=== PATIENT | female | born 1995 | race Caucasian/White ===

== ENCOUNTER → 2018-11-21 13:40 | Outpatient (CLI) | payer OTHER, SELFPAY | PROVIDERS: Visit Provider Obstetrics & Gynecology | DX: Z12.4 Encounter for screening for malignant neoplasm of cervix (principal) | CPT/HCPCS: 88175; G0145 ==

== ENCOUNTER → 2018-12-03 09:01 | Outpatient (CLI) | payer OTHER, SELFPAY ==
[2017-08-24 12:52] VITALS: BMI 25.7
[2018-12-03 10:02] LABS: Internal QC Validated? YES +Cl - CLEAR BKGD; Pregnancy, Urine Negative Negative
== END ==
PROVIDERS: Family Provider Internal Medicine; PCP Internal Medicine; Referring Provider Nurse Practitioner Family; Visit Provider Nurse Practitioner Family
DX: L70.0 Acne vulgaris (principal); Z79.899 Other long term (current) drug therapy
CPT/HCPCS: 81025

== ENCOUNTER → 2019-01-09 09:30 | Outpatient (CLI) | payer OTHER, SELFPAY ==
[2017-08-24 12:52] VITALS: BMI 25.7
[2019-01-09 12:20] LABS: Internal QC Validated? YES +Cl - CLEAR BKGD; Pregnancy, Urine Negative Negative
== END ==
PROVIDERS: Family Provider Internal Medicine; PCP Internal Medicine; Referring Provider Nurse Practitioner Family; Visit Provider Nurse Practitioner Family
DX: L70.0 Acne vulgaris (principal)
CPT/HCPCS: 81025

== ENCOUNTER → 2019-02-11 14:39 | Outpatient (CLI) | payer OTHER, SELFPAY ==
[2017-08-24 12:52] VITALS: BMI 25.7
[2019-02-11 18:20] LABS: Absolute Lymphocyte Count 1.43 X10^3/ul (0.83-4.51); Absolute Neutrophil Count 3.2 X10^3/uL (2.0-7.7); Basophil# 0.02 X10^3/uL; Basophil% 0.4 % (0-1); Eosinophils% 1.9 % (0-5); Hematocrit 39.5 % (37-47); Hemoglobin 13.4 g/dl (12.0-15.0); Lymphocyte # 1.43 X10^3/ul (4.0); Lymphocyte % 27.1 % (19-41); Mean Corp Hgb Conc 33.9 g/gl (32-36); Mean Corpuscular Hgb 29.9 pg (27.0-32.0); Mean Corpuscular Volume 88.2 fL (81-99); Mean Platelet Vol. 9.3 fl (6.2-12.0); Monocyte# 0.51 X10^3/uL; Monocyte% 9.7 % (0-10); Neutrophil # 3.21 X10^3/uL (2.7-7.7); Neutrophil % 60.9 % (47-70); Platelet Count 313 K/mm3 (150-450); RBC Distribution Width CV 12.4 % (11.6-14.6); RBC Distribution Width SD 40.1 fl (35.1-43.9); Red Blood Count 4.48 M/mm3 (4.2-5.4); White Blood Count 5.3 K/mm3 (4.4-11.0)
[2019-02-11 18:21] LABS: POSITIVE COUNT NO; POSITIVE DIFFERENTIAL NO; POSITIVE MORPHOLOGY NO
[2019-02-11 18:28] LABS: Internal QC Validated? YES +Cl - CLEAR BKGD; Pregnancy, Urine Negative Negative
[2019-02-11 18:40] LABS: ALB/GLOB Ratio 1.3 RATIO (0.9-2.4); AST(SGOT) 19 U/L (15-37); Alanine Aminotransfer ALT/SGPT 28 U/L (13-56); Albumin, Serum 4.5 g/dL (3.2-5.0); Alkaline Phosphatase 59 U/L (45-117); Anion Gap 4 (5-15); BUN 11 mg/dL (7-18); BUN/Creat Ratio 15.4 RATIO (10-20); Calcium,Total 9.2 mg/dL (8.5-10.1); Chloride 103 mmol/L (98-107); Cholesterol 213 mg/dL (200); Creatinine, Serum 0.72 mg/dL (0.55-1.02); EST Glomerular Filtration Rate 106 mL/min (>60); Est Glom Filt Rate - Afr Amer 128 mL/min (>60); Globulin 3.4 g/dL (2.2-4.2); Glucose 76 mg/dL (74-106); High Density Lipoprotein 54 mg/dL; Potassium 3.9 mmol/L (3.5-5.1); Protein, Total 7.9 g/dL (6.4-8.2); Sodium Level 135 mmol/L (136-145); Triglycerides 332 mg/dL; Very Low Density Lipoprotein 66 mg/dL (5-40)
== END ==
PROVIDERS: Family Provider Internal Medicine; PCP Internal Medicine; Referring Provider Nurse Practitioner Family; Visit Provider Nurse Practitioner Family
DX: L70.0 Acne vulgaris (principal); Z79.899 Other long term (current) drug therapy
CPT/HCPCS: 36415; 80053; 80061; 81025; 85025

== ENCOUNTER → 2019-03-25 15:55 | Outpatient (CLI) | payer OTHER, SELFPAY ==
[2017-08-24 12:52] VITALS: BMI 25.7
[2019-03-25 17:51] LABS: Internal QC Validated? YES +Cl - CLEAR BKGD; Pregnancy, Urine Negative Negative
== END ==
PROVIDERS: Family Provider Internal Medicine; PCP Internal Medicine; Referring Provider Nurse Practitioner Family; Visit Provider Nurse Practitioner Family
DX: L70.0 Acne vulgaris (principal); Z79.899 Other long term (current) drug therapy
CPT/HCPCS: 36415; 81025

== ENCOUNTER → 2019-05-06 09:23 | Outpatient (CLI) | payer OTHER, SELFPAY ==
[2017-08-24 12:52] VITALS: BMI 25.7
[2019-05-06 10:21] LABS: Internal QC Validated? YES +Cl - CLEAR BKGD; Pregnancy, Urine Negative Negative
== END ==
PROVIDERS: Family Provider Internal Medicine; PCP Internal Medicine; Referring Provider Nurse Practitioner Family; Visit Provider Nurse Practitioner Family
DX: L70.0 Acne vulgaris (principal)
CPT/HCPCS: 81025

== ENCOUNTER → 2019-06-16 08:17 | Outpatient (CLI) | payer OTHER, SELFPAY ==
[2017-08-24 12:52] VITALS: BMI 25.7
[2019-06-16 10:03] LABS: Internal QC Validated? YES +Cl - CLEAR BKGD
[2019-06-16 10:06] LABS: Pregnancy, Urine Negative Negative
== END ==
PROVIDERS: Family Provider Internal Medicine; PCP Internal Medicine; Referring Provider Dermatology; Visit Provider Dermatology
DX: L70.0 Acne vulgaris (principal); Z79.899 Other long term (current) drug therapy
CPT/HCPCS: 81025

== ENCOUNTER → 2020-12-19 14:17 | Outpatient (CLI) | payer OTHER, SELFPAY ==
[2020-12-19 14:13] VITALS: BMI 25.8
[2020-12-19 15:48] LABS: Absolute Lymphocyte Count 1.71 X10^3/uL (0.83-4.51); Absolute Neutrophil Count 6.9 X10^3/uL (2.0-7.7); Basophil# 0.03 X10^3/uL; Basophil% 0.3 % (0-1); Eosinophil# 0.09 X10^3/uL; Hematocrit 38.2 % (37-47); Hemoglobin 12.3 g/dL (12.0-15.0); Lymphocyte # 1.71 X10^3/ul (0.83-4.51); Lymphocyte % 18.5 % (19-41); Mean Corp Hgb Conc 32.2 g/dL (32-36); Mean Corpuscular Hgb 29.5 pg (27.0-32.0); Mean Corpuscular Volume 91.6 fL (81-99); Mean Platelet Vol. 9.5 fl (6.2-12.0); Monocyte# 0.54 X10^3/uL; Monocyte% 5.8 % (0-10); NRBC Flagged by Analyzer 0 % (0-5); Neutrophil # 6.85 X10^3/uL (2.7-7.7); Platelet Count 323 K/mm3 (150-450); RBC Distribution Width CV 12.4 % (11.6-14.6); RBC Distribution Width SD 42.1 fl (35.1-43.9); Red Blood Count 4.17 M/mm3 (4.2-5.4); White Blood Count 9.3 K/mm3 (4.4-11.0)
[2020-12-19 18:45] LABS: Amphetamine Urine VISTA NEGATIVE (<1000 ng/mL); Barbiturate Urine VISTA NEGATIVE (< 200 ng/mL); Benzodiazepine Urine VISTA NEGATIVE (< 200 ng/mL); Cocaine Urine VISTA NEGATIVE (< 300 ng/mL); Ecstacy Urine VISTA NEGATIVE (< 500 ng/mL); Methadone Urine VISTA NEGATIVE (< 300 ng/mL); PCP Urine VISTA NEGATIVE (< 25 ng/mL); THC Urine VISTA NEGATIVE (< 50 ng/mL); Vista UDS pH Range 6
[2020-12-20 09:27] LABS: HIV - WCH Non-Reactive (Nonreactive); Hepatitis B Surface Antigen Non-Reactive (Nonreactive); Hepatitis C Antibody Non-Reactive (Nonreactive); Rubella IgG Reactive (Nonreactive); Syphilis Antibodies Non-reactive
[2020-12-22 03:06] LABS: Chlamydia By Nucleic Acid AMP Negative (Negative)
[2020-12-22 17:00] LABS: Gonococcus By Nucleic Acid AMP Negative (Negative)
== END ==
PROVIDERS: PCP Internal Medicine; Referring Provider Obstetrics & Gynecology; Visit Provider Obstetrics & Gynecology
DX: Z34.90 Encounter for supervision of normal pregnancy, unspecified, unspecified trimester (principal)
CPT/HCPCS: 36415; 80307; 85025; 86703; 86762; 86780; 86803; 86850; 86900; 86901; 87086; 87088; 87340; 87491; 87591

== ENCOUNTER → 2021-02-28 12:34 | Outpatient (CLI) | payer OTHER, SELFPAY ==
[2021-01-19 08:06] VITALS: BMI 25.8
[2021-02-16 11:14] VITALS: BMI 25.8
--- NOTE | 2021-02-28 12:36 | US_ITS ---
STUDY: SECOND AND THIRD TRIMESTER OBSTETRICAL ULTRASOUND REASON FOR EXAM: Female, 25 years old anatomy scan LMP: TECHNIQUE: Transabdominal TECHNICAL QUALITY: Adequate. PRIOR ULTRASOUND: None. FINDINGS: There is a single intrauterine fetus. The fetus is in a cephalic presentation. There is demonstrated cardiac activity with a heart rate of 140 bpm. There is a normal amniotic fluid volume. The largest amniotic fluid pocket measures 8.2 cm. The amniotic fluid index (EMILIO) is cm. The placenta is anterior and low lying but not previa in location. There are Grade 0 placental changes. The cervix measures 3.2 cm in length. The adnexal regions are not visualized. BIOMETRY: BPD: 4.2 cm: 18 weeks, 5 days HC: 15.9 cm: 18 weeks, 5 days AC: 14.0 cm: 19 weeks, 2 days FL: 2.8 cm: 18 weeks, 3 days CI: 74.5 FL/BPD: 65.8 FL/HC: 17.4 FL/AC: 19.8 HC/AC: 1.14 age by current US: 18 weeks, 6 days. DIAMANTE by current US: 07/26/2021. Estimated weight: 266 grams, +/- 40 grams, 43 %. age by prior US: weeks, days. DIAMANTE by prior US: . Age by LMP: 19 weeks, 0 days. DIAMANTE by LMP: 07/25/2021. ANATOMY: Gender: Female Cranium: Normal lateral ventricles. Normal choroid plexus. Normal cerebellum. Normal cisterna magna. Normal face, nose and lips. Chest: Normal 4-chamber heart. Abdomen/Pelvis: Normal diaphragm. Normal stomach. Normal abdominal wall. Normal cord insertion. Normal 3 vessel cord. Normal kidneys. Normal bladder. Spine: Normal cervical spine. Normal thoracic spine. Normal lumbar spine. Normal sacrum. Extremities: Normal bilateral upper extremities. Normal bilateral lower extremities. US/OB Anatomy Scan IMPRESSION: Living intrauterine of 18 weeks 6 days as described above. Anterior low-lying placenta. Electronically Signed: Faisal Chang MD at 15:17 EDT Tel , Service support ,
== END ==
PROVIDERS: PCP Internal Medicine; Referring Provider Obstetrics & Gynecology; Visit Provider Obstetrics & Gynecology
DX: Z34.90 Encounter for supervision of normal pregnancy, unspecified, unspecified trimester (principal)
CPT/HCPCS: 76805; 76817

== ENCOUNTER → 2021-04-13 | Outpatient (CLI) | payer OTHER, SELFPAY ==
[2021-04-13 08:39] VITALS: BMI 25.8
== END | disposition home or self-care (01) ==
PROVIDERS: PCP Internal Medicine; Visit Provider Nurse Practitioner Women's Health
DX: R30.0 Dysuria (principal)
CPT/HCPCS: 87086; 87088

== ENCOUNTER → 2021-05-01 09:00 | Outpatient (CLI) | payer OTHER, SELFPAY ==
[2021-03-17 14:05] VITALS: BMI 25.8
--- NOTE | 2021-05-01 09:20 | US_ITS ---
STUDY: SECOND AND THIRD TRIMESTER OBSTETRICAL ULTRASOUND - LIMITED REASON FOR EXAM: Female, 25 years old placenta location at 28 weeks LMP: 10/18/2020 PRIOR ULTRASOUND: 02/28/2021 TECHNIQUE: Transabdominal TECHNICAL QUALITY: Adequate. FINDINGS: There is a single intrauterine fetus. The fetus is in a cephalic presentation. There is demonstrated cardiac activity with a heart rate of 141 bpm. There is a normal amniotic fluid volume. The largest amniotic fluid pocket measures 4.8 cm. The amniotic fluid index (EMILIO) is 12.8 cm. The placenta is anterior in location and is not low lying. There are Grade 0 placental changes. The cervix measures 3.7 cm in length. Age by LMP: 27 weeks, 6 days. DIAMANTE by LMP: 07/25/2021. US/OB Limited (No Biometrics) IMPRESSION: Living intrauterine of 27 weeks 6 days as described above. Electronically Signed: Faisal Chang MD at 13:08 EDT Tel , Service support ,
[2021-05-01 09:22] LABS: Absolute Lymphocyte Count 1.51 X10^3/uL (0.83-4.51); Absolute Neutrophil Count 5.3 X10^3/uL (2.0-7.7); Basophil# 0.03 X10^3/uL; Basophil% 0.4 % (0-1); Eosinophil# 0.09 X10^3/uL; Eosinophils% 1.2 % (0-5); Hematocrit 33.4 % (37-47); Hemoglobin 11.1 g/dL (12.0-15.0); Lymphocyte # 1.51 X10^3/ul (0.83-4.51); Lymphocyte % 20.4 % (19-41); Mean Corp Hgb Conc 33.2 g/dL (32-36); Mean Corpuscular Hgb 31.1 pg (27.0-32.0); Mean Corpuscular Volume 93.6 fL (81-99); Monocyte# 0.41 X10^3/uL; Monocyte% 5.5 % (0-10); NRBC Flagged by Analyzer 0 % (0-5); Neutrophil # 5.31 X10^3/uL (2.7-7.7); Platelet Count 177 K/mm3 (150-450); RBC Distribution Width CV 12.3 % (11.6-14.6); RBC Distribution Width SD 42.3 fl (35.1-43.9); Red Blood Count 3.57 M/mm3 (4.2-5.4); White Blood Count 7.4 K/mm3 (4.4-11.0)
[2021-05-01 09:38] LABS: Glucose Challenge Gest 1H 50g 142 mg/dL (70-140)
== END ==
PROVIDERS: Nurse Practitioner Women's Health; PCP Internal Medicine; Referring Provider Obstetrics & Gynecology; Visit Provider Obstetrics & Gynecology
DX: Z34.02 Encounter for supervision of normal first pregnancy, second trimester (principal)
CPT/HCPCS: 36415; 76815; 82950; 85025

== ENCOUNTER → 2021-05-10 06:49 | Outpatient (CLI) | payer OTHER, SELFPAY ==
[2021-05-10 07:47] LABS: Glucose GTT-Gestation. Fasting 77 mg/dL (<105)
[2021-05-10 08:35] LABS: Glucose GTT-Gestational 1 Hr 171 mg/dL (<190)
[2021-05-10 11:06] LABS: Glucose GTT-Gestational 3 Hr 114 L (<145)
[2021-05-10 11:09] LABS: Glucose GTT-Gestational 2 Hr 143 mg/dL (<165)
== END ==
PROVIDERS: PCP Internal Medicine; Referring Provider Obstetrics & Gynecology; Visit Provider Obstetrics & Gynecology
DX: Z13.1 Encounter for screening for diabetes mellitus (principal)
CPT/HCPCS: 36415; 82951; 82952

== ENCOUNTER → 2021-06-30 17:10 | Outpatient (CLI) | payer OTHER, SELFPAY | PROVIDERS: PCP Internal Medicine; Visit Provider Obstetrics & Gynecology | DX: Z34.90 Encounter for supervision of normal pregnancy, unspecified, unspecified trimester (principal) | CPT/HCPCS: 87081 ==

== ENCOUNTER 2021-07-21 11:00 | Inpatient (IN) | payer OTHER, SELFPAY ==
[2021-07-21] VITALS (38 sets, daily range): BP systolic 97–134; BP diastolic 54–92; PULSE 72–135; TEMP 35.5–36.7; O2SAT 97–100; BMI 29.7
[2021-07-21] MEDS: 0.9% Saline Lock 10 ML Syringe IV ×3 (11:10→21:53)
[2021-07-21 11:46] LABS: Absolute Lymphocyte Count 1.53 X10^3/uL (0.83-4.51); Absolute Neutrophil Count 5.5 X10^3/uL (2.0-7.7); Basophil# 0.04 X10^3/uL; Basophil% 0.5 % (0-1); Eosinophil# 0.08 X10^3/uL; Hematocrit 36.5 % (37-47); Hemoglobin 12.7 g/dL (12.0-15.0); Lymphocyte # 1.53 X10^3/ul (0.83-4.51); Lymphocyte % 19.6 % (19-41); Mean Corp Hgb Conc 34.8 g/dL (32-36); Mean Corpuscular Hgb 31.5 pg (27.0-32.0); Mean Corpuscular Volume 90.6 fL (81-99); Mean Platelet Vol. 10.1 fl (6.2-12.0); Monocyte# 0.56 X10^3/uL; Monocyte% 7.2 % (0-10); NRBC Flagged by Analyzer 0 % (0-5); Neutrophil # 5.54 X10^3/uL (2.7-7.7); Neutrophil % 71.2 % (47-70); Platelet Count 177 K/mm3 (150-450); RBC Distribution Width CV 12.5 % (11.6-14.6); RBC Distribution Width SD 41.2 fl (35.1-43.9); Red Blood Count 4.03 M/mm3 (4.2-5.4); White Blood Count 7.8 K/mm3 (4.4-11.0)
[2021-07-21] MEDS: 0.9% Normal Saline Single 100 ML IV.SOLN. INTRA-UTER (12:23)
[2021-07-21] MEDS: Lactated Ringers 1,000 ML 50 ML IV (12:31)
[2021-07-21] MEDS: Oxytocin 30 units/NS 500 ml 30 UNITS/500 ML IV.SOLN IV (12:31)
--- NOTE | 2021-07-21 15:02 | HP.PCM_ITS ---
History and Physical Date of Admission: 07/21/21 Vital Signs 07/21/21 09:41 Weight: 176 lb 12.8 oz BP 122/72 H Intake Visit Reasons: 39WK OB Allergies geo Allergy (Verified 07/12/21 11:21) Unknown Last Menstral Period: 10/10/20 PFS PFS Medical History Depression History of venomous spider bite Low-lying placenta in second trimester Surgical History H/O wisdom tooth extraction Hx of tonsillectomy Family History Aunt Breast cancer Social History adopted: No household members: spouse housing: house current occupational status: employed current occupation: [employer] Smoking Status: Never smoker second hand exposure: No alcohol intake: never substance use type: does not use seatbelt use: always do you feel safe at home: Yes additional social history: [employer] employee [employer] Pregancy History 1 Elective abortions Hx Para Spontaneous abortions Hx # Term Pregnancies Ectopic pregnancies Hx # Pregnancies Multiple births # of living children HPI 39WK OB Details: SAGE GONZALES is a 25 year old who presents for routine OB visit. OB Visit DIAMANTE Calculator Estimated Delivery Date Method Current WG Current Estimate 07/25/21 Ultrasound #1 39w 3d Other Estimates 07/17/21 LMP (Certain) 40w 4d Expected Delivery Route/Plan Labor Preferences- labor support person: soy labor intervention preferences: open to standard interventions pain management options preferred: natural if able but likely planning epidural cut cord/dad catch: maybe cord, patient possibly wants to help : yes PP control planned: iud? discussed possible routes of delivery and associated risks: discussed possible delivery modalities and possible indications for each including R/B/A of , VAVD, and CS. questions answered. special requests: none Specific Issue/Plans covid status: pos in september counseled regarding risk of covid in vs vaccination and declined vaccination flu vaccine: given tdap vaccine: given rhogam: na LARC form signed: 05/25 movement and labor precautions reviewed. Problem list reviewed and updated with the most current plan of care details and appropriate orders placed. Relevant counseling for the gestational age provided. Continue routine care and follow up unless otherwise noted in visit notes/problem list details Initial Weight: 150 lb Date EGA Weight BP Urine Prot Glucose FHR FuHt Pres Dilation Effaced St Visit Note 12/19/20 8w 6d 150 lb 8 oz (+8 oz) 110/70 175 SM- CRL NOT cons with LMP, 1.9 cm 01/19/21 13w 2d 153 lb (+3 lb) 114/64 Negative Negative 150 SM- no vb no regualr ctx 02/16/21 17w 2d 153 lb (+3 lb) 98/68 Negative Negative 154 MH-NO VB, LOF. Feels well. Anatomy US [facility] 02/2803/17/21 21w 3d 159 lb 8 oz (+9 lb 8 oz) 94/70 Negative Negative 155 GP - no LOF, VB, DFM, ctx. Denies complaints. Having a girl! 04/13/21 25w 2d 161 lb 6 oz (+11 lb 6 oz) 110/60 Negative Negative 157 24 MH-No VB, LOF. Doing well. Good FM. US scheduled 05/01 to check placenta 05/10/21 29w 1d 161 lb 4 oz (+11 lb 4 oz) 110/70 Negative Negative 145 30 Cephalic SM- no vb lof good fm no reuglar ctx nl gtt 3 hr 05/25/21 31w 2d 164 lb (+14 lb) 110/70 Negative Negative 150 31 Cephalic GP - no LOF, VB, dFM, ctx. LARC form signed - declines 06/09/21 33w 3d 169 lb (+19 lb) 110/80 Negative Negative 150 33 Cephalic GP - no LOF, VB, dFM, ctx. Discussed labor preferences. 06/23/21 35w 3d 168 lb 6 oz (+18 lb 6 oz) 112/70 Negative Negative 150 35 Cephalic SM- no vb lof good fm no regular ctx 06/30/21 36w 3d 172 lb (+22 lb) 130/82 Negative Negative 140 36 Cephalic 1 SM- no vb lof good fm no regular ctx gbs today 07/07/21 37w 3d 171 lb (+21 lb) 112/72 140 37 Cephalic SM- no vb lof good fm no reuglar ctx 07/12/21 38w 1d 173 lb (+23 lb) 112/80 140 38 Cephalic SM- no vb lof good fm no reuglar ctx some swelling 07/21/21 39w 3d 176 lb 12.8 oz (+26 lb 12.8 oz) 122/72 135 35 Cephalic 2 40 -1 SM- no vb lof good fm no regular ctx, low FH an done and 4.9 recommend IOL ACOG First Trimester First Trimester: Desire for , Alcohol, Tobacco Cessation, Illicit/Recreational Drug/Substance Use, Intimate Partner Violence, Barriers to care, Unstable Housing, Communication Barriers, Environmental/Work Hazards, Anticipated Course of Care, Toxoplasmosis Precations, Use of Any medications, Sexual activity, Exercise, Dental Care, Sauna/Hot tub use, Seat Belt use, Childbirth classes/Hospital facilities, , Travel, Indications for Ultrasound and Screening for Aneuploidy Diagnostics Diagnostics Diagnostics: Gest Glucose Tolerance MG/DL Glucose 1 Hr 50 gm 142 mg/dL (70-140) H Hgb 11.1 g/dL (12.0-15.0) L Hct 33.4 % (37-47) L Details: HIV: Urine Culture: Sequential Screen: NIPT Screen: Coding Level of Care Code OB Routine Diagnoses Oligohydramnios in third trimester O41.03X0 Abnormal glucose affecting O99.810 Depression F32.9 Depression Type: unspecified Supervision of normal Z34.02 Normal : normal first Trimester: second trimester Z3A.38 Weeks of gestation: 38 weeks Assessment and Plan Assessment and Plan (1) Oligohydramnios in third trimester: Status: Acute Comment: IOL pit and fb, epi PRN (2) Abnormal glucose affecting : Status: Acute Comment: nl 3GTT (3) Depression: Status: Acute Qualifiers: Depression Type: unspecified Qualified Code(s): F32.9 - Major depressive disorder, single episode, unspecified Comment: not on any medication at this time. 02/16 stable (4) Supervision of normal : Status: Acute Qualifiers: Normal : normal first Trimester: second Qualified Code(s): Z34.02 - Encounter for supervision of normal first , second trimester Comment: PRR DIAMANTE: 07/25/21 girl Cornelia Spouse: Soy (5) : Status: Acute Qualifiers: Weeks of gestation: 38 weeks Qualified Code(s): Z3A.38 - 38 weeks gestation of Comment: negative GBS, declines genetic and carrier screening. declines afp. anatomy nl UPDATE- I have seen the patient and performed any clinically relevant updates to the history and physical exam. Alejandrina Marshall MD
[2021-07-21] MEDS: Lactated Ringers 500 ML 999 ML IV ×2 (20:05→21:05)
[2021-07-21] MEDS: fentaNYL-bupivacaine (epidural) 100 ML BAG EPIDURAL (21:03)
[2021-07-21] MEDS: Ondansetron 4 MG/2 ML Vial IV (21:54)
[2021-07-22] VITALS (43 sets, daily range): BP systolic 109–132; BP diastolic 46–86; PULSE 70–101; RESP 16–18; TEMP 36.1–36.9; O2SAT 92–100
[2021-07-22] MEDS: Lactated Ringers 1,000 ML 200 ML IV (00:33)
[2021-07-22] MEDS: fentaNYL-bupivacaine (epidural) 100 ML BAG EPIDURAL (01:20)
--- NOTE | 2021-07-22 01:52 | OP.PCM_ITS ---
Assessment & Plan (1) : QUALIFIERS: Weeks of gestation: 38 weeks Qualified Code(s): Z3A.38 - 38 weeks gestation of COMMENT: negative GBS, declines genetic and carrier screening. declines afp. anatomy nl (2) Supervision of normal : QUALIFIERS: Normal : normal first Trimester: second trimester Qualified Code(s): Z34.02 - Encounter for supervision of normal first , second trimester COMMENT: PRR DIAMANTE: 07/25/21 girl Cornelia Spouse: Nitin (3) Depression: QUALIFIERS: Depression Type: unspecified Qualified Code(s): F32.9 - Major depressive disorder, single episode, unspecified COMMENT: not on any medication at this time. 02/16 stable (4) Abnormal glucose affecting : COMMENT: nl 3GTT (5) Oligohydramnios in third trimester: COMMENT: IOL pit and fb, epi PRN (6) Vaginal delivery: COMMENT: iol oligo 39 SM girl Cornelia Maternal Data Information DIAMANTE Calculator Estimated Delivery Date Method Current WG Current Estimate 07/25/21 Ultrasound #1 39w 4d Other Estimates 07/17/21 LMP (Certain) 40w 5d Vaginal Delivery Operative Information Date of Procedure: 07/22/21 Pre-Operative Diagnosis: IOL oligo Post-Operative Diagnosis: same Surgery / Procedure Performed: Spontaneous Vaginal Delivery Type of Anesthesia: Epidural Special Medications: none Estimated Blood Loss: 400 Fluids Replaced: crystalloid Findings Description of Procedure: Patient began pushing and delivered the head in the DAVID presentation. The head was delivered atraumatically . The anterior and posterior shoulders delivered without complication followed by the rest of the infant and the infant was placed on the maternal abdomen. Delayed cord clamping was employed for approximately 60 seconds. Cord was clamped and cut and gentle traction was applied to the cord and the placenta delivered spontaneously immediately following it was noted to be intact with three-vessel cord. The perineum and vagina were inspected and noted a small first-degree perineal laceration that was repaired in the usual fashion with 3-0 Vicryl Rapide. EBL was 400 cc. Patient and tolerated delivery well. Presentation: DAVID Amniotic Membrane Rupture Type: Artificial Amniotic Fluid Description: Clear Placental Delivery Description: Spontaneous Placenta Disposition: [facility] Cord Vessel Description: 3 Vessels Cord Entanglement: None A Gender: Female Delayed Cord Clamping: Yes Post Vaginal Delivery Medications Given After Delivery: IV Pitocin Episiotomy Description: None Laceration: Perineal Extension/lac and 1st degree Complication Complications: None Procedures Urinary/Genital [id number]: [id number] Vaginal Delivery [facility]
--- NOTE | 2021-07-22 01:58 | PCM.DC ---
Discharge Instructions Diet Discharge Diet: No restrictions Activity Discharge Activity: Return to Normal Activity, May Not Drive (while taking narcotic pain medications.) and May Shower May resume sexual activity in: 4-6 weeks Dressing / Incision Call your doctor if your incision/area has: Continuous Slow Oozing, Sudden Increased Bleeding, Increased Pain/ Swelling, Increased Redness and Foul Smelling Discharge Follow Up Care Please Follow Up With: Alejandrina Marshall MD When: Call [phone] to make an appointment with your doctor in 6 weeks. If you had elevated blood pressure or 4th degree laceration, you will need to be seen in 2 weeks. Test Results: Test results from this visit will be discussed in further detail at your follow-up appointment, if applicable. Discharge Plan Admission Admit Date/Time: 07/21/21 11:00 Primary Reason for Your Visit: vaginal delivery Attending Provider: Alejandrina Marshall Primary Care Provider: Sunita Fernandes Discharge Orders/Prescriptions Prescriptions: No Action PNV-DHA 27 mg iron-1 mg -300 mg capsule 1 cap PO DAILY RF: 0 Referrals / Follow Up: Sunita Fernandes DO [Primary Care Provider] - Disposition Disposition (needs filled in before D/C Order can be placed): Home, Self Care
[2021-07-22] MEDS: Ondansetron 4 MG/2 ML Vial IV (02:36)
[2021-07-22] MEDS: Acetaminophen 500 MG Tablet PO (03:13)
[2021-07-22] MEDS: Oxytocin 30 units/NS 500 ml 30 UNITS/500 ML IV.SOLN 334 UNITS IV (03:55)
[2021-07-22] MEDS: Naproxen 500 MG Tablet PO ×3 (04:47→21:25)
--- NOTE | 2021-07-22 08:20 | NURSING ---
Epidural catheter removed, tip intact.
[2021-07-22] MEDS: Prenatal Vits Tablet 1 TABLET PO (13:22)
[2021-07-23 03:54] VITALS: BP 121/74; PULSE 78; RESP 16; TEMP 36.3
[2021-07-23 07:52] VITALS: BP 117/73; PULSE 84; RESP 14; TEMP 36.3; O2SAT 98
--- NOTE | 2021-07-23 08:41 | PCM.PN.OB ---
Subjective Subjective Patient doing well without complaints. Tolerating PO. Ambulating and voiding without difficulty. feeding well. Denies chest pain, shortness of breath, calf pain/swelling, fevers, chills, lightheadedness. Objective Data Objective Data Vital Signs: Vital Signs Temp Pulse Resp BP Pulse Ox 97.3 F L 84 14 117/73 98 07/23/21 07:52 07/23/21 07:52 07/23/21 07:52 07/23/21 07:52 07/23/21 07:52 Oxygen Delivery Method Room Air Weight: 173 lb Body Mass Index (BMI) 29.7 Intake & Output: Intake and Output for Last 24 Hours 07/21/21 07/22/21 07/23/21 23:59 23:59 23:59 Intake Total 3027.07 / 3027.07 2230.63 / 2230.63 Output Total 650 / 650 400 / 400 Balance 2377.07 / 2377.07 1830.63 / 1830.63 Lab / Micro Data Result Diagrams: 07/21/21 11:10 Micro: Microbiology 07/21/21 11:25 Nasal Secretion SARS-CoV-2 Antigen (Rapid) - Final ROS Constitutional Constitutional: Reports systems reviewed and no addt'l complaints, except as documented Cardiovascular Cardiovascular: Reports systems reviewed and no addt'l complaints, except as documented Respiratory/Chest Respiratory/Chest: Reports systems reviewed and no addt'l complaints, except as documented Gastrointestinal Gastrointestinal: Reports systems reviewed and no addt'l complaints, except as documented Physical Exam Const alert, oriented x3 and no apparent distress HEENT Head and Scalp: atraumatic Resp normal respiratory effort GI soft to palpation and non-tender Inspection: incision intact, healing well and drainage (none) Bimanual Exam - Vag & Uterus: uterus non-tender Uterus Palpation: uterus fundus firm (below Umbilicus) Assessment & Plan (1) Vaginal delivery: COMMENT: iol oligo 39 SM girl Cornelia PLAN: s/p PPD # 1 1. routine post delivery care 2. breast feeding- support given 3. rh positive 4. rubella immune
== END 2021-07-23 09:30 | disposition home or self-care (01) | DRG 807 ==
PROVIDERS: Admitting Provider Obstetrics & Gynecology; PCP Internal Medicine; Visit Provider Obstetrics & Gynecology
DX: O41.03X0 Oligohydramnios, third trimester, not applicable or unspecified (principal); Z37.0 Single live birth; O99.814 Abnormal glucose complicating childbirth; O70.0 First degree perineal laceration during delivery; Z3A.39 39 weeks gestation of pregnancy; Z86.16 Personal history of COVID-19
CPT/HCPCS: 59025; 59050; 85025; 86850; 86900; 86901; 87426; 99218; J7120; A4216; G0378; J2405

== ENCOUNTER 2021-09-07 14:55 | Outpatient (CLI) | payer OTHER, SELFPAY ==
[2021-09-12 20:20] LABS: HPV Reflexed? NOT INDICATED
== END 2021-09-07 23:59 | disposition short-term general hospital (02) ==
PROVIDERS: PCP Internal Medicine; Referring Provider Obstetrics & Gynecology; Visit Provider Obstetrics & Gynecology
DX: Z12.4 Encounter for screening for malignant neoplasm of cervix (principal)
CPT/HCPCS: 88175; G0145

== ENCOUNTER → 2023-11-22 | Outpatient (CLI) | payer OTHER, SELFPAY ==
[2023-11-22 12:18] LABS: Absolute Lymphocyte Count 1.83 X10^3/uL (0.83-4.51); Absolute Neutrophil Count 7.2 X10^3/uL (2.0-7.7); Basophil# 0.04 X10^3/uL; Basophil% 0.4 % (0-1); Eosinophil# 0.12 X10^3/uL; Eosinophils% 1.2 % (0-5); Hematocrit 37.7 % (37-47); Hemoglobin 12.7 g/dL (12.0-15.0); Lymphocyte # 1.83 X10^3/ul (0.83-4.51); Lymphocyte % 18.7 % (19-41); Mean Corp Hgb Conc 33.7 g/dL (32-36); Mean Corpuscular Hgb 30.2 pg (27.0-32.0); Mean Corpuscular Volume 89.5 fL (81-99); Monocyte# 0.62 X10^3/uL; Monocyte% 6.3 % (0-10); NRBC Flagged by Analyzer 0 % (0-5); Neutrophil # 7.16 X10^3/uL (2.7-7.7); Neutrophil % 73.2 % (47-70); Platelet Count 280 K/mm3 (150-450); RBC Distribution Width CV 12.8 % (11.6-14.6); RBC Distribution Width SD 42.1 fl (35.1-43.9); Red Blood Count 4.21 M/mm3 (4.2-5.4); White Blood Count 9.8 K/mm3 (4.4-11.0)
[2023-11-22 13:23] LABS: HIV - WCH Non-Reactive (Nonreactive); Hepatitis B Surface Antigen Non-Reactive (Nonreactive); Hepatitis C Antibody Non-Reactive (Nonreactive); Rubella IgG Reactive (Nonreactive); Syphilis Antibodies Non-reactive
[2023-11-25 21:07] LABS: Chlamydia By Nucleic Acid AMP Negative (Negative); Gonococcus By Nucleic Acid AMP Negative (Negative)
== END | disposition home or self-care (01) ==
PROVIDERS: PCP Internal Medicine; Referring Provider Registered Nurse; Visit Provider Registered Nurse
DX: Z34.90 Encounter for supervision of normal pregnancy, unspecified, unspecified trimester (principal)
CPT/HCPCS: 36415; 85025; 86703; 86762; 86780; 86803; 86850; 86900; 86901; 87086; 87340; 87491; 87591

== ENCOUNTER → 2024-02-05 | Outpatient (CLI) | payer OTHER, SELFPAY ==
--- NOTE | 2024-02-05 12:25 | US_ITS ---
STUDY: SECOND AND THIRD TRIMESTER OBSTETRICAL ULTRASOUND REASON FOR EXAM: Female, 28 years old anatomy LMP: September 19, 2023. TECHNIQUE: Transabdominal and Transvaginal TECHNICAL QUALITY: Adequate. PRIOR ULTRASOUND: None. FINDINGS: There is a single intrauterine fetus. The fetus is in a breech presentation. There is demonstrated cardiac activity with a heart rate of 145 bpm. There is a normal amniotic fluid volume. The largest amniotic fluid pocket measures 4.3 cm x 4.3 cm. The amniotic fluid index (EMILIO) is within normal limits. The placenta is posterior in location and is not low lying. There are Grade 0 placental changes. The cervix measures 3.2 cm in length. The bilateral adnexal regions are normal. BIOMETRY: BPD: 4.5 cm: 19 weeks, 3 days HC: 16.7 cm: 19 weeks, 3 days AC: 14.7 cm: 20 weeks, 0 days FL: 3.1 cm: 19 weeks, 3 days CI: 75% FL/BPD: 69% FL/HC: FL/AC: 21% HC/AC: 1.13 age by current US: 19 weeks, 4 days. DIAMANTE by current US: June 27, 2024. Estimated weight: 310 grams, +/- 47 grams, 39 %. Age by LMP: 19 weeks, 6 days. DIAMANTE by LMP: June 25, 2024. ANATOMY: Gender: Female Cranium: Normal lateral ventricles. Normal choroid plexus. Normal cerebellum. Normal cisterna magna. Normal face, nose and lips. Chest: Normal 4-chamber heart. Abdomen/Pelvis: Normal diaphragm. Normal stomach. Normal abdominal wall. Normal cord insertion. Normal 3 vessel cord. Normal kidneys. Normal bladder. Spine: Normal cervical spine. Normal thoracic spine. Normal lumbar spine. Limited visualization of the sacrum due to position. Extremities: Normal bilateral upper extremities. Normal bilateral lower extremities. IMPRESSION: Single live intrauterine gestation with a mean gestational age of 19 weeks and 4 days. Electronically Signed: Edison Taveras MD at 15:37 EDT , STUDY: FIRST TRIMESTER OBSTETRICAL ULTRASOUND REASON FOR EXAM: Female, 28 years old . Cervical length. LMP: September 19, 2023. TECHNIQUE: Transvaginal TECHNICAL QUALITY: Adequate. PRIOR ULTRASOUND: None. FINDINGS: Cervical length measures 3.2 cm. US/OB Anatomy Scan IMPRESSION: Cervical length measures 3.2 cm. Electronically Signed: Edison Taveras MD at 15:38 EDT ,
== END | disposition home or self-care (01) ==
LOC: OPUS 12:23
PROVIDERS: PCP Internal Medicine; Referring Provider Obstetrics & Gynecology; Visit Provider Obstetrics & Gynecology
DX: Z34.81 Encounter for supervision of other normal pregnancy, first trimester (principal)
CPT/HCPCS: 76805; 76817

== ENCOUNTER → 2024-03-16 | Outpatient (CLI) | payer OTHER, SELFPAY ==
[2024-03-16 07:22] LABS: Absolute Lymphocyte Count 1.45 X10^3/uL (0.83-4.51); Absolute Neutrophil Count 4.9 X10^3/uL (2.0-7.7); Basophil# 0.03 X10^3/uL; Basophil% 0.4 % (0-1); Eosinophil# 0.16 X10^3/uL; Eosinophils% 2.2 % (0-5); Hematocrit 33.2 % (37-47); Hemoglobin 10.9 g/dL (12.0-15.0); Lymphocyte # 1.45 X10^3/ul (0.83-4.51); Lymphocyte % 20.3 % (19-41); Mean Corp Hgb Conc 32.8 g/dL (32-36); Mean Corpuscular Hgb 30.4 pg (27.0-32.0); Mean Corpuscular Volume 92.5 fL (81-99); Mean Platelet Vol. 9.4 fl (6.2-12.0); Monocyte# 0.57 X10^3/uL; NRBC Flagged by Analyzer 0 % (0-5); Neutrophil # 4.89 X10^3/uL (2.7-7.7); Neutrophil % 68.5 % (47-70); Platelet Count 219 K/mm3 (150-450); RBC Distribution Width SD 43.8 fl (35.1-43.9); Red Blood Count 3.59 M/mm3 (4.2-5.4); White Blood Count 7.1 K/mm3 (4.4-11.0)
[2024-03-16 07:47] LABS: Glucose Challenge Gest 1H 50g 70 mg/dL (70-140)
[2024-03-16 08:17] LABS: HIV - WCH Non-Reactive (Nonreactive); Syphilis Antibodies Non-reactive
== END | disposition home or self-care (01) ==
LOC: LAB 06:41
PROVIDERS: PCP Internal Medicine; Referring Provider Advanced Practice Midwife; Visit Provider Advanced Practice Midwife
DX: Z34.81 Encounter for supervision of other normal pregnancy, first trimester (principal)
CPT/HCPCS: 36415; 82950; 85025; 86703; 86780

== ENCOUNTER → 2024-05-22 | Outpatient (CLI) | payer OTHER, SELFPAY ==
--- NOTE | 2024-05-22 11:31 | US_ITS ---
EXAM: US , LIMITED CLINICAL INDICATION: history of oligohydramnios TECHNIQUE: Real-time limited ultrasound of the maternal uterus with image documentation. COMPARISON: 02/05/2024 FINDINGS: FETUS: Estimated age: 35 weeks, 2 days. DIAMANTE: 06/24/2024. EFW: Estimated weight: 2693 g (58%). BPD: 8.77 cm. HC: 31.13 cm. AC: 31.42 cm. FL: 6.89 cm. POSITION: Cephalic presentation. HEART RATE: heart rate: 155 bpm. PLACENTA: Posterior placenta. AMNIOTIC FLUID: Amniotic fluid volume is 12.3 cm with a maximal pocket of 4.15 cm. CERVIX: The cervix is not visualized. ADNEXA: Maternal adnexal structures are not visualized. US/OB Limited With Biometrics IMPRESSION: Single viable IUP. Interval growth. EMILIO within normal limits. Electronically Signed: Trae Peng DO at 22:09 EDT ,
== END | disposition home or self-care (01) ==
LOC: US 11:30
PROVIDERS: PCP Internal Medicine; Referring Provider Obstetrics & Gynecology; Visit Provider Obstetrics & Gynecology
DX: Z87.59 Personal history of other complications of pregnancy, childbirth and the puerperium (principal)
CPT/HCPCS: 76816

== ENCOUNTER → 2024-06-03 | Outpatient (CLI) | payer OTHER, SELFPAY | END | disposition home or self-care (01) | LOC: LABSPEC 10:30 | PROVIDERS: PCP Internal Medicine; Referring Provider Obstetrics & Gynecology; Visit Provider Obstetrics & Gynecology | DX: Z34.82 Encounter for supervision of other normal pregnancy, second trimester (principal) | CPT/HCPCS: 87081 ==

== ENCOUNTER 2024-06-24 07:13 | Inpatient (IN) | payer OTHER, SELFPAY ==
[2024-06-24] VITALS (35 sets, daily range): BP systolic 100–134; BP diastolic 57–89; PULSE 67–101; RESP 15–18; TEMP 36.4–36.9; O2SAT 93–100; BMI 31.6
--- OUTSIDE RECORDS SUMMARY | 2024-06-24 07:08 | XMS RPT_ITS | CCD ---
Author Organization [facility] Care Team Providers Care Craft Recruiter Name Role Phone Sunita Fernandes DO Unavailable Daisy Staley RN Unavailable Unavailable Unavailable Unavailable Medications Completed/Discontinued Medications Medication Drug Class(es) Dates Sig (Normalized) Sig (Original) [id number] 200 actuat albuterol 0.09 mg/actuat metered dose inhaler (1 source) beta2-Adrenergic Agonist Start: 4 End: 4 take 2 puff(s) by inhalation three times daily PROAIR HFA, 108 (90 Base)MCG/ACT (Inhalation Aerosol Solution) 2 (two) Puff(s) tid for 0 days Quantity: 1 {Inhaler} Refills: 0 Ordered: 17-Dec-2013 Sunita Fernandes DO, DO, Kathleen Start : 17-Dec-2013 End : 17-Dec-2013 Discontinued amitriptyline hydrochloride 25 mg oral tablet (1 source) Tricyclic Antidepressant Start: 4 End: 4 take 1 tablet by mouth once daily AMITRIPTYLINE HCL, 25MG (Oral Tablet) 1 Tablet qd for 0 days Quantity: 30 {Tablet} Refills: 0 Ordered: 17-Dec-2013 Sunita Fernandes DO, DO, Kathleen Start : 17-Dec-2013 End : 17-Dec-2013 Discontinued azithromycin 250 mg oral tablet (1 source) Macrolide Antimicrobial Start: 4 End: 4 ZITHROMAX Z-ALE, 250MG (Oral Tablet) 1 Tablet TAD for 0 days Quantity: 1 {Package(s)} Refills: 0 Ordered: 17-Dec-2013 Daisy Staley RN Start : 04-Sep-2013 End : 17-Dec-2013 Inactive citalopram 20 mg oral tablet (1 source) Serotonin Reuptake Inhibitor Start: 8 take 1 tablet by mouth once daily CeleXA 20 MG Oral Tablet 1 Tablet qd for 0 days Quantity: 30 {Tablet} Refills: 2 Ordered: 06-Jan-2018 Dom ROCHA Sunita Dom ROCHA Sunita Start : 06-Jan-2018 Active clotrimazole 10 mg oral lozenge (1 source) Azole Antifungal Start: 4 End: 4 CLOTRIMAZOLE, 10MG (Mouth/Throat Damián) 1 Damián 5x daily for 10 days Quantity: 50 {Damián} Refills: 0 Ordered: 04-Sep-2013 Bernie CAMPBELLVijaya Start : 04-Sep-2013 End : 14-Sep-2013 Inactive cyclobenzaprine hydrochloride 5 mg oral tablet (1 source) Muscle Relaxant Start: 6 End: 7 take 1 tablet by mouth once daily at bedtime as needed Cyclobenzaprine HCl 5 MG Oral Tablet 1 (one) Tablet qhs prn for muscle relaxation for 0 days Quantity: 30 {Tablet} Refills: 0 Ordered: 19-Nov-2016 Daisy Staley RN Start : 18-Jun-2016 End : 19-Nov-2016 Inactive WINSTON 3-0.02 MG Oral Tablet (1 source) Progestin, Estrogen Start: 6 End: 7 WINSTON 3-0.02 MG Oral Tablet 1 (one) Tablet uad for 0 days Quantity: 30 {Tablet} Refills: 0 Ordered: 19-Nov-2016 Daisy Staley RN Start : 18-Jun-2016 End : 19-Nov-2016 Inactive [id number] 0.3 ml EPINEPHrine 1 mg/ml auto-injector (1 source) alpha-Adrenergic Agonist, beta-Adrenergic Agonist, Catecholamine Start: 5 EPINEPHRINE, 0.3MG/0.3ML (Injection Solution Auto-injector) 1 (one) Soln Auto-inj Soln Auto-inj once for 0 days Quantity: 1 {Pre-filled_Pen_Syr guille} Refills: 1 Ordered: 04-Oct-2014 Daisy Staley RN Start : 04-Oct-2014 Active LOESTRIN 24 FE, 1-20MG-MCG (Oral Tablet) (1 source) Estrogen Start: 2 End: 4 take 1 tablet by mouth once daily LOESTRIN 24 FE, 1-20MG-MCG (Oral Tablet) 1 Tablet daily for 365 days Refills: 0 Ordered: 04-Sep-2013 Start : 15-Feb-2012 End : 04-Sep-2013 Discontinued Comments: This order discontinued per [facility]. Comment on above: This order discontin ued per [facility]. Sprintec 28 0.25-35 MG-MCG Oral Tablet (1 source) Progestin, Estrogen Start: 4 End: 6 take 1 tablet by mouth once daily Sprintec 28 0.25-35 MG-MCG Oral Tablet 1 Tablet daily for 360 days Refills: 0 Ordered: 18-Jun-2016 Lexi Lyle LPN Start : 04-Sep-2013 End : 18-Jun-2016 Discontinued fluconazole 150 mg oral tablet (1 source) Azole Antifungal Start: 8 End: 8 Diflucan 150 MG Oral Tablet 1 (one) Tablet now then 1 in 2 days for 0 days Quantity: 2 {Tablet} Refills: 0 Ordered: 09-Dec-2017 Daisy Staley RN Start : 06-Dec-2017 End : 09-Dec-2017 Inactive methylPREDNISolone 4 mg oral tablet (1 source) Corticosteroid Start: 6 End: 7 Medrol 4 MG Oral Tablet Therapy Pack 1 (one) Tab Ther Pack TAD for 0 days Quantity: 1 {Package} Refills: 0 Ordered: 29-Oct-2016 Sunita Fernandes DO, DO, Kathleen Start : 18-Jun-2016 End : 29-Oct-2016 Inactive Comments: with food Comment on above: with food spironolactone 25 mg oral tablet (1 source) Aldosterone Antagonist Start: 4 End: 6 take 1 tablet by mouth once daily Spironolactone 25 MG Oral Tablet 1 (one) Tablet Tablet qd for 0 days Quantity: 30 {Tablet} Refills: 0 Ordered: 18-Jun-2016 Lexi Lyle LPN Start : 17-Dec-2013 End : 18-Jun-2016 Discontinued Comments: from derm Comment on above: from derm Problems Active Problems Problem Classification Problem Date Documented Date Episodic/Chronic Anxiety disorders (5 sources) Anxiety; Translations: [Anxiety] 01-06-2018 Chronic Contraceptive and procreative management (2 sources) Unspecified contraceptive management; Translations: [Contraception] 01-06-2018 Episodic Immunizations and screening for infectious disease (3 sources) Patient encounter status; Translations: [Encounter for immunization] 01-06-2018 Episodic Mood disorders (3 sources) Depressive disorder; Translations: [Depressive disorder] 01-06-2018 Chronic Mycoses (2 sources) Mycosis; Translations: [Yeast infection] Resolved: 10-29-2016 01-06-2018 Episodic Other congenital anomalies (1 source) Web of larynx; 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, CONGENITAL, 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 Other endocrine disorders (2 sources) Hypoglycemia; Translations: [Hypoglycemia] 01-06-2018 Chronic Comment on above: seems to be reactive Other lower respiratory disease (2 sources) Cough; Translations: [Cough] Resolved: 10-29-2016 12-09-2017 Episodic Comment on above: for a month on BCP, will rule out PE Other nutritional; endocrine; and metabolic disorders (1 source) Body mass index 25-29 - overweight; Translations: [BMI 25.0-25.9,adult] 01-06-2018 Episodic Residual codes; unclassified (1 source) FH: Alzheimer's disease; Translations: [Family history of Alzheimer's disease] 01-06-2018 Episodic Residual codes; unclassified (1 source) Family history of diabetes mellitus; Translations: [FAMILY HISTORY OF DIABETES MELLITUS] 01-06-2018 Episodic Residual codes; unclassified (1 source) Family history of hemochromatosis; Translations: [Family history of hemochromatosis] 01-06-2018 Episodic Residual codes; unclassified (1 source) Non-smoker; Translations: [Non-smoker] 01-06-2018 Episodic Residual codes; unclassified (1 source) Family history of diabetes mellitus Episodic Spondylosis; intervertebral disc disorders; other back problems (4 sources) Backache; Translations: [Back pain] Resolved: 12-09-2017 12-09-2017 Episodic Comment on above: with tingling in leg Unclassified (13 sources) Unclassified (1 source) Thrush (112.0) Unclassified (1 source) Wheeze (786.07) Unclassified (1 source) BRONCHITIS, NOT SPECIFIED ACUTE OR CHRONIC (490.) Past or Other Problems Problem Classification Problem Date Documented Date Episodic/Chronic Chronic obstructive pulmonary disease and bronchiectasis (1 source) Bronchitis; Translations: [Bronchitis] Resolved: 10-29-2016 12-09-2017 Episodic Coronary atherosclerosis and other heart disease (1 source) Coronary atherosclerosis and other heart disease Genitourinary symptoms and ill-defined conditions (1 source) Urinary frequency; Translations: [Frequency of urination] Resolved: 10-29-2016 12-09-2017 Episodic Hepatitis (1 source) Hepatitis Other lower respiratory disease (1 source) Wheezing; Translations: [Wheeze] Resolved: 10-29-2016 12-09-2017 Episodic Other screening for suspected conditions (not mental disorders or infectious disease) (1 source) Screening status; Translations: [SCREENING FOR HYPERLIPIDEMIA (Renamed from Encounter for screening for lipoid disorders)] Resolved: 12-09-2017 12-09-2017 Episodic Unclassified (8 sources) Unspecified Diagnosis 11-19-2016 Unclassified (3 sources) BMI 25.0-25.9,adult Unclassified (3 sources) Non-smoker Unclassified (2 sources) Stress reaction Unclassified (2 sources) Yeast infection Unclassified (1 source) Physical exam Unclassified (2 sources) Family history of hemochromatosis Unclassified (1 source) Family history of Alzheimer's disease Unclassified (1 source) Adult general medical exam Unclassified (1 source) Frequency of urination (788.41) Unclassified (1 source) ANOMALY, CONGENITAL, 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.2) Unclassified (2 sources) SCHOOL PHYSICAL (V70.3) Unclassified (2 sources) SCREENING FOR TB (V74.1) Results Test Name Value Interpretation Reference Range Facility Urinalysis, Office ([id number])Or dered By: Silvana Kumari on 06-18-2016 Bilirubin Ql (U) Negative Normal Comprehe [facility]; [facility] Work Phone: Glucose Test strip (U) [Mass/Vol] Negative Normal [facility]; [facility] Work Phone: Hemoglobin Ql (U) Non Hemolyzed Trace Normal [facility]; [facility] Work Phone: Ketones Ql (U) Negative Normal Comprehens [facility]; [facility] Work Phone: Leukocyte esterase Test strip Ql (U) Negative Normal [facility]; [facility] Work Phone: Nitrite Ql (U) Negative Normal Comprehens [facility]; [facility] Work Phone: pH (U) 7 [pH] Normal [facility]; [facility] Work Phone: Protein Ql (U) Negative Normal Comprehens [facility]; [facility] Work Phone: Specific gravity (U) [Rel density] 1.015 1 Normal [facility]; [facility] Work Phone: Urobilinogen (24H U) [Mass/Time] Normal Normal [facility]; [facility] Work Phone: HEPATITIS B SURFACE ANTIBODY ([id number])Ordered By: Trim Master Operator on 12-18-2013 HBV surface Ab Ql (S) Reactive Normal [facility]; [facility] Work Phone: Comment on above: Non Reactive: Incons istent with immunity, less than 10 mIU/mL Reactive: Consistent with immunity, greater than 9.9 mIU/mL PATIENT WAS FASTINGP ERFORMED BY: Growish70 [facility] [id number] BY: Bancore A/S[address] [id number] LIPID PANEL ([id number])Ordered B y: Trim Master Operator on 12-18-2013 Cholesterol [Mass/Vol] 225 mg/dL Abnormal 100-189 [facility]; [facility] Work Phone: Comment on above: PATIENT WAS FASTINGP ERFORMED BY: Growish70 [facility] [id number] BY: Bancore A/S[address] [id number] Information: [id number] Cholesterol in HDL [Mass/Vol] 73 mg/dL Normal [facility]; [facility] Work Phone: Comment on above: According to ATP-III Guidelines, HDL-C >59 mg/dL is considered anegative risk factor for CHD. PATIENT WAS FASTINGP ERFORMED BY: CB [facility] [id number] [facility] [id number] BY: [facility] [id number] Information: [id number] Cholesterol in LDL [Mass/Vol] 132 mg/dL Abnormal 0-119 [facility]; [facility] Work Phone: Comment on above: PATIENT WAS FASTINGP ERFORMED BY: CB [facility] [id number] [facility] [id number] BY: [address] [id number] Information: [id number] Cholesterol in LDL/Cholesterol in HDL [Mass ratio] 1.8 {ratio_units} Normal 0.0-3.2 [facility]; [facility] Work Phone: Comment on above: PATIENT WAS FASTINGP ERFORMED BY: CB [facility] [id number] [facility] [id number] BY: [facility] [id number] Information: [id number] Cholesterol in VLDL [Mass/Vol] 20 mg/dL Normal 5-40 [facility]; [facility] Work Phone: Comment on above: PATIENT WAS FASTINGP ERFORMED BY: CB [facility] [id number] [facility] [id number] BY: Lab[address] [id number] Information: [id number] Triglyceride [Mass/Vol] 102 mg/dL Normal 0-114 [facility]; [facility] Work Phone: Comment on above: PATIENT WAS FASTINGP ERFORMED BY: CB [facility] Kktlvm2543 [facility] [id number] BY: [address] [id number] Information: [id number] MUMPS ANTIBODY ([id number])Ordere d By: Trim Master Operator on 12-18-2013 MuV IgM IA Qn (S) <0.80 Normal 0.00-0.79 [facility]; [facility] Work Phone: Comment on above: Negative < 0.80 Bord obie 0.80 - 1.20 Positive > 1.20 . Note: The presence of IgM specific antibody should be interpreted in conjunction with the patient's clinical history and exposure risk when an acute infection is suspected. PATIENT WAS FASTINGP ERFORMED BY: [employer] [facility] [id number] BY: Bancore A/S[address] [id number] RUBELLA ANTIBODY ([id number])Orde red By: Trim Master Operator on 12-18-2013 Rubella virus IgG Qn (S) 3.47 {index} Normal [facility]; [facility] Work Phone: Comment on above: Non-immune <0.90 Equ ivocal 0.90 - 0.99 Immune >0.99 PATIENT WAS FASTINGP ERFORMED BY: Growish[address] [place] [address] [id number] BY: Bancore A/S[address] [id number] RUBEOLA ANTIBODY ([id number])Orde red By: Trim Master Operator on 12-18-2013 MeV IgG IA Qn (S) 145.0 AU/mL Normal Compre [facility]; [facility] Work Phone: Comment on above: Negative <25.0 Equiv ocal 25.0 - 29.9 Positive >29.9 Presence of antibodies to Rubeola is presumptive evidence of immunity except when acute infection is suspected. PATIENT WAS FASTINGP ERFORMED BY: [employer] Exffgi8770 [facility] [id number] BY: Bancore A/S[address] [id number] VARICELLA-ZOSTER ANTBODY ([id number] [id number])Ordered By: Trim Master Operator on 12-18-2013 VZV IgG IA Qn (S) 4915 {index} Normal Compr ehensive [facility]; [facility] Work Phone: Comment on above: Negative <135 Equivo kvng 135 - 165 Positive >165 A positive result generally indicates exposure to the pathogen or administration of specific immunoglobulins, but it is not indication of active infection or stage of disease. PATIENT WAS FASTINGP ERFORMED BY: CB [facility] [id number] [facility] [id number] BY: BN [facility] [id number] [facility] [id number] Blood Glucose , Office ([phone])on 06-03-2013 Glucose Glucometer (BldC) [Moles/Vol] 101 1 Normal [facility]; [facility] Work Phone: Comment on above: non-fasting HgA1C , Office ([id number])on HbA1c (Bld) [Mass fraction] 5.0 % Normal 4.6 - 7.1 [facility]; [facility] Work Phone: Urinalysis, Office ([id number])on 06-03-2013 Bilirubin Ql (U) Negative Normal Comprehe nsive [facility]; [facility] Work Phone: Glucose Test strip (U) [Mass/Vol] Negative Normal [facility]; [facility] Work Phone: Hemoglobin Ql (U) Negative Normal Compreh ensive [facility]; [facility] Work Phone: Ketones Ql (U) Negative Normal Comprehens [facility]; [facility] Work Phone: Leukocyte esterase Test strip Ql (U) Negative Normal [facility]; [facility] Work Phone: Nitrite Ql (U) Negative Normal Comprehens [facility]; [facility] Work Phone: pH (U) 6.5 [pH] Normal [facility]; [facility] Work Phone: Protein Ql (U) Negative Normal Comprehens [facility]; [facility] Work Phone: Specific gravity (U) [Rel density] 1.020 1 Normal [facility]; [facility] Work Phone: Urobilinogen (24H U) [Mass/Time] Normal Normal [facility]; [facility] Work Phone: PPD ([id number])Ordered By: Jade Payne on 02-22-2012 PPD (02254) Negative Normal [facility]; [facility] Work Phone: Comment on above: Lot #[id number] ite-L f/aDose 0.1given by:[id number] [email or web address] step was given in office visit last week and was neg PPD (15746)Ordered By: Jade Payne on 02-15-2012 PPD (85851) Negative Normal [facility]; [facility] Work Phone: Vital Signs Date Time Vital Sign Value Performing Clinician Facility 01-06-2018 11:02-0400 Body height 162.56 cm Daisy Staley RN [facility]; [facility] Work Phone: 01-06-2018 11:02-0400 Body mass index (BMI) [Ratio] 25.58 kg/m2 Daisy Staley RN [facility]; [facility] Work Phone: 01-06-2018 11:02-0400 Body surface area Derived from formula 1.73 m2 Daisy Staley RN [facility]; [facility] Work Phone: 01-06-2018 11:02-0400 Body weight 67.59 kg Daisy Staley RN [facility]; [facility] Work Phone: 01-06-2018 11:02-0400 Diastolic blood pressure 78 mm[Hg] Daisy Staley RN [facility]; [facility] Work Phone: Comment on above: Patient Position: Sitting; Cuff Location : Left Arm; Cuff Size: Standard 01-06-2018 11:02-0400 Heart rate 65 /min Daisy Staley RN [facility]; [facility] Work Phone: Comment on above: Pattern: Regular 01-06-2018 11:02-0400 Respiratory rate 18 /min Daisy Staley RN Comprehensiv e [facility]; [facility] Work Phone: Comment on above: Pattern: Unlabored 01-06-2018 11:02-0400 SaO2% (BldA) [Mass fraction] 99 % Daisy Staley RN [facility]; [facility] Work Phone: Comment on above: Room air 01-06-2018 11:02-0400 Systolic blood pressure 118 mm[Hg] Daisy Staley RN [facility]; [facility] Work Phone: Comment on above: Patient Position: Sitting; Cuff Location : Left Arm; Cuff Size: Standard 12-09-2017 15:46-0400 Body height 162.56 cm Daisy Staley RN [facility]; [facility] Work Phone: 12-09-2017 15:46-0400 Body mass index (BMI) [Ratio] 25.25 kg/m2 Daisy Staley RN [facility]; [facility] Work Phone: 12-09-2017 15:46-0400 Body surface area Derived from formula 1.72 m2 Daisy Staley RN [facility]; [facility] Work Phone: 12-09-2017 15:46-0400 Body weight 66.74 kg Daisy Staley RN [facility]; [facility] Work Phone: 12-09-2017 15:46-0400 Diastolic blood pressure 80 mm[Hg] Daisy Staley RN [facility]; [facility] Work Phone: Comment on above: Patient Position: Sitting; Cuff Location : Left Arm; Cuff Size: Large 12-09-2017 15:46-0400 Heart rate 61 /min Daisy Staley RN [facility]; [facility] Work Phone: Comment on above: Pattern: Regular 12-09-2017 15:46-0400 Respiratory rate 18 /min Daisy Staley RN Comprehdarya e [facility]; [facility] Work Phone: Comment on above: Pattern: Unlabored 12-09-2017 15:46-0400 SaO2% (BldA) [Mass fraction] 98 % Daisy Staley RN [facility]; [facility] Work Phone: Comment on above: Room air 12-09-2017 15:46-0400 Systolic blood pressure 126 mm[Hg] Daisy Staley RN [facility]; [facility] Work Phone: Comment on above: Patient Position: Sitting; Cuff Location : Left Arm; Cuff Size: Large 11-19-2016 08:34-0400 Body height 162.56 cm Daisy Staley RN [facility]; [facility] Work Phone: 11-19-2016 08:34-0400 Body mass index (BMI) [Ratio] 25.95 kg/m2 Daisy Staley RN [facility]; [facility] Work Phone: 11-19-2016 08:34-0400 Body surface area Derived from formula 1.74 m2 Daisy Staley RN [facility]; [facility] Work Phone: 11-19-2016 08:34-0400 Body weight 68.58 kg Daisy Staley RN [facility]; [facility] Work Phone: 11-19-2016 08:34-0400 Diastolic blood pressure 70 mm[Hg] Daisy Staley RN [facility]; [facility] Work Phone: Comment on above: Patient Position: Sitting; Cuff Location : Left Arm; Cuff Size: Standard 11-19-2016 08:34-0400 Heart rate 82 /min Daisy Staley RN [facility]; [facility] Work Phone: Comment on above: Pattern: Regular 11-19-2016 08:34-0400 Respiratory rate 18 /min Daisy Staley RN Comprehensiv e [facility]; [facility] Work Phone: Comment on above: Pattern: Unlabored 11-19-2016 08:34-0400 SaO2% (BldA) [Mass fraction] 98 % Daisy Staley RN [facility]; [facility] Work Phone: Comment on above: Room air 11-19-2016 08:34-0400 Systolic blood pressure 116 mm[Hg] Daisy Staley RN [facility]; [facility] Work Phone: Comment on above: Patient Position: Sitting; Cuff Location : Left Arm; Cuff Size: Standard 06-18-2016 15:45-0400 Body height 162.56 cm Lexi Ivánrb LIFTER [facility]; [facility] Work Phone: 06-18-2016 15:45-0400 Body mass index (BMI) [Ratio] 25.3 kg/m2 Lexi Slarb LIFTER [facility]; [facility] Work Phone: 06-18-2016 15:45-0400 Body surface area Derived from formula 1.72 m2 Lexi Slarb LIFTER [facility]; [facility] Work Phone: 06-18-2016 15:45-0400 Body temperature 98 [degF] Lexi Slarb LIFTER [facility]; [facility] Work Phone: 06-18-2016 15:45-0400 Body weight 66.85 kg Lexi Slarb LIFTER [facility]; [facility] Work Phone: 06-18-2016 15:45-0400 Diastolic blood pressure 76 mm[Hg] Lexi Slarb LIFTER [facility]; [facility] Work Phone: Comment on above: Patient Position: Sitting; Cuff Location : Left Arm; Cuff Size: Standard 06-18-2016 15:45-0400 Heart rate 78 /min Lexi Slarb LIFTER [facility]; [facility] Work Phone: Comment on above: Pattern: Regular 06-18-2016 15:45-0400 Respiratory rate 14 /min Lexi Slarb LIFTER [facility]; [facility] Work Phone: Comment on above: Pattern: Unlabored 06-18-2016 15:45-0400 SaO2% (BldA) [Mass fraction] 99 % Lexi Slarb LIFTER [facility]; [facility] Work Phone: Comment on above: Room air 06-18-2016 15:45-0400 Systolic blood pressure 112 mm[Hg] Lexi Slarb LIFTER [facility]; [facility] Work Phone: Comment on above: Patient Position: Sitting; Cuff Location : Left Arm; Cuff Size: Standard 01-31-2015 11:19-0400 Body height 162.56 cm Daisy Staley RN [facility]; [facility] Work Phone: 01-31-2015 11:19-0400 Body mass index (BMI) [Ratio] 25.3 kg/m2 Daisy Staley RN [facility]; [facility] Work Phone: 01-31-2015 11:19-0400 Body surface area Derived from formula 1.72 m2 Daisy Staley RN [facility]; [facility] Work Phone: 01-31-2015 11:19-040 Body weight 66.85 kg Daisy Staley RN [facility]; [facility] Work Phone: 01-31-2015 11:19-0400 Diastolic blood pressure 78 mm[Hg] Daisy Staley RN [facility]; [facility] Work Phone: Comment on above: Patient Position: Sitting; Cuff Location : Left Arm; Cuff Size: Small 01-31-2015 11:19-0400 Heart rate 65 /min Daisy Staley RN [facility]; [facility] Work Phone: Comment on above: Pattern: Regular 01-31-2015 11:19-0400 Respiratory rate 18 /min Daisy Staley [facility] Work Phone: Comment on above: Pattern: Unlabored 01-31-2015 11:19-0400 SaO2% (BldA) [Mass fraction] 98 % Daisy Staley RN [facility]; [facility] Work Phone: Comment on above: Room air 01-31-2015 11:19-0400 Systolic blood pressure 120 mm[Hg] Daisy Staley RN [facility]; [facility] Work Phone: Comment on above: Patient Position: Sitting; Cuff Location : Left Arm; Cuff Size: Small 12-17-2013 13:55-0400 Body height 162.56 cm Silvana Kumari RN [facility]; [facility] Work Phone: Comment on above: corrected 20/25 L and 20/25 R eyesWhispe r Test 3/3 words repeated back and WNL 12-17-2013 13:55-0400 Body mass index (BMI) [Ratio] 24.46 kg/m2 Silvana Kumari RN [facility]; [facility] Work Phone: Comment on above: corrected 20/25 L and 20/25 R eyesWhispe r Test 3/3 words repeated back and WNL 12-17-2013 13:55-0400 Body surface area Derived from formula 1.69 m2 Silvana Kumari RN [facility]; [facility] Work Phone: Comment on above: corrected 20/25 L and 20/25 R eyesWhispe r Test 3/3 words repeated back and WNL 12-17-2013 13:55-0400 Body temperature 98.1 [degF] Silvana Kumari RN [facility]; [facility] Work Phone: Comment on above: Method: Oral corrected 20/25 L an d 20/25 R eyesWhisper Test 3/3 words repeated back and WNL 12-17-2013 13:55-0400 Body weight 64.64 kg Silvana Kumari RN [facility]; [facility] Work Phone: Comment on above: corrected 20/25 L and 20/25 R eyesWhispe r Test 3/3 words repeated back and WNL 12-17-2013 13:55-0400 Diastolic blood pressure 70 mm[Hg] Silvana Kumari RN [facility]; [facility] Work Phone: Comment on above: Patient Position: Sitting; Cuff Location : Left Arm; Cuff Size: Standard corrected 20/25 L an d 20/25 R eyesWhisper Test 3/3 words repeated back and WNL 12-17-2013 13:55-0400 Heart rate 75 /min Silvana Kumari RN [facility]; [facility] Work Phone: Comment on above: Pattern: Regular corrected 20/25 L an d 20/25 R eyesWhisper Test 3/3 words repeated back and WNL 12-17-2013 13:55-0400 Respiratory rate 18 /min Silvana Kumari RN [facility]; [facility] Work Phone: Comment on above: Pattern: Unlabored corrected 20/25 L an d 20/25 R eyesWhisper Test 3/3 words repeated back and WNL 12-17-2013 13:55-0400 SaO2% (BldA) [Mass fraction] 98 % Silvana Kumari RN [facility]; [facility] Work Phone: Comment on above: Room air corrected 20/25 L an d 20/25 R eyesWhisper Test 3/3 words repeated back and WNL 12-17-2013 13:55-0400 Systolic blood pressure 110 mm[Hg] Silvana Kumari RN [facility]; [facility] Work Phone: Comment on above: Patient Position: Sitting; Cuff Location : Left Arm; Cuff Size: Standard corrected 20/25 L an d 20/25 R eyesWhisper Test 3/3 words repeated back and WNL 09-04-2013 11:40-0500 Body height 162.56 cm Sunita Fernandes DO Work Phone: [facility]; [facility] Work Phone: 09-04-2013 11:40-0500 Body mass index (BMI) [Ratio] 25.24 kg/m2 Sunita Fernandes DO Work Phone: [facility]; [facility] Work Phone: 09-04-2013 11:40-0500 Body surface area Derived from formula 1.72 m2 Sunita Jenkinson DO Work Phone: [facility]; [facility] Work Phone: 09-04-2013 11:40-0500 Body temperature 98.9 [degF] Sunita Fernandes DO Work Phone: [facility]; [facility] Work Phone: Comment on above: Method: Oral 09-04-2013 11:40-0500 Body weight 66.71 kg Sunita Jenkinson DO Work Phone: [facility]; [facility] Work Phone: 09-04-2013 11:40-0500 Diastolic blood pressure 68 mm[Hg] Sunita Dom DO Work Phone: [facility]; [facility] Work Phone: Comment on above: Patient Position: Sitting; Cuff Location : Left Arm; Cuff Size: Standard 09-04-2013 11:40-0500 Heart rate 76 /min Sunita Fernandes DO Work Phone: [facility]; [facility] Work Phone: Comment on above: Pattern: Regular 09-04-2013 11:40-0500 SaO2% (BldA) [Mass fraction] 98 % Sunita Fernandes DO Work Phone: [facility]; [facility] Work Phone: Comment on above: Room air 09-04-2013 11:40-0500 Systolic blood pressure 108 mm[Hg] Sunita Fernandes DO Work Phone: [facility]; [facility] Work Phone: Comment on above: Patient Position: Sitting; Cuff Location : Left Arm; Cuff Size: Standard 06-03-2013 13:52-0400 Body height 162.56 cm Daisy Staley RN [facility]; [facility] Work Phone: 06-03-2013 13:52-0400 Body mass index (BMI) [Ratio] 25.24 kg/m2 Daisy Staley RN [facility]; [facility] Work Phone: 06-03-2013 13:52-0400 Body surface area Derived from formula 1.72 m2 Daisy Staley RN [facility]; [facility] Work Phone: 06-03-2013 13:52-0400 Body temperature 98.3 [degF] Daisy Staley RN [facility]; [facility] Work Phone: Comment on above: Method: Oral 06-03-2013 13:52-0400 Body weight 66.71 kg Daisy Staley RN [facility]; [facility] Work Phone: 06-03-2013 13:52-0400 Diastolic blood pressure 60 mm[Hg] Daisy Staley RN [facility]; [facility] Work Phone: Comment on above: Patient Position: Sitting; Cuff Location : Left Arm; Cuff Size: Standard 06-03-2013 13:52-0400 Heart rate 60 /min Daisy Staley RN [facility]; [facility] Work Phone: Comment on above: Pattern: Regular 06-03-2013 13:52-0400 Respiratory rate 16 /min Daisy Staley RN [facility]; [facility] Work Phone: Comment on above: Pattern: Unlabored 06-03-2013 13:52-0400 Systolic blood pressure 102 mm[Hg] Daisy Staley RN [facility]; [facility] Work Phone: Comment on above: Patient Position: Sitting; Cuff Location : Left Arm; Cuff Size: Standard 10-06-2012 08:44-0500 Body height 162.56 cm Daisy Staley RN [facility]; [facility] Work Phone: 10-06-2012 08:44-0500 Body mass index (BMI) [Ratio] 23.88 kg/m2 Daisy Staley RN [facility]; [facility] Work Phone: 10-06-2012 08:44-0500 Body surface area Derived from formula 1.68 m2 Daisy Staley RN [facility]; [facility] Work Phone: 10-06-2012 08:44-0500 Body temperature 98 [degF] Daisy Staley [facility]; [facility] Work Phone: Comment on above: Method: Oral 10-06-2012 08:44-0500 Body weight 63.11 kg Daisy Staley RN [facility]; [facility] Work Phone: 10-06-2012 08:44-0500 Diastolic blood pressure 70 mm[Hg] Daisy Staley RN [facility]; [facility] Work Phone: Comment on above: Patient Position: Sitting; Cuff Location : Left Arm; Cuff Size: Standard 10-06-2012 08:44-0500 Heart rate 60 /min Daisy Staley RN [facility]; [facility] Work Phone: Comment on above: Pattern: Regular 10-06-2012 08:44-0500 Respiratory rate 18 /min Daisy Staley [facility]; [facility] Work Phone: Comment on above: Pattern: Unlabored 10-06-2012 08:44-0500 Systolic blood pressure 120 mm[Hg] Daisy Staley RN [facility]; [facility] Work Phone: Comment on above: Patient Position: Sitting; Cuff Location : Left Arm; Cuff Size: Standard 09-04-2012 09:01-0500 Body height 162.56 cm Daisy Staley RN [facility]; [facility] Work Phone: 09-04-2012 09:01-0500 Body mass index (BMI) [Ratio] 23.26 kg/m2 Daisy Staley RN [facility]; [facility] Work Phone: 09-04-2012 09:01-0500 Body surface area Derived from formula 1.66 m2 Daisy Staley RN [facility]; [facility] Work Phone: 09-04-2012 09:01-0500 Body weight 61.46 kg Daisy Staley RN [facility]; [facility] Work Phone: 09-04-2012 09:01-0500 Diastolic blood pressure 80 mm[Hg] Daisy Staley RN [facility]; [facility] Work Phone: Comment on above: Patient Position: Sitting; Cuff Location : Left Arm; Cuff Size: Large 09-04-2012 09:01-0500 Heart rate 72 /min Daisy Staley RN [facility]; [facility] Work Phone: Comment on above: Pattern: Regular 09-04-2012 09:01-0500 Respiratory rate 20 /min Daisy Staley [facility]; [facility] Work Phone: Comment on above: Pattern: Unlabored 09-04-2012 09:01-0500 Systolic blood pressure 120 mm[Hg] Daisy Staley RN [facility]; [facility] Work Phone: Comment on above: Patient Position: Sitting; Cuff Location : Left Arm; Cuff Size: Large 02-15-2012 09:29-0400 Body height 162.56 cm Sunitajenae Fernandes Work Phone: [facility]; [facility] Work Phone: 02-15-2012 09:29-0400 Body mass index (BMI) [Ratio] 24.23 kg/m2 Sunita Dom DO Work Phone: [facility]; [facility] Work Phone: 02-15-2012 09:29-0400 Body surface area Derived from formula 1.69 m2 Sunita Dom DO Work Phone: [facility]; [facility] Work Phone: 02-15-2012 09:29-0400 Body temperature 98.4 [degF] Sunita Dom DO Work Phone: [facility]; [facility] Work Phone: Comment on above: Method: Oral 02-15-2012 09:29-0400 Body weight 64.04 kg Sunita Dom DO Work Phone: [facility]; [facility] Work Phone: 02-15-2012 09:29-0400 Diastolic blood pressure 68 mm[Hg] Sunita Dom DO Work Phone: [facility]; [facility] Work Phone: Comment on above: Patient Position: Sitting; Cuff Location : Left Arm; Cuff Size: Standard 02-15-2012 09:29-0400 Heart rate 86 /min Sunita Dom DO Work Phone: [facility]; [facility] Work Phone: Comment on above: Pattern: Regular 02-15-2012 09:29-0400 Respiratory rate 16 /min Sunita Dom DO Work Phone: [facility]; [facility] Work Phone: 02-15-2012 09:29-0400 SaO2% (BldA) [Mass fraction] 98 % Sunita Dom DO Work Phone: [facility]; [facility] Work Phone: Comment on above: Room air 02-15-2012 09:29-0400 Systolic blood pressure 112 mm[Hg] Sunita Dom DO Work Phone: [facility]; [facility] Work Phone: Comment on above: Patient Position: Sitting; Cuff Location : Left Arm; Cuff Size: Standard Encounters Encounter Date Encounter Type Care Provider Facility Start: 01-06-2018 End: 01-06-2018 Office outpatient visit 10 minutes Sunita Dom DO Work Phone: [facility] Start: 12-09-2017 End: 12-09-2017 Office outpatient visit 15 minutes Sunita Dom DO Work Phone: [facility] Start: 12-06-2017 End: 12-06-2017 Phone Encounter Sunita Dom DO Work Phone: [facility] Start: 11-19-2016 End: 11-19-2016 Periodic preventive med est patient 18-39 yrs Sunita Dom DO Work Phone: [facility] Start: 06-18-2016 End: 06-18-2016 Office outpatient visit 15 minutes Sunita Dom DO Work Phone: [facility] Start: 02-16-2015 End: 02-16-2015 Phone Encounter Sunita Dom DO Work Phone: [facility] Start: 01-31-2015 End: 01-31-2015 Office outpatient visit 15 minutes Sunita Dom DO Work Phone: [facility] Start: 10-04-2014 End: 10-04-2014 Annotation/Addendum Sunita Dom DO Work Phone: [facility] Start: 12-17-2013 End: 12-17-2013 Patient encounter procedure Sunita Dom DO Work Phone: [facility] Start: 09-04-2013 End: 09-04-2013 Annotation/Addendum Sunita Dom DO Work Phone: [facility] Start: 09-04-2013 End: 09-04-2013 Office outpatient visit 25 minutes Sunita Dom DO Work Phone: [facility] Start: 06-03-2013 End: 06-03-2013 Patient encounter procedure Sunita Dom DO Work Phone: [facility] Start: 10-06-2012 End: 10-06-2012 Patient encounter procedure Sunita Fernandes DO Work Phone: [facility] Start: 09-04-2012 End: 09-04-2012 Patient encounter procedure Sunita Dom DO Work Phone: [facility] Start: 05-16-2012 End: 05-16-2012 Phone Encounter Sunita Jenkinson DO Work Phone: [facility] Start: 03-10-2012 End: 03-10-2012 Annotation/Addendum Sunita Jenkinson DO Work Phone: [facility] Start: 02-22-2012 End: 02-22-2012 Patient encounter procedure Sunita Jenkinson DO Work Phone: [facility] Start: 02-18-2012 End: 02-18-2012 Nursing evaluation of patient and report Sunita Jenkinson DO Work Phone: [facility] Start: 02-15-2012 End: 02-15-2012 Office outpatient new 30 minutes Sunita Jenkinson DO Work Phone: [facility] End: 12-09-2017 Patient encounter status Daisy Staley RN [facility]; [facility] Work Phone: Physical examination Sunita espino DO Work Phone: [facility]; [facility] Work Phone: Procedures Date Procedure Procedure Detail Performing Clinician Start: 07-21-2021 End: 07-21-2021 Wall Crane Operator Office Visit Report Comments: See Note; NOTES: [facility] [address] [place] [address]. [address] [place], [place] [address] OFFICE VISIT Date of Service: 07/21/21 MR#: [id number] Acct: [id number] Name: SAGE GONZALES Rep #: [id number] : 1995 Provider: Dr. Alejandrina doyle MD Age/Sex: 25/F [place] [facility] [place]: Signed Intake Vital Signs 07/21/21 09:41 Weight: 176 lb 12.8 oz BP 122/72 H Intake Visit Reasons: 39WK OB Allergies ego Allergy (Verified 07/12/21 11:21) Unknown Last Menstral Period: 10/10/20 PFSH PFSH Medical History Depression History of venomous spider bite Low-lying placenta in second trimester Surgical History H/O wisdom tooth extraction Hx of tonsillectomy Family History Aunt Breast cancer Social History adopted: No household members: spouse housing: house current occupational status: employed current occupation: [employer] Smoking Status: Never smoker second hand exposure: No alcohol intake: never substance use type: does not use seatbelt use: always do you feel safe at home: Yes additional social history: [employer] employee [employer] Pregancy History 1 Elective abortions Hx Para Spontaneous abortions Hx # Term Pregnancies Ectopic pregnancies Hx # Pregnancies Multiple births # of living children HPI 39WK OB Details: SAGE GONZALES is a 25 year old who presents for routine OB visit. OB Visit DIAMANTE Calculator Estimated Delivery Date Method Current WG Current Estimate 07/25/21 Ultrasound #1 39w 3d Other Estimates 07/17/21 LMP (Certain) 40w 4d Expected Delivery Route/Plan Labor Preferences- labor support person: nitin labor intervention preferences: open to standard interventions pain management options preferred: natural if able but likely planning epidural cut cord/dad catch: maybe cord, patient possibly wants to help : yes PP control planned: iud? discussed possible routes of delivery and associated risks: discussed possible delivery modalities and possible indications for each including R/B/A of , VAVD, and CS. questions answered. special requests: none Specific Issue/Plans covid status: pos in september counseled regarding risk of covid in vs vaccination and declined vaccination flu vaccine: given tdap vaccine: given rhogam: na LARC form signed: 05/25 movement and labor precautions reviewed. Problem list reviewed and updated with the most current plan of care details and appropriate orders placed. Relevant counseling for the gestational age provided. Continue routine care and follow up unless otherwise noted in visit notes/problem list details Initial Weight: 150 lb Date -???-???-???-???-???-???-???- ???-???-???-???-???- EGA Weight BP Urine Prot -???-???-???-???-???-???-???- ???-???-???-???-???- Glucose FHR FuHt Pres Dilation -???-???-???-???-???-???-???- ???-???-???-???-???- Effaced St Visit Note 12/19/20 -???-???-???-???-???-???-???- ???-???-???-???-???- 8w 6d 150 lb 8 oz (+8 oz) 110/70 -???-???-???-???-???-???-???- ???-???-???-???-???- 175 -???-???-???-???-???-???-???- ???-???-???-???-???- SM- CRL NOT cons with LMP, 1.9 cm 01/19/21 -???-???-???-???-???-???-???- ???-???-???-???-???- 13w 2d 153 lb (+3 lb) 114/64 Negative -???-???-???-???-???-???-???- ???-???-???-???-???- Negative 150 -???-???-???-???-???-???-???- ???-???-???-???-???- SM- no vb no regualr ctx 02/16/21 -???-???-???-???-???-???-???- ???-???-???-???-???- 17w 2d 153 lb (+3 lb) 98/68 Negative -???-???-???-???-???-???-???- ???-???-???-???-???- Negative 154 -???-???-???-???-???-???-???- ???-???-???-???-???- -NO VB, LO F. Feels well. Anatomy US [facility] 02/2803/17/21 -???-???-???-???-???-???-???- ???-???-???-???-???- 21w 3d 159 lb 8 oz (+9 lb 8 oz) 94/70 Negative -???-???-???-???-???-???-???- ???-???-???-???-???- Negative 155 -???-???-???-???-???-???-???- ???-???-???-???-???- GP - no LOF, VB, DFM, ctx. Denies complaints. Having a girl! 04/13/21 -???-???-???-???-???-???-???- ???-???-???-???-???- 25w 2d 161 lb 6 oz (+11 lb 6 oz) 110/60 Negative -???-???-???-???-???-???-???- ???-???-???-???-???- Negative 157 24 -???-???-???-???-???-???-???- ???-???-???-???-???- -No VB, LO F. Doing well. Good FM. US scheduled 05/01 to check placenta 05/10/21 -???-???-???-???-???-???-???- ???-???-???-???-???- 29w 1d 161 lb 4 oz (+11 lb 4 oz) 110/70 Negative -???-???-???-???-???-???-???- ???-???-???-???-???- Negative 145 30 Cephalic -???-???-???-???-???-???-???- ???-???-???-???-???- - no vb lo f good fm no reuglar ctx nl gtt 3 hr 05/25/21 -???-???-???-???-???-???-???- ???-???-???-???-???- 31w 2d 164 lb (+14 lb) 110/70 Negative -???-???-???-???-???-???-???- ???-???-???-???-???- Negative 150 31 Cephalic -???-???-???-???-???-???-???- ???-???-???-???-???- GP - no LOF, VB, dFM, ctx. LARC form signed - declines 06/09/21 -???-???-???-???-???-???-???- ???-???-???-???-???- 33w 3d 169 lb (+19 lb) 110/80 Negative -???-???-???-???-???-???-???- ???-???-???-???-???- Negative 150 33 Cephalic -???-???-???-???-???-???-???- ???-???-???-???-???- GP - no LOF, VB, dFM, ctx. Discussed labor preferences. 06/23/21 -???-???-???-???-???-???-???- ???-???-???-???-???- 35w 3d 168 lb 6 oz (+18 lb 6 oz) 112/70 Negative -???-???-???-???-???-???-???- ???-???-???-???-???- Negative 150 35 Cephalic -???-???-???-???-???-???-???- ???-???-???-???-???- SM- no vb lo f good fm no regular ctx 06/30/21 -???-???-???-???-???-???-???- ???-???-???-???-???- 36w 3d 172 lb (+22 lb) 130/82 Negative -???-???-???-???-???-???-???- ???-???-???-???-???- Negative 140 36 Cephalic 1 -???-???-???-???-???-???-???- ???-???-???-???-???- SM- no vb lo f good fm no regular ctx gbs today 07/07/21 -???-???-???-???-???-???-???- ???-???-???-???-???- 37w 3d 171 lb (+21 lb) 112/72 -???-???-???-???-???-???-???- ???-???-???-???-???- 140 37 Cephalic -???-???-???-???-???-???-???- ???-???-???-???-???- SM- no vb lo f good fm no reuglar ctx 07/12/21 -???-???-???-???-???-???-???- ???-???-???-???-???- 38w 1d 173 lb (+23 lb) 112/80 -???-???-???-???-???-???-???- ???-???-???-???-???- 140 38 Cephalic -???-???-???-???-???-???-???- ???-???-???-???-???- SM- no vb lo f good fm no reuglar ctx some swelling 07/21/21 -???-???-???-???-???-???-???- ???-???-???-???-???- 39w 3d 176 lb 12.8 oz (+26 lb 12.8 oz) 122/72 -???-???-???-???-???-???-???- ???-???-???-???-???- 135 35 Cephalic 2 -???-???-???-???-???-???-???- ???-???-???-???-???- 40 -1 SM- no vb lof good fm no regular ctx, low FH emilio done and 4.9 recommend IOL ACOG First Trimester First Trimester: Desire for , Alcohol, Tobacco Cessation, Illicit/Recreational Drug/Substance Use, Intimate Partner Violence, Barriers to care, Unstable Housing, Communication Barriers, Environmental/Work Hazards, Anticipated Course of Care, Toxoplasmosis Precations, Use of Any medications, Sexual activity, Exercise, Dental Care, Sauna/Hot tub use, Seat Belt use, Childbirth classes/Hospital facilities, , Travel, Indications for Ultrasound and Screening for Aneuploidy Diagnostics Diagnostics Diagnostics: Gest Glucose Tolerance MG/DL Glucose 1 Hr 50 gm 142 mg/dL (70-140) H Hgb 11.1 g/dL (12.0-15.0) L Hct 33.4 % (37-47) L Details: HIV: Urine Culture: Sequential Screen: NIPT Screen: Coding Level of Care Code OB Routine Diagnoses Oligohydramnios in third trimester O41.03X0 Abnormal glucose affecting O99.810 Depression F32.9 Depression Type: unspecified Supervision of normal Z34.02 Normal : normal first Trimester: second trimester Z3A.38 Weeks of gestation: 38 weeks Assessment and Plan Assessment and Plan (1) Oligohydramnios in third trimester: Status: Acute Comment: IOL pit and fb, epi PRN (2) Abnormal glucose affecting : Status: Acute Comment: nl 3GTT (3) Depression: Status: Acute Qualifiers: Depression Type: unspecified Qualified Code(s): F32.9 - Major depressive disorder, single episode, unspecified Comment: not on any medication at this time. 02/16 stable (4) Supervision of normal : Status: Acute Qualifiers: Normal : normal first Trimester: second trimester Qualified Code(s): Z34.02 - Encounter for supervision of normal first , second trimester Comment: PRR DIAMANTE: 07/25/21 girl Cornelia Spouse: Nitin (5) : Status: Acute Qualifiers: Weeks of gestation: 38 weeks Qualified Code(s): Z3A.38 - 38 weeks gestation of Comment: negative GBS, declines genetic and carrier screening. declines afp. anatomy nl 07/21/21 0943 <Electronically signed by Alejandrina Marshall MD> Date Alejandrina Marshall MD Cosigner Signature: Date (if applicable) CC: Sunita Fernandes DO Work Phone: Start: 07-12-2021 End: 07-12-2021 Wall Crane Operator Office Visit Report Comments: See Note; NOTES: [facility] [address] [place] [address]. [address] [place] [address] OFFICE VISIT Date of Service: 07/12/21 MR#: [id number] Acct: [id number] Name: SAGE GONZALES Rep #: [id number] : 1995 Provider: Dr. Alejandrina doyle MD Age/Sex: 25/F [place] [facility] [place] Status: Signed Intake Vital Signs 07/12/21 11:21 07/12/21 11:28 Height 5 ft 4 in Weight: 173 lb BP 112/80 Intake Visit Reasons: 38WK OB Chief Complaint: est ob Food [employer] Farm [employer] Required: No Is patient in pain?: No Allergies geo Allergy (Verified 07/12/21 11:21) Unknown Medications multivitamin no.47-iron fum 27 mg-folate no.1 1 mg-dha 300 mg capsule cap PO 12/14/20 [History Confirmed 07/12/21] Last Menstral Period: 10/10/20 Zika: Zika virus screening: Negative : No PFSH PFSH Medical History Depression History of venomous spider bite Low-lying placenta in second trimester Surgical History H/O wisdom tooth extraction Hx of tonsillectomy Family History Aunt Breast cancer Social History adopted: No household members: spouse housing: house current occupational status: employed current occupation: [employer] Smoking Status: Never smoker second hand exposure: No alcohol intake: never substance use type: does not use seatbelt use: always do you feel safe at home: Yes additional social history: [employer] employee [employer] Pregancy History 1 Elective abortions Hx Para Spontaneous abortions Hx # Term Pregnancies Ectopic pregnancies Hx # Pregnancies Multiple births # of living children HPI 38WK OB Details: SAGE GONZALES is a 25 year old who presents for routine OB visit. OB Visit DIAMANTE Calculator Estimated Delivery Date Method Current WG Current Estimate 07/25/21 Ultrasound #1 38w 1d Other Estimates 07/17/21 LMP (Certain) 39w 2d Expected Delivery Route/Plan by 41 Labor Preferences- labor support person: nitin labor intervention preferences: open to standard interventions pain management options preferred: natural if able but likely planning epidural cut cord/dad catch: maybe cord, patient possibly wants to help : yes PP control planned: iud? discussed possible routes of delivery and associated risks: discussed possible delivery modalities and possible indications for each including R/B/A of , VAVD, and CS. questions answered. special requests: none Specific Issue/Plans covid status: pos in september counseled regarding risk of covid in vs vaccination and declined vaccination flu vaccine: given tdap vaccine: given rhogam: na LARC form signed: 05/25 movement and labor precautions reviewed. Problem list reviewed and updated with the most current plan of care details and appropriate orders placed. Relevant counseling for the gestational age provided. Continue routine care and follow up unless otherwise noted in visit notes/problem list details Initial Weight: 150 lb Date -???-???-???-???-???-???-???- ???-???-???-???-???- EGA Weight BP Urine Prot -???-???-???-???-???-???-???- ???-???-???-???-???- Glucose FHR FuHt Pres Dilation -???-???-???-???-???-???-???- ???-???-???-???-???- Effaced St Visit Note 12/19/20 -???-???-???-???-???-???-???- ???-???-???-???-???- 8w 6d 150 lb 8 oz (+8 oz) 110/70 -???-???-???-???-???-???-???- ???-???-???-???-???- 175 -???-???-???-???-???-???-???- ???-???-???-???-???- SM- CRL NOT cons with LMP, 1.9 cm 01/19/21 -???-???-???-???-???-???-???- ???-???-???-???-???- 13w 2d 153 lb (+3 lb) 114/64 Negative -???-???-???-???-???-???-???- ???-???-???-???-???- Negative 150 -???-???-???-???-???-???-???- ???-???-???-???-???- SM- no vb no regualr ctx 02/16/21 -???-???-???-???-???-???-???- ???-???-???-???-???- 17w 2d 153 lb (+3 lb) 98/68 Negative -???-???-???-???-???-???-???- ???-???-???-???-???- Negative 154 -???-???-???-???-???-???-???- ???-???-???-???-???- -NO VB, LO F. Feels well. Anatomy US [facility] 02/2803/17/21 -???-???-???-???-???-???-???- ???-???-???-???-???- 21w 3d 159 lb 8 oz (+9 lb 8 oz) 94/70 Negative -???-???-???-???-???-???-???- ???-???-???-???-???- Negative 155 -???-???-???-???-???-???-???- ???-???-???-???-???- GP - no LOF, VB, DFM, ctx. Denies complaints. Having a girl! 04/13/21 -???-???-???-???-???-???-???- ???-???-???-???-???- 25w 2d 161 lb 6 oz (+11 lb 6 oz) 110/60 Negative -???-???-???-???-???-???-???- ???-???-???-???-???- Negative 157 24 -???-???-???-???-???-???-???- ???-???-???-???-???- -No VB, LO F. Doing well. Good FM. US scheduled 05/01 to check placenta 05/10/21 -???-???-???-???-???-???-???- ???-???-???-???-???- 29w 1d 161 lb 4 oz (+11 lb 4 oz) 110/70 Negative -???-???-???-???-???-???-???- ???-???-???-???-???- Negative 145 30 Cephalic -???-???-???-???-???-???-???- ???-???-???-???-???- SM- no vb lo f good fm no reuglar ctx nl gtt 3 hr 05/25/21 -???-???-???-???-???-???-???- ???-???-???-???-???- 31w 2d 164 lb (+14 lb) 110/70 Negative -???-???-???-???-???-???-???- ???-???-???-???-???- Negative 150 31 Cephalic -???-???-???-???-???-???-???- ???-???-???-???-???- GP - no LOF, VB, dFM, ctx. LARC form signed - declines 06/09/21 -???-???-???-???-???-???-???- ???-???-???-???-???- 33w 3d 169 lb (+19 lb) 110/80 Negative -???-???-???-???-???-???-???- ???-???-???-???-???- Negative 150 33 Cephalic -???-???-???-???-???-???-???- ???-???-???-???-???- GP - no LOF, VB, dFM, ctx. Discussed labor preferences. 06/23/21 -???-???-???-???-???-???-???- ???-???-???-???-???- 35w 3d 168 lb 6 oz (+18 lb 6 oz) 112/70 Negative -???-???-???-???-???-???-???- ???-???-???-???-???- Negative 150 35 Cephalic -???-???-???-???-???-???-???- ???-???-???-???-???- SM- no vb lo f good fm no regular ctx 06/30/21 -???-???-???-???-???-???-???- ???-???-???-???-???- 36w 3d 172 lb (+22 lb) 130/82 Negative -???-???-???-???-???-???-???- ???-???-???-???-???- Negative 140 36 Cephalic 1 -???-???-???-???-???-???-???- ???-???-???-???-???- SM- no vb lo f good fm no regular ctx gbs today 07/07/21 -???-???-???-???-???-???-???- ???-???-???-???-???- 37w 3d 171 lb (+21 lb) 112/72 -???-???-???-???-???-???-???- ???-???-???-???-???- 140 37 Cephalic -???-???-???-???-???-???-???- ???-???-???-???-???- SM- no vb lo f good fm no reuglar ctx 07/12/21 -???-???-???-???-???-???-???- ???-???-???-???-???- 38w 1d 173 lb (+23 lb) 112/80 -???-???-???-???-???-???-???- ???-???-???-???-???- 140 38 Cephalic -???-???-???-???-???-???-???- ???-???-???-???-???- SM- no vb lo f good fm no reuglar ctx some swelling ACOG First Trimester First Trimester: Desire for , Alcohol, Tobacco Cessation, Illicit/Recreational Drug/Substance Use, Intimate Partner Violence, Barriers to care, Unstable Housing, Communication Barriers, Environmental/Work Hazards, Anticipated Course of Care, Toxoplasmosis Precations, Use of Any medications, Sexual activity, Exercise, Dental Care, Sauna/Hot tub use, Seat Belt use, Childbirth classes/Hospital facilities, , Travel, Indications for Ultrasound and Screening for Aneuploidy Diagnostics Diagnostics Diagnostics: Gest Glucose Tolerance MG/DL Glucose 1 Hr 50 gm 142 mg/dL (70-140) H Hgb 11.1 g/dL (12.0-15.0) L Hct 33.4 % (37-47) L Details: HIV: Urine Culture: Sequential Screen: NIPT Screen: Coding Level of Care Code OB Routine Diagnoses Abnormal glucose affecting O99.810 Depression F32.9 Depression Type: unspecified Supervision of normal Z34.02 Normal : normal first Trimester: second trimester Z3A.38 Weeks of gestation: 38 weeks Assessment and Plan Assessment and Plan (1) Abnormal glucose affecting : Status: Acute Comment: nl 3GTT (2) Depression: Status: Acute Qualifiers: Depression Type: unspecified Qualified Code(s): F32.9 - Major depressive disorder, single episode, unspecified Comment: not on any medication at this time. 02/16 stable (3) Supervision of normal : Status: Acute Qualifiers: Normal : normal first Trimester: second trimester Qualified Code(s): Z34.02 - Encounter for supervision of normal first , second trimester Comment: PRR DIAMANTE: 07/25/21 girl Cornelia Spouse: Nitin (4) : Status: Acute Qualifiers: Weeks of gestation: 38 weeks Qualified Code(s): Z3A.38 - 38 weeks gestation of Comment: negative GBS, declines genetic and carrier screening. declines afp. anatomy nl Plan Details Other Orders: Orders: POC Urinalysis 2 Dip (Clinic) Today 07/12/21 1134 <Electronically signed by Alejandrina Marshall MD> Date Alejandrina Friedmanign Signature: Date (if applicable) CC: Sunita Jenkinson DO Work Phone: Start: 07-07-2021 End: 07-07-2021 Wall Crane Operator Office Visit Report Comments: See Note; NOTES: [facility] [address] [place], [place] [address] OFFICE VISIT Date of Service: 07/07/21 MR#: [id number] Acct: [id number] Name: SAGE GONZALES Rep #: [id number] : 1995 Provider: Dr. Alejandrina doyle MD Age/Sex: 25/F [place] [facility] [place] Signed Intake Vital Signs 07/07/21 08:02 Height 5 ft 4 in Weight: 171 lb BMI 29.3 BP 112/72 Intake Visit Reasons: 37WK OB Chief Complaint: est ob Food Crops Farm Hand Required: No Is patient in pain?: No Allergies geo Allergy (Verified 07/07/21 08:03) Unknown Medications multivitamin no.47-iron fum 27 mg-folate no.1 1 mg-dha 300 mg capsule cap PO 12/14/20 [History Confirmed 07/07/21] Last Menstral Period: 10/10/20 Zika: Zika virus screening: Negative : No PFSH PFSH Medical History Depression History of venomous spider bite Low-lying placenta in second trimester Surgical History H/O wisdom tooth extraction Hx of tonsillectomy Family History Aunt Breast cancer Social History adopted: No household members: spouse housing: house current occupational status: employed current occupation: [employer] Smoking Status: Never smoker second hand exposure: No alcohol intake: never substance use type: does not use seatbelt use: always do you feel safe at home: Yes additional social history: [employer] employee [employer] Pregancy History 1 Elective abortions Hx Para Spontaneous abortions Hx # Term Pregnancies Ectopic pregnancies Hx # Pregnancies Multiple births # of living children HPI 37WK OB Details: SAGE GONZALES is a 25 year old who presents for routine OB visit. OB Visit DIAMANTE Calculator Estimated Delivery Date Method Current WG Current Estimate 07/25/21 Ultrasound #1 37w 3d Other Estimates 07/17/21 LMP (Certain) 38w 4d Expected Delivery Route/Plan Labor Preferences- labor support person: nitin labor intervention preferences: open to standard interventions pain management options preferred: natural if able but likely planning epidural cut cord/dad catch: maybe cord, patient possibly wants to help : yes PP control planned: iud? discussed possible routes of delivery and associated risks: discussed possible delivery modalities and possible indications for each including R/B/A of , VAVD, and CS. questions answered. special requests: none Specific Issue/Plans covid status: pos in september counseled regarding risk of covid in vs vaccination and declined vaccination flu vaccine: given tdap vaccine: given rhogam: na LARC form signed: 05/25 movement and labor precautions reviewed. Problem list reviewed and updated with the most current plan of care details and appropriate orders placed. Relevant counseling for the gestational age provided. Continue routine care and follow up unless otherwise noted in visit notes/problem list details Initial Weight: 150 lb Date -???-???-???-???-???-???-???- ???-???-???-???-???- EGA Weight BP Urine Prot -???-???-???-???-???-???-???- ???-???-???-???-???- Glucose FHR FuHt Pres Dilation -???-???-???-???-???-???-???- ???-???-???-???-???- Effaced St Visit Note 12/19/20 -???-???-???-???-???-???-???- ???-???-???-???-???- 8w 6d 150 lb 8 oz (+8 oz) 110/70 -???-???-???-???-???-???-???- ???-???-???-???-???- 175 -???-???-???-???-???-???-???- ???-???-???-???-???- SM- CRL NOT cons with LMP, 1.9 cm 01/19/21 -???-???-???-???-???-???-???- ???-???-???-???-???- 13w 2d 153 lb (+3 lb) 114/64 Negative -???-???-???-???-???-???-???- ???-???-???-???-???- Negative 150 -???-???-???-???-???-???-???- ???-???-???-???-???- SM- no vb no regualr [facility] 02/16/21 -???-???-???-???-???-???-???- ???-???-???-???-???- 17w 2d 153 lb (+3 lb) 98/68 Negative -???-???-???-???-???-???-???- ???-???-???-???-???- Negative 154 -???-???-???-???-???-???-???- ???-???-???-???-???- -NO VB, LO F. Feels well. Anatomy US [facility] 02/2803/17/21 -???-???-???-???-???-???-???- ???-???-???-???-???- 21w 3d 159 lb 8 oz (+9 lb 8 oz) 94/70 Negative -???-???-???-???-???-???-???- ???-???-???-???-???- Negative 155 -???-???-???-???-???-???-???- ???-???-???-???-???- GP - no LOF, VB, DFM, ctx. Denies complaints. Having a girl! 04/13/21 -???-???-???-???-???-???-???- ???-???-???-???-???- 25w 2d 161 lb 6 oz (+11 lb 6 oz) 110/60 Negative -???-???-???-???-???-???-???- ???-???-???-???-???- Negative 157 24 -???-???-???-???-???-???-???- ???-???-???-???-???- MH-No VB, LO F. Doing well. Good FM. US scheduled 05/01 to check placenta 05/10/21 -???-???-???-???-???-???-???- ???-???-???-???-???- 29w 1d 161 lb 4 oz (+11 lb 4 oz) 110/70 Negative -???-???-???-???-???-???-???- ???-???-???-???-???- Negative 145 30 Cephalic -???-???-???-???-???-???-???- ???-???-???-???-???- SM- no vb lo f good fm no reuglar ctx nl gtt 3 hr 05/25/21 -???-???-???-???-???-???-???- ???-???-???-???-???- 31w 2d 164 lb (+14 lb) 110/70 Negative -???-???-???-???-???-???-???- ???-???-???-???-???- Negative 150 31 Cephalic -???-???-???-???-???-???-???- ???-???-???-???-???- GP - no LOF, VB, dFM, ctx. LARC form signed - declines 06/09/21 -???-???-???-???-???-???-???- ???-???-???-???-???- 33w 3d 169 lb (+19 lb) 110/80 Negative -???-???-???-???-???-???-???- ???-???-???-???-???- Negative 150 33 Cephalic -???-???-???-???-???-???-???- ???-???-???-???-???- GP - no LOF, VB, dFM, ctx. Discussed labor preferences. 06/23/21 -???-???-???-???-???-???-???- ???-???-???-???-???- 35w 3d 168 lb 6 oz (+18 lb 6 oz) 112/70 Negative -???-???-???-???-???-???-???- ???-???-???-???-???- Negative 150 35 Cephalic -???-???-???-???-???-???-???- ???-???-???-???-???- SM- no vb lo f good fm no regular ctx 06/30/21 -???-???-???-???-???-???-???- ???-???-???-???-???- 36w 3d 172 lb (+22 lb) 130/82 Negative -???-???-???-???-???-???-???- ???-???-???-???-???- Negative 140 36 Cephalic 1 -???-???-???-???-???-???-???- ???-???-???-???-???- SM- no vb lo f good fm no regular ctx gbs today 07/07/21 -???-???-???-???-???-???-???- ???-???-???-???-???- 37w 3d 171 lb (+21 lb) 112/72 -???-???-???-???-???-???-???- ???-???-???-???-???- 140 37 Cephalic -???-???-???-???-???-???-???- ???-???-???-???-???- SM- no vb lo f good fm no reuglar ctx ACOG First Trimester First Trimester: Desire for , Alcohol, Tobacco Cessation, Illicit/Recreational Drug/Substance Use, Intimate Partner Violence, Barriers to care, Unstable Housing, Communication Barriers, Environmental/Work Hazards, Anticipated Course of Care, Toxoplasmosis Precations, Use of Any medications, Sexual activity, Exercise, Dental Care, Sauna/Hot tub use, Seat Belt use, Childbirth classes/Hospital facilities, , Travel, Indications for Ultrasound and Screening for Aneuploidy Diagnostics Diagnostics Diagnostics: Gest Glucose Tolerance MG/DL Glucose 1 Hr 50 gm 142 mg/dL (70-140) H Hgb 11.1 g/dL (12.0-15.0) L Hct 33.4 % (37-47) L Details: HIV: Urine Culture: Sequential Screen: NIPT Screen: Coding Level of Care Code OB Routine Diagnoses Abnormal glucose affecting O99.810 Depression F32.9 Depression Type: unspecified Supervision of normal Z34.02 Normal : normal first Trimester: second trimester Z3A.37 Weeks of gestation: 37 weeks Assessment and Plan Assessment and Plan (1) Abnormal glucose affecting : Status: Acute Comment: nl 3GTT (2) Depression: Status: Acute Qualifiers: Depression Type: unspecified Qualified Code(s): F32.9 - Major depressive disorder, single episode, unspecified Comment: not on any medication at this time. 02/16 stable (3) Supervision of normal : Status: Acute Qualifiers: Normal : normal first Trimester: second trimester Qualified Code(s): Z34.02 - Encounter for supervision of normal first , second trimester Comment: PRR DIAMANTE: 07/25/21 girl Cornelia Spouse: Nitin (4) : Status: Acute Qualifiers: Weeks of gestation: 37 weeks Qualified Code(s): Z3A.37 - 37 weeks gestation of Comment: negative GBS, declines genetic and carrier screening. declines afp. anatomy nl Plan Details Other Orders: Orders: POC Urinalysis 2 Dip (Clinic) Today 07/07/21 0821 <Electronically signed by Alejandrina Marshall MD> Date Alejandrina Marshall MD Cosigner Signature: Date (if applicable) CC: Sunita Fernandes DO Work Phone: Start: 06-30-2021 End: 06-30-2021 Wall Crane Operator Office Visit Report Comments: See Note; NOTES: [facility] [address] [place], [place] [id number] OFFICE VISIT Date of Service: 06/30/21 MR#: [id number] Acct: [id number] Name: SAGE GONZALES Rep #: [id number] : 1995 Provider: Dr. Alejandrina doyle MD Age/Sex: 25/F [place] [facility] [place] Status: Signed Intake Vital Signs 06/30/21 15:35 Height 5 ft 4 in Weight: 172 lb BMI 29.5 BP 130/82 H Intake Visit Reasons: 36WK OB Chief Complaint: est ob Food Crops Farm Hand Required: No Is patient in pain?: No Allergies geo Allergy (Verified 06/23/21 10:47) Unknown Medications multivitamin no.47-iron fum 27 mg-folate no.1 1 mg-dha 300 mg capsule cap PO 12/14/20 [History Confirmed 06/30/21] Last Menstral Period: 10/10/20 Zika: Zika virus screening: Negative : No PFSH PFSH Medical History Depression History of venomous spider bite Low-lying placenta in second trimester Surgical History H/O wisdom tooth extraction Hx of tonsillectomy Family History Aunt Breast cancer Social History adopted: No household members: spouse housing: house current occupational status: employed current occupation: [employer] Smoking Status: Never smoker second hand exposure: No alcohol intake: never substance use type: does not use seatbelt use: always do you feel safe at home: Yes additional social history: Nitin- [employer] employee [employer] Pregancy History 1 Elective abortions Hx Para Spontaneous abortions Hx # Term Pregnancies Ectopic pregnancies Hx # Pregnancies Multiple births # of living children HPI 36WK OB Details: SAGE GONZALES is a 25 year old who presents for routine OB visit. OB Visit DIAMANTE Calculator Estimated Delivery Date Method Current WG Current Estimate 07/25/21 Ultrasound #1 36w 3d Other Estimates 07/17/21 LMP (Certain) 37w 4d Expected Delivery Route/Plan Labor Preferences- labor support person: nitin labor intervention preferences: open to standard interventions pain management options preferred: natural if able but likely planning epidural cut cord/dad catch: maybe cord, patient possibly wants to help : yes PP control planned: iud? discussed possible routes of delivery and associated risks: discussed possible delivery modalities and possible indications for each including R/B/A of , VAVD, and CS. questions answered. special requests: none Specific Issue/Plans covid status: pos in september counseled regarding risk of covid in vs vaccination and declined vaccination flu vaccine: given tdap vaccine: given rhogam: na LARC form signed: 05/25 movement and labor precautions reviewed. Problem list reviewed and updated with the most current plan of care details and appropriate orders placed. Relevant counseling for the gestational age provided. Continue routine care and follow up unless otherwise noted in visit notes/problem list details Initial Weight: 150 lb Date -???-???-???-???-???-???-???- ???-???-???-???-???- EGA Weight BP Urine Prot -???-???-???-???-???-???-???- ???-???-???-???-???- Glucose FHR FuHt Pres Dilation -???-???-???-???-???-???-???- ???-???-???-???-???- Effaced St Visit Note 12/19/20 -???-???-???-???-???-???-???- ???-???-???-???-???- 8w 6d 150 lb 8 oz (+8 oz) 110/70 -???-???-???-???-???-???-???- ???-???-???-???-???- 175 -???-???-???-???-???-???-???- ???-???-???-???-???- SM- CRL NOT cons with LMP, 1.9 cm 01/19/21 -???-???-???-???-???-???-???- ???-???-???-???-???- 13w 2d 153 lb (+3 lb) 114/64 Negative -???-???-???-???-???-???-???- ???-???-???-???-???- Negative 150 -???-???-???-???-???-???-???- ???-???-???-???-???- SM- no vb no regualr [facility] 02/16/21 -???-???-???-???-???-???-???- ???-???-???-???-???- 17w 2d 153 lb (+3 lb) 98/68 Negative -???-???-???-???-???-???-???- ???-???-???-???-???- Negative 154 -???-???-???-???-???-???-???- ???-???-???-???-???- -NO VB, FRANK Pfeiffer Feels well. Anatomy US [facility] 02/2803/17/21 -???-???-???-???-???-???-???- ???-???-???-???-???- 21w 3d 159 lb 8 oz (+9 lb 8 oz) 94/70 Negative -???-???-???-???-???-???-???- ???-???-???-???-???- Negative 155 -???-???-???-???-???-???-???- ???-???-???-???-???- GP - no LOF, VB, DFM, ctx. Denies complaints. Having a girl! 04/13/21 -???-???-???-???-???-???-???- ???-???-???-???-???- 25w 2d 161 lb 6 oz (+11 lb 6 oz) 110/60 Negative -???-???-???-???-???-???-???- ???-???-???-???-???- Negative 157 24 -???-???-???-???-???-???-???- ???-???-???-???-???- MH-No VB, LO F. Doing well. Good FM. US scheduled 05/01 to check placenta 05/10/21 -???-???-???-???-???-???-???- ???-???-???-???-???- 29w 1d 161 lb 4 oz (+11 lb 4 oz) 110/70 Negative -???-???-???-???-???-???-???- ???-???-???-???-???- Negative 145 30 Cephalic -???-???-???-???-???-???-???- ???-???-???-???-???- SM- no vb lo f good fm no reuglar ctx nl gtt 3 hr 05/25/21 -???-???-???-???-???-???-???- ???-???-???-???-???- 31w 2d 164 lb (+14 lb) 110/70 Negative -???-???-???-???-???-???-???- ???-???-???-???-???- Negative 150 31 Cephalic -???-???-???-???-???-???-???- ???-???-???-???-???- GP - no LOF, VB, dFM, ctx. LARC form signed - declines 06/09/21 -???-???-???-???-???-???-???- ???-???-???-???-???- 33w 3d 169 lb (+19 lb) 110/80 Negative -???-???-???-???-???-???-???- ???-???-???-???-???- Negative 150 33 Cephalic -???-???-???-???-???-???-???- ???-???-???-???-???- GP - no LOF, VB, dFM, ctx. Discussed labor preferences. 06/23/21 -???-???-???-???-???-???-???- ???-???-???-???-???- 35w 3d 168 lb 6 oz (+18 lb 6 oz) 112/70 Negative -???-???-???-???-???-???-???- ???-???-???-???-???- Negative 150 35 Cephalic -???-???-???-???-???-???-???- ???-???-???-???-???- SM- no vb lo f good fm no regular ctx 06/30/21 -???-???-???-???-???-???-???- ???-???-???-???-???- 36w 3d 172 lb (+22 lb) 130/82 Negative -???-???-???-???-???-???-???- ???-???-???-???-???- Negative 140 36 Cephalic 1 -???-???-???-???-???-???-???- ???-???-???-???-???- SM- no vb lo f good fm no regular ctx gbs today ACOG First Trimester First Trimester: Desire for , Alcohol, Tobacco Cessation, Illicit/Recreational Drug/Substance Use, Intimate Partner Violence, Barriers to care, Unstable Housing, Communication Barriers, Environmental/Work Hazards, Anticipated Course of Care, Toxoplasmosis Precations, Use of Any medications, Sexual activity, Exercise, Dental Care, Sauna/Hot tub use, Seat Belt use, Childbirth classes/Hospital facilities, , Travel, Indications for Ultrasound and Screening for Aneuploidy Diagnostics Diagnostics Diagnostics: Blood Type A POSITIVE Antibody Screen NEGATIVE Gest Glucose Tolerance MG/DL Glucose 1 Hr 50 gm 142 mg/dL (70-140) H HIV 1 2 Antibody Non-Reactive (Nonreactive) Rubella IgG Antibody Reactive (Nonreactive) Hgb 11.1 g/dL (12.0-15.0) L Hct 33.4 % (37-47) L Chlamydia DNA ([facility]) Negative (Negative) N.gonorrhoeae DNA ([facility]) Negative (Negative) Details: HIV: Urine Culture: Sequential Screen: NIPT Screen: Results POC Urinalysis 2 Dip (Clinic) Office Urine Glucose Negative Last Edit by Francisca Bright on 06/30/21 15:39 Office Urine Protein Negative Last Edit by Francisca Bright on 06/30/21 15:39 Coding Level of Care Code OB Routine Diagnoses Abnormal glucose affecting O99.810 Depression F32.9 Depression Type: unspecified Supervision of normal Z34.02 Normal : normal first Trimester: second trimester Z3A.36 Weeks of gestation: 36 weeks Assessment and Plan Assessment and Plan (1) Abnormal glucose affecting : Status: Acute Comment: nl 3GTT (2) Depression: Status: Acute Qualifiers: Depression Type: unspecified Qualified Code(s): F32.9 - Major depressive disorder, single episode, unspecified Comment: not on any medication at this time. 02/16 stable (3) Supervision of normal : Status: Acute Qualifiers: Normal : normal first Trimester: second trimester Qualified Code(s): Z34.02 - Encounter for supervision of normal first , second trimester Comment: PRR DIAMANTE: 07/25/21 girl Cornelia Spouse: Nitin (4) : Status: Acute Qualifiers: Weeks of gestation: 36 weeks Qualified Code(s): Z3A.36 - 36 weeks gestation of Comment: declines genetic and carrier screening. declines afp. anatomy nl Orders: Orders: Culture, Group B Streptococcus Today Plan Details Other Orders: Orders: POC Urinalysis 2 Dip (Clinic) Today 06/30/21 1616 <Electronically signed by Alejandrina Marshall MD> Date Alejandrina Marshall MD Cosigner Signature: Date (if applicable) CC: Sunita Fernandes DO Work Phone: Start: 06-23-2021 End: 06-28-2021 Wall Crane Operator Office Visit Report Comments: See Note; NOTES: [facility] [address] [place] [address] OFFICE VISIT Date of Service: 06/23/21 MR#: [id number] Acct: [id number] Name: SAGE GONZALES Rep #: [id number] : 1995 Provider: Dr. Alejandrina doyle MD Age/Sex: 25/F [place] [facility] [place] Signed Intake Vital Signs 06/23/21 10:47 Height 5 ft 4 in Weight: 168 lb 6 oz BMI 28.9 BP 112/70 Intake Visit Reasons: 35WK OB Allergies geo Allergy (Verified 06/23/21 10:47) Unknown Medications multivitamin no.47-iron fum 27 mg-folate no.1 1 mg-dha 300 mg capsule cap PO 12/14/20 [History Confirmed 06/23/21] Last Menstral Period: 10/10/20 Zika: Zika virus screening: Negative : No PFSH PFSH Medical History Depression History of venomous spider bite Low-lying placenta in second trimester Surgical History H/O wisdom tooth extraction Hx of tonsillectomy Family History Aunt Breast cancer Social History adopted: No household members: spouse housing: house current occupational status: employed current occupation: [employer] Smoking Status: Never smoker second hand exposure: No alcohol intake: never substance use type: does not use seatbelt use: always do you feel safe at home: Yes additional social history: [employer] employee [employer] Pregancy History 1 Elective abortions Hx Para Spontaneous abortions Hx # Term Pregnancies Ectopic pregnancies Hx # Pregnancies Multiple births # of living children HPI 35WK OB Details: SAGE GONZALES is a 25 year old who presents for routine OB visit. OB Visit DIAMANTE Calculator Estimated Delivery Date Method Current WG Current Estimate 07/25/21 Ultrasound #1 35w 3d Other Estimates 07/17/21 LMP (Certain) 36w 4d Expected Delivery Route/Plan Labor Preferences- labor support person: nitin labor intervention preferences: open to standard interventions pain management options preferred: natural if able but likely planning epidural cut cord/dad catch: maybe cord, patient possibly wants to help : yes PP control planned: [] discussed possible routes of delivery and associated risks: [] special requests: [] Specific Issue/Plans covid status: pos in september counseled regarding risk of covid in vs vaccination and declined vaccination flu vaccine: given tdap vaccine: given rhogam: na LARC form signed: 05/25 movement and labor precautions reviewed. Problem list reviewed and updated with the most current plan of care details and appropriate orders placed. Relevant counseling for the gestational age provided. Continue routine care and follow up unless otherwise noted in visit notes/problem list details Initial Weight: 150 lb Date -?-?-?-?-?-?-?-?-?-?-?-?- EGA Weight BP Urine Prot -?-?-?-?-?-?-?-?-?-?-?-?- Glucose FHR FuHt Pres Dilation -?-?-?-?-?-?-?-?-?-?-?-?- Effaced St Visit Note 12/19/20 -?-?-?-?-?-?-?-?-?-?-?-?- 8w 6d 150 lb 8 oz (+8 oz) 110/70 -?-?-?-?-?-?-?-?-?-?-?-?- 175 -?-?-?-?-?-?-?-?-?-?-?-?- SM- CRL NOT cons with LMP, 1.9 cm 01/19/21 -?-?-?-?-?-?-?-?-?-?-?-?- 13w 2d 153 lb (+3 lb) 114/64 Negative -?-?-?-?-?-?-?-?-?-?-?-?- Negative 150 -?-?-?-?-?-?-?-?-?-?-?-?- SM- no vb no regualr ctx 02/16/21 -?-?-?-?-?-?-?-?-?-?-?-?- 17w 2d 153 lb (+3 lb) 98/68 Negative -?-?-?-?-?-?-?-?-?-?-?-?- Negative 154 -?-?-?-?-?-?-?-?-?-?-?-?- -NO VB, LO F. Feels well. Anatomy US [facility] 02/2803/17/21 -?-?-?-?-?-?-?-?-?-?-?-?- 21w 3d 159 lb 8 oz (+9 lb 8 oz) 94/70 Negative -?-?-?-?-?-?-?-?-?-?-?-?- Negative 155 -?-?-?-?-?-?-?-?-?-?-?-?- GP - no LOF, VB, DFM, ctx. Denies complaints. Having a girl! 04/13/21 -?-?-?-?-?-?-?-?-?-?-?-?- 25w 2d 161 lb 6 oz (+11 lb 6 oz) 110/60 Negative -?-?-?-?-?-?-?-?-?-?-?-?- Negative 157 24 -?-?-?-?-?-?-?-?-?-?-?-?- -No VB, LO F. Doing well. Good FM. US scheduled 05/01 to check placenta 05/10/21 -?-?-?-?-?-?-?-?-?-?-?-?- 29w 1d 161 lb 4 oz (+11 lb 4 oz) 110/70 Negative -?-?-?-?-?-?-?-?-?-?-?-?- Negative 145 30 Cephalic -?-?-?-?-?-?-?-?-?-?-?-?- SM- no vb lo f good fm no reuglar ctx nl gtt 3 hr 05/25/21 -?-?-?-?-?-?-?-?-?-?-?-?- 31w 2d 164 lb (+14 lb) 110/70 Negative -?-?-?-?-?-?-?-?-?-?-?-?- Negative 150 31 Cephalic -?-?-?-?-?-?-?-?-?-?-?-?- GP - no LOF, VB, dFM, ctx. LARC form signed - declines 06/09/21 -?-?-?-?-?-?-?-?-?-?-?-?- 33w 3d 169 lb (+19 lb) 110/80 Negative -?-?-?-?-?-?-?-?-?-?-?-?- Negative 150 33 Cephalic -?-?-?-?-?-?-?-?-?-?-?-?- GP - no LOF, VB, dFM, ctx. Discussed labor preferences. 06/23/21 -?-?-?-?-?-?-?-?-?-?-?-?- 35w 3d 168 lb 6 oz (+18 lb 6 oz) 112/70 Negative -?-?-?-?-?-?-?-?-?-?-?-?- Negative 150 35 Cephalic -?-?-?-?-?-?-?-?-?-?-?-?- SM- no vb lo f good fm no regular ctx ACOG First Trimester First Trimester: Desire for , Alcohol, Tobacco Cessation, Illicit/Recreational Drug/Substance Use, Intimate Partner Violence, Barriers to care, Unstable Housing, Communication Barriers, Environmental/Work Hazards, Anticipated Course of Care, Toxoplasmosis Precations, Use of Any medications, Sexual activity, Exercise, Dental Care, Sauna/Hot tub use, Seat Belt use, Childbirth classes/Hospital facilities, , Travel, Indications for Ultrasound and Screening for Aneuploidy Diagnostics Diagnostics Diagnostics: Blood Type A POSITIVE Antibody Screen NEGATIVE Gest Glucose Tolerance MG/DL Glucose 1 Hr 50 gm 142 mg/dL (70-140) H HIV 1 2 Antibody Non-Reactive (Nonreactive) Rubella IgG Antibody Reactive (Nonreactive) Hgb 11.1 g/dL (12.0-15.0) L Hct 33.4 % (37-47) L Chlamydia DNA (CARL[facility] ENRIQUE) Negative (Negative) N.gonorrhoeae DNA (CARLOS ENRIQUE) Negative (Negative) Details: HIV: Urine Culture: Sequential Screen: NIPT Screen: Results POC Urinalysis 2 Dip (Clinic) Office Urine Glucose Negative Last Edit by Anastasiya Lowe on 06/23/21 10:54 Office Urine Protein Negative Last Edit by Anastasiya Lowe on 06/23/21 10:54 Coding Level of Care Code OB Routine Diagnoses Z3A.33 Weeks of gestation: 33 weeks Supervision of normal Z34.02 Normal : normal first Trimester: second trimester Depression F32.9 Depression Type: unspecified Assessment and Plan Assessment and Plan (1) : Status: Acute Qualifiers: Weeks of gestation: 33 weeks Qualified Code(s): Z3A.33 - 33 weeks gestation of Comment: declines genetic and carrier screening. declines afp. anatomy nl (2) Supervision of normal : Status: Acute Qualifiers: Normal : normal first Trimester: second trimester Qualified Code(s): Z34.02 - Encounter for supervision of normal first , second trimester Comment: PRR DIAMANTE: 07/25/21 girl Cornelia Spouse: Nitin (3) Depression: Status: Acute Qualifiers: Depression Type: unspecified Qualified Code(s): F32.9 - Major depressive disorder, single episode, unspecified Comment: not on any medication at this time. 02/16 stable Plan Details Other Orders: Orders: POC Urinalysis 2 Dip (Clinic) Today 06/23/21 1125 <Electronically signed by Alejandrina Marshall MD> Date Alejandrina Marshall MD Cosign Signature: Date (if applicable) CC: Sunita Fernandes DO Work Phone: Start: 06-09-2021 End: 06-09-2021 Wall Crane Operator Office Visit Report Comments: See Note; NOTES: [facility] [address] [place], [place] [address] OFFICE VISIT Date of Service: 06/09/21 MR#: [id number] Acct: [id number] Name: SAGE GONZALES Rep #: [id number] : 1995 Provider: Dr. Yvonne lackey MD Age/Sex: 25/F [place] [facility] [place]: Signed Intake Vital Signs 06/09/21 08:08 Height 5 ft 4 in Weight: 169 lb BMI 29.0 BP 110/80 Intake Visit Reasons: 33WK OB Food [employer] Required: No Is patient in pain?: No Allergies geo Allergy (Verified 06/09/21 08:08) Unknown Medications multivitamin no.47-iron fum 27 mg-folate no.1 1 mg-dha 300 mg capsule cap PO 12/14/20 [History Confirmed 06/09/21] Last Menstral Period: 10/10/20 Zika: Zika virus screening: Negative : No PFSH PFSH Medical History Depression History of venomous spider bite Low-lying placenta in second trimester Surgical History H/O wisdom tooth extraction Hx of tonsillectomy Family History Aunt Breast cancer Social History adopted: No household members: spouse housing: house current occupational status: employed current occupation: [employer] Smoking Status: Never smoker second hand exposure: No alcohol intake: never substance use type: does not use seatbelt use: always do you feel safe at home: Yes additional social history: [employer] employee [employer] Pregancy History 1 Elective abortions Hx Para Spontaneous abortions Hx # Term Pregnancies Ectopic pregnancies Hx # Pregnancies Multiple births # of living children HPI 33WK OB Details: SAGE GONZALES is a 25 year old who presents for routine OB visit. OB Visit DIAMANTE Calculator Estimated Delivery Date Method Current WG Current Estimate 07/25/21 Ultrasound #1 33w 3d Other Estimates 07/17/21 LMP (Certain) 34w 4d Expected Delivery Route/Plan Labor Preferences- labor support person: nitin labor intervention preferences: open to standard interventions pain management options preferred: natural if able but likely planning epidural cut cord/dad catch: maybe cord, patient possibly wants to help : yes PP control planned: [] discussed possible routes of delivery and associated risks: [] special requests: [] Specific Issue/Plans covid status: pos in september counseled regarding risk of covid in vs vaccination and declined vaccination flu vaccine: given tdap vaccine: given rhogam: na LARC form signed: 05/25 movement and labor precautions reviewed. Problem list reviewed and updated with the most current plan of care details and appropriate orders placed. Relevant counseling for the gestational age provided. Continue routine care and follow up unless otherwise noted in visit notes/problem list details Initial Weight: 150 lb Date -???-???-???-???-???-???-???- ???-???-???-???-???- EGA Weight BP Urine Prot -???-???-???-???-???-???-???- ???-???-???-???-???- Glucose FHR FuHt Pres Dilation -???-???-???-???-???-???-???- ???-???-???-???-???- Effaced St Visit Note 12/19/20 -???-???-???-???-???-???-???- ???-???-???-???-???- 8w 6d 150 lb 8 oz (+8 oz) 110/70 -???-???-???-???-???-???-???- ???-???-???-???-???- 175 -???-???-???-???-???-???-???- ???-???-???-???-???- SM- CRL NOT cons with LMP, 1.9 cm 01/19/21 -???-???-???-???-???-???-???- ???-???-???-???-???- 13w 2d 153 lb (+3 lb) 114/64 Negative -???-???-???-???-???-???-???- ???-???-???-???-???- Negative 150 -???-???-???-???-???-???-???- ???-???-???-???-???- SM- no vb no regualr [facility] 02/16/21 -???-???-???-???-???-???-???- ???-???-???-???-???- 17w 2d 153 lb (+3 lb) 98/68 Negative -???-???-???-???-???-???-???- ???-???-???-???-???- Negative 154 -???-???-???-???-???-???-???- ???-???-???-???-???- -NO VB, LO F. Feels well. Anatomy US [facility] 02/2803/17/21 -???-???-???-???-???-???-???- ???-???-???-???-???- 21w 3d 159 lb 8 oz (+9 lb 8 oz) 94/70 Negative -???-???-???-???-???-???-???- ???-???-???-???-???- Negative 155 -???-???-???-???-???-???-???- ???-???-???-???-???- GP - no LOF, VB, DFM, ctx. Denies complaints. Having a girl! 04/13/21 -???-???-???-???-???-???-???- ???-???-???-???-???- 25w 2d 161 lb 6 oz (+11 lb 6 oz) 110/60 Negative -???-???-???-???-???-???-???- ???-???-???-???-???- Negative 157 24 -???-???-???-???-???-???-???- ???-???-???-???-???- MH-No VB, LO F. Doing well. Good FM. US scheduled 05/01 to check placenta 05/10/21 -???-???-???-???-???-???-???- ???-???-???-???-???- 29w 1d 161 lb 4 oz (+11 lb 4 oz) 110/70 Negative -???-???-???-???-???-???-???- ???-???-???-???-???- Negative 145 30 Cephalic -???-???-???-???-???-???-???- ???-???-???-???-???- SM- no vb lo f good fm no reuglar ctx nl gtt 3 hr 05/25/21 -???-???-???-???-???-???-???- ???-???-???-???-???- 31w 2d 164 lb (+14 lb) 110/70 Negative -???-???-???-???-???-???-???- ???-???-???-???-???- Negative 150 31 Cephalic -???-???-???-???-???-???-???- ???-???-???-???-???- GP - no LOF, VB, dFM, ctx. LARC form signed - declines 06/09/21 -???-???-???-???-???-???-???- ???-???-???-???-???- 33w 3d 169 lb (+19 lb) 110/80 Negative -???-???-???-???-???-???-???- ???-???-???-???-???- Negative 150 33 Cephalic -???-???-???-???-???-???-???- ???-???-???-???-???- GP - no LOF, VB, dFM, ctx. Discussed labor preferences. ACOG First Trimester First Trimester: Desire for , Alcohol, Tobacco Cessation, Illicit/Recreational Drug/Substance Use, Intimate Partner Violence, Barriers to care, Unstable Housing, Communication Barriers, Environmental/Work Hazards, Anticipated Course of Care, Toxoplasmosis Precations, Use of Any medications, Sexual activity, Exercise, Dental Care, Sauna/Hot tub use, Seat Belt use, Childbirth classes/Hospital facilities, , Travel, Indications for Ultrasound and Screening for Aneuploidy Diagnostics Diagnostics Diagnostics: Blood Type A POSITIVE Antibody Screen NEGATIVE Gest Glucose Tolerance MG/DL Glucose 1 Hr 50 gm 142 mg/dL (70-140) H HIV 1 2 Antibody Non-Reactive (Nonreactive) Rubella IgG Antibody Reactive (Nonreactive) Hgb 11.1 g/dL (12.0-15.0) L Hct 33.4 % (37-47) L Chlamydia DNA (CARLOS ENRIQUE) Negative (Negative) N.gonorrhoeae DNA (CARLOS ENRIQUE) Negative (Negative) Details: HIV: Urine Culture: Sequential Screen: NIPT Screen: ROS GI Denies dyspepsia, Denies nausea and Denies vomiting Denies abnormal vaginal bleeding, Denies dysuria, Denies pelvic pain, Denies vaginal discharge, Denies vaginal odor and Denies vaginal pruritus Exam Const General: cooperative, healthy appearing, comfortable, no acute distress, well developed and well groomed Nutritional Appearance: average body habitus and well nourished Orientation: alert, awake and oriented x3 HENMT Head: normal to inspection, normocephalic and atraumatic Eyes Pupils: PERRL and accommodation normal Resp Effort Inspection: normal respiratory effort, able to speak in complete sentences and symmetric chest movement Cardio Rate: regular rate GI Palpation: soft, no guarding, no masses and nontender Skin General: no rashes or lesions noted, elasticity normal and turgor normal Neuro General: patient alert, patient awake and patient oriented x3 Cranial Nerves: CN's II-XI intact bilaterally, sense of smell intact, PERRL, accommodation normal and EOM intact bilaterally Speech: speech normal Gait: normal gait Psych Appearance: grossly normal and well kempt Mental Status: mental status grossly normal Mood: congruent mood Affect: normal affect Speech and Movement: speech and movement normal Attitude: cooperative Thought Process: normal Thought Content: normal Judgment: judgment good Results POC Urinalysis 2 Dip (Clinic) Office Urine Glucose Negative Last Edit by Yodit Rosado on 06/09/21 08:14 Office Urine Protein Negative Last Edit by Yodit Rosado on 06/09/21 08:14 Coding Level of Care Code OB Routine Diagnoses Abnormal glucose affecting O99.810 Depression F32.9 Depression Type: unspecified Supervision of normal Z34.02 Normal : normal first Trimester: second trimester Z3A.33 Weeks of gestation: 33 weeks Assessment and Plan Assessment and Plan (1) Abnormal glucose affecting : Status: Acute Comment: nl 3GTT (2) Depression: Status: Acute Qualifiers: Depression Type: unspecified Qualified Code(s): F32.9 - Major depressive disorder, single episode, unspecified Comment: not on any medication at this time. 02/16 stable (3) Supervision of normal : Status: Acute Qualifiers: Normal : normal first Trimester: second trimester Qualified Code(s): Z34.02 - Encounter for supervision of normal first , second trimester Comment: PRR DIAMANTE: 07/25/21 girl Cornelia Spouse: Nitin (4) : Status: Acute Qualifiers: Weeks of gestation: 33 weeks Qualified Code(s): Z3A.33 - 33 weeks gestation of Comment: declines genetic and carrier screening. declines afp. anatomy nl Plan Details Other Orders: Orders: POC Urinalysis 2 Dip (Clinic) Today 06/09/21 0844 <Electronically signed by Yvonne Giraldo MD> Date Yvonne Giraldo MD Cosigner Signature: Date (if applicable) CC: Sunita Fernandes DO Work Phone: Start: 05-25-2021 End: 05-25-2021 Wall Crane Operator Office Visit Report Comments: See Note; NOTES: [facility] [address] [place] [address]. [address] [place] [address] OFFICE VISIT Date of Service: 05/25/21 MR#: [id number] Acct: [id number] Name: SAGE GONZALES Rep #: [id number] : 1995 Provider: Dr. Yvonne lackey MD Age/Sex: 25/F [place] [facility] [place]: Signed Intake Vital Signs 05/25/21 14:52 Height 5 ft 4 in Weight: 164 lb BMI 28.1 BP 110/70 Intake Visit Reasons: 31WK OB Food [employer] Required: No Is patient in pain?: No Allergies geo Allergy (Verified 05/25/21 14:52) Unknown Medications multivitamin no.47-iron fum 27 mg-folate no.1 1 mg-dha 300 mg capsule cap PO 12/14/20 [History Confirmed 05/25/21] Last Menstral Period: 10/10/20 Zika: Zika virus screening: Negative : No PFSH PFSH Medical History Depression History of venomous spider bite Low-lying placenta in second trimester Surgical History H/O wisdom tooth extraction Hx of tonsillectomy Family History Aunt Breast cancer Social History adopted: No household members: spouse housing: house current occupational status: employed current occupation: [employer] Smoking Status: Never smoker second hand exposure: No alcohol intake: never substance use type: does not use seatbelt use: always do you feel safe at home: Yes additional social history: [employer] employee [employer] Pregancy History 1 Elective abortions Hx Para Spontaneous abortions Hx # Term Pregnancies Ectopic pregnancies Hx # Pregnancies Multiple births # of living children HPI 31WK OB Details: SAGE GONZALES is a 25 year old who presents for routine OB visit. OB Visit DIAMANTE Calculator Estimated Delivery Date Method Current WG Current Estimate 07/25/21 Ultrasound #1 31w 2d Other Estimates 07/17/21 LMP (Certain) 32w 3d Expected Delivery Route/Plan Labor Preferences- labor support person: nitin labor intervention preferences: [] pain management options preferred: [] cut cord/dad catch: [] : [] PP control planned: [] discussed possible routes of delivery and associated risks: [] special requests: [] Specific Issue/Plans covid status: pos in september counseled regarding risk of covid in vs vaccination and declined vaccination flu vaccine: given tdap vaccine: given rhogam: na LARC form signed: 05/25 movement and labor precautions reviewed. Problem list reviewed and updated with the most current plan of care details and appropriate orders placed. Relevant counseling for the gestational age provided. Continue routine care and follow up unless otherwise noted in visit notes/problem list details Initial Weight: 150 lb Date -???-???-???-???-???-???-???- ???-???-???-???-???- EGA Weight BP Urine Prot -???-???-???-???-???-???-???- ???-???-???-???-???- Glucose FHR FuHt Pres Dilation -???-???-???-???-???-???-???- ???-???-???-???-???- Effaced St Visit Note 12/19/20 -???-???-???-???-???-???-???- ???-???-???-???-???- 8w 6d 150 lb 8 oz (+8 oz) 110/70 -???-???-???-???-???-???-???- ???-???-???-???-???- 175 -???-???-???-???-???-???-???- ???-???-???-???-???- SM- CRL NOT cons with LMP, 1.9 cm 01/19/21 -???-???-???-???-???-???-???- ???-???-???-???-???- 13w 2d 153 lb (+3 lb) 114/64 Negative -???-???-???-???-???-???-???- ???-???-???-???-???- Negative 150 -???-???-???-???-???-???-???- ???-???-???-???-???- SM- no vb no regualr ctx 02/16/21 -???-???-???-???-???-???-???- ???-???-???-???-???- 17w 2d 153 lb (+3 lb) 98/68 Negative -???-???-???-???-???-???-???- ???-???-???-???-???- Negative 154 -???-???-???-???-???-???-???- ???-???-???-???-???- -NO VB, LO F. Feels well. Anatomy US [facility] 02/2803/17/21 -???-???-???-???-???-???-???- ???-???-???-???-???- 21w 3d 159 lb 8 oz (+9 lb 8 oz) 94/70 Negative -???-???-???-???-???-???-???- ???-???-???-???-???- Negative 155 -???-???-???-???-???-???-???- ???-???-???-???-???- GP - no LOF, VB, DFM, ctx. Denies complaints. Having a girl! 04/13/21 -???-???-???-???-???-???-???- ???-???-???-???-???- 25w 2d 161 lb 6 oz (+11 lb 6 oz) 110/60 Negative -???-???-???-???-???-???-???- ???-???-???-???-???- Negative 157 24 -???-???-???-???-???-???-???- ???-???-???-???-???- -No VB, LO F. Doing well. Good FM. US scheduled 05/01 to check placenta 05/10/21 -???-???-???-???-???-???-???- ???-???-???-???-???- 29w 1d 161 lb 4 oz (+11 lb 4 oz) 110/70 Negative -???-???-???-???-???-???-???- ???-???-???-???-???- Negative 145 30 Cephalic -???-???-???-???-???-???-???- ???-???-???-???-???- SM- no vb lo f good fm no reuglar ctx nl gtt 3 hr 05/25/21 -???-???-???-???-???-???-???- ???-???-???-???-???- 31w 2d 164 lb (+14 lb) 110/70 Negative -???-???-???-???-???-???-???- ???-???-???-???-???- Negative 150 31 Cephalic -???-???-???-???-???-???-???- ???-???-???-???-???- GP - no LOF, VB, dFM, ctx. LARC form signed - declines ACOG First Trimester First Trimester: Desire for , Alcohol, Tobacco Cessation, Illicit/Recreational Drug/Substance Use, Intimate Partner Violence, Barriers to care, Unstable Housing, Communication Barriers, Environmental/Work Hazards, Anticipated Course of Care, Toxoplasmosis Precations, Use of Any medications, Sexual activity, Exercise, Dental Care, Sauna/Hot tub use, Seat Belt use, Childbirth classes/Hospital facilities, , Travel, Indications for Ultrasound and Screening for Aneuploidy Diagnostics Diagnostics Diagnostics: Blood Type A POSITIVE Antibody Screen NEGATIVE Gest Glucose Tolerance MG/DL Glucose 1 Hr 50 gm 142 mg/dL (70-140) H HIV 1 2 Antibody Non-Reactive (Nonreactive) Rubella IgG Antibody Reactive (Nonreactive) Hgb 11.1 g/dL (12.0-15.0) L Hct 33.4 % (37-47) L Chlamydia DNA (CARL[facility] ENRIQUE) Negative (Negative) N.gonorrhoeae DNA (CARLOS ENRIQUE) Negative (Negative) Details: HIV: Urine Culture: Sequential Screen: NIPT Screen: ROS GI Denies dyspepsia, Denies nausea and Denies vomiting Denies abnormal vaginal bleeding, Denies dysuria, Denies pelvic pain, Denies vaginal discharge, Denies vaginal odor and Denies vaginal pruritus Exam Const General: cooperative, healthy appearing, comfortable, no acute distress, well developed and well groomed Nutritional Appearance: average body habitus and well nourished Orientation: alert, awake and oriented x3 HENMT Head: normal to inspection, normocephalic and atraumatic Eyes Pupils: PERRL and accommodation normal Resp Effort Inspection: normal respiratory effort, able to speak in complete sentences and symmetric chest movement Cardio Rate: regular rate GI Palpation: soft, no guarding, no masses and nontender Skin General: no rashes or lesions noted, elasticity normal and turgor normal Neuro General: patient alert, patient awake and patient oriented x3 Cranial Nerves: CN's II-XI intact bilaterally, sense of smell intact, PERRL, accommodation normal and EOM intact bilaterally Speech: speech normal Gait: normal gait Psych Appearance: grossly normal and well kempt Mental Status: mental status grossly normal Mood: congruent mood Affect: normal affect Speech and Movement: speech and movement normal Attitude: cooperative Thought Process: normal Thought Content: normal Judgment: judgment good Results POC Urinalysis 2 Dip (Clinic) Office Urine Glucose Negative Last Edit by Yodit Rosado on 05/25/21 15:06 Office Urine Protein Negative Last Edit by Yodit Rosado on 05/25/21 15:06 Coding Level of Care Code OB Routine Diagnoses Abnormal glucose affecting O99.810 Depression F32.9 Depression Type: unspecified Supervision of normal Z34.02 Normal : normal first Trimester: second trimester Z3A.31 Weeks of gestation: 31 weeks Assessment and Plan Assessment and Plan (1) Abnormal glucose affecting : Status: Acute Comment: nl 3GTT (2) Depression: Status: Acute Qualifiers: Depression Type: unspecified Qualified Code(s): F32.9 - Major depressive disorder, single episode, unspecified Comment: not on any medication at this time. 02/16 stable (3) Supervision of normal : Status: Acute Qualifiers: Normal : normal first Trimester: second trimester Qualified Code(s): Z34.02 - Encounter for supervision of normal first , second trimester Comment: PRR DIAMANTE: 07/25/21 girl Cornelia Spouse: Nitin (4) : Status: Acute Qualifiers: Weeks of gestation: 31 weeks Qualified Code(s): Z3A.31 - 31 weeks gestation of Comment: declines genetic and carrier screening. declines afp. anatomy nl Plan Details Other Orders: Orders: POC Urinalysis 2 Dip (Clinic) Today 05/25/21 1523 <Electronically signed by Yvonne Giraldo MD> Date Yvonne Giraldo MD Cosigner Signature: Date (if applicable) CC: Sunita Fernandes DO Work Phone: Start: 05-10-2021 End: 05-10-2021 Wall Crane Operator Office Visit Report Comments: See Note; NOTES: [facility] [address] [place], [place] [address] OFFICE VISIT Date of Service: 05/10/21 MR#: [id number] Acct: [id number] Name: SAGE GONZALES Rep #: [id number] : 1995 Provider: Dr. 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 OB Visit DIAMANTE Calculator Estimated Delivery Date Method Current WG Current Estimate 07/25/21 Ultrasound #1 29w 1d Other Estimates 07/17/21 LMP (Certain) 30w 2d Expected Delivery Route/Plan Labor Preferences- labor support person: nitin labor intervention preferences: [] pain management options preferred: [] cut cord/dad catch: [] : [] PP control planned: [] discussed possible routes of delivery and associated risks: [] special requests: [] Specific Issue/Plans covid status: pos in september counseled regarding risk of covid in vs vaccination and declined vaccination flu vaccine: given tdap vaccine: given rhogam: na LARC form signed: [] movement and labor precautions reviewed. Problem list reviewed and updated with the most current plan of care details and appropriate orders placed. Relevant counseling for the gestational age provided. Continue routine care and follow up unless otherwise noted in visit notes/problem list details Initial Weight: 150 lb Date -???-???-???-???-???-???-???- ???-???-???-???-???- EGA Weight BP Urine Prot -???-???-???-???-???-???-???- ???-???-???-???-???- Glucose FHR FuHt Pres Dilation -???-???-???-???-???-???-???- ???-???-???-???-???- Effaced St Visit Note 12/19/20 -???-???-???-???-???-???-???- ???-???-???-???-???- 8w 6d 150 lb 8 oz (+8 oz) 110/70 -???-???-???-???-???-???-???- ???-???-???-???-???- 175 -???-???-???-???-???-???-???- ???-???-???-???-???- SM- CRL NOT cons with LMP, 1.9 cm 01/19/21 -???-???-???-???-???-???-???- ???-???-???-???-???- 13w 2d 153 lb (+3 lb) 114/64 Negative -???-???-???-???-???-???-???- ???-???-???-???-???- Negative 150 -???-???-???-???-???-???-???- ???-???-???-???-???- SM- no vb no regualr ctx 02/16/21 -???-???-???-???-???-???-???- ???-???-???-???-???- 17w 2d 153 lb (+3 lb) 98/68 Negative -???-???-???-???-???-???-???- ???-???-???-???-???- Negative 154 -???-???-???-???-???-???-???- ???-???-???-???-???- -NO VB, LO F. Feels well. Anatomy US [facility] 02/2803/17/21 -???-???-???-???-???-???-???- ???-???-???-???-???- 21w 3d 159 lb 8 oz (+9 lb 8 oz) 94/70 Negative -???-???-???-???-???-???-???- ???-???-???-???-???- Negative 155 -???-???-???-???-???-???-???- ???-???-???-???-???- GP - no LOF, VB, DFM, ctx. Denies complaints. Having a girl! 04/13/21 -???-???-???-???-???-???-???- ???-???-???-???-???- 25w 2d 161 lb 6 oz (+11 lb 6 oz) 110/60 Negative -???-???-???-???-???-???-???- ???-???-???-???-???- Negative 157 24 -???-???-???-???-???-???-???- ???-???-???-???-???- MH-No VB, LO F. Doing well. Good FM. US scheduled 05/01 to check placenta 05/10/21 -???-???-???-???-???-???-???- ???-???-???-???-???- 29w 1d 161 lb 4 oz (+11 lb 4 oz) 110/70 Negative -???-???-???-???-???-???-???- ???-???-???-???-???- Negative 145 30 Cephalic -???-???-???-???-???-???-???- ???-???-???-???-???- SM- no vb lo f good fm no reuglar ctx nl gtt 3 hr ACOG First Trimester First Trimester: Desire for , Alcohol, Tobacco Cessation, Illicit/Recreational Drug/Substance Use, Intimate Partner Violence, Barriers to care, Unstable Housing, Communication Barriers, Environmental/Work Hazards, Anticipated Course of Care, Toxoplasmosis Precations, Use of Any medications, Sexual activity, Exercise, Dental Care, Sauna/Hot tub use, Seat Belt use, Childbirth classes/Hospital facilities, , Travel, Indications for Ultrasound and Screening for Aneuploidy Diagnostics Diagnostics Diagnostics: Blood Type A POSITIVE Antibody Screen NEGATIVE Gest Glucose Tolerance MG/DL Glucose 1 Hr 50 gm 142 mg/dL (70-140) H HIV 1 2 Antibody Non-Reactive (Nonreactive) Rubella IgG Antibody Reactive (Nonreactive) Hgb 11.1 g/dL (12.0-15.0) L Hct 33.4 % (37-47) L Chlamydia DNA (CARLOS ENRIQUE) Negative (Negative) N.gonorrhoeae DNA (CARLOS ENRIQUE) Negative (Negative) Details: HIV: Urine Culture: Sequential Screen: NIPT Screen: Results POC Urinalysis 2 Dip (Clinic) Office Urine Glucose Negative Last Edit by Yodit Rosado on 05/10/21 15:35 Office Urine Protein Negative Last Edit by Yodit Rosado on 05/10/21 15:35 Immunizations Boostrix Tdap Performing Provider: Alejandrina Marshall MD Administered by: Yodit Rosado on 05/10/21 15:33 Dose Route Admin Location Lot Number Expiration Date [facility] Manufactu rer 0.5 mL IM Left Deltoid [id number] 10/21/22 [id number] [employer] VIS Given Date VIS Provided VIS Publication Date 05/10/21 Single Vaccine 14 Eligibility Eligibility Date Funding Source Not Applicable Coding Level of Care Code OB Routine Diagnoses Abnormal glucose affecting O99.810 Depression F32.9 Depression Type: unspecified Supervision of normal Z34.02 Normal : normal first Trimester: second trimester Z3A.29 Weeks of gestation: 29 weeks Assessment and Plan Assessment and Plan (1) Abnormal glucose affecting : Status: Acute Comment: nl 3GTT (2) Depression: Status: Acute Qualifiers: Depression Type: unspecified Qualified Code(s): F32.9 - Major depressive disorder, single episode, unspecified Comment: not on any medication at this time. 02/16 stable (3) Supervision of normal : Status: Acute Qualifiers: Normal : normal first Trimester: second trimester Qualified Code(s): Z34.02 - Encounter for supervision of normal first , second trimester Comment: PRR DIAMANET: 07/25/21 girl Cornelia Spouse: Nitin (4) : Status: Acute Qualifiers: Weeks of gestation: 29 weeks Qualified Code(s): Z3A.29 - 29 weeks gestation of Comment: declines genetic and carrier screening. declines afp. anatomy nl Plan Details Other Orders: Orders: Tdap Immunization Today Z23 POC Urinalysis 2 Dip (Clinic) Today 05/10/21 1551 <Electronically signed by Alejandrina Marshall MD> Date Alejandrina Marshall MD Cosigner Signature: Date (if applicable) CC: Sunita Fernandes DO Work Phone: Start: 05-01-2021 End: 05-01-2021 OB Limited (No Biometrics) Comments: See Note; NOTES: [facility] Imaging Services [address] [place] [id number] OB Limited (No Biometrics) MR#: [id number] Acct: [id number] Name: JANETSAGE PEDERSON Rep #: [id number] : 1995 F 25 From: Faisal Chang MD PCP: Dr. Sunita Fernandes, DO Status: REG CLI Study: OB Limited (No Biometrics) Date of Exam: 05/01 Exam# [id number] Ordering Dr: Florence Bravo PRECISION ASSEMBLY INSPECTOR PRECISION ASSEMBLY INSPECTOR -C STUDY: SECOND AND THIRD TRIMESTER OBSTETRICAL ULTRASOUND - LIMITED REASON FOR EXAM: Female, 25 years old placenta location at 28 weeks LMP: 10/18/2020 PRIOR ULTRASOUND: 02/28/2021 TECHNIQUE: Transabdominal TECHNICAL QUALITY: Adequate. FINDINGS: There is a single intrauterine fetus. The fetus is in a cephalic presentation. There is demonstrated cardiac activity with a heart rate of 141 bpm. There is a normal amniotic fluid volume. The largest amniotic fluid pocket measures 4.8 cm. The amniotic fluid index (EMILIO) is 12.8 cm. The placenta is anterior in location and is not low lying. There are Grade 0 placental changes. The cervix measures 3.7 cm in length. Age by LMP: 27 weeks, 6 days. DIAMANTE by LMP: 07/25/2021. US/OB Limited (No Biometrics) IMPRESSION: Living intrauterine of 27 weeks 6 days as described above. Electronically Signed: Faisal Chang MD at 13:08 EDT Tel , Service support , CC: CORAL Bravo; Dr. Sunita Fernandes DO Ad[employer] Dispatch Clerks Supervisor: Signed Sunita Fernandes DO Work Phone: Start: 04-13-2021 End: 04-13-2021 Wall Crane Operator Office Visit Report Comments: See Note; NOTES: [facility] [address] [place] [address]. [address] [place] [address] OFFICE VISIT Date of Service: 04/13/21 MR#: [id number] Acct: [id number] Name: SAGE GONZLAES Rep #: [id number] : 1995 Provider: CORAL amaya Age/Sex: 25/F Location: [facility] Status: Signed Intake Vital Signs 04/13/21 08:37 04/13/21 08:39 Height 5 ft 4 in Weight: 161 lb 6 oz BMI 27.6 25.8 BP 110/60 Intake Visit Reasons: 25 WK OB Food Crops Farm Hand Required: No Is patient in pain?: No Allergies geo Allergy (Verified 04/13/21 08:38) Unknown Medications multivitamin no.47-iron fum 27 mg-folate no.1 1 mg-dha 300 mg capsule cap PO 12/14/20 [History Confirmed 04/13/21] Last Menstral Period: 10/10/20 Zika: Zika virus screening: Negative : No PFSH PFSH Medical History Depression History of venomous spider bite Low-lying placenta in second trimester Surgical History H/O wisdom tooth extraction Hx of tonsillectomy Family History Aunt Breast cancer Social History adopted: No household members: spouse housing: house current occupational status: 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 OB Visit DIAMANTE Calculator Estimated Delivery Date Method Current WG Current Estimate 07/25/21 Ultrasound #1 25w 2d Other Estimates 07/17/21 LMP (Certain) 26w 3d Expected Delivery Route/Plan Labor Preferences- CB/BF classes: [] labor support person: [] labor intervention preferences: [] pain management options preferred: [] cut cord/dad catch: [] : [] PP control planned: [] discussed possible routes of delivery and associated risks: [] special requests: [] Specific Issue/Plans flu vaccine: given tdap vaccine: [] rhogam: [] LARC form signed: [] Problem list reviewed and updated with the most current plan of care details and appropriate orders placed. Relevant counseling for the gestational age provided. Continue routine care and follow up unless otherwise noted in visit notes/problem list details Initial Weight: 150 lb Date -???-???-???-???-???-???-???- ???-???-???-???-???- EGA Weight BP Urine Prot -???-???-???-???-???-???-???- ???-???-???-???-???- Glucose FHR FuHt Pres Dilation -???-???-???-???-???-???-???- ???-???-???-???-???- Effaced St Visit Note 12/19/20 -???-???-???-???-???-???-???- ???-???-???-???-???- 8w 6d 150 lb 8 oz (+8 oz) 110/70 -???-???-???-???-???-???-???- ???-???-???-???-???- 175 -???-???-???-???-???-???-???- ???-???-???-???-???- SM- CRL NOT cons with LMP, 1.9 cm 01/19/21 -???-???-???-???-???-???-???- ???-???-???-???-???- 13w 2d 153 lb (+3 lb) 114/64 Negative -???-???-???-???-???-???-???- ???-???-???-???-???- Negative 150 -???-???-???-???-???-???-???- ???-???-???-???-???- SM- no vb no regualr ctx 02/16/21 -???-???-???-???-???-???-???- ???-???-???-???-???- 17w 2d 153 lb (+3 lb) 98/68 Negative -???-???-???-???-???-???-???- ???-???-???-???-???- Negative 154 -???-???-???-???-???-???-???- ???-???-???-???-???- MH-NO VB, LO F. Feels well. Anatomy US [facility] 02/2803/17/21 -???-???-???-???-???-???-???- ???-???-???-???-???- 21w 3d 159 lb 8 oz (+9 lb 8 oz) 94/70 Negative -???-???-???-???-???-???-???- ???-???-???-???-???- Negative 155 -???-???-???-???-???-???-???- ???-???-???-???-???- GP - no LOF, VB, DFM, ctx. Denies complaints. Having a girl! 04/13/21 -???-???-???-???-???-???-???- ???-???-???-???-???- 25w 2d 161 lb 6 oz (+11 lb 6 oz) 110/60 Negative -???-???-???-???-???-???-???- ???-???-???-???-???- Negative 157 24 -???-???-???-???-???-???-???- ???-???-???-???-???- MH-No VB, FRANK F. Doing well. Good FM. US scheduled 05/01 to check placenta ACOG First Trimester First Trimester: Desire for , Alcohol, Tobacco Cessation, Illicit/Recreational Drug/Substance Use, Intimate Partner Violence, Barriers to care, Unstable Housing, Communication Barriers, Environmental/Work Hazards, Anticipated Course of Care, Toxoplasmosis Precations, Use of Any medications, Sexual activity, Exercise, Dental Care, Sauna/Hot tub use, Seat Belt use, Childbirth classes/Hospital facilities, , Travel, Indications for Ultrasound and Screening for Aneuploidy Diagnostics Diagnostics Diagnostics: Blood Type A POSITIVE Antibody Screen NEGATIVE HIV 1 2 Antibody Non-Reactive (Nonreactive) Rubella IgG Antibody Reactive (Nonreactive) Hgb 12.3 g/dL (12.0-15.0) Hct 38.2 % (37-47) Chlamydia DNA (CARLOS ENRIQUE) Negative (Negative) N.gonorrhoeae DNA (CARLOS ENRIQUE) Negative (Negative) Details: HIV: Urine Culture: Sequential Screen: NIPT Screen: Results POC Urinalysis 2 Dip (Clinic) Office Urine Glucose Negative Last Edit by Sapphire Castelan on 04/13/21 08:39 Office Urine Protein Negative Last Edit by Sapphire Castelan on 04/13/21 08:39 POC Urinalysis Dip (Clinic) Office Urine Color Yellow Last Edit by Sapphire Castelan on 04/13/21 08:40 Office Urine Clarity Clear Last Edit by Sapphire Castelan on 04/13/21 08:40 Office Urine Glucose Negative Last Edit by Sapphire Castelan on 04/13/21 08:40 Office Urine Ketones Negative Last Edit by Sapphire Castelan on 04/13/21 08:40 Off Ur Spec [place] 1.010 Last Edit by Sapphire Castelan on 04/13/21 08:40 Office Urine pH 6.0 Last Edit by Sapphire Castelan on 04/13/21 08:40 Office Urine Bilirubin Negative Last Edit by Sapphire Castelan on 04/13/21 08:40 Office Urine Urobilinogen Negative Last Edit by Sapphire Castelan on 04/13/21 08:40 Office Urine Blood Negative Last Edit by Sapphire Castelan on 04/13/21 08:40 Office Urine Blood Hemolyzed Negative Last Edit by Sapphire Castelan on 04/13/21 08:40 Office Urine Protein Negative Last Edit by Sapphire Castelan on 04/13/21 08:40 Office Urine Nitrate Negative Last Edit by Sapphire Castelan on 04/13/21 08:40 Off Ur Leukocytes Negatve Last Edit by Sapphire Castelan on 04/13/21 08:40 Coding Level of Care Code OB Routine Diagnoses Supervision of normal Z34.02 Normal : normal first Trimester: second trimester Z3A.21 Weeks of gestation: 21 weeks Depression F32.9 Depression Type: unspecified Low-lying placenta in second trimester O44.42 Assessment and Plan Assessment and Plan (1) Supervision of normal : Status: Acute Qualifiers: Normal : normal first Trimester: second trimester Qualified Code(s): Z34.02 - Encounter for supervision of normal first , second trimester Comment: PRR DIAMANTE: 07/25/21 Spouse: Nitin (2) : Status: Acute Qualifiers: Weeks of gestation: 21 weeks Qualified Code(s): Z3A.21 - 21 weeks gestation of Comment: declines genetic and carrier screening. declines afp. anatomy nl (3) Depression: Status: Acute Qualifiers: Depression Type: unspecified Qualified Code(s): F32.9 - Major depressive disorder, single episode, unspecified Comment: not on any medication at this time. 02/16 stable (4) Low-lying placenta in second trimester: Status: Acute Comment: anterior, repeat US @ 28 wks Orders: Orders: Glucose Challenge Gest 1H 50g Today Z34.02 CBC W/Diff, Automated Today Z34.02 OB Limited With Biometrics 03/22/21 Z34.02, O44.42 Plan - Florence Bravo PRECISION ASSEMBLY INSPECTOR, PRECISION ASSEMBLY INSPECTOR-C: problem list reviewed and updated for most current plan of care and appropriate orders placed. Relevant counseling for the gestational age appropriate provided and ACOG education checklist updated. Continue routine care and follow up. Plan Details Other Orders: Orders: POC Urinalysis Dip (Clinic) Today R30.0 POC Urinalysis 2 Dip (Clinic) Today R30.0 Glucose Challenge Gest 1H 50g Today Z13.1 Culture, Urine Today R30.0 04/13/21 0846 <Electronically signed by Florence Bravo NP PRECISION ASSEMBLY INSPECTOR-C> Date Florence Bravo NP PRECISION ASSEMBLY INSPECTOR-C Cosigner Signature: Date (if applicable) CC: Sunita Fernandes DO Work Phone: Start: 03-17-2021 End: 03-17-2021 Wall Crane Operator Office Visit Report Comments: See Note; NOTES: [facility] [address] [place] [address] OFFICE VISIT Date of Service: 03/17/21 MR#: [id number] Acct: [id number] Name: SAGE GONZALES Rep #: [id number] : 1995 Provider: Dr. Yvonne lackey MD Age/Sex: 25/F [place] [facility] [place] Status: Signed Intake Vital Signs 03/17/21 14:04 03/17/21 14:05 Height 5 ft 4 in Weight: 159 lb 8 oz BMI 27.3 25.8 BP 94/70 Intake Visit Reasons: 21 WK OB Chief Complaint: est ob Food Crops Farm Hand Required: No Is patient in pain?: No Allergies geo Allergy (Verified 12/19/20 13:14) Unknown Medications multivitamin no.47-iron fum 27 mg-folate no.1 1 mg-dha 300 mg capsule cap PO 12/14/20 [History Confirmed 03/17/21] Last Menstral Period: 10/10/20 Zika: Zika virus screening: Negative : No PFSH PFSH Medical History Depression History of venomous spider bite Low-lying placenta in second trimester Surgical History H/O wisdom tooth extraction Hx of tonsillectomy Family History Aunt Breast cancer Social History adopted: No household members: spouse housing: house 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 OB Visit DIAMANTE Calculator Estimated Delivery Date Method Current WG Current Estimate 07/25/21 Ultrasound #1 21w 3d Other Estimates 07/17/21 LMP (Certain) 22w 4d Expected Delivery Route/Plan Labor Preferences- CB/BF classes: [] labor support person: [] labor intervention preferences: [] pain management options preferred: [] cut cord/dad catch: [] : [] PP control planned: [] discussed possible routes of delivery and associated risks: [] special requests: [] Specific Issue/Plans flu vaccine: given tdap vaccine: [] rhogam: [] LARC form signed: [] Problem list reviewed and updated with the most current plan of care details and appropriate orders placed. Relevant counseling for the gestational age provided. Continue routine care and follow up unless otherwise noted in visit notes/problem list details Initial Weight: 150 lb Date -???-???-???-???-???-???-???- ???-???-???-???-???- EGA Weight BP Urine Prot -???-???-???-???-???-???-???- ???-???-???-???-???- Glucose FHR FuHt Pres Dilation -???-???-???-???-???-???-???- ???-???-???-???-???- Effaced St Visit Note 12/19/20 -???-???-???-???-???-???-???- ???-???-???-???-???- 8w 6d 150 lb 8 oz (+8 oz) 110/70 -???-???-???-???-???-???-???- ???-???-???-???-???- 175 -???-???-???-???-???-???-???- ???-???-???-???-???- SM- CRL NOT cons with LMP, 1.9 cm 01/19/21 -???-???-???-???-???-???-???- ???-???-???-???-???- 13w 2d 153 lb (+3 lb) 114/64 Negative -???-???-???-???-???-???-???- ???-???-???-???-???- Negative 150 -???-???-???-???-???-???-???- ???-???-???-???-???- SM- no vb no regualr ctx 02/16/21 -???-???-???-???-???-???-???- ???-???-???-???-???- 17w 2d 153 lb (+3 lb) 98/68 Negative -???-???-???-???-???-???-???- ???-???-???-???-???- Negative 154 -???-???-???-???-???-???-???- ???-???-???-???-???- MH-NO VB, LO F. Feels well. Anatomy [facility] 02/2803/17/21 -???-???-???-???-???-???-???- ???-???-???-???-???- 21w 3d 159 lb 8 oz (+9 lb 8 oz) 94/70 Negative -???-???-???-???-???-???-???- ???-???-???-???-???- Negative 155 -???-???-???-???-???-???-???- ???-???-???-???-???- GP - no LOF, VB, DFM, ctx. Denies complaints. Having a girl! ACOG First Trimester First Trimester: Desire for , Alcohol, Tobacco Cessation, Illicit/Recreational Drug/Substance Use, Intimate Partner Violence, Barriers to care, Unstable Housing, Communication Barriers, Environmental/Work Hazards, Anticipated Course of Care, Toxoplasmosis Precations, Use of Any medications, Sexual activity, Exercise, Dental Care, Sauna/Hot tub use, Seat Belt use, Childbirth classes/Hospital facilities, , Travel, Indications for Ultrasound and Screening for Aneuploidy Diagnostics Diagnostics Diagnostics: Blood Type A POSITIVE Antibody Screen NEGATIVE HIV 1 2 Antibody Non-Reactive (Nonreactive) Rubella IgG Antibody Reactive (Nonreactive) Hgb 12.3 g/dL (12.0-15.0) Hct 38.2 % (37-47) Chlamydia DNA (CARLOS ENRIQUE) Negative (Negative) N.gonorrhoeae DNA (CARLOS ENRIQUE) Negative (Negative) Details: HIV: Urine Culture: Sequential Screen: NIPT Screen: ROS GI Denies dyspepsia, Denies nausea and Denies vomiting Denies abnormal vaginal bleeding, Denies dysuria, Denies pelvic pain, Denies vaginal discharge, Denies vaginal odor and Denies vaginal pruritus Exam Const General: cooperative, healthy appearing, comfortable, no acute distress, well developed and well groomed Nutritional Appearance: average body habitus and well nourished Orientation: alert, awake and oriented x3 HENMT Head: normal to inspection, normocephalic and atraumatic Eyes Pupils: PERRL and accommodation normal Resp Effort Inspection: normal respiratory effort, able to speak in complete sentences and symmetric chest movement Cardio Rate: regular rate GI Palpation: soft, no guarding, no masses and nontender Skin General: no rashes or lesions noted, elasticity normal and turgor normal Neuro General: patient alert, patient awake and patient oriented x3 Cranial Nerves: CN's II-XI intact bilaterally, sense of smell intact, PERRL, accommodation normal and EOM intact bilaterally Speech: speech normal Gait: normal gait Psych Appearance: grossly normal and well kempt Mental Status: mental status grossly normal Mood: congruent mood Affect: normal affect Speech and Movement: speech and movement normal Attitude: cooperative Thought Process: normal Thought Content: normal Judgment: judgment good Results POC Urinalysis 2 Dip (Clinic) Office Urine Glucose Negative Last Edit by Francisca Nichols on 03/17/21 14:07 Office Urine Protein Negative Last Edit by Francisca Nichols on 03/17/21 14:07 Coding Level of Care Code OB Routine Diagnoses Low-lying placenta in second trimester O44.42 Supervision of normal Z34.02 Normal : normal first Trimester: second trimester Depression F32.9 Depression Type: unspecified Z3A.21 Weeks of gestation: 21 weeks Assessment and Plan Assessment and Plan (1) Low-lying placenta in second trimester: Status: Acute Comment: anterior, repeat US @ 28 wks (2) Supervision of normal : Status: Acute Qualifiers: Normal : normal first Trimester: second trimester Qualified Code(s): Z34.02 - Encounter for supervision of normal first , second trimester Comment: PRR DIAMANTE: 07/25/21 Spouse: Nitin (3) Depression: Status: Acute Qualifiers: Depression Type: unspecified Qualified Code(s): F32.9 - Major depressive disorder, single episode, unspecified Comment: not on any medication at this time. 02/16 stable (4) : Status: Acute Qualifiers: Weeks of gestation: 21 weeks Qualified Code(s): Z3A.21 - 21 weeks gestation of Comment: declines genetic and carrier screening. declines afp. anatomy nl Plan Details Other Orders: Orders: POC Urinalysis 2 Dip (Clinic) Today 03/17/21 1414 <Electronically signed by Yvonne Giraldo MD> Date Yvonne Giraldo MD Cosigner Signature: Date (if applicable) CC: Sunita Fernandes DO Work Phone: Start: 02-28-2021 End: 03-02-2021 OB Anatomy Scan Comments: See Note; NOTES: [facility] Imaging Services [address] [place] [id number] OB Anatomy Scan MR#: [id number] Acct: [id number] Name: SAGE GONZALES Rep #: [id number] : 1995 F 25 From: Faisal Chang MD PCP: Dr. Sunita Fernandes, Status: REG CLI Study: OB Anatomy Scan Date of Exam: 02/28/21 Exam# [id number] Ordering Dr: Alejandrina Marshall STUDY: SECOND AND THIRD TRIMESTER OBSTETRICAL ULTRASOUND REASON FOR EXAM: Female, 25 years old anatomy scan LMP: TECHNIQUE: Transabdominal TECHNICAL QUALITY: Adequate. PRIOR ULTRASOUND: None. FINDINGS: There is a single intrauterine fetus. The fetus is in a cephalic presentation. There is demonstrated cardiac activity with a heart rate of 140 bpm. There is a normal amniotic fluid volume. The largest amniotic fluid pocket measures 8.2 cm. The amniotic fluid index (EMILIO) is cm. The placenta is anterior and low lying but not previa in location. There are Grade 0 placental changes. The cervix measures 3.2 cm in length. The adnexal regions are not visualized. BIOMETRY: BPD: 4.2 cm: 18 weeks, 5 days HC: 15.9 cm: 18 weeks, 5 days AC: 14.0 cm: 19 weeks, 2 days FL: 2.8 cm: 18 weeks, 3 days CI: 74.5 FL/BPD: 65.8 FL/HC: 17.4 FL/AC: 19.8 HC/AC: 1.14 age by current US: 18 weeks, 6 days. DIAMANTE by current US: 07/26/2021. Estimated weight: 266 grams, +/- 40 grams, 43 %. age by prior US: weeks, days. DIAMANTE by prior US: . Age by LMP: 19 weeks, 0 days. DIAMANTE by LMP: 07/25/2021. ANATOMY: Gender: Female Cranium: Normal lateral ventricles. Normal choroid plexus. Normal cerebellum. Normal cisterna magna. Normal face, nose and lips. Chest: Normal 4-chamber heart. Abdomen/Pelvis: Normal diaphragm. Normal stomach. Normal abdominal wall. Normal cord insertion. Normal 3 vessel cord. Normal kidneys. Normal bladder. Spine: Normal cervical spine. Normal thoracic spine. Normal lumbar spine. Normal sacrum. Extremities: Normal bilateral upper extremities. Normal bilateral lower extremities. US/OB Anatomy Scan IMPRESSION: Living intrauterine of 18 weeks 6 days as described above. Anterior low-lying placenta. Electronically Signed: Faisal Chang MD at 15:17 EDT Tel , Service support , CC: Dr. Sunita Fernandes DO; Dr. Alejandrina Marshall MD [employer]erks Supervisor: Signed Sunita Fernandes DO Work Phone: Start: 02-16-2021 End: 02-20-2021 Wall Crane Operator Office Visit Report Comments: See Note; NOTES: [facility] [address] [place] [address] OFFICE VISIT Date of Service: 02/16/21 MR#: [id number] Acct: [id number] Name: SAGE GONZALES Rep #: [id number] : 1995 Provider: CORAL amaya Age/Sex: 25/F [place] [facility] [place]: Signed Intake Vital Signs 12/19/20 14:13 02/16/21 11:13 02/16/21 11:14 02/16/21 11:46 Height 5 ft 4 in Weight: 153 lb BMI 25.8 26.2 25.8 BP 98/68 Intake Visit Reasons: 17 WK OB Chief Complaint: est ob Food Crops Farm Hand Required: No Is patient in pain?: No Allergies geo Allergy (Verified 12/19/20 13:14) Unknown Medications multivitamin no.47-iron fum 27 mg-folate no.1 1 mg-dha 300 mg capsule cap PO 12/14/20 [History Confirmed 02/16/21] Last Menstral Period: 10/10/20 Zika: Zika virus screening: Negative : No PFSH PFSH Medical History (Updated 02/16/21 @ 11:47 by Florence Bravo NP, CORAL) Depression History of venomous spider bite Surgical History H/O wisdom tooth extraction Hx of tonsillectomy Family History Aunt Breast cancer Social History adopted: No household members: spouse housing: house 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 OB Visit DIAMANTE Calculator Estimated Delivery Date Method Current WG Current Estimate 07/25/21 Ultrasound #1 17w 2d Other Estimates 07/17/21 LMP (Certain) 18w 3d Expected Delivery Route/Plan Labor Preferences- CB/BF classes: [] labor support person: [] labor intervention preferences: [] pain management options preferred: [] cut cord/dad catch: [] : [] PP control planned: [] discussed possible routes of delivery and associated risks: [] special requests: [] Specific Issue/Plans flu vaccine: given tdap vaccine: [] rhogam: [] LARC form signed: [] Problem list reviewed and updated with the most current plan of care details and appropriate orders placed. Relevant counseling for the gestational age provided. Continue routine care and follow up unless otherwise noted in visit notes/problem list details Initial Weight: 150 lb Date -???-???-???-???-???-???-???- ???-???-???-???-???- EGA Weight BP Urine Prot -???-???-???-???-???-???-???- ???-???-???-???-???- Glucose FHR FuHt Pres Dilation -???-???-???-???-???-???-???- ???-???-???-???-???- Effaced St Visit Note 12/19/20 -???-???-???-???-???-???-???- ???-???-???-???-???- 8w 6d 150 lb 8 oz (+8 oz) 110/70 -???-???-???-???-???-???-???- ???-???-???-???-???- 175 -???-???-???-???-???-???-???- ???-???-???-???-???- SM- CRL NOT cons with LMP, 1.9 cm 01/19/21 -???-???-???-???-???-???-???- ???-???-???-???-???- 13w 2d 153 lb (+3 lb) 114/64 Negative -???-???-???-???-???-???-???- ???-???-???-???-???- Negative 150 -???-???-???-???-???-???-???- ???-???-???-???-???- SM- no vb no regualr ctx 02/16/21 -???-???-???-???-???-???-???- ???-???-???-???-???- 17w 2d 153 lb (+3 lb) 98/68 Negative -???-???-???-???-???-???-???- ???-???-???-???-???- Negative 154 -???-???-???-???-???-???-???- ???-???-???-???-???- -NO VBFRANK Feels well. Anatomy US [facility] 02/28 ACOG First Trimester First Trimester: Desire for , Alcohol, Tobacco Cessation, Illicit/Recreational Drug/Substance Use, Intimate Partner Violence, Barriers to care, Unstable Housing, Communication Barriers, Environmental/Work Hazards, Anticipated Course of Care, Toxoplasmosis Precations, Use of Any medications, Sexual activity, Exercise, Dental Care, Sauna/Hot tub use, Seat Belt use, Childbirth classes/Hospital facilities, , Travel, Indications for Ultrasound and Screening for Aneuploidy Diagnostics Diagnostics Diagnostics: Blood Type A POSITIVE Antibody Screen NEGATIVE HIV 1 2 Antibody Non-Reactive (Nonreactive) Rubella IgG Antibody Reactive (Nonreactive) Hgb 12.3 g/dL (12.0-15.0) Hct 38.2 % (37-47) Chlamydia DNA (CARLOS ENRIQUE) Negative (Negative) N.gonorrhoeae DNA (CARLOS ENRIQUE) Negative (Negative) Details: HIV: Urine Culture: Sequential Screen: NIPT Screen: Results POC Urinalysis 2 Dip (Clinic) Office Urine Glucose Negative Last Edit by Francisca Nichols on 02/16/21 11:19 Office Urine Protein Negative Last Edit by Francisca Nichols on 02/16/21 11:19 Coding Level of Care Code OB Routine Diagnoses Supervision of normal Z34.02 Trimester: second trimester Normal : normal first Depression F32.9 Depression Type: unspecified Z3A.17 Weeks of gestation: 17 weeks Assessment and Plan Assessment and Plan (1) Supervision of normal : Status: Acute Qualifiers: Trimester: second trimester Normal : normal first Qualified Code(s): Z34.02 - Encounter for supervision of normal first , second trimester Comment: PRR DIAMANTE: 07/25/21 Spouse: Nitin (2) Depression: Status: Acute Qualifiers: Depression Type: unspecified Qualified Code(s): F32.9 - Major depressive disorder, single episode, unspecified Comment: not on any medication at this time. 02/16 stable Plan - Florence Bravo NP, PRECISION ASSEMBLY INSPECTOR-C: problem list reviewed and updated for most current plan of care and appropriate orders placed. Relevant counseling for the gestational age appropriate provided and ACOG education checklist updated. Continue routine care and follow up. (3) : Status: Acute Qualifiers: Weeks of gestation: 17 weeks Qualified Code(s): Z3A.17 - 17 weeks gestation of Comment: declines genetic and carrier screening. declines afp. Plan Details Other Orders: Orders: POC Urinalysis 2 Dip (Clinic) Today 02/20/21 0606 <Electronically signed by Alejandrina Marshall MD> Date Alejandrina Marshall MD 02/16/21 1147<Electronically signed by Florence Bravo NP PRECISION ASSEMBLY INSPECTOR-C> Cosigner Signature: Date (if applicable) Florence Bravo NP PRECISION ASSEMBLY INSPECTOR-C CC: Sunita Fernandes DO Work Phone: Start: 01-19-2021 End: 01-19-2021 Wall Crane Operator Office Visit Report Comments: See Note; NOTES: [facility] [address] [place] [address] OFFICE VISIT Date of Service: 01/19/21 MR#: [id number] Acct: [id number] Name: SAGE GONZALES Rep #: [id number] : 1995 Provider: Dr. 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 OB Visit DIAMANTE Calculator Estimated Delivery Date Method Current WG Current Estimate 07/25/21 Ultrasound #1 13w 2d Other Estimates 07/17/21 LMP (Certain) 14w 3d Expected Delivery Route/Plan Labor Preferences- CB/BF classes: [] labor support person: [] labor intervention preferences: [] pain management options preferred: [] cut cord/dad catch: [] : [] PP control planned: [] discussed possible routes of delivery and associated risks: [] special requests: [] Specific Issue/Plans flu vaccine: given tdap vaccine: [] rhogam: [] LARC form signed: [] Problem list reviewed and updated with the most current plan of care details and appropriate orders placed. Relevant counseling for the gestational age provided. Continue routine care and follow up unless otherwise noted in visit notes/problem list details Initial Weight: 150 lb Date -???-???-???-???-???-???-???- ???-???-???-???-???- EGA Weight BP Urine Prot -???-???-???-???-???-???-???- ???-???-???-???-???- Glucose FHR FuHt Pres Dilation -???-???-???-???-???-???-???- ???-???-???-???-???- Effaced St Visit Note 12/19/20 -???-???-???-???-???-???-???- ???-???-???-???-???- 8w 6d 150 lb 8 oz (+8 oz) 110/70 -???-???-???-???-???-???-???- ???-???-???-???-???- 175 -???-???-???-???-???-???-???- ???-???-???-???-???- SM- CRL NOT cons with LMP, 1.9 cm 01/19/21 -???-???-???-???-???-???-???- ???-???-???-???-???- 13w 2d 153 lb (+3 lb) 114/64 Negative -???-???-???-???-???-???-???- ???-???-???-???-???- Negative 150 -???-???-???-???-???-???-???- ???-???-???-???-???- SM- no vb no regualr ctx ACOG First Trimester First Trimester: Desire for , Alcohol, Tobacco Cessation, Illicit/Recreational Drug/Substance Use, Intimate Partner Violence, Barriers to care, Unstable Housing, Communication Barriers, Environmental/Work Hazards, Anticipated Course of Care, Toxoplasmosis Precations, Use of Any medications, Sexual activity, Exercise, Dental Care, Sauna/Hot tub use, Seat Belt use, Childbirth classes/Hospital facilities, , Travel, Indications for Ultrasound and Screening for Aneuploidy Diagnostics Diagnostics Diagnostics: Blood Type A POSITIVE Antibody Screen NEGATIVE HIV 1 2 Antibody Non-Reactive (Nonreactive) Rubella IgG Antibody Reactive (Nonreactive) Hgb 12.3 g/dL (12.0-15.0) Hct 38.2 % (37-47) Chlamydia DNA (CARLOS ENRIQUE) Negative (Negative) N.gonorrhoeae DNA (CARLOS ENRIQUE) Negative (Negative) Details: HIV: Urine Culture: Sequential Screen: NIPT Screen: Results POC Urinalysis 2 Dip (Clinic) Office Urine Glucose Negative Last Edit by Francisca Nichols on 01/19/21 08:08 Office Urine Protein Negative Last Edit by Francisca Nichols on 01/19/21 08:08 Coding Level of Care Code OB Routine Assessment and Plan Plan Details Other Orders: Orders: POC Urinalysis 2 Dip (Clinic) Today OB Anatomy Scan Today Z34.90 Transvaginal w/Preg US Today Z34.90 01/19/21 0822 <Electronically signed by Alejandrina Marshall MD> Date Alejandrina Marshall MD Cosigner Signature: Date (if applicable) CC: Sunita Dom DO Work Phone: Start: 12-19-2020 End: 12-22-2020 Wall Crane Operator Office Visit Report Comments: See Note; NOTES: [facility] [address] [place], [place] [address] OFFICE VISIT Date of Service: 12/19/20 MR#: [id number] Acct: [id number] Name: SAGE GONZALES Rep #: [id number] : 1995 Provider: Dr. Alejandrina doyle MD Age/Sex: 25/F Location: [facility] [place] Status: Signed Intake Vital Signs 12/19/20 Height 5 ft 4 in 12/19/20 Weight: 150 lb 8 oz 12/19/20 BMI 25.8 12/19/20 BP 110/70 Intake Visit Reasons: NOB LMP 2 Food Crops Farm Hand Required: No Accompanied by: Allergies geo Allergy (Verified 12/19/20 13:14) Unknown Medications multivitamin no.47-iron fum 27 mg-folate no.1 1 mg-dha 300 mg capsule cap PO 12/14/20 [History Confirmed 12/19/20] Last Menstral Period: 10/10/20 Zika: Zika virus screening: Negative : No PFSH PFSH Medical History Depression (Chronic) History of venomous spider bite (Resolved) Surgical History H/O wisdom tooth extraction (Resolved) Hx of tonsillectomy (Resolved) Family History Aunt Breast cancer Social History (Updated 12/22/20 @ 06:[address] 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 OB Visit DIAMANTE Calculator Estimated Delivery Date Method Current WG Current Estimate 07/25/21 Ultrasound #1 9w 2d Other Estimates 07/17/21 LMP (Certain) 10w 3d Estimated Due Date: 07/17/21 Expected Delivery Route/Plan Labor Preferences- CB/BF classes: [] labor support person: [] labor intervention preferences: [] pain management options preferred: [] cut cord/dad catch: [] : [] PP control planned: [] discussed possible routes of delivery and associated risks: [] special requests: [] Specific Issue/Plans flu vaccine: given tdap vaccine: [] rhogam: [] LARC form signed: [] Problem list reviewed and updated with the most current plan of care details and appropriate orders placed. Relevant counseling for the gestational age provided. Continue routine care and follow up unless otherwise noted in visit notes/problem list details Initial Weight: 150 lb Date -???-???-???-???-???-???-???- ???-???-???-???-???- EGA Weight BP Urine Prot -???-???-???-???-???-???-???- ???-???-???-???-???- Glucose FHR FuHt Pres Dilation -???-???-???-???-???-???-???- ???-???-???-???-???- Effaced St Visit Note 12/19/20 -???-???-???-???-???-???-???- ???-???-???-???-???- 8w 6d 150 lb 8 oz (+8 oz) 110/70 -???-???-???-???-???-???-???- ???-???-???-???-???- 175 -???-???-???-???-???-???-???- ???-???-???-???-???- SM- CRL NOT cons with LMP, 1.9 cm Menstrual History Last Menstral Period: 10/10/20 Antepartum Record Genetic Screening: Congenital Heart Defect: Other, Neural Tube Defect: Other, Hemoglobinopathy Or Carrier: Other, Cystic Fibrosis: Other, Chromosome Abnormality: Other, Jhonathan-Sachs: Other, Hemophilia: Other, Intellectual Disability/Autism: Other, Recurrent Loss/Stillbirth: Other, Other Structural Defect: Other, Other Genetic Disease: Other, Maternal Metabolic Disorder: Other Infection History: Live with someone with TB or Exposed to TB: No, Patient or Partner has history of Genital Herpes: No, Rash or Viral illness since last mentrual period: No, Prior GBS-Infected child: No, History of STD: No, HIV Infection: No, History of Hepatitis: No, Recent travel outside of [place]: No, Concern for Hep exposure: No, Varicella immune: Yes Medical History Medical History: Positive: Depression/ depression (Depression), Drug/latex allergies/reactions, Negative: Diabetes, Hypertension, Heart disease, Auto-immune disorder, Kidney disease/UTI, Neurologic/epilepsy, Psychiatric, Hepatitis/liver disease, Varicosities/phlebitis, Thyroid dysfunction, Trauma/domestic violence, History of blood transfusions, D (Rh) Sensitized, Pulmonary (e.g.,TB,Asthma), Seasonal allergies, Breast, Knifer Up surgery, Operations/hospitalizations, Anesthetic complications, History of abnormal pap, Uterine anomaly/liz, Infertility, Anti-retroviral treatment, Relevant family history, Other ACOG First Trimester First Trimester: Desire for , Alcohol, Tobacco Cessation, Illicit/Recreational Drug/Substance Use, Intimate Partner Violence, Barriers to care, Unstable Housing, Communication Barriers, Environmental/Work Hazards, Anticipated Course of Care, Nurtrition and weight gain, Toxoplasmosis Precations, Use of Any medications, Sexual activity, Exercise, Dental Care, Sauna/Hot tub use, Seat Belt use, Childbirth classes/Hospital facilities, , Travel, Indications for US and Screening for Aneuploidy ROS Const Reports system reviewed and no additional complaints, except as docu, Reports fatigue, Denies fever(s) Eyes Reports system reviewed and no additional complaints, except as docu ENT Reports system reviewed and no additional complaints, except as docu Card Denies chest pain, Denies shortness of breath Resp Reports system reviewed and no additional complaints, except as docu, Denies cough, Denies shortness of breath GI Denies abdominal pain, Reports nausea Reports system reviewed and no additional complaints, except as docu Musc Reports system reviewed and no additional complaints, except as docu Skin/Breast Reports system reviewed and no additional complaints, except as docu Neuro Yes system reviewed and no additional complaints, except as docu Psych Reports system reviewed and no additional complaints, except as docu Endo Reports system reviewed and no additional complaints, except as docu, Reports fatigue Exam Const General: healthy appearing, comfortable, no acute distress Orientation: alert [facility] Head: normal to inspection, normocephalic, atraumatic Ears: hearing grossly normal bilaterally, external ears normal Nose: external nose normal, nares normal Mouth: oral mucosae normal Teeth and gingiva: dentition normal Eyes General: appearance normal, both eyes and all related structures Neck Neck: normal visual inspection, no lymphadenopathy, supple Thyroid: thyroid normal Chest Chest palpation inspection: normal inspection of the chest Breast inspection: normal inspection of the breasts, normal inspection of the axillae Breast palpation: normal palpation of the breasts, normal palpation of the axillae Resp Effort Inspection: normal respiratory effort GI Inspection: normal to inspection Palpation: soft, no hepatosplenomegaly General: bladder normal to palpation External Female Exam: normal external appearance, normal appearance of the urethra Urethra: normal appearance of the urethra Speculum Exam - Vagina: normal appearance of the vagina, normal vaginal discharge Speculum Exam - Cervix: normal appearance of the cervix Bimanual Exam- Vagina Uterus: normal bimanual exam, bladder normal to palpation, uterus non- tender, other Bimanual Exam- Adnexa, other: adnexae non-tender Skin General: no rashes or lesions noted Neuro Motor: muscle tone normal throughout, no movement abnormalities noted Extrem General: normal to inspection, full ROM Assessment Plan Problems 1. Depression F32.9 not on any medication at this time 2. Supervision of normal DIAMANTE: 07/25/21 Spouse: Nitin 3. Z declines genetic and carrier screening. consider afp. Plan Patient oriented to practice and discussed care expectations and screenings. ACOG book offered to patient. Discussed routine and specially indicated labs if needed- patient consents to testing. see problem list details for plan information. Optional screening including carrier screenings, neural tube defect screening, sequential screening, and NIPT screening offered to patient and patient chose: declines Orders Orders: Type Screen 12/19/20 Hepatitis B Surface Antigen 12/19/20 Hepatitis C Antibody 12/19/20 HIV - [facility] 12/19/20 Syphilis Antibodies 12/19/20 Rubella IgG 12/19/20 CBC W/Diff, Automated 12/19/20 Culture, Urine 12/19/20 CT/NG [facility] BY PCR 12/19/20 Urine Drug Screen ([facility]) 12/19/20 Coding Level of Care Code OB Routine Diagnoses Depression F32.9 Supervision of normal 34 Z34.90 12/22/20 0655 <Electronically signed by Alejandrina Marshall MD> Date Alejandrina Marshall MD Cosigner Signature: Date (if applicable) CC: Sunita Dom DO Work Phone: Start: 03-30-2020 End: 03-30-2020 Urgent Care Visit Report Comments: See Note; NOTES: [facility] [address] [place] [address] OFFICE VISIT Date of Service: 03/30/20 MR#: [id number] Acct: [id number] Name: GONZALES,SAGE PEDERSON Rep #: [id number] : 1995 Provider: DUKE benson Age/Sex: 24/F Location: [facility] [place] Status: Signed Intake Vital Signs 03/30/20 BMI 25.7 03/30/20 BP 120/80 03/30/20 Blood Pressure Location Lt brachial 03/30/20 Position Sitting 03/30/20 Respiration 14 03/30/20 Pulse 120 H 03/30/20 Pulse Source Auscultation 03/30/20 Temp 101.0 F H 03/30/20 Temp Source Temporal 03/30/20 Pulse Oximetry (%) 98 03/30/20 Oxygen Delivery Method room air Intake Visit Reasons: FEVER, SORE THROAT Chief Complaint: Sore throat, fever Allergies geo Allergy (Verified 03/30/20 16:09) Unknown Medications spironolactone 25 mg tablet 25 mg PO QAM 08/24/17 [History Confirmed 03/30/20] amoxicillin 500 mg capsule 1,000 mg PO BID 10 Days #40 cap 03/30/20 [Rx Confirmed 03/30/20] PFSH Medical History History of venomous spider bite (Acute) Surgical History Hx of tonsillectomy (Acute) Family History Other Breast cancer Social History (Updated 03/30/20 @ 16:52 by DUKE Lau) Smoking Status: Never smoker alcohol intake: never HPI HPI Chief Complaint: Sore throat, fever Details: SAGE GONZALES, is a 24 F who presents to the office today for initial evaluation approximate 24-hour history of progressive worsening sore throat and fever with a T-max of 101.9 Fahrenheit this morning. She notes no complaints of chills or sweats or rash or cough or chest pressure/shortness of breath/wheeze or difficulty swallowing/drooling. She is a non-smoker, noting no other close contacts with similar complaints. She has taken no fany-giz-bawuiqr products to assist with symptoms. She notes no other associated symptoms and no other alleviating or aggravating factors. ROS Const Constitutional: No other (ROS negative x14 other than as noted above) Exam Const General: cooperative (Though warm to touch), healthy appearing, comfortable, no acute distress Nutritional Appearance: average body habitus Orientation: alert, awake, oriented x3 HENMT Head: normal to inspection Ears: hearing grossly normal bilaterally, external ears normal, TM's normal bilaterally, EAC's normal Nose: external nose normal, nares normal, septum normal, no nasal discharge Face and sinus: normal facial exam, sinuses nontender, face symmetric Mouth: oral mucosae normal, lip normal, tongue normal, oropharynx normal Teeth and gingiva: dentition normal, gingiva normal Throat: posterior oropharynx normal, uvula midline, abnormal tonsil bilaterally erythema; Negative for no exudates or no hypertrophy, no postnasal drainage Eyes General: appearance normal, both eyes and all related structures Neck Neck: normal visual inspection, full ROM, no meningeal signs, supple, lymphadenopathy (Bilateral anterior cervical node swelling and tender to palpation) Neck mass: No Thyroid: thyroid normal Chest Chest palpation inspection: normal inspection of the chest Resp Effort Inspection: normal respiratory effort, able to speak in complete sentences, symmetric chest movement, no cough Auscultation: Bilateral: Clear to Auscultation Cardio Palpation: normal PMI Rate: regular rate Rhythm: regular rhythm Heart Sounds: S1 normal, S2 normal, no gallops, no murmurs, no rubs Pulses: radial pulses present GI Inspection: normal to inspection Palpation: soft, no hepatosplenomegaly Skin General: no rashes or lesions noted Neuro General: alert, awake, oriented x3, gait normal Cognition: normal cognition Speech: speech normal Gait: normal gait Motor: muscle tone normal throughout Sensory Exam: no sensory deficits noted Psych Appearance: grossly normal Mental Status: mental status grossly normal Mood: congruent mood Affect: normal affect Speech and Movement: speech and movement normal Attitude: cooperative Thought Process: normal Thought Content: normal Judgment: judgment good Results POC Viviana Rapid Strep POC Viviana Rapid Strep Positive Last Edit by Earlene Monae on 03/30/20 16:36 Assessment Plan Problems 1. Acute streptococcal pharyngitis J02.0 Plan Amoxicillin as prescribed today. Clear fluids, rest, salt water gargles, ibuprofen/acetaminophen as needed for symptomatic relief. Follow-up PCP in 3 to 5 days should symptoms not improve, sooner should symptoms worsen or any other concerns develop. Patient states acknowledging understanding all the above. This note was generated with [employer] dictation software. It may contain incorrect words, spelling, and punctuation that were not noted in checking the note before signing. Orders Orders: POC Viviana Rapid Strep A Today Medications New: amoxicillin 1,000 mg (2 x 500 mg) PO BID 10 days 40 caps 0RF Coding Level of Care Code Off vis,new,level 3 Diagnoses Acute streptococcal pharyngitis J02.0 03/30/20 0912 <Electronically signed by Arben WALL> Date Arben WALL [facility] Signature: Date (if applicable) CC: Sunita Fernandes DO Work Phone: Start: 08-24-2017 End: 08-24-2017 Urgent Care Visit Report Comments: See Note; NOTES: [facility] [address] [place] [address] OFFICE VISIT Date of Service: 08/24/17 MR#: [id number] Acct: [id number] Name: SAGE MADISON Rep #: [id number] : 1995 Provider: DUKE Gutiérrez Age/Sex: 21/F Location: [facility] Status: Signed Intake Vital Signs08/24/17 Height 5 ft 4 in Intake Visit Reasons: EAR PAIN Is patient in pain?: Yes Allergies geo Allergy (Verified 08/24/17 12:53) Unknown Medications spironolactone 25 mg tablet 25 mg PO QAM 08/24/17 [History Confirmed 08/24/17] PFSH Medical History History of venomous spider bite (Acute) Surgical History Hx of tonsillectomy (Acute) Family History Other Breast cancer Social History Smoking Status: Never smoker alcohol intake: never HPI EAR PAIN: Details: SAGE MADISON, is a 21 F who presents to the office today for left ear discomfort for 2-3 days. She feels that there is fluid in the middle ear. She has not tried any decongestants or antihistamines. She denies fevers sinus pain or pressure or sore throat. ROS Const Constitutional: No chills or fever(s) Eyes Eyes: No change in vision ENT ENT: Positive for ear pain ( discomfort. ); no sore throat, nasal congestion or nasal discharge Resp Respiratory: No cough, chest congestion, shortness of breath or wheezing Cardio Cardiology: No chest pain at rest or chest pain with exertion Gastro GI: No abdominal pain, diarrhea, vomiting or nausea/dyspepsia Musc Musculoskeletal: No back pain or abnormal walking Skin Skin: No rash or change in skin color Neuro Neurology: No confusion, abnormal walking or abnormal speech Psych Psychiatric: No confusion Aller/Imm Allergy/Immunologic: No wheezing Exam Const General: healthy appearing, no acute distress Orientation: oriented x3, oriented to person, oriented to place, oriented to time [facility] Head: normocephalic Ears: external ears normal, TM's normal bilaterally, EAC's normal Eyes General: appearance normal, both eyes and all related structures Conjunctivae: conjunctivae normal Sclera: sclerae normal Pupils: PERRL Neck Neck: no lymphadenopathy Thyroid: thyroid normal Chest Chest palpation AND inspection: normal inspection of the chest Resp Effort AND Inspection: normal respiratory effort, no cough, no respiratory distress Auscultation: Bilateral: Clear to Auscultation Cardio Rate: regular rate Rhythm: regular rhythm GI Inspection: normal to inspection Auscultation: normal bowel sounds Palpation: no hepatosplenomegaly, no splenomegaly, no masses Skin General: no pallor Rashes: no rashes Nails: no clubbing Neuro General: oriented x3, gait normal Extrem General: normal to inspection, no pedal edema, no calf tenderness, normal gait, no edema, no cyanosis, no clubbing, no calf tenderness bilaterally, no pedal edema Psych Mood: congruent mood Affect: normal affect Speech and Movement: speech and movement normal Assessment AND Plan Problems 1. Otalgia H92. Plan Sage was instructed to begin an antihistamine and/or a decongestant. If pain worsens return to the clinic otherwise she can use OTC ibuprofen warm compresses to the left ear as needed. Coding Level of Care Code Off vis,new,level 3 Diagnoses Otalgia H92.09 08/24/17 1300 <Electronically signed by Junior WALL> Date Junior WALL Cosigner Signature: Date (if applicable) CC: Sunita Fernandes DO Work Phone: Start: 07-20-2016 End: 07-20-2016 PT D/C Summary (1) Comments: See Note; NOTES: [facility] [place] [address] Fax REHABILITATION SERVICES DISCHARGE SUMMARY MR#: [id number] Acct: [id number] Name: SAGE MADISON Rep #: [id number] : 1995 20 From: Cert. PRISCILA Mendez PT, OCS Referring Dr.: Vijaya Gibbs Status: REG RCR Insurance: [facility] - PT D/C Summary It has been my pleasure to treat SAGE MADISON under orders from Vijaya Gibbs, for the diagnosis of SCIATICA,BACK PAIN for a total of 9 visit(s). Discharge Date: Please see the following information for a summary of their discharge status. - Subjective Subjective: Doing great no pain - Pain Left Back Pain Intensity (Out of 10): 0 - Overall Improvement % Improvement: 100 - Objective Objective/Function: GAIT: NORMAL. MMT: 5/5 GROSSLY. LUMBAR ROM : WFL. -SLR - Goals Goal 1:: Independant with HEP. Goal Progress: Goal Met Goal 2:: Independant with posture/body mechanics Goal Progress: Goal Met Goal 3:: Decrease lumbar pain by 75% or greater to improve function with job and return to running. Goal Progress: Goal Met Goal 4:: Patient be able to perform ADLS ,job without pain along return to running. Goal Progress: Goal Met Goal 5:: Restore full ROM without pain return to function. Goal Progress: Goal Met - Plan Plan: D/C MET GOALS - D/C Information If there are questions or concerns regarding this patient's physical therapy, please feel free to call me at [phone]. Thank you for the referral of this patient. Sincerely, Wai Cochran PT, <Electronically signed by Cert. PRISCILA Mendez PT, OCS> 07/20/16 1402 CC: Vijaya Gibbs; Sunita Fernandes DO PRIYA Signed Sunita Fernandes DO Work Phone: Start: 06-26-2016 End: 06-26-2016 Inital Evaluation (1) - PT Comments: See Note; NOTES: [facility] [place] [address] Fax REHABILITATION SERVICES INITIAL EVALUATION MR#: [id number] Acct: [id number] Name: SAGE MADISON Rep #: [id number] : 1995 20 From: Wai Cochran PT, Cert. MDT, OCS Referring DrTerese: Vijaya Gibbs Status: REG R Insurance: [facility] Patient's Visit Information SAGE MADISON is a 20 year old F referred to Physical Therapy by Vijaya Gibbs with a diagnosis of SCIATICA,BACK PAIN. Date of Evaluation: 06/21/16 Physical Therapist: Wai Cochran PT, - Visit Plan Frequency: 2x /Week Duration: 4 Weeks Plan: DSL,POSTURE EX'S,MODALITIES NEED - Subjective Subjective: This 20 y/o female presents to physical therapy for lumbar pain and radicular symptoms for 1 week.Patient has h/o lumbar pain ache.Location of pain left side and ocassional leg symptoms. Doesnt affect sleeping.Symptoms worse with bending ,lifting ,sitting. 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 No treatment lumbar spine.C/O ocassional tingling thigh. Cough/sneezing good. 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 SOCAIL: single - Pain Left Back Pain Intensity (Out of 10): 3 Pain Intensity Range: 10 - Objective POSTURE:mild foward posture ,slouched. PALPATION: tender L-S. NEURO: denies parathesia ,c/o tingling thigh,reflexes L3-4,L4-5,L5-S1,mytomes. SYYMITRIES:align. MMT: quads/hams/hip /ankle 4/5. LUMBAR ROM: flexion WFL, ext WFL pain at ER,side glides WFL. HEEL/TOE WALKING : inact. FLEXABILITY: hams WFL - Special Tests L/S Slump test left side: Positive L/S Slump test right side: Negative L/S Left Straight Leg Raise: Negative L/S Right Straight Leg Raise: Negative Lumbar Standing: Flexion - Mechanical Response: No effect Lumbar Standing: Flexion - Symptoms During Testing: No effect Lumbar Standing: Flexion - Symptoms After Testing: No effect Lumbar Standing: Extension - Symptoms During Testing: Increases Lumbar Standing: Extension - Symptoms After Testing: No worse Lumbar Lying: Flexion - Mechanical Response: No effect Lumbar Lying: Flexion - Symptoms During Testing: Increases Lumbar Lying: Flexion - Symptoms After Testing: No worse Lumbar Lying: Extension - Mechanical Response: No effect Lumbar Lying: Extension - Symptoms During Testing: Increases Lumbar Lying: Extension - Symptoms After Testing: Centralized - Goals Goal 1:: Independant with HEP. Goal Time Frame: 4-6 Weeks Goal 2:: Independant with posture/body mechanics Goal Time Frame: 4-6 Weeks Goal 3:: Decrease lumbar pain by 75% or greater to improve function with job and return to running. Goal Time Frame: 4-6 Weeks Goal 4:: Patient be able to perform ADLS ,job without pain along return to running. Goal Time Frame: 4-6 Weeks Goal 5:: Restore full ROM without pain return to function. Goal Time Frame: 4-6 Weeks - Rehabilitation Potential Physical Therapy Diagnosis: This 20 y/o female presents to with low back pain possible derrangement and has ANR. thus will benifit from skiled PT Rehabilitation Potential: Good - Anticipated Interventions Patient/Client Instruction: Educate patient on: Condition, Plan of Care For the Purpose of:: To decrease pain, To improve nutrient delivery to tissue, To improve muscle performance and motor function, To increase tolerance to activity/condition/position, To improve performance and independence with ADL's, To improve ability of physical actions for home/community/work/leisure, To decrease soft tissue restriction, To increase flexibility/ROM, To improve self management, To prevent re-injury, To improve ability to perform tasks related to life management Therapeutic Exercise to Include: Strength training, Body mechanics, Postural training, Flexibilty training, Dynamic Lumbar Stabilization, Vanessa Exercises For the Purpose of:: To decrease pain, To increase ROM, To improve muscle performance and motor function, To increase tolerance to activity/condition/position, To improve performance and independence with ADL's, To improve ability of physical actions for home/community/work/leisure , To increase flexibility/ROM, To reduce risk of recurrence, To improve self management, To prevent re-injury, To improve ability to perform tasks related to life management IF ES: Yes Cryotherapy (ice pack, ice massage): Yes Thermo therapy (hot pack): Yes Ultrasound (thermal/non thermal): Yes For the Purpose of:: To decrease pain, To increase ROM, To improve nutrient delivery to tissue, To increase oxygenation perfusion, To improve health of tissue, To decrease soft tissue restriction Thank you for the opportunity to evaluate your patient. For Medicare and Medicare HMO plans, please review the plan of care and approve it. It will need to be FAXED BACK to us at [phone] for Medicare purposes. Please let me know if there are questions or concerns regarding this plan of care. Physician Signature: _Date: <Electronically signed by Wai Cochran PT, Cert. T, OCS> 06/26/16 0801 CC: Vijaya Gibbs; Sunita Fernandes DO PRIYA Signed For Medicare only, by signing this I certify the plan of care. Physicians Signature Date Sunita Fernandes DO Work Phone: Start: 06-18-2016 End: 06-19-2016 L/S Spine Min 4 Views Comments: See Note; NOTES: [facility] Imaging Services [address] [place] [address] Verdana 4d L/S Spine Min 4 Views MR#: [id number] Acct: [id number] Name: SAGE MADISON Rep #: [id number] : 1995 F 20 From: Edison Taveras MD PCP: Sunita Fernandes DO Status: REG CLI Study: L/S Spine Min 4 Views Date of Exam: 06/18/16 Exam# [id number] Ordering Dr: Vijaya Gibbs STUDY: X-RAY - LUMBAR SPINE REASON FOR EXAM: Female, 20 years old. Back pain. TECHNIQUE: 5 view(s) of the lumbar spine were obtained including oblique views. COMPARISON: None FINDINGS: Normal lumbar lordosis. There is no substantial scoliosis. There is a normal alignment of the vertebrae. Normal vertebral bodies and endplates. Normal disc space heights. The soft tissue structures are unremarkable. RAD/L/S Spine Min 4 Views IMPRESSION: Normal x-ray examination of the lumbar spine. Electronically Signed: Edison Taveras MD at 15:37 EDT Tel [phone], Service support [phone], CC: Vijaya Gibbs; Sunita Fernandes DO [employer] Supervisor: Signed Vijaya Gibbs [facility] Work Phone: Plan of Treatment Date Care Activity Detail Author Start: 12-09-2017 Procedure Education Eprescribe d prescriptions (G8553) [facility] Work Phone: Start: 12-09-2017 Provider Instruction s for Treatment Follow up in 4 weeks [facility] Work Phone: Start: 11-19-2016 Provider Instruction s for Treatment [facility] Work Phone: Start: 06-18-2016 Procedure Education Eprescribe d prescriptions (G8553) [facility] Work Phone: Start: 06-18-2016 Provider Instruction s for Treatment Follow up if no improvement or if symptoms worsen [facility] Work Phone: Start: 02-16-2015 Hfe hemochromatosis gene anal common variants HFE GENE (88950) [facility] Work Phone: Start: 01-31-2015 Blood count manual c ell count each CBC with auto diff (90567) [facility] Work Phone: Start: 01-31-2015 Iron binding capacity IRON BIN DING CAPACITY (TIBC) (48951) [facility]; [facility] Work Phone: Start: 01-31-2015 Assay of iron IRON (23393) [facility] Work Phone: Start: 01-31-2015 Assay of ferritin FERRITIN (90757) [facility] Work Phone: Start: 09-04-2013 Provider Instruction s for Treatment [facility] Work Phone: Start: 09-04-2013 Fibrin dgradj produc ts d-dimer quantitative D-Dimer (35007) [facility]; [facility] Work Phone: Comment on above: stat call [facility] with ivory villasenor at [facility] Start: 06-03-2013 Provider Instruction s for Treatment Follow up in 3 weeks [facility]; [facility] Work Phone: Start: 10-06-2012 Provider Instruction s for Treatment Continue Current Prescription(s) [facility] Work Phone: Start: 09-04-2012 Provider Instruction s for Treatment Follow up in 3-4 weeks [facility] Work Phone: [facility] Work Phone: [facility] Work Phone: [facility] Work Phone: [facility] Work Phone: [facility] Work Phone: [facility] Work Phone: Immunizations Immunization Date Immunization Notes Care Provider Yoseph patel 02-18-2012 meningococcal polysaccharide vaccine (MPSV4) Sunita Fernandes DO Work Phone: [facility] Work Phone: Comment on above: [place] 02-15-2012 TB Skin Test, Intradermal Sunita Fernandes DO Work Phone: [facility] Work Phone: Payers Date Payer Category Payer Policy ID Unknown Medical [facility] Social History Date Type Detail Facility Current Work/Study Status Current Work/Study Status [facility] Work Phone: Comment on above: [facility]- going for nursing Exercise History: Exercise History: [facility]pr [facility]; [facility] Work Phone: Tobacco use: Tobacco use: [facility] Work Phone: Instructions Note Date & Type Note Facility Instructions Name How to access health information online Indication:Non-smoker Start:06-Jan-2018 Instruction Type:Patient Education How to access health information online - Detail Indication:Non-smoker Start:06-Jan-2018 Instruction Type:Patient Education Patient Instructions Indication:Non-smoker Start:06-Jan-2018 Instruction Type:Provider Instructions for Treatment How to access health information online Indication:Yeast infection Start:09-Dec-2017 Instruction Type:Patient Education How to access health information online - Detail Indication:Yeast infection Start:09-Dec-2017 Instruction Type:Patient Education Patient Instructions Indication:Yeast infection Start:09-Dec-2017 Instruction Type:Provider Instructions for Treatment How to access health information online Indication:Non-smoker Start: 7 Instruction Type:Patient Education How to access health information online - Detail Indication:Non-smoker Start: 7 Instruction Type:Patient Education Patient Instructions Indication:Non-smoker Start: Instruction Type:Provider Instructions for Treatment How to access health information online Indication:Back pain Start: 6 Instruction Type:Patient Education How to access health information online - Detail Indication:Back pain Start: 6 Instruction Type:Patient Education Patient Instructions Indication:Back pain Start: 6 Instruction Type:Provider Instructions for Treatment Patient Instructions Indication:Hypoglycemia Start:03-Jun-2013 Instruction Type:Provider Instructions for Treatment Patient Instructions Indication:Anxiety Start:06-Oct-2012 Instruction Type:Provider Instructions for Treatment Patient Instructions Indication:Depressive disorder Start:04-Sep-2012 Instruction Type:Provider Instructions for Treatment [facility] Work Phone: Additional Source Comments FOR RECORDS PERTAINING TO PATIENTS WHO ARE OR HAVE BEEN ENROLLED IN A CHEMICAL DEPENDENCY/SUBSTANCEABUSE PROGRAM, SOME INFORMATION MAY BE OMITTED. This clinical summary was aggregated from multiple sources. Caution should be exercised in using it in the provision of clinical care. This summary normalizes information from multiple sources, and as a consequence, information in this document may materially change the coding, format and clinical context of patient data. In addition, data may be omitted in some cases. CLINICAL DECISIONS SHOULD BE BASED ON THE PRIMARY CLINICAL RECORDS. [facility]. provides no warranty or guarantee of the accuracy or completeness of information in this document.
[2024-06-24] MEDS: Lactated Ringers 1,000 ML 50 ML IV (07:25)
[2024-06-24 07:56] LABS: Absolute Lymphocyte Count 1.17 X10^3/uL (0.83-4.51); Absolute Neutrophil Count 5.5 X10^3/uL (2.0-7.7); Basophil# 0.04 X10^3/uL; Basophil% 0.5 % (0-1); Eosinophils% 1.4 % (0-5); Hematocrit 34.4 % (37-47); Hemoglobin 11.7 g/dL (12.0-15.0); Lymphocyte # 1.17 X10^3/ul (0.83-4.51); Mean Corpuscular Hgb 30.5 pg (27.0-32.0); Mean Corpuscular Volume 89.8 fL (81-99); Mean Platelet Vol. 9.9 fl (6.2-12.0); Monocyte# 0.52 X10^3/uL; Monocyte% 7.1 % (0-10); NRBC Flagged by Analyzer 0 % (0-5); Neutrophil # 5.47 X10^3/uL (2.7-7.7); Neutrophil % 74.7 % (47-70); Platelet Count 166 K/mm3 (150-450); RBC Distribution Width CV 12.9 % (11.6-14.6); RBC Distribution Width SD 41.5 fl (35.1-43.9); Red Blood Count 3.83 M/mm3 (4.2-5.4); White Blood Count 7.3 K/mm3 (4.4-11.0)
[2024-06-24] MEDS: Oxytocin 15 Units/NS 250ml 15 UNITS/250 ML IV.SOLN 2 UNITS IV (08:15)
[2024-06-24 08:29] LABS: Syphilis Antibodies Non-reactive
--- OUTSIDE RECORDS SUMMARY | 2024-06-24 08:42 | XMS RPT_ITS | CCD ---
Author Organization [facility] Care Team Providers Care Slate Mixer Name Role Phone Sunita Fernandes DO Unavailable [phone] Daisy Staley RN Unavailable Unavailable Unavailable Unavailable Medications Completed/Discontinued Medications Medication Drug Class(es) Dates Sig (Normalized) Sig (Original) [id number] 200 actuat albuterol 0.09 mg/actuat metered dose [...] Quantity: 1 {Package(s)} Refills: 0 Ordered: 17-Dec-2013 Diasy Staley RN Start : 04-Sep-2013 End : [...] Start : 18-Jun-2016 End : 19-Nov-2016 Inactive [id number] 0.3 ml EPINEPHrine 1 mg/ml auto-injector (1 [...] Value Interpretation Reference Range Facility Urinalysis, Office ([id number])Or dered By: Silvana Kumari on 06-18-2016 Bilirubin [...] Medicine Work Phone: HEPATITIS B SURFACE ANTIBODY ([id number])Ordered By: Electric Train Driver on 12-18-2013 HBV surface Ab Ql (S) Reactive Normal [facility]; [facility] Work Phone: Comment on above: Non Reactive: Incons istent with immunity, less than 10 mIU/mL Reactive: Consistent with immunity, greater than 9.9 mIU/mL PATIENT WAS FASTINGP ERFORMED BY: [employer] OPS70 [facility] [id number] BY: [address] [id number] LIPID PANEL (06251)Ordered B y: Electric Train Driver on 12-18-2013 Cholesterol [Mass/Vol] 225 mg/dL Abnormal 100-189 [facility]; [facility] Work Phone: Comment on above: PATIENT WAS FASTINGP ERFORMED BY: [employer] [address]PS[address] [facility] [id number] BY: [address] [id number] Information: [id number] Cholesterol in HDL [Mass/Vol] 73 mg/dL Normal [facility]; [facility] Work Phone: Comment on above: According to ATP-III Guidelines, HDL-C >59 mg/dL is considered anegative risk factor for CHD. PATIENT WAS FASTINGP ERFORMED BY: CB [facility] Ndagkm5[address] [facility] [id number] BY: [facility] [id number] Information: [id number],[id number] Cholesterol in LDL [Mass/Vol] 132 mg/dL Abnormal 0-119 [facility]; [facility] Work Phone: Comment on above: PATIENT WAS FASTINGP ERFORMED BY: CB [facility] Ctgmln6533 [facility] [id number] BY: [address] [id number] Information: [id number] Cholesterol in LDL/Cholesterol in HDL [Mass ratio] 1.8 {ratio_units} Normal 0.0-3.2 [facility]; [facility] Work Phone: Comment on above: PATIENT WAS FASTINGP ERFORMED BY: CB [facility] Cgirbv1897 [facility] [id number] BY: [facility] [id number] Information: 199763,M26540 Cholesterol in VLDL [Mass/Vol] 20 mg/dL Normal 5-40 [facility]; [facility] Work Phone: Comment on above: PATIENT WAS FASTINGP ERFORMED BY: CB [facility] Ewyotw3420 [facility] [id number] BY: Lab[address] [id number] Information: 666582,P00380 Triglyceride [Mass/Vol] 102 mg/dL Normal 0-114 [facility]; [facility] Work Phone: Comment on above: PATIENT WAS FASTINGP ERFORMED BY: CB [facility] Akkwqr8183 [facility] [id number] BY: [address] [id number] Information: 289888,M95431 MUMPS ANTIBODY (60952)Ordere d By: Electric Train Driver on 12-18-2013 MuV IgM IA Qn (S) <0.80 Normal 0.00-0.79 [facility]; [facility] Work Phone: Comment on above: Negative < 0.80 Bord obie 0.80 - 1.20 Positive > 1.20 . Note: The presence of IgM specific antibody should be interpreted in conjunction with the patient's clinical history and exposure risk when an acute infection is suspected. PATIENT WAS FASTINGP ERFORMED BY: [employer] [facility] [id number] BY: [address] [id number] RUBELLA ANTIBODY (07334)Orde red By: Electric Train Driver on 12-18-2013 Rubella virus IgG Qn (S) 3.47 {index} Normal [facility]; [facility] Work Phone: Comment on above: Non-immune <0.90 Equ ivocal 0.90 - 0.99 Immune >0.99 PATIENT WAS FASTINGP ERFORMED BY: [employer] [address] [place] [address] [id number] BY: [address] [id number] RUBEOLA ANTIBODY (58501)Orde red By: Electric Train Driver on 12-18-2013 MeV IgG IA Qn (S) 145.0 AU/mL Normal Compre unm [facility] Internal Medicine; [facility] Work Phone: Comment on above: Negative <25.0 Equiv ocal 25.0 - 29.9 Positive >29.9 Presence of antibodies to Rubeola is presumptive evidence of immunity except when acute infection is suspected. PATIENT WAS FASTINGP ERFORMED BY: [employer] Jqjszq7764 [facility] [id number] BY: [address] [id number] VARICELLA-ZOSTER ANTBODY ([id number] 787)Ordered By: Electric Train Driver on 12-18-2013 VZV IgG IA Qn (S) 4734 {index} Normal Compr ehensive Internal Medicine; [facility] Work Phone: Comment on above: Negative <135 Equivo kvng 135 - 165 Positive >165 A positive result generally indicates exposure to the pathogen or administration of specific immunoglobulins, but it is not indication of active infection or stage of disease. PATIENT WAS FASTINGP ERFORMED BY: CB [facility] Cewbzf3126 [facility] [id number] BY: BN [facility] Bsglwytubp5956 [facility] [id number] Blood Glucose , Office (7596 2)on 06-03-2013 Glucose Glucometer (BldC) [Moles/Vol] 101 1 Normal [facility]; [facility] Work Phone: Comment on above: non-fasting HgA1C , Office (18467)on HbA1c (Bld) [Mass fraction] 5.0 % Normal 4.6 - 7.1 [facility]; [facility] Work Phone: Urinalysis, Office (06394)on 06-03-2013 Bilirubin Ql (U) Negative Normal Comprehe [...] Medicine; [facility] Work Phone: PPD (85207)Ordered By: Jade Payne on 02-22-2012 PPD (30838) Negative Normal [facility]; [facility] Work Phone: Comment on above: Lot #[id number] ite-L f/aDose 0.1given by:[email or web address] mixo0lk step was given in office visit last week and was neg PPD (99212)Ordered By: Jade Payne on 02-15-2012 PPD (39639) Negative Normal [facility]; [facility] [...] 15:45-0400 Body height 162.56 cm Lexi Ivánrb PHARMACOVIGILANCE SAFETY EXPERT [facility]; [facility] Work Phone: 06-18-2016 15:45-0400 Body mass index (BMI) [Ratio] 25.3 kg/m2 Lexi Slarb PHARMACOVIGILANCE SAFETY EXPERT [facility]; [facility] Work Phone: 06-18-2016 15:45-0400 Body surface area Derived from formula 1.72 m2 Lexi Slarb PHARMACOVIGILANCE SAFETY EXPERT [facility]; [facility] Work Phone: 06-18-2016 15:45-0400 Body temperature 98 [degF] Lexi Slarb PHARMACOVIGILANCE SAFETY EXPERT [facility]; [facility] Work Phone: 06-18-2016 15:45-0400 Body weight 66.85 kg Lexi Slarb PHARMACOVIGILANCE SAFETY EXPERT [facility]; [facility] Work Phone: 06-18-2016 15:45-0400 Diastolic blood pressure 76 mm[Hg] Lexi Slarb PHARMACOVIGILANCE SAFETY EXPERT [facility]; [facility] Work Phone: Comment on above: Patient Position: Sitting; Cuff Location : Left Arm; Cuff Size: Standard 06-18-2016 15:45-0400 Heart rate 78 /min Lexi Slarb PHARMACOVIGILANCE SAFETY EXPERT [facility]; [facility] Work Phone: Comment on above: Pattern: Regular 06-18-2016 15:45-0400 Respiratory rate 14 /min Lexi Slarb PHARMACOVIGILANCE SAFETY EXPERT [facility]; [facility] Work Phone: Comment on above: Pattern: Unlabored 06-18-2016 15:45-0400 SaO2% (BldA) [Mass fraction] 99 % Lexi Slarb PHARMACOVIGILANCE SAFETY EXPERT [facility]; [facility] Work Phone: Comment on above: Room air 06-18-2016 15:45-0400 Systolic blood pressure 112 mm[Hg] Lexi Slarb PHARMACOVIGILANCE SAFETY EXPERT [facility]; [facility] Work [...] 02-15-2012 09:29-0400 Diastolic blood pressure 68 mm[Hg] Suinta Dom DO Work Phone: [facility]; [...] Detail Performing Clinician Start: 07-21-2021 End: 07-21-2021 Wellness Health Coach Office Visit Report Comments: See Note; NOTES: [facility] [address] [place] [address]. [address] [place], [place] [address] OFFICE VISIT Date of Service: 07/21/21 MR#: [id number] Acct: [id number] Name: SAGE GONZALES Rep #: [id number] : 1995 Provider: Dr. Alejandrina doyle MD Age/Sex: 25/F [place] [facility] [place]: Signed Intake Vital Signs 07/21/21 09:41 Weight: 176 lb 12.8 oz BP 122/72 H Intake Visit Reasons: 39WK OB Allergies geo Allergy (Verified 07/12/21 11:21) Unknown Last Menstral [...] safe at home: Yes additional social history: [employer] employee [employer] History 1 Elective abortions [...] VB, LO F. Feels well. Anatomy [facility] 02/2803/17/21 -???-???-???-???-???-???-???- ???-???-???-???-???- 21w 3d 159 lb [...] DO Work Phone: Start: 07-12-2021 End: 07-12-2021 Wellness Health Coach Office Visit Report Comments: See Note; NOTES: [facility] [address] [place] [address]. [address] [place] [address] OFFICE VISIT Date of Service: 07/12/21 MR#: [id number] Acct: [id number] Name: SAGE GONZALES Rep #: [id number] : 1995 Provider: Dr. Alejandrina doyle MD Age/Sex: 25/F [place] [facility] [place]: Signed Intake Vital Signs 07/12/21 11:21 07/12/21 11:28 Height 5 ft 4 in Weight: 173 lb BP 112/80 Intake Visit Reasons: 38WK OB Chief Complaint: est ob Assistant Professor Of Nursing Required: No Is patient in pain?: No [...] safe at home: Yes additional social history: [employer] employee [employer] History 1 Elective abortions [...] VB, LO F. Feels well. Anatomy [facility] 02/2803/17/21 -???-???-???-???-???-???-???- ???-???-???-???-???- 21w 3d 159 lb [...] DO Work Phone: Start: 07-07-2021 End: 07-07-2021 Wellness Health Coach Office Visit Report Comments: See Note; NOTES: [facility] [address] [place], [place] [address] OFFICE VISIT Date of Service: 07/07/21 MR#: [id number] Acct: [id number] Name: SAGE GONZALES Rep #: [id number] : 1995 Provider: Dr. Alejandrina doyle MD Age/Sex: 25/F [place] [facility] [place]: Signed Intake Vital Signs 07/07/21 08:02 Height 5 ft 4 in Weight: 171 lb BMI 29.3 BP 112/72 Intake Visit Reasons: 37WK OB Chief Complaint: est ob Assistant Professor Of Nursing Required: No Is patient in pain?: No [...] safe at home: Yes additional social history: [employer] employee [employer] History 1 Elective abortions [...] -???-???-???-???-???-???-???- ???-???-???-???-???- SM- [facility] vb [facility] 02/16/21 -???-???-???-???-???-???-???- ???-???-???-???-???- 17w 2d 153 lb (+3 lb) 98/68 Negative -???-???-???-???-???-???-???- ???-???-???-???-???- Negative 154 -???-???-???-???-???-???-???- ???-???-???-???-???- -NO VB, LO F. Feels well. Anatomy [facility] 02/2803/17/21 -???-???-???-???-???-???-???- ???-???-???-???-???- 21w 3d 159 lb [...] DO Work Phone: Start: 06-30-2021 End: 06-30-2021 Wellness Health Coach Office Visit Report Comments: See Note; NOTES: [facility] [address] [place], [place] [id number] OFFICE VISIT Date of Service: 06/30/21 MR#: [id number] Acct: [id number] Name: SAGE GONZALES Rep #: [id number] : 1995 Provider: Dr. Alejandrina doyle MD Age/Sex: 25/F [place] [facility]: Signed Intake Vital Signs 06/30/21 15:35 Height 5 ft 4 in Weight: 172 lb BMI 29.5 BP 130/82 H Intake Visit Reasons: 36WK OB Chief Complaint: est ob Assistant Professor Of Nursing Required: No Is patient in pain?: No [...] at home: Yes additional social history: [employer]- [employer] employee [employer] History 1 Elective abortions [...] -???-???-???-???-???-???-???- ???-???-???-???-???- SM- [facility] vb [facility] 02/16/21 -???-???-???-???-???-???-???- ???-???-???-???-???- 17w 2d 153 lb (+3 lb) 98/68 Negative -???-???-???-???-???-???-???- ???-???-???-???-???- Negative 154 -???-???-???-???-???-???-???- ???-???-???-???-???- -NO VB, FRANK Pfeiffer Feels well. Anatomy [facility] 02/2803/17/21 -???-???-???-???-???-???-???- ???-???-???-???-???- 21w 3d 159 lb [...] MD Cosigner Signature: Date (if applicable) CC: Snuita Fernandes DO Work Phone: Start: 06-23-2021 End: 06-28-2021 Wellness Health Coach Office Visit Report Comments: See Note; NOTES: [facility] [address] [place] [address] OFFICE VISIT Date of Service: 06/23/21 MR#: [id number] Acct: [id number] Name: SAGE GONZALES Rep #: [id number] : 1995 Provider: Dr. 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 Feels well. Anatomy [facility] 02/2803/17/21 -?-?-?-?-?-?-?-?-?-?-?-?- 21w 3d 159 lb 8 [...] DO Work Phone: Start: 06-09-2021 End: 06-09-2021 Wellness Health Coach Office Visit Report Comments: See Note; NOTES: [facility] [address] [place], [place] [address] OFFICE VISIT Date of Service: 06/09/21 MR#: [id number] Acct: [id number] Name: SAGE GONZALES Rep #: [id number] : 1995 Provider: Dr. Yvonne lackey MD Age/Sex: 25/F [place] [facility] [place]: Signed Intake Vital Signs 06/09/21 08:08 Height 5 ft 4 in Weight: 169 lb BMI 29.0 BP 110/80 Intake Visit Reasons: 33WK OB Assistant Professor Of Nursing Required: No Is patient in pain?: No [...] safe at home: Yes additional social history: medineering- [employer] employee [employer] History 1 Elective abortions [...] -???-???-???-???-???-???-???- ???-???-???-???-???- SM- no vb no [facility] 02/16/21 -???-???-???-???-???-???-???- ???-???-???-???-???- 17w 2d 153 lb (+3 lb) 98/68 Negative -???-???-???-???-???-???-???- ???-???-???-???-???- Negative 154 -???-???-???-???-???-???-???- ???-???-???-???-???- -NO VB, LO F. Feels well. Anatomy [facility] 02/2803/17/21 -???-???-???-???-???-???-???- ???-???-???-???-???- 21w 3d 159 lb [...] DO Work Phone: Start: 05-25-2021 End: 05-25-2021 Wellness Health Coach Office Visit Report Comments: See Note; NOTES: [facility] [address] [place] [address]. [address] [place] [address] OFFICE VISIT Date of Service: 05/25/21 MR#: [id number] Acct: [id number] Name: SAGE GONZALES Rep #: [id number] : 1995 Provider: Dr. Yvonne lackey MD Age/Sex: 25/F [place] [facility]: Signed Intake Vital Signs 05/25/21 14:52 Height 5 ft 4 in Weight: 164 lb BMI 28.1 BP 110/70 Intake Visit Reasons: 31WK OB Assistant Professor Of Nursing Required: No Is patient in pain?: No [...] safe at home: Yes additional social history: [employer] employee [employer] History 1 Elective abortions [...] VB, LO F. Feels well. Anatomy [facility] 02/2803/17/21 -???-???-???-???-???-???-???- ???-???-???-???-???- 21w 3d 159 lb [...] DO Work Phone: Start: 05-10-2021 End: 05-10-2021 Wellness Health Coach Office Visit Report Comments: See Note; NOTES: [facility] [address] [place], [place] [address] OFFICE VISIT Date of Service: 05/10/21 MR#: [id number] Acct: [id number] Name: SAGE GONZALES Rep #: [id number] : 1995 Provider: Dr. 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 Feels well. Anatomy [facility] 02/2803/17/21 -???-???-???-???-???-???-???- ???-???-???-???-???- 21w 3d 159 lb [...] Route Admin Location Lot Number Expiration Date [facility] Manufactu rer 0.5 mL IM Left Deltoid [id number] 10/21/22 [id number] [employer] VIS Given Date VIS Provided VIS [...] Limited (No Biometrics) Comments: See Note; NOTES: [facility] Imaging Services [address] [place] [address]64 OB Limited (No Biometrics) MR#: [id number] Acct: [id number] Name: JANETSAGE PEDERSON Rep #: [id number] : 1995 F 25 From: Faisal Chang MD PCP: Dr. Sunita Fernandes, DO Status: REG CLI Study: OB Limited (No Biometrics) Date of Exam: 05/01 Exam# [id number] Ordering Dr: Florence Bravo GREASER OPERATOR GREASER OPERATOR -C STUDY: SECOND AND THIRD TRIMESTER OBSTETRICAL [...] CC: CORAL Bravo; Dr. Sunita Fernandes DO Clinical Safety Manager: Signed Sunita Fernandes DO Work Phone: Start: 04-13-2021 End: 04-13-2021 Wellness Health Coach Office Visit Report Comments: See Note; NOTES: [facility] [address] [place] [address]. [address] [place] [address] OFFICE VISIT Date of Service: 04/13/21 MR#: [id number] Acct: [id number] Name: SAGE GONZALES Rep #: [id number] : 1995 Provider: CORAL amaya Age/Sex: 25/F [place] [facility] Status: Signed Intake Vital Signs 04/13/21 08:37 04/13/21 08:39 Height 5 ft 4 in Weight: 161 lb 6 oz BMI 27.6 25.8 BP 110/60 Intake Visit Reasons: 25 WK OB Assistant Professor Of Nursing Required: No Is patient in pain?: No [...] safe at home: Yes additional social history: [employer] employee [employer] History 1 Elective abortions [...] VB, LO F. Feels well. Anatomy [facility] 02/2803/17/21 -???-???-???-???-???-???-???- ???-???-???-???-???- 21w 3d 159 lb [...] Castelan on 04/13/21 08:40 Off Ur Spec [place] 1.010 Last Edit by Sapphire Castelan on [...] 03/22/21 Z34.02, O44.42 Plan - Florence Bravo GREASER OPERATOR, GREASER OPERATOR-C: problem list reviewed and updated for most [...] 0846 <Electronically signed by Florence Bravo NP GREASER OPERATOR-C> Date Florence Bravo NP GREASER OPERATOR-C Cosigner Signature: Date (if applicable) CC: Sunita Fernandes DO Work Phone: Start: 03-17-2021 End: 03-17-2021 Wellness Health Coach Office Visit Report Comments: See Note; NOTES: [facility] [address] [place] [address] OFFICE VISIT Date of Service: 03/17/21 MR#: [id number] Acct: [id number] Name: SAGE GONZALES Rep #: [id number] : 1995 Provider: Dr. Yvonne lackey MD Age/Sex: 25/F [place] [facility]: Signed Intake Vital Signs 03/17/21 14:04 03/17/21 14:05 Height 5 ft 4 in Weight: 159 lb 8 oz BMI 27.3 25.8 BP 94/70 Intake Visit Reasons: 21 WK OB Chief Complaint: est ob Assistant Professor Of Nursing Required: No Is patient in pain?: No [...] at home: Yes additional social history: Nitin- [employer] employee [employer] History 1 Elective abortions [...] MH-NO VB, LO F. Feels well. Anatomy [facility] 02/2803/17/21 -???-???-???-???-???-???-???- ???-???-???-???-???- 21w 3d 159 lb [...] OB Anatomy Scan Comments: See Note; NOTES: [facility] [address] [place] [address] OB Anatomy Scan MR#: [id number] Acct: [id number] Name: SAGE GONZALES Rep #: [id number] : 1995 F 25 From: Faisal Chang MD PCP: Dr. Sunita Fernandes, Status: REG CLI Study: OB Anatomy Scan Date of Exam: 02/28/21 Exam# [id number] Ordering Dr: Alejandrina Marshall STUDY: SECOND AND [...] Sunita Fernandes DO; Dr. Alejandrina Marshall MD Clinical Safety Manager: Signed Sunita Fernandes DO Work Phone: Start: 02-16-2021 End: 02-20-2021 Wellness Health Coach Office Visit Report Comments: See Note; NOTES: [facility] [address] [place] [address] OFFICE VISIT Date of Service: 02/16/21 MR#: [id number] Acct: [id number] Name: SAGE GONZALES Rep #: [id number] : 1995 Provider: CORAL amaya Age/Sex: 25/F [place] [facility] [place]: Signed Intake Vital Signs 12/19/20 14:13 02/16/21 11:13 02/16/21 11:14 02/16/21 11:46 Height 5 ft 4 in Weight: 153 lb BMI 25.8 26.2 25.8 BP 98/68 Intake Visit Reasons: 17 WK OB Chief Complaint: est ob Assistant Professor Of Nursing Required: No Is patient in pain?: No [...] at home: Yes additional social history: Nitin- [employer] employee [employer] History 1 Elective abortions [...] ???-???-???-???-???- -NO VBFRANK Feels well. Anatomy [facility] 02/28 ACOG First Trimester First Trimester: Desire [...] Hct 38.2 % (37-47) Chlamydia DNA (CARLOS NERIQUE) Negative (Negative) N.gonorrhoeae DNA (CARLOS ENRIQUE) Negative [...] 02/16 stable Plan - Florence Bravo NP, GREASER OPERATOR-C: problem list reviewed and updated for most [...] 02/16/21 1147<Electronically signed by Florence Bravo NP GREASER OPERATOR-C> Cosigner Signature: Date (if applicable) Florence Bravo NP GREASER OPERATOR-C CC: Sunita Fernandes DO Work Phone: Start: 01-19-2021 End: 01-19-2021 Wellness Health Coach Office Visit Report Comments: See Note; NOTES: [facility] [address] [place] [address] OFFICE VISIT Date of Service: 01/19/21 MR#: [id number] Acct: [id number] Name: SAGE GONZALES Rep #: [id number] : 1995 Provider: Dr. Alejandrina doyle MD Age/Sex: 25/F [place] [facility]: Signed Intake Vital Signs 01/19/21 08:06 01/19/21 08:06 Height 5 ft 4 in Weight: 153 lb BMI 26.2 25.8 BP 114/64 Intake Visit Reasons: 13 WK OB Chief Complaint: est ob Assistant Professor Of Nursing Required: No Is patient in pain?: No [...] at home: Yes additional social history: Nitin- [employer] employee [employer] History 1 Elective abortions [...] DO Work Phone: Start: 12-19-2020 End: 12-22-2020 Wellness Health Coach Office Visit Report Comments: See Note; NOTES: [facility] [address] [place], [place] [address] OFFICE VISIT Date of Service: 12/19/20 MR#: [id number] Acct: [id number] Name: SAGE GONZALES Rep #: [id number] : 1995 Provider: Dr. Alejandrina doyle MD Age/Sex: 25/F [place] [facility] Status: Signed Intake Vital Signs 12/19/20 Height 5 ft 4 in 12/19/20 Weight: 150 lb 8 oz 12/19/20 BMI 25.8 12/19/20 BP 110/70 Intake Visit Reasons: NOB LMP 2 Assistant Professor Of Nursing Required: No Accompanied by: Allergies geo Allergy [...] safe at home: Yes additional social history: [employer] employee [employer] History 1 Elective abortions [...] (Rh) Sensitized, Pulmonary (e.g.,TB,Asthma), Seasonal allergies, Breast, Data Support Specialist surgery, Operations/hospitalizations, Anesthetic complications, History of abnormal [...] no acute distress Orientation: alert [facility] Head: normal to inspection, normocephalic, atraumatic Ears: [...] W/Diff, Automated 12/19/20 Culture, Urine 12/19/20 CT/NG [facility] BY PCR 12/19/20 Urine Drug Screen (VISTA) 12/19/20 Coding Level of Care Code OB Routine Diagnoses Depression F32.9 Supervision of normal 34 Z34.90 12/22/20 0655 <Electronically signed by Alejandrina Marshall MD> Date Alejandrina Marshall MD Cosigner Signature: Date (if applicable) CC: Sunita Dom DO Work Phone: Start: 03-30-2020 End: 03-30-2020 Urgent Care Visit Report Comments: See Note; NOTES: [facility] [address] [place] [address] OFFICE VISIT Date of Service: 03/30/20 MR#: [id number] Acct: [id number] Name: GONZALES,SAGE PEDERSON Rep #: [id number] : 1995 Provider: DUKE benson Age/Sex: 24/F Location: [facility] Status: Signed Intake Vital Signs 03/30/20 BMI [...] with similar complaints. She has taken no oemq-igc-tmuzsmy products to assist with symptoms. She notes [...] the above. This note was generated with Vindicia dictation software. It may contain incorrect words, spelling, and punctuation that were not noted in checking the note before signing. Orders Orders: POC Viviana Rapid Strep A Today Medications New: amoxicillin 1,000 mg (2 x 500 mg) PO BID 10 days 40 caps 0RF Coding Level of Care Code Off vis,new,level 3 Diagnoses Acute streptococcal pharyngitis J02.0 03/30/20 3272 <Electronically signed by Arben WALL> Date Arben WALL [facility] Signature: Date (if applicable) CC: Sunita Fernandes DO Work Phone: Start: 08-24-2017 End: 08-24-2017 Urgent Care Visit Report Comments: See Note; NOTES: [facility] [address] [place] [address] OFFICE VISIT Date of Service: 08/24/17 MR#: [id number] Acct: [id number] Name: SAGE MADISON Rep #: [id number] : 1995 Provider: DUKE Gutiérrez Age/Sex: 21/F Location: [facility] Status: Signed Intake Vital Signs08/24/17 Height 5 [...] to place, oriented to time [facility] Head: normocephalic Ears: external ears normal, TM's [...] D/C Summary (1) Comments: See Note; NOTES: [facility] Therapy [facility] [place] [address] Fax REHABILITATION SERVICES DISCHARGE SUMMARY MR#: [id number] Acct: [id number] Name: SAGE MADISON Rep #: [id number] : 1995 20 From: Cert. PRISCILA Mendez PT, OCS Referring Dr.: Vijaya Gibbs Status: REG RCR Insurance: [facility] - PT D/C Summary It has been [...] please feel free to call me at [phone]. Thank you for the referral of this patient. Sincerely, Wai Cochran PT, <Electronically signed by Cert. PRISCILA Mendez PT, OCS> 07/20/16 1402 CC: Vijaya Gibbs; Sunita Fernandes DO PRIYA Signed Sunita Fernandes DO Work Phone: Start: 06-26-2016 End: 06-26-2016 Inital Evaluation (1) - PT Comments: See Note; NOTES: [facility] [place] [address] Fax REHABILITATION SERVICES INITIAL EVALUATION MR#: [id number] Acct: [id number] Name: SAGE MADISON Rep #: [id number] : 1995 20 From: Wai Cochran PT, Cert. MDT, OCS Referring DrTerese: Vijaya Gibbs Status: REG R Insurance: [facility] Patient's Visit Information SAGE MADISON is a [...] to be FAXED BACK to us at [phone] for Medicare purposes. Please let me know if there are questions or concerns regarding this plan of care. Physician Signature: _Date: <Electronically signed by Wai Cochran PT, Cert. T, OCS> 06/26/16 0828 CC: Vijaya Gibbs; Sunita Fernandes DO PRIYA Signed For Medicare only, by signing this I certify the plan of care. Physicians Signature Date Sunita Fernandes DO Work Phone: Start: 06-18-2016 End: 06-19-2016 L/S Spine Min 4 Views Comments: See Note; NOTES: [facility] Imaging Services [address] [place] [address] Verdana 4d L/S Spine Min 4 Views MR#: [id number] Acct: [id number] Name: SAGE MADISON Rep #: [id number] : 1995 F 20 From: Edison Taveras MD PCP: Sunita Fernandes DO Status: REG CLI Study: L/S Spine Min 4 Views Date of Exam: 06/18/16 Exam# [id number] Ordering Dr: Vijaya Gibbs STUDY: X-RAY - [...] Edison Taveras MD at 15:37 EDT Tel [phone], Service support [phone], CC: Vijaya Gibbs; Sunita Fernandes DO Clinical Safety Manager: Signed Vijaya Gibbs [facility] Work Phone: Plan of Treatment Date [...] hemochromatosis gene anal common variants HFE GENE (77723) [facility] Work Phone: Start: 01-31-2015 Blood count manual c ell count each CBC with auto diff (39118) [facility] Work Phone: Start: 01-31-2015 Iron binding capacity IRON BIN DING CAPACITY (TIBC) (16511) [facility] Work Phone: Start: 01-31-2015 Assay of iron IRON (75874) [facility] Work Phone: Start: 01-31-2015 Assay of ferritin FERRITIN (07101) [facility] Work Phone: Start: 09-04-2013 Provider Instruction s for Treatment [facility] Work Phone: Start: 09-04-2013 Fibrin dgradj produc ts d-dimer quantitative D-Dimer (81440) [facility]; [facility] Work Phone: Comment on above: stat call [facility] with ivory villasenor at [facility] Start: 06-03-2013 Provider Instruction s for Treatment [...] Payer Category Payer Policy ID Unknown Medical [facility] Social History Date Type Detail Facility Current Work/Study Status Current Work/Study Status [facility] Work Phone: Comment on above: [facility]- going for nursing Exercise History: Exercise History: [...] BE BASED ON THE PRIMARY CLINICAL RECORDS. [facility] [email or web address] [facility]. provides no warranty or guarantee of the accuracy or completeness of information in this document.
[2024-06-24] MEDS: Lactated Ringers 1,000 ML 999 ML IV (12:00)
[2024-06-24] MEDS: fentaNYL-bupivacaine (epidural) 100 ML BAG EPIDURAL (12:30)
[2024-06-24] MEDS: Ondansetron 4 MG/2 ML Vial IV (12:42)
--- NOTE | 2024-06-24 13:39 | PCM.HP.OB ---
HPI - General General Date of Admission: 06/24/24 HPI Narrative SAGE GONZALES, is a 28 F who presents for IOL due to favorable cervix, term. no vb lof admits good fm no regular ctx. Maternal Data Information DIAMANTE Calculator Estimated Delivery Date Method Current WG Current Estimate 06/25/24 LMP (Certain) 39w 6d PFSH PFSH Medical History Vaginal delivery Oligohydramnios Depression History of venomous spider bite Home Medications ?Medication ?Instructions ?Recorded ?Last Taken ?Type multivitamin no.47-iron fum 27 1 cap PO DAILY 12/14/20 06/23/24 10:00 History mg-folate no.1 1 mg-dha 300 mg capsule (PNV-DHA) Allergy/AdvReac Type Severity Reaction Status Date / Time geo Allergy Unknown Verified 06/24/24 08:51 Family History Aunt Breast cancer, Onset Age: 51 Father Hypertension Surgical History H/O wisdom tooth extraction Hx of tonsillectomy Social History adopted: No household members: spouse and children housing: house number of children: 1 current occupational status: employed current occupation: [employer] current occupational exposures/hazards: No pets and animals: No history of recent travel: No sexually active: Yes Smoking Status: Never smoker second hand exposure: No alcohol intake: never substance use type: does not use well-balanced diet: daily or most days caffeine: Yes Type: coffee Number of servings: 2 eating out: 1-3 times/week during the past year weight has: remained stable what type of physical activity do you participate in: walking frequency: 3-4 times per week duration: 30-45 minutes/day sade/jain: Mandaen seatbelt use: always do you feel safe at home: Yes additional social history: [employer] employee [employer] History 2 Elective abortions Hx Para 1 Spontaneous abortions Hx # Term Pregnancies Ectopic pregnancies Hx # Pregnancies Multiple births # of living children 1 Past Pregnancies Del. Date Name GA/Weeks Outcome Route Bth Weight Gen Labor Lgth Anesthesia Del Locatn Provider FOB 07/22/21 Cornelia 39 live - full term [id number] Female 15 hR epidural [facility] Delivery Date: 07/22/21 Last Updated by: Sapphire Castelan IoL Olig[place] Visit Details Expected Delivery Route/Plan Labor Preferences- CB/BF classes: no labor support person: Nitin labor intervention preferences: [] pain management options preferred: epidural cut cord/dad catch: cord : yes PP control planned: discussed discussed possible routes of delivery and associated risks: [] special requests: [] Plans Covid status: [] Flu vaccine: given at employer Tdap vaccine: given Rhogam: na LARC form signed: yes movement and labor precautions reviewed. Problem list reviewed and updated with the most current plan of care details and appropriate orders placed. Relevant counseling for the gestational age provided. Continue routine care and follow up unless otherwise noted in visit notes/problem list details OB Flowsheet Initial Weight: 167 lb Date <del>?</del> EGA Weight BP Urine Prot <del>?</del> Glucose FHR FuHt Pres Dilation <del>?</del> Effaced St Visit Note 11/22/23 <del>?</del> 9w 1d 167 lb 6 oz (+6 oz) 120/78 <del>?</del> 168 <del>?</del> LC- CRL con with LMP. declines nipt. 12/11/23 <del>?</del> 11w 6d 166 lb 2 oz (-14 oz) 111/72 Negative <del>?</del> Negative 153 0 <del>?</del> MH-work in:had small amount bright bleeding last pm. None since. Live IUP on US confirmed FHT. Consistent CRL. No blood in vaginal vault 12/25/23 <del>?</del> 13w 6d 167 lb 2 oz (+2 oz) 123/74 Negative <del>?</del> Negative 150 <del>?</del> JV- no complaints today. declines nipt. anatomy scan ordered. 01/22/24 <del>?</del> 17w 6d 169 lb 6 oz (+2 lb 6 oz) 119/78 Negative <del>?</del> Negative 154 <del>?</del> JV- no complaints. has anatomy scan february 04. 02/19/24 <del>?</del> 21w 6d Negative <del>?</del> Negative 145 21 <del>?</del> KW- no vb/lof/ctx. good fm. 28 week labs discussed 03/18/24 <del>?</del> 25w 6d 177 lb 2 oz (+10 lb 2 oz) 105/67 Negative <del>?</del> Negative 147 26 <del>?</del> MH-No VB, LOF. Good Fm. Denies concerns 04/03/24 <del>?</del> 28w 1d 179 lb 4 oz (+12 lb 4 oz) 116/71 Negative <del>?</del> Negative 140 29 <del>?</del> SM- no vb lof good fm no regular ctx SM- no vb lof good fm no regular ctx tdap today 04/13/24 <del>?</del> 29w 4d 178 lb (+11 lb) 114/75 Negative <del>?</del> Negative 140 30 <del>?</del> KW- no vb/lof/ctx. good fm. LARC today 04/30/24 <del>?</del> 32w 0d 182 lb (+15 lb) 125/78 Negative <del>?</del> Negative 170 <del>?</del> SM- no vb lof good fm no reuglar ctx SM- no vb lof good fm no reuglar ctx initial heart rate elevated fm heard, recent caffeine. NST done 05/13/24 <del>?</del> 33w 6d 180 lb 6 oz (+13 lb 6 oz) 126/76 Negative <del>?</del> Negative 130 34 <del>?</del> SM- no vb lof good fm no regular ctx ordered growth US 05/25/24 <del>?</del> 35w 4d 182 lb 8 oz (+15 lb 8 oz) 113/73 Negative <del>?</del> Negative 128 35 <del>?</del> JV- no lof, vaginal bleeding, or dec fm. no complaints today. growth scan scheduled. jury duty note given. 06/03/24 <del>?</del> 36w 6d 182 lb 8 oz (+15 lb 8 oz) 124/78 Negative <del>?</del> Negative 135 36 Cephalic <del>?</del> SM- no vb lof good fm no regular ctx 06/09/24 <del>?</del> 37w 5d 184 lb (+17 lb) 120/77 <del>?</del> 135 37 Cephalic <del>?</del> SM- no vb lof good fm no regular ctx 06/15/24 <del>?</del> 38w 4d 185 lb (+18 lb) 114/80 Negative <del>?</del> Negative 125 36 Cephalic <del>?</del> KW- no vb/lof/ctx. good fm EMILIO by BETI 10.6. 06/22/24 <del>?</del> 39w 4d 185 lb (+18 lb) 120/76 Negative <del>?</del> Negative 115 39 Cephalic 3 <del>?</del> 70 -2 KW- no vb/lof/ctx. good fm. membrane sweep today. IOL discussed and set up NST FHR Rate Baby A Baseline: 140 Variability:: Moderate Accelerations:: 15 x 15 Decelerations:: None NST Reactive:: Yes FHR Category:: Category I Uterine Activity:: q3-5 ROS Constitutional Constitutional: Reports systems reviewed and no addt'l complaints, except as documented ENT HEENT: Reports systems reviewed and no addt'l complaints, except as documented Cardiovascular Cardiovascular: Reports systems reviewed and no addt'l complaints, except as documented Respiratory/Chest Respiratory/Chest: Reports systems reviewed and no addt'l complaints, except as documented Gastrointestinal Gastrointestinal: Reports systems reviewed and no addt'l complaints, except as documented and nausea; Denies abdominal pain Genitourinary Genitourinary: Reports systems reviewed and no addt'l complaints, except as documented, contractions Details: present and frequency (regular ) and movement Details: present Musculoskeletal Musculoskeletal: Reports systems reviewed and no addt'l complaints, except as documented Integumentary Integumentary: Reports as per HPI Neurologic Neurologic: Reports systems reviewed and no addt'l complaints, except as documented Endocrine Endocrinology: Reports systems reviewed and no addt'l complaints, except as documented Vital Signs Vital Signs Vital Signs: 06/24/24 07:48 06/24/24 07:48 06/24/24 07:49 Temperature Temperature Source Pulse Rate 92 90 Respiratory Rate Blood Pressure 134/89 H BP Systolic 134 BP Diastolic 89 Pulse Ox 06/24/24 07:49 06/24/24 07:49 06/24/24 07:49 Temperature Temperature Source Temporal Pulse Rate Respiratory Rate 16 Blood Pressure BP Systolic BP Diastolic Pulse Ox 97 06/24/24 07:49 06/24/24 07:49 06/24/24 09:21 Temperature 97.9 F Temperature Source Pulse Rate Respiratory Rate Blood Pressure 118/66 BP Systolic 118 BP Diastolic 66 Pulse Ox 98 06/24/24 09:21 06/24/24 11:40 06/24/24 11:40 Temperature Temperature Source Pulse Rate 76 73 Respiratory Rate Blood Pressure 125/78 H BP Systolic 125 BP Diastolic 78 Pulse Ox 06/24/24 12:19 06/24/24 12:19 06/24/24 12:23 Temperature Temperature Source Pulse Rate 88 85 Respiratory Rate Blood Pressure BP Systolic BP Diastolic Pulse Ox 97 06/24/24 12:23 06/24/24 12:24 06/24/24 12:24 Temperature Temperature Source Pulse Rate 77 Respiratory Rate Blood Pressure BP Systolic BP Diastolic Pulse Ox 93 98 06/24/24 12:25 06/24/24 12:25 06/24/24 12:29 Temperature Temperature Source Pulse Rate 93 101 H Respiratory Rate Blood Pressure 121/83 H BP Systolic 121 BP Diastolic 83 Pulse Ox 06/24/24 12:29 06/24/24 12:30 06/24/24 12:34 Temperature Temperature Source Pulse Rate 92 Respiratory Rate 18 Blood Pressure BP Systolic BP Diastolic Pulse Ox 95 06/24/24 12:34 06/24/24 12:35 06/24/24 12:37 Temperature Temperature Source Pulse Rate Respiratory Rate 16 Blood Pressure 115/74 BP Systolic 115 BP Diastolic 74 Pulse Ox 99 06/24/24 12:37 06/24/24 12:39 06/24/24 12:39 Temperature Temperature Source Pulse Rate 92 97 Respiratory Rate Blood Pressure BP Systolic BP Diastolic Pulse Ox 100 06/24/24 12:40 06/24/24 12:40 06/24/24 12:40 Temperature Temperature Source Pulse Rate 88 Respiratory Rate 15 Blood Pressure 114/71 BP Systolic 114 BP Diastolic 71 Pulse Ox 06/24/24 12:44 06/24/24 12:44 06/24/24 12:45 Temperature Temperature Source Pulse Rate 90 Respiratory Rate 15 Blood Pressure BP Systolic BP Diastolic Pulse Ox 99 06/24/24 12:47 06/24/24 12:47 06/24/24 12:49 Temperature Temperature Source Pulse Rate 85 86 Respiratory Rate Blood Pressure 116/63 BP Systolic 116 BP Diastolic 63 Pulse Ox 06/24/24 12:49 06/24/24 12:50 06/24/24 12:50 Temperature Temperature Source Pulse Rate 86 Respiratory Rate Blood Pressure 107/62 BP Systolic 107 BP Diastolic 62 Pulse Ox 99 06/24/24 12:50 06/24/24 12:54 06/24/24 12:54 Temperature Temperature Source Pulse Rate 81 Respiratory Rate 16 Blood Pressure BP Systolic BP Diastolic Pulse Ox 100 06/24/24 12:55 06/24/24 12:55 06/24/24 12:55 Temperature Temperature Source Pulse Rate 80 Respiratory Rate 15 Blood Pressure 100/57 L BP Systolic 100 BP Diastolic 57 Pulse Ox 06/24/24 12:56 06/24/24 12:56 06/24/24 12:56 Temperature 97.5 F L Temperature Source Temporal Pulse Rate Respiratory Rate 16 Blood Pressure BP Systolic BP Diastolic Pulse Ox 06/24/24 13:26 06/24/24 13:26 06/24/24 13:26 Temperature Temperature Source Pulse Rate 67 Respiratory Rate Blood Pressure 117/77 BP Systolic 117 BP Diastolic 77 Pulse Ox 98 Weight Weight: 184 lb Body Mass Index (BMI) 31.6 Physical Exam Const alert, oriented x3 and healthy appearing Constitutional Narrative: uncomfortable with contractions HEENT normocephalic and moist oral mucous membranes Head and Scalp: atraumatic Neck full ROM, no lymphadenopathy, supple and thyroid normal General: trachea midline Thyroid: thyroid normal Lymph Lymphatic: no lymphadenopathy noted Chest inspection of chest normal Resp normal respiratory effort Cardio regular rate GI soft to palpation and non-tender Inspection: gravid external exam normal Bimanual Exam - Vag & Uterus: uterus non-tender Manual OB Exam: estimated gestational size appropriate, presentation cephalic, dilated, effaced and station Extremity normal to inspection General Extremity: Negative for edema Skin no rashes or lesions noted Neuro deep tendon reflexes 2+ bilaterally Motor Exam: strength 5/5 throughout and clonus absent Psych mental status grossly normal Labs Labs Labs: Blood Type A POSITIVE Antibody Screen NEGATIVE Hct 34.4 % (37-47) L Hgb 11.7 g/dL (12.0-15.0) L Obstetrics Ultrasound Syphilis Total Ab Non-reactive Rubella IgG Antibody Reactive (Nonreactive) Hep Bs Antigen Non-Reactive (Nonreactive) Hepatitis C Antibody Non-Reactive (Nonreactive) Chlamydia DNA (CARLOS ENRIQUE) Negative (Negative) N.gonorrhoeae DNA (CARLOS ENRIQUE) Negative (Negative) HIV 1&2 Antibody Non-Reactive (Nonreactive) Glucose 1 Hr 50 gm 70 mg/dL (70-140) Gest Glucose Tolerance MG/DL Rhogam given: No Assessment & Plan (1) History of oligohydramnios: COMMENT: 36 week growth us (2) Supervision of normal : QUALIFIERS: Normal : other normal Trimester: second trimester Qualified Code(s): Z34.82 - Encounter for supervision of other normal , second trimester COMMENT: PRR , DIAMANTE 06/25/24, girl Sapphire Locke, Nitin (3) : QUALIFIERS: Weeks of gestation: 39 weeks Qualified Code(s): Z3A.39 - 39 weeks gestation of COMMENT: Neg GBS. normal anatomy, discussed ntd genetic & carrier testing, declines. (4) Encounter for induction of labor: PLAN: Plan Patient presents IOL, plan management for with pitocin/AROM. Pain management: plans epidural. GBS negative. Management of any complications: none I have reviewed the [facility] and made any clinically relevant updates.
--- NOTE | 2024-06-24 13:39 | EX.PCM.OBVAG ---
Assessment & Plan (1) Encounter for induction of labor: (2) Supervision of normal : QUALIFIERS: Normal : other normal Trimester: second trimester Qualified Code(s): Z34.82 - Encounter for supervision of other normal , second trimester COMMENT: PRR , DIAMANTE 06/25/24, girl Sapphire Locke, Nitin (3) : QUALIFIERS: Weeks of gestation: 39 weeks Qualified Code(s): Z3A.39 - 39 weeks gestation of COMMENT: Neg GBS. normal anatomy, discussed ntd genetic & carrier testing, declines. (4) Vaginal delivery: COMMENT: SM IOL girl Sapphire Maternal Data Information DIAMANTE Calculator Estimated Delivery Date Method Current WG Current Estimate 06/25/24 LMP (Certain) 39w 6d Vaginal Delivery Vaginal Delivery Information Procedure Performed: Spontaneous Vaginal Delivery Surgeon/Practitioner: Alejandrina Marshall Date of Procedure: 06/24/24 Pre-Procedure Diagnosis: see a/p details Post-Procedure Diagnosis: same Type of anesthesia: Epidural Special Medications: none Estimated Blood Loss: 100 Findings Description of procedure: Patient began pushing and delivered the head in the DAVID presentation. The head was delivered atraumatically and a loose nuchal cord ?1 was identified and easily reduced over the 's head. The anterior and posterior shoulders delivered without complication followed by the rest of the infant and the infant was placed on the maternal abdomen. Delayed cord clamping was employed for approximately 60 seconds. Cord was clamped and cut and gentle traction was applied to the cord and the placenta delivered spontaneously immediately following it was noted to be intact with three-vessel cord. The perineum and vagina were inspected and noted to have no laceration. EBL was 100 cc. Patient and infant tolerated delivery well. Procedures Urinary/Genital 52xxx-59xxx: 04221 Vaginal Delivery [facility]
[2024-06-24] MEDS: Oxytocin 15 Units/NS 250ml 15 UNITS/250 ML IV.SOLN 83 UNITS IV (14:30)
[2024-06-24] MEDS: Naproxen 500 MG Tablet PO (23:14)
[2024-06-25] VITALS (9 sets, daily range): BP systolic 102–118; BP diastolic 59–76; PULSE 69–90; RESP 15–17; TEMP 36.4–36.7; O2SAT 97–99
--- NOTE | 2024-06-25 08:13 | PCM.PN.OB ---
Subjective Subjective Patient doing well without complaints. Tolerating PO. Ambulating and voiding without difficulty. Feeding well. Denies chest pain, shortness of breath, calf pain/swelling, fevers, chills, lightheadedness. Objective Data Objective Data Vital Signs: Vital Signs Temp Pulse Resp BP Pulse Ox O2 Del Method 97.8 F 71 15 102/59 L 99 Room Air 06/25/24 04:00 06/25/24 04:44 06/25/24 04:00 06/25/24 04:44 06/25/24 04:00 06/25/24 04:00 Oxygen Delivery Method Room Air Weight: 184 lb Body Mass Index (BMI) 31.6 Intake & Output: Intake and Output for Last 24 Hours 06/23/24 06/24/24 06/25/24 23:59 23:59 23:59 Intake Total 1771.97 / 1771.97 Output Total 1050 / 1050 Balance 721.97 / 721.97 Lab / Micro Data 06/24/24 07:25 Labs: Laboratory Results - last 24 hr 06/24/24 07:25: Syphilis Total Ab Non-reactive, Blood Type A POSITIVE, Antibody Screen NEGATIVE Physical Exam Const alert and oriented x3 HEENT normocephalic Eyes PERRL Neck full ROM Resp normal respiratory effort GI soft to palpation GI Narrative: FF below U Assessment & Plan (1) Vaginal delivery: COMMENT: CON IOL girl Sapphire PLAN: Plan s/p PPD # 1 1. routine post delivery care 2. breast feeding- support given 3. rh positive 4. rubella immune 5. home today
== END 2024-06-25 15:00 | disposition home or self-care (01) | DRG 807 ==
PROVIDERS: Admitting Provider Obstetrics & Gynecology; PCP Internal Medicine; Visit Provider Obstetrics & Gynecology
DX: O69.81X0 Labor and delivery complicated by cord around neck, without compression, not applicable or unspecified (principal); Z37.0 Single live birth; Z3A.39 39 weeks gestation of pregnancy; Z87.59 Personal history of other complications of pregnancy, childbirth and the puerperium
CPT/HCPCS: 59025; 59050; 85025; 86780; 86850; 86900; 86901; 99221; J7120; G0378; J2405

== ENCOUNTER → 2024-08-04 | Outpatient (CLI) | payer OTHER, SELFPAY | END | disposition home or self-care (01) | LOC: LABSPEC 16:28 | PROVIDERS: PCP Internal Medicine; Referring Provider Nurse Practitioner Women's Health; Visit Provider Nurse Practitioner Women's Health | DX: R30.0 Dysuria (principal) | CPT/HCPCS: 87086; 87088; 87186 ==

== ENCOUNTER → 2024-10-02 | Outpatient (CLI) | payer OTHER, SELFPAY | END | disposition home or self-care (01) | LOC: LABSPEC 16:55 | PROVIDERS: PCP Internal Medicine; Referring Provider Obstetrics & Gynecology; Visit Provider Obstetrics & Gynecology | DX: N39.0 Urinary tract infection, site not specified (principal) | CPT/HCPCS: 87086; 87088; 87186 ==

== ENCOUNTER → 2025-08-04 | Outpatient (CLI) | payer OTHER, SELFPAY ==
--- OUTSIDE RECORDS SUMMARY | 2025-08-04 17:58 | XMS RPT_ITS | CCD ---
Author Organization [facility] Care Team Providers Care Lumber Cutter Name Role Phone Sunita Fernandes DO Unavailable Daisy Staley RN Unavailable Unavailable Unavailable Unavailable Dr. Eleuterio Padilla Primary Care Provider Dr. Eleuterio Padilla Referring Provider Dr. Orin Daniel Attending Provider GARY Grimes Attending Provider Oleghe, Efewongbe Primary Care Unavailable Oleghe, Efewongbe Referring Unavailable Alejandrina Marshall Attending Unavailable Oleghe, Efewongbe Referring Unavailable Oleghe, Efewongbe Attending Unavailable Oleghe, Efewongbe Primary Care Unavailable Oleghe, Efewongbe Primary Care Unavailable Oleghe, Efewongbe Referring Unavailable Daisy Esposito Attending Unavailable Oleghe, Efewongbe Primary Care Unavailable Oleghe, Efewongbe Referring Unavailable Weiser SECONDARY SCHOOL TEACHER LIBRARIAN, [place] Attending Unavailable Oleghe, Efewongbe Primary Care Unavailable Oleghe, Efewongbe Referring Unavailable Weiser SEC[employer]ARY SCHOOL TEACHER LIBRARIAN, [place] Attending Unavailable Oleghe, Efewongbe Primary Care Unavailable Weiser SEC[employer]ARY SCHOOL TEACHER LIBRARIAN, [place] Referring Unavailable Shelly SECONDARY SCHOOL TEACHER LIBRARIAN, [place] Attending Unavailable Oleghe, Efewongbe Primary Care Unavailable Alejandrina Marshall Referring Unavailable Alejandrina Marshall Attending Unavailable Oleghe, Efewongbe Primary Care Unavailable Alejandrina Marshall Referring Unavailable Alejandrina Marshall Attending Unavailable Oleghe, Efewongbe Primary Care Unavailable Assessment, Health Risk Attending Unavaila ble Assessment, Health Risk Referring Unavaila ble Oleghe, Efewongbe Primary Care Unavailable Alejandrina Marshall Admitting Unavailable Marcanthony, Alejandrina Attending Unavailable Oleghe, Efewongbe Primary Care Unavailable Alejandrina Marshall Attending Unavailable Oleghe, Efewongbe Primary Care Unavailable Alejandrina Marshall Consulting Unavailable Alejandrina Marshall Admitting Unavailable Shelly SECONDARY SCHOOL TEACHER LIBRARIAN, [place] Attending Unavailable Alejandrina Marshall Attending Unavailable Oleghe, Efewongbe Primary Care Unavailable Oleghe, Efewongbe Referring Unavailable Daisy Esposito Attending Unavailable Oleghe, Efewongbe Primary Care Unavailable Oleghe, Efewongbe Referring Unavailable Daisy Esposito Attending Unavailable Oleghe, Efewongbe Primary Care Unavailable Oleghe, Efewongbe Referring Unavailable Alejandrina Marshall Attending Unavailable Randy CHAVIRA, Dr. Mcclellan Primary Care Physician Assessment, Health Risk Attending Physician Unav ailable Assessment, Health Risk Referring Provider Unava ilable Randy CHAVIRA, Dr. Mcclellan Attending Physician [phone] Randy CHAVIRA, Dr. Mcclellan Referring Provider [phone] Allergies Allergy Classification Reported Allergen(s) Allergy Type Date of Onset Reaction(s) Facility (2 sources) geo allergenic extract Drug Allergy 11-22-2023 Unknown [facility] (1 source) geo allergenic extract Drug Allergy 05-26-2025 [facility] Repository Medications Current Medications Medication Drug Class(es) Dates Sig (Normalized) Sig (Original) Multivit 62-Dyum-Lftcds 1-Dha (Pnv-Dha) 27 mg iron-1 mg -300 mg capsule (2 sources) Start: 12-14-2020 Multivit 20-Pkcu-Ixyfob 1-Dha (Pnv-Dha) 27 mg iron-1 mg -300 mg capsule Active 1 NMA PO DAILY December 14, 2020 12:00am Complies with drug therapy Start: 12-14-2020 take 1 capsule by [facility] once daily Multivit 81-Oqqh-Yhmmcd 1-Dha (Pnv-Dha) 27 mg iron-1 mg -300 mg capsule Active 1 CAP PO DAILY December 14, 2020 12:00am Completed/Discontinued Medications Medication Drug Class(es) Dates Sig (Normalized) Sig (Original) [id number] 200 actuat albuterol 0.09 mg/actuat metered dose inhaler (1 source) beta2-Adrenergic Agonist Start: 12-17-2013 End: 12-17-2013 take 2 puff(s) by inhalation three times daily PROAIR HFA, 108 (90 Base)MCG/ACT (Inhalation Aerosol Solution) 2 (two) Puff(s) tid for 0 days Quantity: 1 {Inhaler} Refills: 0 Ordered: 17-Dec-2013 Sunita Fernandes DO, DO, Kathleen Start : 17-Dec-2013 End : 17-Dec-2013 Discontinued amitriptyline hydrochloride 25 mg oral tablet (1 source) Tricyclic Antidepressant Start: 12-17-2013 End: 12-17-2013 take 1 tablet by mouth once daily AMITRIPTYLINE HCL, 25MG (Oral Tablet) 1 Tablet qd for 0 days Quantity: 30 {Tablet} Refills: 0 Ordered: 17-Dec-2013 Sunita Fernandes DO, DO, Kathleen Start : 17-Dec-2013 End : 17-Dec-2013 Discontinued amoxicillin 500 mg oral capsule (2 sources) Penicillin-class Antibacterial Start: 03-30-2020 End: 04-09-2020 take 2 capsules by mouth twice daily Amoxicillin 500 mg capsule Discontinued 1000 mg PO TWICE A DAY 40 10 March 30, 2020 12:00am April 08, 2020 12:00am April 09, 2020 12:02am Start: 03-30-2020 End: 04-09-2020 take 1000 mg by mouth twice daily Amoxicillin Discontinued 1000 MG PO TWICE A DAY 40 March 30, 2020 12:00am April 09, 2020 12:02am azithromycin 250 mg oral tablet (1 source) Macrolide Antimicrobial Start: 09-04-2013 End: 12-17-2013 ZITHROMAX Z-ALE, 250MG (Oral Tablet) 1 Tablet TAD for 0 days Quantity: 1 {Package(s)} Refills: 0 Ordered: 17-Dec-2013 Daisy Staley RN Start : 04-Sep-2013 End : 17-Dec-2013 Inactive citalopram 20 mg oral tablet (1 source) Serotonin Reuptake Inhibitor Start: 01-06-2018 take 1 tablet by mouth once daily CeleXA 20 MG Oral Tablet 1 Tablet qd for 0 days Quantity: 30 {Tablet} Refills: 2 Ordered: 06-Jan-2018 Sunita Fernandes DO, DO, Kathleen Start : 06-Jan-2018 Active clotrimazole 10 mg oral lozenge (1 source) Azole Antifungal Start: 09-04-2013 End: 09-14-2013 CLOTRIMAZOLE, 10MG (Mouth/Throat Damián) 1 Damián 5x daily for 10 days Quantity: 50 {Damián} Refills: 0 Ordered: 04-Sep-2013 Vijaya Gibbs CNP Start : 04-Sep-2013 End : 14-Sep-2013 Inactive cyclobenzaprine hydrochloride 5 mg oral tablet (1 source) Muscle Relaxant Start: 06-18-2016 End: 11-19-2016 take 1 tablet by mouth once daily at bedtime as needed Cyclobenzaprine HCl 5 MG Oral Tablet 1 (one) Tablet qhs prn for muscle relaxation for 0 days Quantity: 30 {Tablet} Refills: 0 Ordered: 19-Nov-2016 Daisy Staley RN Start : 18-Jun-2016 End : 19-Nov-2016 Inactive WINSTON 3-0.02 MG Oral Tablet (1 source) Progestin, Estrogen Start: 06-18-2016 End: 11-19-2016 WINSTON 3-0.02 MG Oral Tablet 1 (one) Tablet uad for 0 days Quantity: 30 {Tablet} Refills: 0 Ordered: 19-Nov-2016 Daisy Staley RN Start : 18-Jun-2016 End : 19-Nov-2016 Inactive [id number] 0.3 ml EPINEPHrine 1 mg/ml auto-injector (1 source) alpha-Adrenergic Agonist, beta-Adrenergic Agonist, Catecholamine Start: 10-04-2014 EPINEPHRINE, 0.3MG/0.3ML (Injection Solution Auto-injector) 1 (one) Soln Auto-inj Soln Auto-inj once for 0 days Quantity: 1 {Pre-filled_Pen_Syri nge} Refills: 1 Ordered: 04-Oct-2014 Daisy Staley RN Start : 04-Oct-2014 Active LOESTRIN 24 FE, 1-20MG-MCG (Oral Tablet) (1 source) Estrogen Start: 02-15-2012 End: 09-04-2013 take 1 tablet by mouth once daily LOESTRIN 24 FE, 1-20MG-MCG (Oral Tablet) 1 Tablet daily for 365 days Refills: 0 Ordered: 04-Sep-2013 Start : 15-Feb-2012 End : 04-Sep-2013 Discontinued Comments: This order discontinued per [facility]. Comment on above: This order discontin ued per [facility]. Sprintec 28 0.25-35 MG-MCG Oral Tablet (1 source) Progestin, Estrogen Start: 09-04-2013 End: 06-18-2016 take 1 tablet by mouth once daily Sprintec 28 0.25-35 MG-MCG Oral Tablet 1 Tablet daily for 360 days Refills: 0 Ordered: 18-Jun-2016 Lexi Lyle LPN Start : 04-Sep-2013 End : 18-Jun-2016 Discontinued ferrous sulfate 325 mg oral tablet (1 source) Start: 04-13-2024 End: 06-24-2024 take 1 tablet by mouth once daily Ferrous Sulfate 325 mg (65 mg iron) tablet Discontinued 325 mg PO DAILY April 13, 2024 12:00am June 24, 2024 8:52am fluconazole 150 mg oral tablet (1 source) Azole Antifungal Start: 12-06-2017 End: 12-09-2017 Diflucan 150 MG Oral Tablet 1 (one) Tablet now then 1 in 2 days for 0 days Quantity: 2 {Tablet} Refills: 0 Ordered: 09-Dec-2017 Daisy Staley RN Start : 06-Dec-2017 End : 09-Dec-2017 Inactive levonorgestrel 0.846580 mg/hr intrauterine system (2 sources) Progestin, Progestin-containi ng Intrauterine Device Start: 01-16-2022 End: 09-16-2023 Levonorgestrel (Liletta) 20.1 mcg/24 hrs (6 yrs) 52 mg intrauterine device Discontinued 1 NMA INTRA-UTER ONCE January 16, 2022 12:00am September 16, 2023 2:13pm as a single dose Start: 01-16-2022 End: 09-16-2023 Levonorgestrel (Liletta) 20. 1 mcg/24 hrs (6 yrs) 52 mg intrauterine device Discontinued 1 DEVICE INTRA-UTER ONCE January 16, 2022 12:00am September 16, 2023 2:13pm as a single dose methylPREDNISolone 4 mg oral tablet (1 source) Corticosteroid Start: 06-18-2016 End: 10-29-2016 Medrol 4 MG Oral Tablet Therapy Pack 1 (one) Tab Ther Pack TAD for 0 days Quantity: 1 {Package} Refills: 0 Ordered: 29-Oct-2016 Dom ROCHA Sunita Garcia DO Start : 18-Jun-2016 End : 29-Oct-2016 Inactive Comments: with food Comment on above: with food nitrofurantoin, macrocrystals 25 mg / nitrofurantoin, monohydrate 75 mg oral capsule (2 sources) Nitrofuran Antibacterial Start: 10-02-2024 End: 10-09-2024 take 1 capsule by mouth every twelve hours at mealtime Nitrofurantoin Monohyd/M-Cryst (Macrobid) 100 mg capsule Discontinued 100 mg PO Q12H 14 7 0 October 02, 2024 1:00am October 08, 2024 1:00am October 09, 2024 1:11am administer with a meal/food; swallow whole; do not open, crush, dissolve , or chew Start: 08-04-2024 End: 08-11-2024 take 1 capsule by mouth twice daily at mealtime Nitrofurantoin Monohyd/M-Cryst (Macrobid) 100 mg capsule Discontinued 100 mg PO TWICE A DAY 14 7 0 August 04, 2024 1:00am August 10, 2024 1:00am August 11, 2024 1:08am must administer with a meal/food norethindrone 0.35 mg oral tablet (2 sources) Start: 09-07-2021 End: 12-01-2021 take 1 tablet by mouth once daily Norethindrone (Contraceptive) (Leila) 0.35 mg tablet Discontinued 0.35 mg PO daily 28 September 07, 2021 1:00am December 01, 2021 10:20am start day 1 of menstrual cycle spironolactone 25 mg oral tablet (3 sources) Aldosterone Antagonist Start: 08-24-2017 End: 12-14-2020 take 1 tablet by mouth once daily in the morning Spironolactone 25 mg tablet Discontinued 25 mg PO EVERY MORNING August 24, 2017 1:00am December 14, 2020 1:45pm Start: 12-17-2013 End: 06-18-2016 take 1 tablet by mouth once daily [...] (5 sources) Anxiety; Translations: [Anxiety] 01-06-2018 Chronic Diabetes or abnormal glucose tolerance complicating ; childbirth; or the puerperium (2 sources) Abnormal glucose level; Translations: [Abnormal glucose complicating ] 07-22-2021 Episodic Comment on above: nl 3GTT Hemorrhage during ; abruptio placenta; placenta previa (2 sources) Low lying placenta; Translations: [Low lying placenta NOS or without hemorrhage, second trimester] 05-10-2021 Episodic Comment on above: anterior, repeat US @ 28 wks- RESOLVED Immunizations and screening for infectious disease (5 sources) Patient encounter status; Translations: [Encounter for immunization] 01-06-2018 Episodic Comment on above: No PA needed per jodie ctronic request 08/18/24 Mood disorders (5 sources) Depressive disorder; Translations: [Depressive disorder] 01-06-2018 Chronic Comment on above: not on any medicatio n at this time. 02/16 stable Mycoses (2 sources) Mycosis; Translations: [Yeast infection] Resolved: 10-29-2016 01-06-2018 Episodic Other complications of (1 source) Anemia of ; Translations: [Anemia complicating , unspecified trimester] 08-03-2024 Chronic Comment on above: Fe Other congenital anomalies (1 source) Web of [...] - overweight; Translations: [BMI 25.0-25.9,adult] 01-06-2018 Episodic Other conditions (1 source) tachycardia; Translations: [Abnormality in heart rate or rhythm, unspecified as to time of onset] 06-25-2024 Episodic Other upper respiratory infections (5 sources) Acute upper respiratory infection; Translations: [Acute upper respiratory infection, unspecified] 11-06-2022 Episodic Polyhydramnios and other problems of amniotic cavity (2 sources) Oligohydramnios; Translations: [Oligohydramnios, third trimester, not applicable or unspecified] 07-22-2021 Episodic Comment on above: IOL pit and fb, epi PRN Residual codes; unclassified (1 source) FH: Alzheimer's [...] source) Family history of diabetes mellitus Episodic Residual codes; unclassified (2 sources) Family history of breast cancer; Translations: [Family history of malignant neoplasm of breast] 09-12-2022 Episodic Comment on above: Mat aunt, not geneti c Residual codes; unclassified (1 source) Family history of malignant neoplasm of breast; Translations: [Family history of malignant neoplasm of breast] 11-22-2023 Episodic Residual codes; unclassified (1 source) H/O: Disorder; Translations: [Personal history of other complications of , childbirth and the puerperium] 08-03-2024 Episodic Comment on above: 36 week growth us Spondylosis; intervertebral disc disorders; other back problems [...] Bronchitis; Translations: [Bronchitis] Resolved: 10-29-2016 12-09-2017 Episodic Contraceptive and procreative management (4 sources) Unspecified contraceptive management; Translations: [Contraception] Onset: 09-10-2024 01-06-2018 Episodic Coronary atherosclerosis and other heart disease (1 source) Coronary atherosclerosis and other heart disease Genitourinary symptoms and ill-defined conditions (2 sources) Urinary frequency; Translations: [Frequency of urination] Onset: 09-03-2024 Resolved: 10-29-2016 12-09-2017 Episodic Hepatitis (1 source) Hepatitis Other lower respiratory disease (1 source) Wheezing; Translations: [Wheeze] Resolved: 10-29-2016 12-09-2017 Episodic Other and delivery including normal (19 sources) Vaginal delivery; Translations: [Encounter for full-term uncomplicated delivery] Onset: 06-25-2024 01-16-2022 Episodic Comment on above: iol oligo 39 SM girl Cornelia SM IOL girl Tomas y PRR DIAMANTE: girl Cornelia Spouse: Nitin PRR , DIAMANTE , girl [facility] Cornelia, Nitin negative GBS, declin es genetic and carrier screening. declines afp. anatomy nl Neg GBS. normal vika ashly, discussed ntd genetic & carrier testing, declines. Other screening for suspected conditions (not mental disorders or infectious disease) (1 source) Screening status; Translations: [SCREENING FOR HYPERLIPIDEMIA (Renamed from Encounter for screening for lipoid disorders)] Resolved: 12-09-2017 12-09-2017 Episodic Residual codes; unclassified (1 source) Personal history of other complications of , childbirth and the puerperium; Translations: [Personal history of other complications of , childbirth and the puerperium] Onset: 07-15-2024 Episodic Residual codes; unclassified (1 source) 39 weeks gestation of ; Translations: [39 weeks gestation of ] Onset: 07-15-2024 Episodic Unclassified (8 sources) Unspecified Diagnosis 11-19-2016 [...] Unclassified (2 sources) SCREENING FOR TB (V74.1) Urinary tract infections (2 sources) Urinary tract infection, site not specified; Translations: [Urinary tract infection, site not specified] Onset: 10-14-2024 Episodic Results Test Name Value Interpretation Reference Range Facility Internal Medicine Office Vis iton 05-26-2025 Internal Medicine Office Visit [facility] [address] [place] [address] [place] [address] OFFICE VISIT Date of Service: 05/26/25 MR#: [id number] Acct: [id number] Name: SAGE GONZALES Rep #: [id number] : 1995 Provider: Dr. Eleuterio walker MD Age/Sex: 29/F Location: [facility] [place] Status: Signed Intake Vital Signs 09/10/24 08:21 05/26/25 11:26 Height 5 ft 4 in 5 ft 4 in Weight: 152 lb BMI 26.1 BP 128/66 H Blood Pressure Location Lt brachial Position Sitting Respiration 18 Pulse 74 Pulse Source Monitor Temp 97.2 F L Temp Source Temporal Pulse Oximetry (%) 99 Oxygen Delivery Method room air Intake Visit Reasons: YEARLY Chief Complaint: YEARLY Is patient in pain?: No Allergies geo Allergy (Verified 05/26/25 11:25) Unknown Medications ???Medication ???Instructions ???Recorded ???Confirmed ???Type multivitamin no.47-iron fum 27 1 cap PO DAILY 12/14/20 05/26/25 History mg-folate no.1 1 mg-dha 300 mg capsule (PNV-DHA) Nurse's Note: pt would like to know PCP recommendation on a probiotic to use PFSH Medical History Vaginal delivery Vaginal delivery Oligohydramnios Depression History of venomous spider bite Surgical History H/O wisdom tooth extraction Hx of tonsillectomy Family History Aunt Breast cancer, Onset Age: 51 Father Hypertension Social History adopted: No household members: spouse and children housing: house number of children: 1 current occupational status: employed current occupation: [employer] current occupational exposures/hazards: No pets and animals: No history of recent travel: No sexually active: Yes Smoking Status: Never smoker second hand exposure: No alcohol intake: never substance use type: does not use well-balanced diet: daily or most days caffeine: Yes Type: coffee Number of servings: 2 eating out: 1-3 times/week during the past year weight has: remained stable what type of physical activity do you participate in: walking frequency: 3-4 times per week duration: 30-45 minutes/day sade/pentecostal: Uatsdin seatbelt use: always do you feel safe at home: Yes additional social history: Nitin- [employer] employee [employer] HPI HPI Chief Complaint: YEARLY Details: SAGE GONZALES, is a 29 F who presents to the office today for her yearly visit. No acute concerns reported at this time. Had a baby since her last visit. Otherwise, there has been no significant changes in personal or family history. Has been relatively stable. Sleeps well and stays active. No tobacco or alcohol abuse. 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 ROS Const Constitutional: No body ache, chills, excessive sweating, fatigue, fever(s), frequent falls, headache(s), snoring, weight change, sleep problems, abnormal sleep pattern or change in appetite Eyes Eyes: No blurry vision, change in vision, vision loss, dry eyes, eye pain or Light sensitivity ENT ENT: No abnormal hearing, ear or mastoid pain, hearing loss, tinnitus, dizziness/vertigo, nasal congestion, headache(s), neck pain or sore throat Resp Respiratory: No cough, excessive phlegm production, hemoptysis, shortness of breath, snoring or wheezing Cardio Cardiology: No chest pain at rest, chest pain with exertion, excessive sweating, shortness of breath, dyspnea on exertion, lightheadedness, orthopnea or palpitations Gastro GI: No abdominal pain, change in bowel habits, constipation, cramping, diarrhea, nausea/dyspepsia or vomiting Genitourinary-Female: No burning urination, painful urination, urinary incontinence, urinary frequency, abnormal vaginal bleeding or pelvic pain Musc Musculoskeletal: No abnormal gait, joint pain, back pain, limited range of motion, neck pain, numbness or tingling Skin Skin: No dry skin, redness, lesions, itchy eyes, rash or wounds Neuro Neurology: No abnormal gait, abnormal hearing, abnormal speech, behavioral changes, frequent falls, headache(s), memory loss, numbness or tingling Psych Psychiatric: No abnormal sleep pattern, No anxiety, No behavioral changes, No change in appetite, No irritability, No memory loss and No Thoughts of harming yourself/Others Endo Endocrine: No cold intolerance, excessive sweating, fatigue, flushing, heat intolerance, increased thirst/drinking, increased hunger or weight change Aller/Imm Allergy/Immunologic: No itchy eyes, seasonal allergy symptoms, hives or wheezing Tim/Lymp Hematologic/Lymphatic : No easy bleeding, easy bruising, enlarged lymph nodes or other Exam Const Genera (more content not included)... Normal [facility] Absolute lymphocyte countOrd ered By: HEALTH ASSESSMENT on 04-15-2025 Lymphocytes Auto (Unsp spec) [#/Vol] 1.68 10*3/uL 0.83-4.51 [facility] Absolute neutrophil countOrd ered By: HEALTH ASSESSMENT on 04-15-2025 Neutrophils (Bld) [#/Vol] 2.6 10*3/uL 2.0-7.7 [facility] Absolute nucleated red blood cell countOrdered By: HEALTH ASSESSMENT on 04-15-2025 Nucleated RBC (Bld) [#/Vol] 0.00 10*3/uL 0-5 [facility] Anion gap in Serum or Plasma Ordered By: HEALTH ASSESSMENT on 04-15-2025 Anion gap [Moles/Vol] 12 mmol/L 5-15 [facility] BUN/creatinine ratioOrdered By: HEALTH ASSESSMENT on 04-15-2025 Urea nitrogen/Creatinine [Mass ratio] 19.7 mg/mg 10-20 [facility] Bilirubin Test strip Ql (U)O rdered By: HEALTH ASSESSMENT on 04-15-2025 Bilirubin Ql (U) Negative Negative [facility] Bilirubin directOrdered By: HEALTH ASSESSMENT on 04-15-2025 Bilirubin.direct [Mass/Vol] 0.14 mg/dL 0.00-0.30 [facility] Bilirubin, totalOrdered By: HEALTH ASSESSMENT on 04-15-2025 Bilirubin [Mass/Vol] 0.35 mg/dL 0.00-1.30 [facility] Blood band neutrophil count as percentage of total leukocytesOrdered By: HEALTH ASSESSMENT on 04-15-2025 Band form neutrophils/100 WBC (Bld) 51.7 % 47-70 [facility] CBC, Employeeon 04-15-2025 Absolute Lymph 1.68 X10 3/uL Normal 0.83-4.51 [facility] Comment on above: Performed By: #### L 100.0200, L400.0100, L500.2900 #### [facility] [address] [place], [address] Absolute Neut 2.6 X10 3/uL Normal 2.0-7.7 [facility] Comment on above: Performed By: #### L 100.0200, L400.0100, L500.2900 #### [facility] [address] [place], [address] Basophils/100 WBC (Bld) 1.0 % Normal 0-1 [facility] Comment on above: Performed By: #### L 100.0200, L400.0100, L500.2900 #### [facility] [address] [place], [address] Eosinophils/100 WBC (Bld) 3.8 % Normal 0-5 [facility] Comment on above: Performed By: #### L 100.0200, L400.0100, L500.2900 #### [facility] [address] [place], [address] Erythrocyte distribution width (RBC) [Ratio] 12.5 % Normal 11.6-14.6 [facility] Comment on above: Performed By: #### L 100.0200, L400.0100, L500.2900 #### [facility] [address] [place], [address] Hematocrit (Bld) [Volume fraction] 38.2 % Normal 37-47 [facility] Comment on above: Performed By: #### L 100.0200, L400.0100, L500.2900 #### [facility] [address] [place], [address] Hemoglobin (Bld) [Mass/Vol] 12.9 g/dL Normal 12.0-15.0 [facility] Comment on above: Performed By: #### L 100.0200, L400.0100, L500.2900 #### [facility] [address] [place], [address] Lymphocytes/100 WBC (Bld) 34.0 % Normal 19-41 [facility] Comment on above: Performed By: #### L 100.0200, L400.0100, [id number] #### [facility] [address] [place], [address] MCH (RBC) [Entitic mass] 30.3 pg Normal 27.0-32.0 [facility] Comment on above: Performed By: #### L 100.0200, L400.0100, L500.2900 #### [facility] [address] [place], [address] MCHC (RBC) [Mass/Vol] 33.8 g/dL Normal 32-36 [facility] Comment on above: Performed By: #### L 100.0200, L400.0100, L500.2900 #### [facility] [address] [place], [address] MCV (RBC) [Entitic vol] 89.7 fL Normal 81-99 [facility] Comment on above: Performed By: #### L 100.0200, L400.0100, [id number] #### [facility] [address] [place], [address] Monocytes/100 WBC (Bld) 9.3 % Normal 0-10 [facility] Comment on above: Performed By: #### L 100.0200, L400.0100, [id number] #### [facility] [address] [place], [address] Neutrophils/100 WBC (Bld) 51.7 % Normal 47-70 [facility] Comment on above: Performed By: #### L 100.0200, L400.0100, [id number] #### [facility] [address] [place], [address] NRBC # 0.00 10 3/uL Normal 0-5 [facility] Comment on above: Performed By: #### L 100.0200, L400.0100, L500.2900 #### [facility] [address] [place], [address] Nucleated RBC (Bld) [#/Vol] 0 10*3/uL Normal 0-5 [facility] Comment on above: Performed By: #### L 100.0200, L400.0100, L500.2900 #### [facility] [address] [place], [address] Platelet mean volume (Bld) [Entitic vol] 9.2 fL Normal 6.2-12.0 [facility] Comment on above: Performed By: #### L 100.0200, L400.0100, L500.2900 #### [facility] [address] [place], [address] Platelets (Bld) [#/Vol] 302 10*3/uL Normal 150-450 [facility] Comment on above: Performed By: #### L 100.0200, L400.0100, L500.2900 #### [facility] [address] [place], [address] RBC (Bld) [#/Vol] 4.26 10*6/uL Normal 4.2-5.4 [facility] Comment on above: Performed By: #### L 100.0200, L400.0100, L500.2900 #### [facility] [address] [place], [address] RDW SD 41.4 fl Normal 35.1-43.9 [facility] Comment on above: Performed By: #### L 100.0200, L400.0100, L500.2900 #### [facility] [address] [place], [address] WBC (Bld) [#/Vol] 4.9 10*3/uL Normal 4.4-11.0 [facility] Comment on above: Performed By: #### L 100.0200, L400.0100, L500.2900 #### [facility] [address] [place], [address] Calculated very low density lipoprotein (VLDL) cholesterol measurementOrdered By: HEALTH ASSESSMENT on 04-15-2025 Calculated very low density lipoprotein (VLDL) cholesterol measurement 26 mg/dL 5-40 [facility] Carbon dioxide, total [Moles /volume] in Central venous bloodOrdered By: HEALTH ASSESSMENT on 04-15-2025 CO2 [Moles/Vol] 24.8 mmol/L 21.0-32.0 [facility] Chloride assayOrdered By: HE ALTH ASSESSMENT on 04-15-2025 Chloride [Moles/Vol] 102 mmol/L 98-108 [facility] Employee Profileon CHOL:HDL 2.88 Normal [facility] Comment on above: Performed By: #### L 100.0200, L400.0100, L500.2900 #### [facility] [address] [place], [address] Cholesterol [Mass/Vol] 211 mg/dL High <=200 [facility] Comment on above: Result Comment: Chol esterol level, Desirable <200 mg/dL Borderline high cholesterol 200-239 mg/dL High cholesterol >=240 mg/dL Recommendations of the NCEP Adult Treatment Panel for the following risk-cutoff thresholds for the [place] population. Performed By: #### L 100.0200, L400.0100, L500.2900 #### [facility] [address] [place], [address] Cholesterol in HDL [Mass/Vol] 73 mg/dL Normal [facility] Comment on above: Result Comment: Candie onal Cholesterol Education Program (NCEP) guidelines: <40 mg/dL: Low HDL-cholesterol (major risk factor for CHD) >= 60 mg/dL: High HDL-cholesterol (negative risk factor for CHD) HDL-cholesterol is affected by a number of factors, e.g. smoking, exercise, hormones, sex and age. Performed By: #### L 100.0200, L400.0100, L500.2900 #### [facility] [address] [place], [address] Cholesterol in LDL [Mass/Vol] 112 mg/dL Normal [facility] Comment on above: Result Comment: Bord voavsy=358-855 mg/dL Higher Rtbh=262 mg/dL or greater Friedwald Equation for LDL-C Performed By: #### L 100.0200, L400.0100, L500.2900 #### [facility] [address] [place], [address] Cholesterol in VLDL [Mass/Vol] 26 mg/dL Normal 5-40 [facility] Comment on above: Performed By: #### L 100.0200, L400.0100, L500.2900 #### [facility] [address] [place], [address] LDH 187 U/L Normal 84-246 [facility] Comment on above: Performed By: #### L 100.0200, L400.0100, L500.2900 #### [facility] [address] [place], [address] Phosphate [Mass/Vol] 4.1 mg/dL Normal 2.7-4.5 [facility] Comment on above: Performed By: #### L 100.0200, L400.0100, L500.2900 #### [facility] [address] [place], [address] Triglyceride [Mass/Vol] 131 mg/dL Normal [facility] Comment on above: Result Comment: The drugs N-Acetylcysteine and Metamizole may falsely depress this assay. Normal range: <150 mg/dL Borderline High: 150-199 mg/dL High: 200-499 mg/dL Very High: >500 mg/dL Performed By: #### L 100.0200, L400.0100, L500.2900 #### [facility] [address] [place], [address] URIC 5.3 mg/dL Normal 2.6-6.0 [facility] Comment on above: Result Comment: The drugs N-Acetylcysteine and Metamizole may falsely depress this assay. Performed By: #### L 100.0200, L400.0100, L500.2900 #### [facility] [address] [place], [address] Erythrocyte distribution wid th ratioOrdered By: HEALTH ASSESSMENT on 04-15-2025 Erythrocyte distribution width (RBC) [Ratio] 12.5 % 11.6-14.6 [facility] Erythrocyte distribution wid th standard deviationOrdered By: HEALTH ASSESSMENT on 04-15-2025 Erythrocyte distribution width (RBC) [Ratio] 41.4 fl 35.1-43.9 [facility] Glomerular filtration rate ( GFR) estimation/1.73 sq m using serum, plasma, or whole bOrdered By: HEALTH ASSESSMENT on 04-15-2025 GFR/1.73 sq M.predicted among non-blacks MDRD (S/P/Bld) [Vol rate/Area] 108 mL/min/{1.73_m2} >60 [facility] Comment on above: mL/min/1.73m2 CKD-EP I Creatinine Equation (2020) Hematocrit Auto (Bld) [Volum e fraction]Ordered By: HEALTH ASSESSMENT on 04-15-2025 Hematocrit (Bld) [Volume fraction] 38.2 % 37-47 [facility] Hemoglobin measurementOrdere d By: HEALTH ASSESSMENT on 04-15-2025 Hemoglobin (Bld) [Mass/Vol] 12.9 g/dL 12.0-15.0 [facility] Ketones Test strip Ql (U)Ord ered By: HEALTH ASSESSMENT on 04-15-2025 Ketones Ql (U) Negative Negative [facility] LDL calc ser/plasOrdered By: HEALTH ASSESSMENT on 04-15-2025 Cholesterol in LDL [Mass/Vol] 112 mg/dL [facility] Comment on above: Ewhmimfvss=054-945 m g/dL & Higher Zmcy=645 mg/dL or greaterFriedwald Equation for LDL-C Laboratory - Chemistry and C hemistry - challengeOrdered By: HEALTH ASSESSMENT on 04-15-2025 AST [Catalytic activity/Vol] 20 U/L <32 [facility] Lactate dehydrogenase (LDH) measurementOrdered By: HEALTH ASSESSMENT on 04-15-2025 LDH [Catalytic activity/Vol] 187 U/L 84-246 [facility] MCV (mean corpuscular volume ) determinationOrdered By: HEALTH ASSESSMENT on 04-15-2025 MCV (RBC) [Entitic vol] 89.7 fL 81-99 [facility] Mean corpuscular hemoglobin (MCH) determinationOrdered By: HEALTH ASSESSMENT on 04-15-2025 MCH (RBC) [Entitic mass] 30.3 pg 27.0-32.0 [facility] Mean corpuscular hemoglobin concentration (MCHC) determinationOrdered By: HEALTH ASSESSMENT on 04-15-2025 MCHC (RBC) [Mass/Vol] 33.8 g/dL 32-36 [facility] Mean platelet volume determi nationOrdered By: HEALTH ASSESSMENT on 04-15-2025 Platelet mean volume (Bld) [Entitic vol] 9.2 fL 6.2-12.0 [facility] Nitrite Test strip Ql (U)Ord ered By: HEALTH ASSESSMENT on 04-15-2025 Nitrite Ql (U) Negative Negative [facility] Nucleated red blood cell per centageOrdered By: HEALTH ASSESSMENT on 04-15-2025 Nucleated RBC/100 WBC (Bld) [Ratio] 0 % 0-5 [facility] Platelet countOrdered By: HE ALTH ASSESSMENT on 04-15-2025 Platelets (Bld) [#/Vol] 302 10*3/uL 150-450 [facility] Potassium measurement (mass/ volume)Ordered By: HEALTH ASSESSMENT on 04-15-2025 Potassium (Unsp spec) [Mass/Vol] 3.8 mmol/L 3.3-5.1 [facility] Protein Test strip Ql (U)Ord ered By: HEALTH ASSESSMENT on 04-15-2025 Protein Ql (U) Negative Negative [facility] RBC Auto (Bld) [#/Vol]Ordere d By: HEALTH ASSESSMENT on 04-15-2025 RBC (Bld) [#/Vol] 4.26 10*6/uL 4.2-5.4 [facility] Screening total cholesterol/ high density lipoprotein (HDL) cholesterol ratioOrdered By: HEALTH ASSESSMENT on 04-15-2025 Cholesterol.total/[place] sterol in HDL [Mass ratio] 2.88 {ratio} [facility] Serum creatinine measurement (mass/volume)Ordered By: HEALTH ASSESSMENT on 04-15-2025 Creatinine [Mass/Vol] 0.76 mg/dL 0.70-1.20 [facility] Serum globulin measurementOr dered By: HEALTH ASSESSMENT on 04-15-2025 Globulin (S) [Mass/Vol] 2.4 g/dL 2.2-4.2 [facility] Serum glucose measurement (m ass/volume)Ordered By: HEALTH ASSESSMENT on 04-15-2025 Glucose [Mass/Vol] 79 mg/dL 70-99 [facility] Serum or plasma alanine pollock otransferase (ALT) measurementOrdered By: HEALTH ASSESSMENT on 04-15-2025 ALT [Catalytic activity/Vol] 15 U/L <35 [facility] Serum or plasma albumin lisandra urement (mass/volume)Ordered By: HEALTH ASSESSMENT on 04-15-2025 Albumin [Mass/Vol] 4.7 g/dL 3.5-5.0 [facility] Serum or plasma albumin/glob ulin mass ratioOrdered By: HEALTH ASSESSMENT on 04-15-2025 Albumin/Globulin [Mass ratio] 2.0 {ratio} 0.9-2.4 [facility] Serum or plasma alkaline jakob sphatase measurementOrdered By: HEALTH ASSESSMENT on 04-15-2025 ALP [Catalytic activity/Vol] 88 U/L 35-104 [facility] Serum or plasma calcium lisandra urement (mass/volume)Ordered By: HEALTH ASSESSMENT on 04-15-2025 Calcium [Mass/Vol] 9.7 mg/dL 7.6-11.0 [facility] Serum or plasma cholesterol in HDL measurement (mass/volume)Ordered By: HEALTH ASSESSMENT on 04-15-2025 Cholesterol in HDL [Mass/Vol] 73 mg/dL >40 [facility] Comment on above: National Cholesterol Education Program (NCEP) guidelines:<40 mg/dL: Low HDL-cholesterol (major risk factor for CHD)>= 60 mg/dL: High HDL-cholesterol (negative risk factor for CHD)HDL-cholesterol is affected by a number of factors, e.g. smoking, exercise, hormones, sex and age. Serum or plasma cholesterol measurement (mass/volume)Ordered By: HEALTH ASSESSMENT on 04-15-2025 Cholesterol [Mass/Vol] 211 mg/dL High <201 [facility] Comment on above: Cholesterol level, D esirable <200 mg/dLBorderline high cholesterol 200-239 mg/dLHigh cholesterol >=240 mg/dLRecommendations of the NCEP Adult Treatment Panel for the following risk-cutoff thresholds for the [place] population. Serum or plasma urea nitroge n measurement (mass/volume)Ordered By: HEALTH ASSESSMENT on 04-15-2025 Urea nitrogen [Mass/Vol] 15 mg/dL 4-19 [facility] Serum or plasma uric acid me asurement (mass/volume)Ordered By: [facility] ASSESSMENT on 04-15-2025 Urate [Mass/Vol] 5.3 mg/dL 2.6-6.0 [facility] Comment on above: The drugs N-Acetylcy steine and Metamizole may falsely depress this assay. Sodium levelOrdered By: [facility] ASSESSMENT on 04-15-2025 Sodium [Moles/Vol] 138 mmol/L 133-145 [facility] Total proteinOrdered By: [facility] ASSESSMENT on 04-15-2025 Protein [Mass/Vol] 7.1 g/dL 5.9-8.4 [facility] Triglycerides measurementOrd ered By: HEALTH ASSESSMENT on 04-15-2025 Triglyceride [Mass/Vol] 131 mg/dL <199 [facility] Comment on above: The drugs N-Acetylcy steine and Metamizole may falsely depress this assay. Normal range: <150 mg/dLBorderline High: 150-199 mg/dLHigh: 200-499 mg/dLVery High: >500 mg/dL Urinalysis, Employeeon 04-15 BILIRUBIN URINE Negative Normal Negative [facility] Comment on above: Order Comment: Urine , Random Performed By: #### L 100.0200, L400.0100, L500.2900 #### [facility] [address] [place], [address] Clarity (U) Clear Normal Clear [facility] Comment on above: Order Comment: Urine , Random Performed By: #### L 100.0200, L400.0100, L500.2900 #### [facility] [address] [place], [address] Color (U) Yellow Normal Yellow [facility] Comment on above: Order Comment: Urine , Random Performed By: #### L 100.0200, L400.0100, L500.2900 #### [facility] [address] [place], [address] GLUCOSE, UR Normal Normal Normal [facility] Comment on above: Order Comment: Urine , Random Performed By: #### L 100.0200, L400.0100, L500.2900 #### [facility] [address] [place], [address] KETONE UR Negative Normal Negative [facility] Comment on above: Order Comment: Urine , Random Performed By: #### L 100.0200, L400.0100, L500.2900 #### [facility] [address] [place], [address] LEUK ESTERASE Negative Normal Negative [facility] Comment on above: Order Comment: Urine , Random Performed By: #### L 100.0200, L400.0100, L500.2900 #### [facility] [address] [place], [address] Nitrite Ql (U) Negative Normal Negative [facility] Comment on above: Order Comment: Urine , Random Performed By: #### L 100.0200, L400.0100, L500.2900 #### [facility] [address] [place], [address] OCCULT BLOOD-UR Negative Normal Negative [facility] Comment on above: Order Comment: Urine , Random Performed By: #### L 100.0200, L400.0100, L500.2900 #### [facility] [address] [place], [address] pH UR 7.0 Normal 5.0 - 8.0 [facility] Comment on above: Order Comment: Urine , Random Performed By: #### L 100.0200, L400.0100, L500.2900 #### [facility] [address] [place], [address] PROT DIPSTX Negative Normal Negative [facility] Comment on above: Order Comment: Urine , Random Performed By: #### L 100.0200, L400.0100, L500.2900 #### [facility] [address] [place], [address] SP.GR. DIPSTX 1.005 Normal 1.002-1.030 [facility] Comment on above: Order Comment: Urine , Random Performed By: #### L 100.0200, L400.0100, L500.2900 #### [facility] [address] [place], [address] UROBILI Normal Normal Normal [facility] Comment on above: Order Comment: Urine , Random Performed By: #### L 100.0200, L400.0100, L500.2900 #### [facility] [address] [address] [place], [address] Urine clarityOrdered By: ALL LT ASSESSMENT on 04-15-2025 Clarity (U) Clear Clear [facility] Urine color determinationOrd ered By: HEALTH ASSESSMENT on 04-15-2025 Color (U) Yellow Yellow [facility] Urine glucose detectionOrder ed By: HEALTH ASSESSMENT on 04-15-2025 Glucose Ql (U) Normal mg/dl Normal [facility] Urine leukocyte esterase det ection by dipstickOrdered By: HEALTH ASSESSMENT on 04-15-2025 Leukocyte esterase Test strip Ql (U) Negative Negative [facility] Urine pHOrdered By: HEALTH A SSESSMENT on 04-15-2025 pH (U) 7.0 [pH] 5.0 - 8.0 [facility] Urine specific gravity measu rementOrdered By: HEALTH ASSESSMENT on 04-15-2025 Specific gravity (U) [Rel density] 1.005 1.002-1.030 [facility] Urine urobilinogen measureme ntOrdered By: HEALTH ASSESSMENT on 04-15-2025 Urobilinogen Ql (U) Normal mg/dl Normal [facility] White blood cell (WBC) count Ordered By: HEALTH ASSESSMENT on 04-15-2025 WBC (Bld) [#/Vol] 4.9 10*3/uL 4.4-11.0 [facility] Urine Cultureon 10-04-2024 URC Presumptive E. coli Dolores Count 80,000-100,000 Presumptive E. coli: REACTION Ampicillin Islt KWAN <=2 Ampicillin+Sulbac Islt KWAN <=2 S Cefepime Islt KWAN <=0.12 S cefTRIAXone Islt KWAN <=0.25 S Ciprofloxacin Islt KWAN <=0.06 S B-Lactamase Extended Susc Islt NEG Gentamicin Islt KWAN <=1 S levoFLOXacin Islt KWNA <=0.12 S Meropenem Islt KWAN <=0.25 S Nitrofurantoin Islt KWAN <=16 S Pip+Tazo Islt KWAN <=4 S TMP SMX Islt KWAN >=320 R Normal [facility] Comment on above: Performed By: #### L 100.0200, L400.0100, L500.2900 #### [facility] [address] [place], [address] Home Health Specialist Office Visit Reporton 09-10-2024 Home Health Specialist Office Visit Report [facility] [address] [place], [address] [place] [address] OFFICE VISIT Date of Service: 09/10/24 MR#: [id number] Acct: [id number] Name: SAGE GONZALES Rep #: [id number] : 1995 Provider: GARY Montes ams Age/Sex: 28/F [place] [facility] [place]: Signed Intake Vital Signs 08/03/24 10:41 08/04/24 14:04 09/10/24 08:18 09/10/24 08:21 Height 5 ft 4 in 5 ft 4 in 5 ft 4 in 5 ft 4 in Weight: 162 lb BMI 27.8 BP 115/70 Intake Visit Reasons: IUD Insert Chief Complaint: none Weigh Tank Operator Required: No Is patient in pain?: No Allergies geo Allergy (Verified 09/10/24 08:20) Unknown Medications ???Medication ???Instructions ???Recorded ???Confirmed ???Type multivitamin no.47-iron fum 27 1 cap PO DAILY 12/14/20 09/10/24 History mg-folate no.1 1 mg-dha 300 mg capsule (PNV-DHA) Patient : No : Yes Control Method: here for IUD insert PFSH PFSH Medical History Vaginal delivery Vaginal delivery Oligohydramnios Depression History of venomous spider bite Surgical History H/O wisdom tooth extraction Hx of tonsillectomy Family History Aunt Breast cancer, Onset Age: 51 Father Hypertension Social History adopted: No household members: spouse and children housing: house number of children: 1 current occupational status: employed current occupation: [employer] current occupational exposures/hazards: No pets and animals: No history of recent travel: No sexually active: Yes Smoking Status: Never smoker second hand exposure: No alcohol intake: never substance use type: does not use well-balanced diet: daily or most days caffeine: Yes Type: coffee Number of servings: 2 eating out: 1-3 times/week during the past year weight has: remained stable what type of physical activity do you participate in: walking frequency: 3-4 times per week duration: 30-45 minutes/day sade/pentecostal: Uatsdin seatbelt use: always do you feel safe at home: Yes additional social history: [employer] employee [employer] History 2 Elective abortions Hx Para 2 Spontaneous abortions Hx # Term Pregnancies Ectopic pregnancies Hx # Pregnancies Multiple births # of living children 2 Past Pregnancies Del. Date Name GA/Weeks Outcome Route Bth Weight Gen Labor Lgth Anesthesia Del Locatn Provider FOB 07/22/21 Cornelia 39 live - full term [id number] Female 15 hR epidural [facility] Nitin 06/24/24 King 39 live - full term 7lbs 11oz Female epidural [facility] Alejandrina Taveras Delivery Date: 07/22/21 Last Updated by: King Castelan IoL [place] Delivery Date: 06/24/24 Last Updated by: Lissa Almaguer see problem list for complications, and iol , sm girl king HPI IUD Insert Details: SAGE GONZALES is a 28 year old who presents for IUD insert. ROS Const Constitutional: Reports system reviewed and no additional complaints, except as documented Cardio Card: Reports system reviewed and no additional complaints, except as documented Resp Resp: Reports system reviewed and no additional complaints, except as documented GI GI: Reports system reviewed and no additional complaints, except as documented : Reports system reviewed and no additional complaints, except as documented; Denies difficulty voiding, dysuria or urinary frequency Skin Skin/Breast: Reports system reviewed and no additional complaints, except as documented Neuro Neuro: Reports system reviewed and no additional complaints, except as documented Psych Psych: Reports system reviewed and no additional complaints, except as documented Exam Const General: cooperative, healthy appearing, comfortable and no acute distress Resp Effort Inspection: normal respiratory effort, able to speak in complete sentences and symmetric chest movement GI Inspection: normal to inspection Palpation: soft External Female Exam: normal external appearance and normal appearance of the urethra Urethra: normal appearance of the urethra Speculum Exam - Vagina: normal appearance of the vagina and normal vaginal discharge Speculum Exam - Cervix: normal appearance of the cervix and nontender Bimanual Exam- Vagina Uterus: normal bimanual exam, normal palpation, uterine size normal, No tender and non-tender Bimanual Exam- Adnexa, other: normal Pelvic Support: normal Neuro General: patient alert, patient awake and patient oriented x3 Cognition: normal cognition Speech: speech normal Gait: normal gait Psych Appearance: gross (more content not included)... Normal [facility] Urine Cultureon 08-06-2024 [facility] Presumptive E. coli Dolores Count 11,000-25,000 Presumptive E. coli: REACTION Ampicillin Islt KWAN <=2 Ampicillin+Sulbac Islt KWAN <=2 S ceFAZolin Islt KWAN <=4 S Cefepime Islt KWAN <=0.12 S cefTRIAXone Islt KWAN <=0.25 S Ciprofloxacin Islt KWAN <=0.25 S B-Lactamase Extended Susc Islt NEG Gentamicin Islt KWAN <=1 S Imipenem Islt KWAN <=0.25 S levoFLOXacin Islt KWAN <=0.12 S Nitrofurantoin Islt KWAN <=16 S Pip+Tazo Islt KWAN <=4 S Tobramycin Islt KWAN <=1 S TMP SMX Islt KWAN >=320 R Normal [facility] Comment on above: Performed By: #### L 100.0200, L400.0100, L500.2900 #### [facility] [address] [place], [address] Office Visit Reporton 2023 Office Visit Report [facility] [address] [place] [address] OFFICE VISIT Date of Service: 08/04/24 MR#: [id number] Acct: [id number] Patient: SAGE GONZALES Rep #: [id number] : 1995 Provider: CORAL amaya Age/Sex: 28/F [place] [facility] [place]: Signed Intake Vital Signs 08/03/24 10:41 08/04/24 14:04 Height 5 ft 4 in 5 ft 4 in Weight: 167 lb 4 oz BMI 28.7 BP 118/71 Intake Visit Reasons: UTI sx Chief Complaint: 6 Week PP Weigh Tank Operator Required: No Allergies geo Allergy (Verified 08/04/24 14:04) Unknown Medications ???Medication ???Instructions ???Recorded ???Confirmed ???Type multivitamin no.47-iron fum 27 1 cap PO DAILY 12/14/20 08/04/24 History mg-folate no.1 1 mg-dha 300 mg capsule (PNV-DHA) nitrofurantoin 100 mg PO BID 7 days #14 caps 08/04/24 08/04/24 Rx monohydrate/macrocrys tals 100 mg capsule (Macrobid) Post menopausal: No Patient : No Have you fallen in the past year?: No Results POC Urinalysis Dip (Clinic) Office Urine Color CATARINO Last Edit by Florence Haro on 08/04/24 14:15 Office Urine Clarity Clear Last Edit by Florence Haro on 08/04/24 14:15 Office Urine Glucose Negative Last Edit by Florence Haro on 08/04/24 14:15 Office Urine Ketones Negative Last Edit by Florence Haro on 08/04/24 14:15 Off Ur Spec [place] 1.030 Last Edit by Florence Haro on 08/04/24 14:15 Office Urine pH 5.0 Last Edit by Florence Haro on 08/04/24 14:15 Office Urine Bilirubin Negative Last Edit by Florence Haro on 08/04/24 14:15 Office Urine Urobilinogen 0.2 mg/dL Last Edit by Florence Haro on 08/04/24 14:15 Office Urine Blood Large Last Edit by Florence Haro on 08/04/24 14:15 Office Urine Blood Hemolyzed Non-Hemolyzed Last Edit by Florence Haro on 08/04/24 14:15 Office Urine Protein Trace Last Edit by Florence Haro on 08/04/24 14:15 Office Urine Nitrate Negative Last Edit by Florence Haro on 08/04/24 14:15 Off Ur Leukocytes Positive Last Edit by Florence Haro on 08/04/24 14:15 Assessment and Plan Assessment and Plan (1) UTI (urinary tract infection): Qualifiers: Urinary tract infection type: acute cystitis Hematuria presence: with hematuria Qualified Code(s): N30.01 - Acute cystitis with hematuria Orders: Orders POC Urinalysis Dip (Clinic) Today R30.0 - Dysuria Culture, Urine Today R30.0 - Dysuria Medications: New nitrofurantoin monohyd/m-cryst 100 mg (Macrobid) must administer with a meal/food 100 mg PO BID 14 caps 0RF 7 days Plan +UA, macrobid sent. Culture pending Clinical Quality Measures Falls Risk Screening/Assistive Devices Have you fallen in the past year?: No 08/04/24 1425 Date Florence Stahl Signature: Date (if applicable) CC: Normal [facility] Home Health Specialist Office Visit Reporton 08-03-2024 Home Health Specialist Office Visit Report [facility] [address], [address] [place] [address] OFFICE VISIT Date of Service: 08/03/24 MR#: [id number] Acct: [id number] Name: JANETSAGE PEDERSON Rep #: [id number] : 1995 Provider: CORAL amaya Age/Sex: 28/F [place] [facility] [place]: Signed Intake Vital Signs 06/24/24 07:21 08/03/24 10:36 08/03/24 10:41 Height 5 ft 4 in 5 ft 4 in 5 ft 4 in Weight: 166 lb 6 oz BMI 28.5 BP 110/72 Intake Visit Reasons: visit (obstetrics) Chief Complaint: 6 Week PP Weigh Tank Operator Required: No Is patient in pain?: No Allergies geo Allergy (Verified 12/02/24 10:36) Unknown Medications ???Medication ???Instructions ???Recorded ???Confirmed ???Type multivitamin no.47-iron fum 27 1 cap PO DAILY 12/14/20 08/03/24 History mg-folate no.1 1 mg-dha 300 mg capsule (PNV-DHA) : Yes [facility] (Updated 08/03/24 @ 10:57 by Florence Bravo [employer]ONDARY SCHOOL TEACHER LIBRARIAN, SECONDARY SCHOOL TEACHER LIBRARIAN-C) Vaginal delivery Vaginal delivery Oligohydramnios Depression History of venomous spider bite Surgical History H/O wisdom tooth extraction Hx of tonsillectomy Family History Aunt Breast cancer, Onset Age: 51 Father Hypertension Social History adopted: No household members: spouse and children housing: house number of children: 1 current occupational status: employed current occupation: [employer] current occupational exposures/hazards: No pets and animals: No history of recent travel: No sexually active: Yes Smoking Status: Never smoker second hand exposure: No alcohol intake: never substance use type: does not use well-balanced diet: daily or most days caffeine: Yes Type: coffee Number of servings: 2 eating out: 1-3 times/week during the past year weight has: remained stable what type of physical activity do you participate in: walking frequency: 3-4 times per week duration: 30-45 minutes/day sade/pentecostal: Uatsdin seatbelt use: always do you feel safe at home: Yes additional social history: Nitin- [employer] employee [employer] History 2 Elective abortions Hx Para 2 Spontaneous abortions Hx # Term Pregnancies Ectopic pregnancies Hx # Pregnancies Multiple births # of living children 2 Past Pregnancies Del. Date Name GA/Weeks Outcome Route Bth Weight Gen Labor Lgth Anesthesia Del Locatn Provider FOB 07/22/21 Cornelia 39 live - full term 7#8OZ Female 15 hR epidural [facility] CON Taveras 06/24/24 King 39 live - full term 7lbs 11oz Female epidural [facility] Alejandrina Taveras Delivery Date: 07/22/21 Last Updated by: King Castelan IoL Oligo Delivery Date: 06/24/24 Last Updated by: Lissa Almaguer see problem list for complications, and iol , sm girl king Depression Screen PHQ-2/9 PHQ-2 Over the last 2 weeks, how often have you been bothered by any of the following problems? 1. Little interest or pleasure in doing things: not at all 2. Feeling down, depressed, or hopeless: not at all Total score: 0 Post HPI Routine Follow-Up: Details: SAGE GONZALES is a 28 year old who presents for her post visit. Doing well without concerns Feeding: Both Menses resumed: No [place] since delivery: Yes Emotional Support: Yes Last Pap:: 07/2022 Control Method: wants IUD ROS Card Denies chest pain and Denies dyspnea Resp Denies dyspnea GI Denies bloating and Denies change in bowel habits Denies difficulty voiding Skin/Breast Denies breast mass, Denies breast pain and Denies breast skin changes Exam Const General: cooperative, no acute distress and well developed Nutritional Appearance: average body habitus Orientation: oriented x3 Chest Chest palpation inspection: abnormal inspection of the chest Breast inspection: normal inspection of the breasts Breast palpation: normal palpation of the breasts, normal palpation of the axillae and no axillary lymphadenopathy GI Palpation: soft, no masses and nontender General: bladder normal to palpation External Female Exam: normal external appearance and normal appearance of the urethra Urethra: normal appearance of the urethra Speculum Exam - Vagina: normal appearance of the vagina and normal vaginal discharge Speculum Exam - Cervix: normal appearance of the cervix Bimanual Exam- Vagina Uterus: normal bimanual exam, uterine size normal, bladder normal to palpation, uterine shape normal, uterine mobility normal and non-tender Bimanual Exam- Adnexa, other: normal adnexae, no masses, normal and non-tender Pelvic Support: normal (more content not included)... Normal [facility] CBC W/Diff, Automatedon 06-03 Absolute Lymph 1.17 X10 3/uL Normal 0.83-4.51 [facility] Comment on above: Performed By: #### L 100.0100, BTS #### [facility] [address] [place], [address] Absolute Neut 5.5 X10 3/uL Normal 2.0-7.7 [facility] Comment on above: Performed By: #### L 100.0100, BTS #### [facility] [address] [place], [address] Basophils/100 WBC (Bld) 0.5 % Normal 0-1 [facility] Comment on above: Performed By: #### L 100.0100, BTS #### [facility] [address] [place], [address] Eosinophils/100 WBC (Bld) 1.4 % Normal 0-5 [facility] Comment on above: Performed By: #### L 100.0100, BTS #### [facility] [address] [place], [address] Erythrocyte distribution width (RBC) [Ratio] 12.9 % Normal 11.6-14.6 [facility] Comment on above: Performed By: #### L 100.0100, BTS #### [facility] [address] [place], [address] Hematocrit (Bld) [Volume fraction] 34.4 % Low 37-47 [facility] Comment on above: Performed By: #### L 100.0100, BTS #### [facility] [address] [place], [address] Hemoglobin (Bld) [Mass/Vol] 11.7 g/dL Low 12.0-15.0 [facility] Comment on above: Performed By: #### L 100.0100, BTS #### [facility] [address] [place], [address] IG% 0.300 Normal 0.0-0.9 [facility] Comment on above: Result Comment: IG% - Immature Granulocytes (promyelocytes, myelocytes and metamyelocytes) > 1% indicates that a LEFT SHIFT is Present. Performed By: #### L 100.0100, BTS #### [facility] [address] [place], [address] Lymphocytes/100 WBC (Bld) 16.0 % Low 19-41 [facility] Comment on above: Performed By: #### L 100.0100, BTS #### [facility] [address] [place], [address] MCH (RBC) [Entitic mass] 30.5 pg Normal 27.0-32.0 [facility] Comment on above: Performed By: #### L 100.0100, BTS #### [facility] [address] [place], [address] MCHC (RBC) [Mass/Vol] 34.0 g/dL Normal 32-36 [facility] Comment on above: Performed By: #### L 100.0100, BTS #### [facility] [address] [place], [address] MCV (RBC) [Entitic vol] 89.8 fL Normal 81-99 [facility] Comment on above: Performed By: #### L 100.0100, BTS #### [facility] [address] [place], [address] Monocytes/100 WBC (Bld) 7.1 % Normal 0-10 [facility] Comment on above: Performed By: #### L 100.0100, BTS #### [facility] [address] [place], [address] Neutrophils/100 WBC (Bld) 74.7 % High 47-70 [facility] Comment on above: Performed By: #### L 100.0100, BTS #### [facility] [address] [place], [address] Nucleated RBC (Bld) [#/Vol] 0 10*3/uL Normal 0-5 [facility] Comment on above: Performed By: #### L 100.0100, BTS #### [facility] [address] [place], [address] Platelet mean volume (Bld) [Entitic vol] 9.9 fL Normal 6.2-12.0 [facility] Comment on above: Performed By: #### L 100.0100, BTS #### [facility] [address] [place], [address] Platelets (Bld) [#/Vol] 166 10*3/uL Normal 150-450 [facility] Comment on above: Performed By: #### L 100.0100, BTS #### [facility] [address] [place], [address] RBC (Bld) [#/Vol] 3.83 10*6/uL Low 4.2-5.4 [facility] Comment on above: Performed By: #### L 100.0100, BTS #### [facility] [address] [place], [address] RDW SD 41.5 fl Normal 35.1-43.9 [facility] Comment on above: Performed By: #### L 100.0100, BTS #### [facility] [address] [place], [address] WBC (Bld) [#/Vol] 7.3 10*3/uL Normal 4.4-11.0 [facility] Comment on above: Performed By: #### L 100.0100, BTS #### [facility] [address] [place], [address] H AND P Exam - OB/GYNon - H&P Exam - HEALTH INFORMATICS INSTRUCTOR [facility] Medical Records Department [address] [address] H P Exam - HEALTH INFORMATICS INSTRUCTOR 06/24/24 1339 MR#: [id number] Acct: [id number] Name: SAGE GONZALES Rep #: [id number] : 1995 28 From: Alejandrina Marshall MD PCP: Dr. Eleuterio Padilla MD Status:ADM IN Location: [id number] HPI - General General Date of Admission: 06/24/24 HPI Narrative SAGE GONZALES, is a 28 F who presents for IOL due to favorable cervix, term. no vb lof admits good fm no regular ctx. Maternal Data Information DIAMANTE Calculator Estimated Delivery Date Method Current WG Current Estimate 06/25/24 LMP (Certain) 39w 6d PFSH PFSH Medical History Vaginal delivery Oligohydramnios Depression History of venomous spider bite Home Medications ???Medication ???Instructions ???Recorded ???Last Taken ???Type multivitamin no.47-iron fum 27 1 cap PO DAILY 12/14/20 06/23/24 10:00 History mg-folate no.1 1 mg-dha 300 mg capsule (PNV-DHA) Allergy/AdvReac Type Severity Reaction Status Date / Time geo Allergy Unknown Verified 06/24/24 08:51 Family History Aunt Breast cancer, Onset Age: 51 Father Hypertension Surgical History H/O wisdom tooth extraction Hx of tonsillectomy Social History adopted: No household members: spouse and children housing: house number of children: 1 current occupational status: employed current occupation: current occupational exposures/hazards: No pets and animals: No history of recent travel: No sexually active: Yes Smoking Status: Never smoker second hand exposure: No alcohol intake: never substance use type: does not use well-balanced diet: daily or most days caffeine: Yes Type: coffee Number of servings: 2 eating out: 1-3 times/week during the past year weight has: remained stable what type of physical activity do you participate in: walking frequency: 3-4 times per week duration: 30-45 minutes/day sade/pentecostal: Uatsdin seatbelt use: always do you feel safe at home: Yes additional social history: [employer]- [employer] employee [employer] History 2 Elective abortions Hx Para 1 Spontaneous abortions Hx # Term Pregnancies Ectopic pregnancies Hx # Pregnancies Multiple births # of living children 1 Past Pregnancies Del. Date Name GA/Weeks Outcome Route Bth Weight Infant Gen Labor Lgth Anesthesia Del Duaneatisela Provider FOB 07/22/21 Cornelia 39 live - full term 7#8OZ Female 15 hR epidural [facility] SM Nitin Delivery Date: 07/22/21 Last Updated by: King Castelan IoL Oligo Visit Details Expected Delivery Route/Plan Labor Preferences- CB/BF classes: no labor support person: Nitin labor intervention preferences: [] pain management options preferred: epidural cut cord/dad catch: cord : yes PP control planned: discussed discussed possible routes of delivery and associated risks: [] special requests: [] Plans Covid status: [] Flu vaccine: given at employer Tdap vaccine: given Rhogam: na LARC form signed: yes movement and labor precautions reviewed. Problem list reviewed and updated with the most current plan of care details and appropriate orders placed. Relevant counseling for the gestational age provided. Continue routine care and follow up unless otherwise noted in visit notes/problem list details OB Flowsheet Initial Weight: 167 lb Date -???-???-???-???-???- ???-???-???-???-???-? ??-???- EGA Weight BP Urine Prot -???-???-???-???-???- ???-???-???-???-???-? ??-???- Glucose FHR FuHt Pres Dilation -???-???-???-???-???- ???-???-???-???-???-? ??-???- Effaced St Visit Note 11/22/23 -???-???-???-???-???- ???-???-???-???-???-? ??-???- 9w 1d 167 lb 6 oz (+6 oz) 120/78 -???-???-???-???-???- ???-???-???-???-???-? ??-???- 168 -???-???-???-???-???- ???-???-???-???-???-? ??-???- LC- CRL con with LMP. declines nipt. 12/11/23 -???-???-???-???-???- ???-???-???-???-???-? ??-???- 11w 6d 166 lb 2 oz (-14 oz) 111/72 Negative -???-???-???-???-???- ???-???-???-???-???-? ??-???- Negative 153 0 -???-???-???-???-???- ???-???-???-???-???-? ??-???- -work in:h ad small amount bright bleeding last pm. None since. Live IUP on US confirmed FHT. Consistent CRL. No blood in vaginal vault 12/25/23 -???-???-???-???-???- ???-???-???-???-???-? ??-???- 13w 6d 167 lb 2 oz (+2 oz) 123/74 Negative -???-???-???-???-???- ???-???-???-???-???-? ??-???- Negative 150 -???-???-???-???-???- ???-???-???-???-???-? ??-???- JV- no compl aints today. declines nipt. anatomy scan ordered. 01/22/24 -???-???-? (more content not included)... Normal [facility] L509.8000on 06-24-2024 Syphilis Abs Non-Reactive Normal [facility] Comment on above: Performed By: #### L 509.8000 #### [facility] [address] [place], [address] MR/OB.VAGDELIon 06-24-2024 MR/OB.VAGDELI [facility] Medical Records Department [address] [place] [address] OB VAGINAL DELIVERY 06/24/24 1339 MR#: [id number] Acct: [id number] Name: SAGE GONZALES Rep #: [id number] : 1995 28 From: Alejandrina Marshall MD PCP: Dr. Eleuterio Padilla MD Status:ADM IN Location: [id number] Assessment Plan (1) Encounter for induction of labor: (2) Supervision of normal : QUALIFIERS: Normal : other normal Trimester: second trimester Qualified Code(s): Z34.82 - Encounter for supervision of other normal , second trimester COMMENT: PRR , DIAMANTE 06/25/24, girl King Locke, Nitin (3) : QUALIFIERS: Weeks of gestation: 39 weeks Qualified Code(s): Z3A.39 - 39 weeks gestation of COMMENT: Neg GBS. normal anatomy, discussed ntd genetic carrier testing, declines. (4) Vaginal delivery: COMMENT: SM IOL girl King Maternal Data Information DIAMANTE Calculator Estimated Delivery Date Method Current WG Current Estimate 06/25/24 LMP (Certain) 39w 6d Vaginal Delivery Vaginal Delivery Information Procedure Performed: Spontaneous Vaginal Delivery Surgeon/Practitioner: Alejandrina Marshall Date of Procedure: 06/24/24 Pre-Procedure Diagnosis: see a/p details Post-Procedure Diagnosis: same Type of anesthesia: Epidural Special Medications: none Estimated Blood Loss: 100 Findings Description of procedure: Patient began pushing and delivered the head in the DAVID presentation. The head was delivered atraumatically and a loose nuchal cord ???1 was identified and easily reduced over the 's head. The anterior and posterior shoulders delivered without complication followed by the rest of the and the infant was placed on the maternal abdomen. Delayed cord clamping was employed for approximately 60 seconds. Cord was clamped and cut and gentle traction was applied to the cord and the placenta delivered spontaneously immediately following it was noted to be intact with three- vessel cord. The perineum and vagina were inspected and noted to have no laceration. EBL was 100 cc. Patient and tolerated delivery well. Procedures Urinary/Genital 52xxx-59xxx: 59460 Vaginal Delivery [facility] 06/24/24 1714 Cosigner Signature (if applicable): CC: Dr. Eleuterio Padilla MD; Dr. Alejandrina Marshall MD Signed Normal [facility] Type AND Screenon 06-24-2024 Ab SCREEN GEL Negative Normal [facility] Comment on above: Order Comment: Labor Performed By: #### L 100.0100, BTS #### [facility] [address] [place], [address] Home Health Specialist Office Visit Reporton 06-22-2024 Home Health Specialist Office Visit Report [facility] [address], [address] [place] [address] OFFICE VISIT Date of Service: 06/22/24 MR#: [id number] Acct: [id number] Name: SAGE GONZALES Rep #: [id number] : 1995 Provider: GARY Montes ams Age/Sex: 28/F [place] [facility] [place] [place]: Signed Intake Vital Signs 03/18/24 08:32 06/15/24 09:48 06/22/24 08:31 06/22/24 08:35 Height 5 ft 4 in 5 ft 4 in 5 ft 4 in 5 ft 4 in Weight: 185 lb BMI 31.7 BP 120/76 Intake Visit Reasons: 40 WK OB Weigh Tank Operator Required: No Is patient in pain?: No Allergies geo Allergy (Verified 06/22/24 08:32) Unknown Medications ???Medication ???Instructions ???Recorded ???Confirmed ???Type multivitamin no.47-iron fum 27 1 cap PO DAILY 12/14/20 06/22/24 History mg-folate no.1 1 mg-dha 300 mg capsule (PNV-DHA) ferrous sulfate 325 mg (65 mg 325 mg PO DAILY 04/13/24 06/22/24 History iron) tablet Last Menstrual Period: 09/19/23 Zika: Zika virus screening: Negative Have you fallen in the past year?: No PFSH PFSH Medical History Vaginal delivery Oligohydramnios Depression History of venomous spider bite Surgical History H/O wisdom tooth extraction Hx of tonsillectomy Family History Aunt Breast cancer, Onset Age: 51 Father Hypertension Social History adopted: No household members: spouse and children housing: house number of children: 1 current occupational status: employed current occupation: [employer] current occupational exposures/hazards: No pets and animals: No history of recent travel: No sexually active: Yes Smoking Status: Never smoker second hand exposure: No alcohol intake: never substance use type: does not use well-balanced diet: daily or most days caffeine: Yes Type: coffee Number of servings: 2 eating out: 1-3 times/week during the past year weight has: remained stable what type of physical activity do you participate in: walking frequency: 3-4 times per week duration: 30-45 minutes/day sade/pentecostal: Uatsdin seatbelt use: always do you feel safe at home: Yes additional social history: [employer] employee [employer] History 2 Elective abortions Hx Para 1 Spontaneous abortions Hx # Term Pregnancies Ectopic pregnancies Hx # Pregnancies Multiple births # of living children 1 Past Pregnancies Del. Date Name GA/Weeks Outcome Route Bth Weight Infant Gen Labor Lgth Anesthesia Del Locatn Provider FOB 07/22/21 Cornelia 39 live - full term 7#8OZ Female 15 hR epidural [facility] Nitin Delivery Date: 07/22/21 Last Updated by: King Castelan IoL Oligo HPI 40 WK OB Details: SAGE GONZALES is a 28 year old who presents for routine OB visit. OB Visit DIAMANTE Calculator Estimated Delivery Date Method Current WG Current Estimate 06/25/24 LMP (Certain) 39w 4d Expected Delivery Route/Plan Labor Preferences- CB/BF classes: no labor support person: Nitin labor intervention preferences: [] pain management options preferred: epidural cut cord/dad catch: cord : yes PP control planned: discussed discussed possible routes of delivery and associated risks: [] special requests: [] Specific Issue/Plans Covid status: [] Flu vaccine: given at employer Tdap vaccine: given Rhogam: na LARC form signed: yes movement and labor precautions reviewed. Problem list reviewed and updated with the most current plan of care details and appropriate orders placed. Relevant counseling for the gestational age provided. Continue routine care and follow up unless otherwise noted in visit notes/problem list details Initial Weight: 167 lb Date -???-???-???-???-???- ???-???-???-???-???-? ??-???- EGA Weight BP Urine Prot -???-???-???-???-???- ???-???-???-???-???-? ??-???- Glucose FHR FuHt Pres Dilation -???-???-???-???-???- ???-???-???-???-???-? ??-???- Effaced St Visit Note 11/22/23 -???-???-???-???-???- ???-???-???-???-???-? ??-???- 9w 1d 167 lb 6 oz (+6 oz) 120/78 -???-???-???-???-???- ???-???-???-???-???-? ??-???- 168 -???-???-???-???-???- ???-???-???-???-???-? ??-???- LC- CRL con with LMP. declines nipt. 12/11/23 -???-???-???-???-???- ???-???-???-???-???-? ??-???- 11w 6d 166 lb 2 oz (-14 oz) 111/72 Negative -???-???-???-???-???- ???-???-???-???-???-? ??-???- Negative 153 0 -???-???-???-???-???- ???-???-???-???-???-? ??-???- -work in:h ad small amount bright bleeding last pm. None since. Live IUP on US confirmed FHT. Consistent CRL. No blood in vaginal vault 12/25/23 -?? (more content not included)... Normal [facility] Home Health Specialist Office Visit Reporton 06-15-2024 Home Health Specialist Office Visit Report [facility] [address], [address] [place] [address] OFFICE VISIT Date of Service: 06/15/24 MR#: [id number] Acct: [id number] Name: SAGE GONZALES Rep #: [id number] : 1995 Provider: GARY Montes ams Age/Sex: 28/F [place] [facility] Status: Signed Intake Vital Signs 03/18/24 08:32 06/09/24 10:01 06/15/24 09:43 06/15/24 09:48 Height 5 ft 4 in 5 ft 4 in 5 ft 4 in 5 ft 4 in Weight: 185 lb BMI 31.7 BP 114/80 Intake Visit Reasons: 39 WK OB Weigh Tank Operator Required: No Is patient in pain?: No Allergies geo Allergy (Verified 06/15/24 09:43) Unknown Medications ???Medication ???Instructions ???Recorded ???Confirmed ???Type multivitamin no.47-iron fum 27 1 cap PO DAILY 12/14/20 06/15/24 History mg-folate no.1 1 mg-dha 300 mg capsule (PNV-DHA) ferrous sulfate 325 mg (65 mg 325 mg PO DAILY 04/13/24 06/15/24 History iron) tablet Last Menstrual Period: 09/19/23 Zika: Zika virus screening: Negative Have you fallen in the past year?: No PFSH PFSH Medical History Vaginal delivery Oligohydramnios Depression History of venomous spider bite Surgical History H/O wisdom tooth extraction Hx of tonsillectomy Family History Aunt Breast cancer, Onset Age: 51 Father Hypertension Social History adopted: No household members: spouse and children housing: house number of children: 1 current occupational status: employed current occupation: [employer] current occupational exposures/hazards: No pets and animals: No history of recent travel: No sexually active: Yes Smoking Status: Never smoker second hand exposure: No alcohol intake: never substance use type: does not use well-balanced diet: daily or most days caffeine: Yes Type: coffee Number of servings: 2 eating out: 1-3 times/week during the past year weight has: remained stable what type of physical activity do you participate in: walking frequency: 3-4 times per week duration: 30-45 minutes/day sade/pentecostal: Uatsdin seatbelt use: always do you feel safe at home: Yes additional social history: [employer] employee [employer] History 2 Elective abortions Hx Para 1 Spontaneous abortions Hx # Term Pregnancies Ectopic pregnancies Hx # Pregnancies Multiple births # of living children 1 Past Pregnancies Del. Date Name GA/Weeks Outcome Route Bth Weight Infant Gen Labor Lgth Anesthesia Del Locatn Provider FOB 07/22/21 Cornelia 39 live - full term 7#8OZ Female 15 hR epidural [facility] Nitin Delivery Date: 07/22/21 Last Updated by: King Castelan IoL Oligo HPI 39 WK OB Details: SAGE GONZALES is a 28 year old who presents for routine OB visit. OB Visit DIAMANTE Calculator Estimated Delivery Date Method Current WG Current Estimate 06/25/24 LMP (Certain) 38w 4d Expected Delivery Route/Plan Labor Preferences- CB/BF classes: no labor support person: Nitin labor intervention preferences: [] pain management options preferred: epidural cut cord/dad catch: cord : yes PP control planned: discussed discussed possible routes of delivery and associated risks: [] special requests: [] Specific Issue/Plans Covid status: [] Flu vaccine: given at employer Tdap vaccine: given Rhogam: na LARC form signed: yes movement and labor precautions reviewed. Problem list reviewed and updated with the most current plan of care details and appropriate orders placed. Relevant counseling for the gestational age provided. Continue routine care and follow up unless otherwise noted in visit notes/problem list details Initial Weight: 167 lb Date -???-???-???-???-???- ???-???-???-???-???-? ??-???- EGA Weight BP Urine Prot -???-???-???-???-???- ???-???-???-???-???-? ??-???- Glucose FHR FuHt Pres Dilation -???-???-???-???-???- ???-???-???-???-???-? ??-???- Effaced St Visit Note 11/22/23 -???-???-???-???-???- ???-???-???-???-???-? ??-???- 9w 1d 167 lb 6 oz (+6 oz) 120/78 -???-???-???-???-???- ???-???-???-???-???-? ??-???- 168 -???-???-???-???-???- ???-???-???-???-???-? ??-???- LC- CRL con with LMP. declines nipt. 12/11/23 -???-???-???-???-???- ???-???-???-???-???-? ??-???- 11w 6d 166 lb 2 oz (-14 oz) 111/72 Negative -???-???-???-???-???- ???-???-???-???-???-? ??-???- Negative 153 0 -???-???-???-???-???- ???-???-???-???-???-? ??-???- -work in:h ad small amount bright bleeding last pm. None since. Live IUP on US confirmed FHT. Consistent CRL. No blood in vaginal vault 12/25/23 -?? (more content not included)... Normal [facility] Home Health Specialist Office Visit Reporton 06-09-2024 Home Health Specialist Office Visit Report [facility] [address], [address] [place] [address] OFFICE VISIT Date of Service: 06/09/24 MR#: [id number] Acct: [id number] Name: SAGE GONZALES Rep #: [id number] : 1995 Provider: Dr. Alejandrina doyle MD Age/Sex: 28/F [place] [facility] [place]: Signed Intake Vital Signs 03/18/24 08:32 05/25/24 10:39 06/03/24 09:48 06/09/24 09:56 06/09/24 10:01 Height 5 ft 4 in 5 ft 4 in 5 ft 4 in 5 ft 4 in 5 ft 4 in Weight: 184 lb BMI 31.6 BP 120/77 Intake Visit Reasons: 38 WK OB Weigh Tank Operator Required: No Is patient in pain?: No Allergies geo Allergy (Verified 06/09/24 09:57) Unknown Medications ???Medication ???Instructions ???Recorded ???Confirmed ???Type multivitamin no.47-iron fum 27 1 cap PO DAILY 12/14/20 06/09/24 History mg-folate no.1 1 mg-dha 300 mg capsule (PNV-DHA) ferrous sulfate 325 mg (65 mg 325 mg PO DAILY 04/13/24 06/09/24 History iron) tablet Last Menstrual Period: 09/19/23 Zika: Zika virus screening: Negative : No Have you fallen in the past year?: No PFSH PFSH Medical History Vaginal delivery Oligohydramnios Depression History of venomous spider bite Surgical History H/O wisdom tooth extraction Hx of tonsillectomy Family History Aunt Breast cancer, Onset Age: 51 Father Hypertension Social History adopted: No household members: spouse and children housing: house number of children: 1 current occupational status: employed current occupation: [employer] current occupational exposures/hazards: No pets and animals: No history of recent travel: No sexually active: Yes Smoking Status: Never smoker second hand exposure: No alcohol intake: never substance use type: does not use well-balanced diet: daily or most days caffeine: Yes Type: coffee Number of servings: 2 eating out: 1-3 times/week during the past year weight has: remained stable what type of physical activity do you participate in: walking frequency: 3-4 times per week duration: 30-45 minutes/day sade/pentecostal: Uatsdin seatbelt use: always do you feel safe at home: Yes additional social history: [employer] employee [employer] History 2 Elective abortions Hx Para 1 Spontaneous abortions Hx # Term Pregnancies Ectopic pregnancies Hx # Pregnancies Multiple births # of living children 1 Past Pregnancies Del. Date Name GA/Weeks Outcome Route Bth Weight Gen Labor Lgth Anesthesia Del Locatn Provider FOB 07/22/21 Cornelia 39 live - full term 7#8OZ Female 15 hR epidural [facility] Delivery Date: 07/22/21 Last Updated by: King Castelan IoL Oligo HPI 38 WK OB Details: SAGE GONZALES is a 28 year old who presents for routine OB visit. OB Visit DIAMANTE Calculator Estimated Delivery Date Method Current WG Current Estimate 06/25/24 LMP (Certain) 37w 5d Expected Delivery Route/Plan Labor Preferences- CB/BF classes: no labor support person: Nitin labor intervention preferences: [] pain management options preferred: epidural cut cord/dad catch: cord : yes PP control planned: discussed discussed possible routes of delivery and associated risks: [] special requests: [] Specific Issue/Plans Covid status: [] Flu vaccine: given at employer Tdap vaccine: given Rhogam: na LARC form signed: yes movement and labor precautions reviewed. Problem list reviewed and updated with the most current plan of care details and appropriate orders placed. Relevant counseling for the gestational age provided. Continue routine care and follow up unless otherwise noted in visit notes/problem list details Initial Weight: 167 lb Date -???-???-???-???-???- ???-???-???-???-???-? ??-???- EGA Weight BP Urine Prot -???-???-???-???-???- ???-???-???-???-???-? ??-???- Glucose FHR FuHt Pres Dilation -???-???-???-???-???- ???-???-???-???-???-? ??-???- Effaced St Visit Note 11/22/23 -???-???-???-???-???- ???-???-???-???-???-? ??-???- 9w 1d 167 lb 6 oz (+6 oz) 120/78 -???-???-???-???-???- ???-???-???-???-???-? ??-???- 168 -???-???-???-???-???- ???-???-???-???-???-? ??-???- LC- CRL con with LMP. declines nipt. 12/11/23 -???-???-???-???-???- ???-???-???-???-???-? ??-???- 11w 6d 166 lb 2 oz (-14 oz) 111/72 Negative -???-???-???-???-???- ???-???-???-???-???-? ??-???- Negative 153 0 -???-???-???-???-???- ???-???-???-???-???-? ??-???- -work in:h ad small amount bright bleeding last pm. None since. Live IUP on US confirmed FHT. Consi (more content not included)... Normal [facility] Rule out Beta Strep (Grp. B) on 06-05-2024 [facility] Group B Beta Streptococcus is not isolated. Normal [facility] Comment on above: Performed By: #### M 100.7750 #### [facility] [address] [place], [address] Home Health Specialist Office Visit Reporton 06-03-2024 Home Health Specialist Office Visit Report [facility] [address], [address] [place] [address] OFFICE VISIT Date of Service: 06/03/24 MR#: [id number] Acct: [id number] Name: SAGE GONZALES Rep #: [id number] : 1995 Provider: Dr. Alejandrina doyle MD Age/Sex: 28/F Location: [facility] [place] Status: Signed Intake Vital Signs 03/18/24 08:32 05/25/24 10:39 06/03/24 09:48 Height 5 ft 4 in 5 ft 4 in 5 ft 4 in Weight: 182 lb 8 oz BMI 31.3 BP 124/78 H Intake Visit Reasons: 37 WK OB Weigh Tank Operator Required: No Allergies geo Allergy (Verified 06/03/24 09:49) Unknown Medications ???Medication ???Instructions ???Recorded ???Confirmed ???Type multivitamin no.47-iron fum 27 1 cap PO DAILY 12/14/20 06/03/24 History mg-folate no.1 1 mg-dha 300 mg capsule (PNV-DHA) ferrous sulfate 325 mg (65 mg 325 mg PO DAILY 04/13/24 06/03/24 History iron) tablet Last Menstrual Period: 09/19/23 Zika: Zika virus screening: Negative : No PFSH PFSH Medical History Vaginal delivery Oligohydramnios Depression History of venomous spider bite Surgical History H/O wisdom tooth extraction Hx of tonsillectomy Family History Aunt Breast cancer, Onset Age: 51 Father Hypertension Social History adopted: No household members: spouse and children housing: house number of children: 1 current occupational status: employed current occupation: [employer] current occupational exposures/hazards: No pets and animals: No history of recent travel: No sexually active: Yes Smoking Status: Never smoker second hand exposure: No alcohol intake: never substance use type: does not use well-balanced diet: daily or most days caffeine: Yes Type: coffee Number of servings: 2 eating out: 1-3 times/week during the past year weight has: remained stable what type of physical activity do you participate in: walking frequency: 3-4 times per week duration: 30-45 minutes/day sade/pentecostal: Uatsdin seatbelt use: always do you feel safe at home: Yes additional social history: [employer] employee [employer] History 2 Elective abortions Hx Para 1 Spontaneous abortions Hx # Term Pregnancies Ectopic pregnancies Hx # Pregnancies Multiple births # of living children 1 Past Pregnancies Del. Date Name GA/Weeks Outcome Route Bth Weight Gen Labor Lgth Anesthesia Del Locatn Provider FOB 07/22/21 Cornelia 39 live - full term 7#8OZ Female 15 hR epidural [facility] Nitin Delivery Date: 07/22/21 Last Updated by: King Castelan IoL Oligo HPI 37 WK OB Details: SAGE GONZALES is a 28 year old who presents for routine OB visit. OB Visit DIAMANTE Calculator Estimated Delivery Date Method Current WG Current Estimate 06/25/24 LMP (Certain) 36w 6d Expected Delivery Route/Plan Labor Preferences- CB/BF classes: no labor support person: Nitin labor intervention preferences: [] pain management options preferred: epidural cut cord/dad catch: cord : yes PP control planned: discussed discussed possible routes of delivery and associated risks: [] special requests: [] Specific Issue/Plans Covid status: [] Flu vaccine: given at employer Tdap vaccine: given Rhogam: na LARC form signed: yes movement and labor precautions reviewed. Problem list reviewed and updated with the most current plan of care details and appropriate orders placed. Relevant counseling for the gestational age provided. Continue routine care and follow up unless otherwise noted in visit notes/problem list details Initial Weight: 167 lb Date -???-???-???-???-???- ???-???-???-???-???-? ??-???- EGA Weight BP Urine Prot -???-???-???-???-???- ???-???-???-???-???-? ??-???- Glucose FHR FuHt Pres Dilation -???-???-???-???-???- ???-???-???-???-???-? ??-???- Effaced St Visit Note 11/22/23 -???-???-???-???-???- ???-???-???-???-???-? ??-???- 9w 1d 167 lb 6 oz (+6 oz) 120/78 -???-???-???-???-???- ???-???-???-???-???-? ??-???- 168 -???-???-???-???-???- ???-???-???-???-???-? ??-???- LC- CRL con with LMP. declines nipt. 12/11/23 -???-???-???-???-???- ???-???-???-???-???-? ??-???- 11w 6d 166 lb 2 oz (-14 oz) 111/72 Negative -???-???-???-???-???- ???-???-???-???-???-? ??-???- Negative 153 0 -???-???-???-???-???- ???-???-???-???-???-? ??-???- -work in:h ad small amount bright bleeding last pm. None since. Live IUP on US confirmed FHT. Consistent CRL. No blood in vaginal vault 12/25/23 -???-???-???-???-???- ???-???-???-???-???-? ??-???- 1 (more content not included)... Normal [facility] Absolute lymphocyte countOrd ered By: Sydney Grimes on 11-22-2023 Lymphocytes Auto (Unsp spec) [#/Vol] 1.83 10*3/uL 0.83-4.51 [facility] Automated lymphocyte count a s percentage of total leukocytesOrdered By: Sydney Grimes on 11-22-2023 Lymphocytes/100 WBC Auto (Unsp spec) 18.7 % 19-41 [facility] Basophil percentageOrdered B y: Sydney Grimes on 11-22-2023 Basophils/100 WBC (Bld) 0.4 % 0-1 [facility] Eosinophils/100 WBC (Bld) 1.2 % 0-5 [facility] Hemoglobin (Bld) [Mass/Vol] 12.7 g/dL 12.0-15.0 [facility] Monocytes/100 WBC (Bld) 6.3 % 0-10 [facility] Neutrophils (Bld) [#/Vol] 7.2 10*3/uL 2.0-7.7 [facility] Neutrophils/100 WBC (Bld) 73.2 % 47-70 [facility] WBC (Bld) [#/Vol] 9.8 10*3/uL 4.4-11.0 [facility] Chlamydia trachomatis rRNA d etection by probe and target amplification methodOrdered By: Sydney Grimes on 11-22-2023 C. trachomatis rRNA CARLOS ENRIQUE+probe Ql (Unsp spec) Negative Negative [facility] Culture, urineOrdered By: Selma Grimes on 11-22-2023 Bacteria identified Cx Nom (U) Culture exhibits no growth. [facility] Determination of erythrocyte mean corpuscular volume (MCV)Ordered By: Sydney Grimes on 11-22-2023 MCV (RBC) [Entitic vol] 89.5 fL 81-99 [facility] Erythrocyte distribution wid th ratioOrdered By: Sydney Grimes on 11-22-2023 Erythrocyte distribution width (RBC) [Ratio] 12.8 % 11.6-14.6 [facility] Erythrocyte distribution wid th standard deviationOrdered By: Sydney Grimes on 11-22-2023 Erythrocyte distribution width (RBC) [Entitic vol] 42.1 fL 35.1-43.9 [facility] HIV 1 and HIV-2 antibody ass ay with HIV-1 p24 antigen detectionOrdered By: Sydney Grimes on 11-22-2023 HIV 1+2 Ab+HIV1 p24 Ag IA Ql Non-Reactive Nonreactive [facility] Hematocrit Auto (Bld) [Volum e fraction]Ordered By: Sydney Grimes on 11-22-2023 Hematocrit (Bld) [Volume fraction] 37.7 % 37-47 [facility] Immature granulocytes/100 WB C Auto (Bld)Ordered By: Sydney Grimes on 11-22-2023 Immature granulocytes/100 WBC (Bld) 0.200 % 0.0-0.9 [facility] Comment on above: IG% - Immature Granu locytes (promyelocytes, myelocytes and metamyelocytes) > 1% indicates that a LEFT SHIFT is Present. Laboratory - Hematology and Cell countsOrdered By: Sydney Grimes on 11-22-2023 MCH (RBC) [Entitic mass] 30.2 pg 27.0-32.0 [facility] MCHC (RBC) [Mass/Vol] 33.7 g/dL 32-36 [facility] Nucleated RBC/100 WBC (Bld) [Ratio] 0 % 0-5 [facility] Platelet mean volume (Bld) [Entitic vol] 9.0 fL 6.2-12.0 [facility] Platelets (Bld) [#/Vol] 280 10*3/uL 150-450 [facility] Laboratory - Microbiology an d Antimicrobial susceptibilityOrdered By: Sydney Grimes on 11-22-2023 N. gonorrhoeae DNA CARLOS ENRIQUE+probe Ql (Unsp spec) Negative Negative [facility] Comment on above: Performed at: [address] [id number] Director: Sadaf Ruvalcaba MD, Phone: [phone] No Panel InformationOrdered By: Sydney Grimes on 11-22-2023 Hepatitis B Surface Antigen Non-Reactive Nonreactive [facility] Hepatitis C Antibody Non-Reactive Nonreactive [facility] Comment on above: Non Reactive: < 0.8 Equivocal: >/= 0.8 to < 1.0 Reactive: >/= 1.0The CDC requires that a reactive/equivocal HCV antibody result be sent out for confirmation. HCV Quant by PCR testing. Rubella IgG Antibody Reactive Nonreactive [facility] Comment on above: Antibody Results Int erpretation of Immune Status Non Reactive Presumed Non-Immune Equivocal Equivocal Reactive Presumed Immune RBC Auto (Bld) [#/Vol]Ordere d By: Sydney Grimes on 11-22-2023 RBC (Bld) [#/Vol] 4.21 10*6/uL 4.2-5.4 [facility] Serum Treponema species anti body detectionOrdered By: Sydney Grimes on 11-22-2023 Treponema sp Ab Ql (S) Non-Reactive [facility] Urinalysis, Office ([id number])Or dered By: Silvana Kumari on 06-18-2016 Bilirubin [...] Medicine Work Phone: HEPATITIS B SURFACE ANTIBODY ([id number])Ordered By: Truck Driver Instructor on 12-18-2013 HBV surface Ab Ql (S) Reactive Normal [facility]; [facility] Work Phone: Comment on above: Non Reactive: Incons istent with immunity, less than 10 mIU/mL Reactive: Consistent with immunity, greater than 9.9 mIU/mL PATIENT WAS FASTINGP ERFORMED BY: CB [facility] [id number] [facility] [id number] BY: BN [facility] [id number] [facility] [id number] LIPID PANEL ([id number])Ordered B y: Truck Driver Instructor on 12-18-2013 Cholesterol [Mass/Vol] 225 mg/dL Abnormal 100-189 [facility]; [facility] Work Phone: Comment on above: PATIENT WAS FASTINGP ERFORMED BY: CB [facility] [id number] [address] [facility] [place] [id number] BY: [facility] [address] [id number] Information: [id number] Cholesterol in HDL [Mass/Vol] 73 mg/dL Normal [facility]; [facility] Work Phone: Comment on above: According to ATP-III Guidelines, HDL-C >59 mg/dL is considered anegative risk factor for CHD. PATIENT WAS FASTINGP ERFORMED BY: CB [facility] [id number] [place] [facility] [id number] BY: [employer] [id number] Information: [id number] Cholesterol in LDL [Mass/Vol] 132 mg/dL Abnormal 0-119 [facility]; [facility] Work Phone: Comment on above: PATIENT WAS FASTINGP ERFORMED BY: CB [facility] [id number] [facility] [id number] BY: [facility] [id number] Information: [id number] Cholesterol in LDL/Cholesterol in HDL [Mass ratio] 1.8 {ratio_units} Normal 0.0-3.2 [facility]; [facility] Work Phone: Comment on above: PATIENT WAS FASTINGP ERFORMED BY: CB [facility] [id number] [facility] [id number] BY: [address] [id number] Information: [id number] Cholesterol in VLDL [Mass/Vol] 20 mg/dL Normal 5-40 [facility]; [facility] Work Phone: Comment on above: PATIENT WAS FASTINGP ERFORMED BY: CB [facility] [id number] [place] [facility] [id number] BY: [employer] [id number] Information: [id number] Triglyceride [Mass/Vol] 102 mg/dL Normal 0-114 C omprehensive [facility]; [facility] Work Phone: Comment on above: PATIENT WAS FASTINGP ERFORMED BY: [place] [id number] [facility] [id number] BY: [employer] [id number] Information: [id number] MUMPS ANTIBODY ([id number])Ordere d By: Truck Driver Instructor on 12-18-2013 MuV IgM IA Qn (S) <0.80 Normal 0.00-0.79 Compreh ensive [facility]; [facility] Work Phone: Comment on above: Negative < 0.80 Bord obie 0.80 - 1.20 Positive > 1.20 . Note: The presence of IgM specific antibody should be interpreted in conjunction with the patient's clinical history and exposure risk when an acute infection is suspected. PATIENT WAS FASTINGP ERFORMED BY: Gelato [place] [id number] [facility] [id number] BY: [employer] [id number] RUBELLA ANTIBODY ([id number])Orde red By: Truck Driver Instructor on 12-18-2013 Rubella virus IgG Qn (S) 3.47 {index} Normal [facility]; [facility] Work Phone: Comment on above: Non-immune <0.90 Equ ivocal 0.90 - 0.99 Immune >0.99 PATIENT WAS FASTINGP ERFORMED BY: [place] [id number] [facility] [id number] BY: [employer] [id number] RUBEOLA ANTIBODY ([id number])Orde red By: Truck Driver Instructor on 12-18-2013 MeV IgG IA Qn (S) 145.0 AU/mL Normal Compre hens[facility]; [facility] Work Phone: Comment on above: Negative <25.0 Equiv ocal 25.0 - 29.9 Positive >29.9 Presence of antibodies to Rubeola is presumptive evidence of immunity except when acute infection is suspected. PATIENT WAS FASTINGP ERFORMED BY: UsTrendy[address] [place] [facility] [id number] BY: [employer] [address] [id number] VARICELLA-ZOSTER ANTBODY ([id number] [id number])Ordered By: Truck Driver Instructor on 12-18-2013 VZV IgG IA Qn (S) 2649 {index} [facility]; [facility] Work Phone: Comment on above: Negative <135 Equivo kvng 135 - 165 Positive >165 A positive result generally indicates exposure to the pathogen or administration of specific immunoglobulins, but it is not indication of active infection or stage of disease. PATIENT WAS FASTINGP ERFORMED BY: UsTrendy6370 [facility] [id number] BY: [employer]ien[employer] [id number] Blood Glucose , Office ([phone])on 06-03-2013 Glucose Glucometer (BldC) [Moles/Vol] 101 1 Normal [facility]; [facility] Work Phone: Comment on above: non-fasting HgA1C , Office ([id number])on HbA1c (Bld) [Mass fraction] 5.0 % Normal 4.6 - 7.1 [facility]; [facility] Work Phone: Urinalysis, Office ([phone])on 06-03-2013 Bilirubin Ql (U) Negative Normal Comprehe [...] Medicine; [facility] Work Phone: PPD ([id number])Ordered By: Jade Payne on 02-22-2012 PPD ([id number]) Negative Normal [facility]; [facility] Work Phone: Comment on above: Lot #[id number] ite-L f/aDose 0.1given by:Adelina [email or web address] step was given in office visit last week and was neg PPD ([id number])Ordered By: Jade Payne on 02-15-2012 PPD ([id number]) Negative Normal [facility]; [facility] Work Phone: Vital Signs Date Time Vital Sign Value Performing Clinician Facility 05-26-2025 11:26-0400 Body height 162.[address] Eleuterio Padilla MD Work Phone: [facility] 05-26-2025 11:26-0400 Body mass index (BMI) [Ratio] 26.1 kg/m2 Dr. Eleuterio Padilla MD Work Phone: [facility] 05-26-2025 11:26-0400 Body temperature 97.2 [degF] Dr. Eleuterio Padilla MD Work Phone: [facility] 05-26-2025 11:26-0400 Body weight 68.[address] Eleuterio Padilla MD Work Phone: [facility] 05-26-2025 11:26-0400 Diastolic blood pressure 66 mm[Hg] Dr. Eleuterio Padilla MD Work Phone: [facility] 05-26-2025 11:26-0400 Heart rate 74 /min Dr. Eleuterio Padilla MD Work Phone: [facility] 05-26-2025 11:26-0400 Respiratory rate 18 /min Dr. Eleuterio Padilla MD Work Phone: [facility] 05-26-2025 11:26-0400 SaO2% (BldA) [Mass fraction] 99 % Dr. Eleuterio Padilla MD Work Phone: [facility] 05-26-2025 11:26-0400 Systolic blood pressure 128 mm[Hg] Dr. Eleuterio Padilla MD Work Phone: [facility] 11-22-2023 11:14-0400 Body height 162.[address] Eleuterio Padilla Work Phone: [facility] 11-22-2023 11:14-0400 Body mass index (BMI) [Ratio] 28.7 kg/m2 Dr. Eleuterio Padilla Work Phone: [facility] 11-22-2023 11:14-0400 Body weight 75.[address] Eleuterio Padilla Work Phone: [facility] 11-22-2023 11:14-0400 Diastolic blood pressure 78 mm[Hg] Dr. Eleuterio Padilla Work Phone: [facility] 11-22-2023 11:14-0400 Systolic blood pressure 120 mm[Hg] Dr. Eleuterio Padilla Work Phone: [facility] 09-16-2023 13:12-0500 Body mass index (BMI) [Ratio] 28.3 kg/m2 Dr. Eleuterio Padilla Work Phone: [facility] 09-16-2023 13:12-0500 Body weight 75.[address] Eleuterio Padilla Work Phone: [facility] 09-16-2023 13:12-0500 Diastolic blood pressure 86 mm[Hg] Dr. Eleuterio Padilla Work Phone: [facility] 09-16-2023 13:12-0500 Systolic blood pressure 132 mm[Hg] Dr. Eleuterio Padilla Work Phone: [facility] 01-06-2018 11:02-0400 Body height 162.56 cm Daisy [...] 06-18-2016 15:45-0400 Body height 162.56 cm Lexi Lyle LPN [facility]; [facility] Work Phone: 06-18-2016 15:45-0400 Body mass index (BMI) [Ratio] 25.3 kg/m2 Lexi Lyle BILL PEDDLER [facility]; [facility] Work Phone: 06-18-2016 15:45-0400 Body surface area Derived from formula 1.72 m2 Lexi Ivánrb BILL PEDDLER [facility]; [facility] Work Phone: 06-18-2016 15:45-0400 Body temperature 98 [degF] Lexi Ivánrb BILL PEDDLER [facility]; [facility] Work Phone: 06-18-2016 15:45-0400 Body weight 66.85 kg Lexi Lyle BILL PEDDLER [facility]; [facility] Work Phone: 06-18-2016 15:45-0400 Diastolic blood pressure 76 mm[Hg] Lexi Ivánrb BILL PEDDLER [facility] Work Phone: Comment on above: Patient Position: Sitting; Cuff Location : Left Arm; Cuff Size: Standard 06-18-2016 15:45-0400 Heart rate 78 /min Lexi Lyle BILL [facility] Work Phone: Comment on above: Pattern: Regular 06-18-2016 15:45-0400 Respiratory rate 14 /min Lexi Lyle BILL [facility]DL[facility] Work Phone: Comment on above: Pattern: Unlabored 06-18-2016 15:45-0400 SaO2% (BldA) [Mass fraction] 99 % Lexi Ivánrb BILL PEDDL[facility] Work Phone: Comment on above: Room air 06-18-2016 15:45-0400 Systolic blood pressure 112 mm[Hg] Lexi Minorrb BILL PEDDLER [facility] Work [...] Internal Medicine Work Phone: 01-31-2015 11:19-0400 Body weight 66.85 kg Daisy Staley RN [...] 09-04-2013 11:40-0500 Body height 162.56 cm Sunita Jenkinson DO Work Phone: [facility] Work Phone: 09-04-2013 11:40-0500 Body mass index (BMI) [Ratio] 25.24 kg/m2 Sunita Fernandes DO Work Phone: [facility] Work Phone: 09-04-2013 11:40-0500 Body surface area Derived from formula 1.72 m2 Sunita Fernandes DO Work Phone: [facility] Work Phone: 09-04-2013 11:40-0500 Body temperature 98.9 [degF] Sunita Fernandes DO Work Phone: [facility] Work Phone: Comment on above: Method: Oral 09-04-2013 11:40-0500 Body weight 66.71 kg Sunita Fernandes DO Work Phone: [facility] Work Phone: 09-04-2013 11:40-0500 Diastolic blood pressure 68 mm[Hg] Sunita Dom DO Work Phone: [facility] Work Phone: Comment on above: Patient Position: Sitting; Cuff Location : Left Arm; Cuff Size: Standard 09-04-2013 11:40-0500 Heart rate 76 /min Sunita Dom DO Work Phone: [facility] [...] Large 02-15-2012 09:29-0400 Body height 162.56 cm Sunita Dom DO Work Phone: [facility] Work Phone: 02-15-2012 09:29-0400 Body mass index (BMI) [Ratio] 24.23 kg/m2 Sunita Dom DO Work Phone: [facility] Work Phone: 02-15-2012 09:29-0400 Body surface area Derived from formula 1.69 m2 Sunita Fernandes DO Work Phone: [facility] Work Phone: 02-15-2012 09:29-0400 Body temperature 98.4 [degF] Sunita Jenkinson DO Work Phone: [facility] Work Phone: Comment on above: Method: Oral 02-15-2012 09:29-0400 Body weight 64.04 kg Sunita Fernandes DO Work Phone: [facility] Work Phone: 02-15-2012 09:29-0400 Diastolic blood pressure 68 mm[Hg] Sunita Fernandes DO Work Phone: [facility] Work Phone: Comment on above: Patient Position: Sitting; Cuff Location : Left Arm; Cuff Size: Standard 02-15-2012 09:29-0400 Heart rate 86 /min Sunita Fernandes DO Work Phone: [facility] Work Phone: Comment on above: Pattern: Regular 02-15-2012 09:29-0400 Respiratory rate 16 /min Sunita Fernandes DO Work Phone: [facility] [...] Date Encounter Type Care Provider Facility Start: 05-26-2025 End: 05-26-[address] Eleuterio Padilla MD [facility] Work Phone: Start: 05-26-2025 End: 05-26-[address] Eleuterio Padilla MD [facility] Start: 05-26-2025 End: 05-26-2025 ambulatory Efchristie Pattersone Facility:[facility] Start: 04-15-2025 Registered [employer] [facility] [facility] K ASSESSMENT -Employee Health Start: 04-15-2025 ambulatory Efdalilaongbe Olelaurente Facili ty:[facility] Start: 10-02-2024 ambulatory Efdalilaongbe Yeseniae Facili ty:[facility] Start: 10-02-2024 End: 10-02-2024 ambulatory Efdalilasalembe Olelaurente Facility:[facility] Start: 09-10-2024 End: 09-10-2024 ambulatory Efdalilaongbe Oleghe Facility:[facility] Start: 08-04-2024 End: 08-04-2024 ambulatory Efdalilaongbe Olelaurente Facility:[facility] Start: 08-03-2024 End: 08-04-2024 [facility] Start: 06-24-2024 ambulatory Efdalilaongbe Yeseniae Facili ty:[facility] Start: 06-24-2024 End: 06-25-2024 Evaluation and management of inpatient Efdalilaongbe Olelaurente Facility:[facility] Start: 06-22-2024 End: 06-22-2024 ambulatory Efdalilaongbe Olelaurente Facility:[facility] Start: 06-15-2024 End: 06-15-2024 ambulatory Efdalilaongbe Oleghe Facility:[facility] Start: 06-09-2024 End: 06-09-2024 ambulatory Efewongbe Oleghe Facility:[facility] Start: 06-03-2024 End: 06-03-2024 ambulatory Efdalilaongbe Oleghe Facility:[facility] Start: 06-03-2024 End: 06-03-2024 ambulatory Efdalilasalemamy Jamae Facility:[facility] Start: 11-22-2023 End: 11-22-[address] Eleuterio Padilla Work Phone: [facility] Work Phone: Start: 11-22-2023 End: 11-22-[address] Eleuterio Padilla Work Phone: [facility] Work Phone: Start: 09-16-2023 End: 09-16-[address] Eleuterio Padilla Work Phone: [facility] Work Phone: Start: 01-06-2018 End: 01-06-2018 Office outpatient visit [...] 10-06-2012 End: 10-06-2012 Patient encounter procedure Sunita Dom DO Work Phone: [facility] Start: 09-04-2012 End: 09-04-2012 Patient encounter procedure Sunita Dom DO Work Phone: [facility] Start: 05-16-2012 End: 05-16-2012 Phone Encounter Sunita Dom DO Work Phone: [facility] Start: 03-10-2012 End: 03-10-2012 Annotation/Addendum Sunita Dom DO Work Phone: [facility] Start: 02-22-2012 End: 02-22-2012 Patient encounter procedure Sunita Dom DO Work Phone: [facility] Start: 02-18-2012 End: 02-18-2012 Nursing evaluation of patient and report Sunita Dom DO Work Phone: [facility] Start: 02-15-2012 End: 02-15-2012 Office outpatient new 30 minutes Sunita Dom DO Work Phone: [facility] End: 12-09-2017 Patient encounter status Daisy Staley RN [facility] Work Phone: Physical examination Sunita bearn DO Work Phone: [facility] Work Phone: Procedures Date Procedure Procedure Detail Performing Clinician Start: 04-15-2025 Serum inorganic phosphate [address] Dr[address] Eleuterio Padilla MD Work Phone: Start: 08-14-2025 Urnls dip stick/tablet reagent auto microscopy Dr. Eleuterio Padilla MD Work Phone: Start: 11-22-[address] Eleuterio Padilla Work Phone: Start: 07-21-2021 End: 07-21-2021 Home Health Specialist Office Visit Report Comments: See Note; NOTES: [facility] [address] [place] [address] OFFICE VISIT Date of Service: 07/21/21 MR#: [id number] Acct: [id number] Name: SAGE GONZALES Rep #: [id number] : 1995 Provider: Dr. Alejandrina doyle MD Age/Sex: 25/F [place] [facility] [place]: Signed Intake Vital Signs 07/21/21 09:41 [...] safe at home: Yes additional social history: [employer] employee [employer] History 1 Elective abortions [...] list details Initial Weight: 150 lb Date -???-???-???-???-???-???-??? -???-???-???-???-???- EGA Weight BP Urine Prot -???-???-???-???-???-???-??? -???-???-???-???-???- Glucose FHR FuHt Pres Dilation -???-???-???-???-???-???-??? -???-???-???-???-???- Effaced St Visit Note 12/19/20 -???-???-???-???-???-???-??? -???-???-???-???-???- 8w 6d 150 lb 8 oz (+8 oz) 110/70 -???-???-???-???-???-???-??? -???-???-???-???-???- 175 -???-???-???-???-???-???-??? -???-???-???-???-???- SM- CRL NOT cons with LMP, 1.9 cm 01/19/21 -???-???-???-???-???-???-??? -???-???-???-???-???- 13w 2d 153 lb (+3 lb) 114/64 Negative -???-???-???-???-???-???-??? -???-???-???-???-???- Negative 150 -???-???-???-???-???-???-??? -???-???-???-???-???- SM- no vb no regualr [facility] 02/16/21 -???-???-???-???-???-???-??? -???-???-???-???-???- 17w 2d 153 lb (+3 lb) 98/68 Negative -???-???-???-???-???-???-??? -???-???-???-???-???- Negative 154 -???-???-???-???-???-???-??? -???-???-???-???-???- -NO VB, FRANK F. Feels well. Anatomy [facility] 02/2803/17/21 -???-???-???-???-???-???-??? -???-???-???-???-???- 21w 3d 159 lb 8 oz (+9 lb 8 oz) 94/70 Negative -???-???-???-???-???-???-??? -???-???-???-???-???- Negative 155 -???-???-???-???-???-???-??? -???-???-???-???-???- GP - no LOF, VB, DFM, ctx. Denies complaints. Having a girl! 04/13/21 -???-???-???-???-???-???-??? -???-???-???-???-???- 25w 2d 161 lb 6 oz (+11 lb 6 oz) 110/60 Negative -???-???-???-???-???-???-??? -???-???-???-???-???- Negative 157 24 -???-???-???-???-???-???-??? -???-???-???-???-???- MH-No VB, LO F. Doing well. Good FM. US scheduled 05/01 to check placenta 05/10/21 -???-???-???-???-???-???-??? -???-???-???-???-???- 29w 1d 161 lb 4 oz (+11 lb 4 oz) 110/70 Negative -???-???-???-???-???-???-??? -???-???-???-???-???- Negative 145 30 Cephalic -???-???-???-???-???-???-??? -???-???-???-???-???- SM- no vb lo f good fm no reuglar ctx nl gtt 3 hr 05/25/21 -???-???-???-???-???-???-??? -???-???-???-???-???- 31w 2d 164 lb (+14 lb) 110/70 Negative -???-???-???-???-???-???-??? -???-???-???-???-???- Negative 150 31 Cephalic -???-???-???-???-???-???-??? -???-???-???-???-???- GP - no LOF, VB, dFM, ctx. LARC form signed - declines 06/09/21 -???-???-???-???-???-???-??? -???-???-???-???-???- 33w 3d 169 lb (+19 lb) 110/80 Negative -???-???-???-???-???-???-??? -???-???-???-???-???- Negative 150 33 Cephalic -???-???-???-???-???-???-??? -???-???-???-???-???- GP - no LOF, VB, dFM, ctx. Discussed labor preferences. 06/23/21 -???-???-???-???-???-???-??? -???-???-???-???-???- 35w 3d 168 lb 6 oz (+18 lb 6 oz) 112/70 Negative -???-???-???-???-???-???-??? -???-???-???-???-???- Negative 150 35 Cephalic -???-???-???-???-???-???-??? -???-???-???-???-???- SM- no vb lo f good fm no regular ctx 06/30/21 -???-???-???-???-???-???-??? -???-???-???-???-???- 36w 3d 172 lb (+22 lb) 130/82 Negative -???-???-???-???-???-???-??? -???-???-???-???-???- Negative 140 36 Cephalic 1 -???-???-???-???-???-???-??? -???-???-???-???-???- SM- no vb lo f good fm no regular ctx gbs today 07/07/21 -???-???-???-???-???-???-??? -???-???-???-???-???- 37w 3d 171 lb (+21 lb) 112/72 -???-???-???-???-???-???-??? -???-???-???-???-???- 140 37 Cephalic -???-???-???-???-???-???-??? -???-???-???-???-???- SM- no vb lo f good fm no reuglar ctx 07/12/21 -???-???-???-???-???-???-??? -???-???-???-???-???- 38w 1d 173 lb (+23 lb) 112/80 -???-???-???-???-???-???-??? -???-???-???-???-???- 140 38 Cephalic -???-???-???-???-???-???-??? -???-???-???-???-???- SM- no vb lo f good fm no reuglar ctx some swelling 07/21/21 -???-???-???-???-???-???-??? -???-???-???-???-???- 39w 3d 176 lb 12.8 oz (+26 lb 12.8 oz) 122/72 -???-???-???-???-???-???-??? -???-???-???-???-???- 135 35 Cephalic 2 -???-???-???-???-???-???-??? -???-???-???-???-???- 40 -1 SM- no vb lof good fm no regular ctx, low FH an done and 4.9 recommend IOL ACOG First [...] genetic and carrier screening. declines afp. anatomy 07/21/21 0943 <Electronically signed by Alejandrina Marshall MD> Date Alejandrina Marshall MD Cosigner Signature: Date (if applicable) CC: Sunita Fernandes DO Work Phone: Start: 07-12-2021 End: 07-12-2021 Home Health Specialist Office Visit Report Comments: See Note; NOTES: [facility] [place] [address] [place] [address] OFFICE VISIT Date of Service: 07/12/21 MR#: [id number] Acct: [id number] Name: SAGE GONZALES Rep #: [id number] : 1995 Provider: Dr. Alejandrina doyle MD Age/Sex: 25/F Location[place] [facility] Status: Signed Intake Vital Signs 07/12/21 11:21 07/12/21 11:28 Height 5 ft 4 in Weight: 173 lb BP 112/80 Intake Visit Reasons: 38WK OB Chief Complaint: est ob Weigh Tank Operator Required: No Is patient in pain?: No [...] safe at home: Yes additional social history: [employer] employee [employer] History 1 Elective abortions [...] list details Initial Weight: 150 lb Date -???-???-???-???-???-???-??? -???-???-???-???-???- EGA Weight BP Urine Prot -???-???-???-???-???-???-??? -???-???-???-???-???- Glucose FHR FuHt Pres Dilation -???-???-???-???-???-???-??? -???-???-???-???-???- Effaced St Visit Note 12/19/20 -???-???-???-???-???-???-??? -???-???-???-???-???- 8w 6d 150 lb 8 oz (+8 oz) 110/70 -???-???-???-???-???-???-??? -???-???-???-???-???- 175 -???-???-???-???-???-???-??? -???-???-???-???-???- SM- CRL NOT cons with LMP, 1.9 cm 01/19/21 -???-???-???-???-???-???-??? -???-???-???-???-???- 13w 2d 153 lb (+3 lb) 114/64 Negative -???-???-???-???-???-???-??? -???-???-???-???-???- Negative 150 -???-???-???-???-???-???-??? -???-???-???-???-???- SM- no vb no regualr [facility] 02/16/21 -???-???-???-???-???-???-??? -???-???-???-???-???- 17w 2d 153 lb (+3 lb) 98/68 Negative -???-???-???-???-???-???-??? -???-???-???-???-???- Negative 154 -???-???-???-???-???-???-??? -???-???-???-???-???- MH-NO VB, LO F. Feels well. Anatomy [facility] 02/2803/17/21 -???-???-???-???-???-???-??? -???-???-???-???-???- 21w 3d 159 lb 8 oz (+9 lb 8 oz) 94/70 Negative -???-???-???-???-???-???-??? -???-???-???-???-???- Negative 155 -???-???-???-???-???-???-??? -???-???-???-???-???- GP - no LOF, VB, DFM, ctx. Denies complaints. Having a girl! 04/13/21 -???-???-???-???-???-???-??? -???-???-???-???-???- 25w 2d 161 lb 6 oz (+11 lb 6 oz) 110/60 Negative -???-???-???-???-???-???-??? -???-???-???-???-???- Negative 157 24 -???-???-???-???-???-???-??? -???-???-???-???-???- MH-No VB, LO F. Doing well. Good FM. US scheduled 05/01 to check placenta 05/10/21 -???-???-???-???-???-???-??? -???-???-???-???-???- 29w 1d 161 lb 4 oz (+11 lb 4 oz) 110/70 Negative -???-???-???-???-???-???-??? -???-???-???-???-???- Negative 145 30 Cephalic -???-???-???-???-???-???-??? -???-???-???-???-???- SM- no vb lo f good fm no reuglar ctx nl gtt 3 hr 05/25/21 -???-???-???-???-???-???-??? -???-???-???-???-???- 31w 2d 164 lb (+14 lb) 110/70 Negative -???-???-???-???-???-???-??? -???-???-???-???-???- Negative 150 31 Cephalic -???-???-???-???-???-???-??? -???-???-???-???-???- GP - no LOF, VB, dFM, ctx. LARC form signed - declines 06/09/21 -???-???-???-???-???-???-??? -???-???-???-???-???- 33w 3d 169 lb (+19 lb) 110/80 Negative -???-???-???-???-???-???-??? -???-???-???-???-???- Negative 150 33 Cephalic -???-???-???-???-???-???-??? -???-???-???-???-???- GP - no LOF, VB, dFM, ctx. Discussed labor preferences. 06/23/21 -???-???-???-???-???-???-??? -???-???-???-???-???- 35w 3d 168 lb 6 oz (+18 lb 6 oz) 112/70 Negative -???-???-???-???-???-???-??? -???-???-???-???-???- Negative 150 35 Cephalic -???-???-???-???-???-???-??? -???-???-???-???-???- SM- no vb lo f good fm no regular ctx 06/30/21 -???-???-???-???-???-???-??? -???-???-???-???-???- 36w 3d 172 lb (+22 lb) 130/82 Negative -???-???-???-???-???-???-??? -???-???-???-???-???- Negative 140 36 Cephalic 1 -???-???-???-???-???-???-??? -???-???-???-???-???- SM- no vb lo f good fm no regular ctx gbs today 07/07/21 -???-???-???-???-???-???-??? -???-???-???-???-???- 37w 3d 171 lb (+21 lb) 112/72 -???-???-???-???-???-???-??? -???-???-???-???-???- 140 37 Cephalic -???-???-???-???-???-???-??? -???-???-???-???-???- SM- no vb lo f good fm no reuglar ctx 07/12/21 -???-???-???-???-???-???-??? -???-???-???-???-???- 38w 1d 173 lb (+23 lb) 112/80 -???-???-???-???-???-???-??? -???-???-???-???-???- 140 38 Cephalic -???-???-???-???-???-???-??? -???-???-???-???-???- SM- no vb lo f good fm [...] CC: Sunita Dom DO Work Phone: Start: 07-07-2021 End: 07-07-2021 Home Health Specialist Office Visit Report Comments: See Note; NOTES: [facility] [address] [place] [address] OFFICE VISIT Date of Service: 07/07/21 MR#: [id number] Acct: [id number] Name: SAGE GONZALES Rep #: [id number] : 1995 Provider: Dr. Alejandrina doyle MD Age/Sex: 25/F [place] [facility] Status: Signed Intake Vital Signs 07/07/21 08:02 Height 5 ft 4 in Weight: 171 lb BMI 29.3 BP 112/72 Intake Visit Reasons: 37WK OB Chief Complaint: est ob Weigh Tank Operator Required: No Is patient in pain?: No [...] safe at home: Yes additional social history: [employer] employee [employer] History 1 Elective abortions [...] list details Initial Weight: 150 lb Date -???-???-???-???-???-???-??? -???-???-???-???-???- EGA Weight BP Urine Prot -???-???-???-???-???-???-??? -???-???-???-???-???- Glucose FHR FuHt Pres Dilation -???-???-???-???-???-???-??? -???-???-???-???-???- Effaced St Visit Note 12/19/20 -???-???-???-???-???-???-??? -???-???-???-???-???- 8w 6d 150 lb 8 oz (+8 oz) 110/70 -???-???-???-???-???-???-??? -???-???-???-???-???- 175 -???-???-???-???-???-???-??? -???-???-???-???-???- SM- CRL NOT cons with LMP, 1.9 cm 01/19/21 -???-???-???-???-???-???-??? -???-???-???-???-???- 13w 2d 153 lb (+3 lb) 114/64 Negative -???-???-???-???-???-???-??? -???-???-???-???-???- Negative 150 -???-???-???-???-???-???-??? -???-???-???-???-???- SM- no vb no regualr ctx 02/16/21 -???-???-???-???-???-???-??? -???-???-???-???-???- 17w 2d 153 lb (+3 lb) 98/68 Negative -???-???-???-???-???-???-??? -???-???-???-???-???- Negative 154 -???-???-???-???-???-???-??? -???-???-???-???-???- MH-NO VB, LO F. Feels well. Anatomy [facility] 02/2803/17/21 -???-???-???-???-???-???-??? -???-???-???-???-???- 21w 3d 159 lb 8 oz (+9 lb 8 oz) 94/70 Negative -???-???-???-???-???-???-??? -???-???-???-???-???- Negative 155 -???-???-???-???-???-???-??? -???-???-???-???-???- GP - no LOF, VB, DFM, ctx. Denies complaints. Having a girl! 04/13/21 -???-???-???-???-???-???-??? -???-???-???-???-???- 25w 2d 161 lb 6 oz (+11 lb 6 oz) 110/60 Negative -???-???-???-???-???-???-??? -???-???-???-???-???- Negative 157 24 -???-???-???-???-???-???-??? -???-???-???-???-???- MH-No VB, LO F. Doing well. Good FM. US scheduled 05/01 to check placenta 05/10/21 -???-???-???-???-???-???-??? -???-???-???-???-???- 29w 1d 161 lb 4 oz (+11 lb 4 oz) 110/70 Negative -???-???-???-???-???-???-??? -???-???-???-???-???- Negative 145 30 Cephalic -???-???-???-???-???-???-??? -???-???-???-???-???- SM- no vb lo f good fm no reuglar ctx nl gtt 3 hr 05/25/21 -???-???-???-???-???-???-??? -???-???-???-???-???- 31w 2d 164 lb (+14 lb) 110/70 Negative -???-???-???-???-???-???-??? -???-???-???-???-???- Negative 150 31 Cephalic -???-???-???-???-???-???-??? -???-???-???-???-???- GP - no LOF, VB, dFM, ctx. LARC form signed - declines 06/09/21 -???-???-???-???-???-???-??? -???-???-???-???-???- 33w 3d 169 lb (+19 lb) 110/80 Negative -???-???-???-???-???-???-??? -???-???-???-???-???- Negative 150 33 Cephalic -???-???-???-???-???-???-??? -???-???-???-???-???- GP - no LOF, VB, dFM, ctx. Discussed labor preferences. 06/23/21 -???-???-???-???-???-???-??? -???-???-???-???-???- 35w 3d 168 lb 6 oz (+18 lb 6 oz) 112/70 Negative -???-???-???-???-???-???-??? -???-???-???-???-???- Negative 150 35 Cephalic -???-???-???-???-???-???-??? -???-???-???-???-???- SM- no vb lo f good fm no regular ctx 06/30/21 -???-???-???-???-???-???-??? -???-???-???-???-???- 36w 3d 172 lb (+22 lb) 130/82 Negative -???-???-???-???-???-???-??? -???-???-???-???-???- Negative 140 36 Cephalic 1 -???-???-???-???-???-???-??? -???-???-???-???-???- SM- no vb lo f good fm no regular ctx gbs today 07/07/21 -???-???-???-???-???-???-??? -???-???-???-???-???- 37w 3d 171 lb (+21 lb) 112/72 -???-???-???-???-???-???-??? -???-???-???-???-???- 140 37 Cephalic -???-???-???-???-???-???-??? -???-???-???-???-???- SM- no vb lo f good fm [...] POC Urinalysis 2 Dip (Clinic) Today 07/07/21 08 <Electronically signed by Alejandrina Marshall MD> Date Alejandrina Marshall MD Cosigner Signature: Date (if applicable) CC: Sunita Fernandes DO Work Phone: Start: 06-30-2021 End: 06-30-2021 Home Health Specialist Office Visit Report Comments: See Note; NOTES: [facility] [address] [place], [place] [id number] OFFICE VISIT Date of Service: 06/30/21 MR#: [id number] Acct: [id number] Name: SAGE GONZALES Rep #: [id number] : 1995 Provider: Dr. Alejandrina doyle MD Age/Sex: 25/F [place] [facility] Status: Signed Intake Vital Signs 06/30/21 15:35 Height 5 ft 4 in Weight: 172 lb BMI 29.5 BP 130/82 H Intake Visit Reasons: 36WK OB Chief Complaint: est ob Weigh Tank Operator Required: No Is patient in pain?: No [...] safe at home: Yes additional social history: [employer] employee [employer] History 1 Elective abortions [...] list details Initial Weight: 150 lb Date -???-???-???-???-???-???-??? -???-???-???-???-???- EGA Weight BP Urine Prot -???-???-???-???-???-???-??? -???-???-???-???-???- Glucose FHR FuHt Pres Dilation -???-???-???-???-???-???-??? -???-???-???-???-???- Effaced St Visit Note 12/19/20 -???-???-???-???-???-???-??? -???-???-???-???-???- 8w 6d 150 lb 8 oz (+8 oz) 110/70 -???-???-???-???-???-???-??? -???-???-???-???-???- 175 -???-???-???-???-???-???-??? -???-???-???-???-???- SM- CRL NOT cons with LMP, 1.9 cm 01/19/21 -???-???-???-???-???-???-??? -???-???-???-???-???- 13w 2d 153 lb (+3 lb) 114/64 Negative -???-???-???-???-???-???-??? -???-???-???-???-???- Negative 150 -???-???-???-???-???-???-??? -???-???-???-???-???- SM- no vb no regualr ctx 02/16/21 -???-???-???-???-???-???-??? -???-???-???-???-???- 17w 2d 153 lb (+3 lb) 98/68 Negative -???-???-???-???-???-???-??? -???-???-???-???-???- Negative 154 -???-???-???-???-???-???-??? -???-???-???-???-???- MH-NO VB, LO F. Feels well. Anatomy [facility] 02/2803/17/21 -???-???-???-???-???-???-??? -???-???-???-???-???- 21w 3d 159 lb 8 oz (+9 lb 8 oz) 94/70 Negative -???-???-???-???-???-???-??? -???-???-???-???-???- Negative 155 -???-???-???-???-???-???-??? -???-???-???-???-???- GP - no LOF, VB, DFM, ctx. Denies complaints. Having a girl! 04/13/21 -???-???-???-???-???-???-??? -???-???-???-???-???- 25w 2d 161 lb 6 oz (+11 lb 6 oz) 110/60 Negative -???-???-???-???-???-???-??? -???-???-???-???-???- Negative 157 24 -???-???-???-???-???-???-??? -???-???-???-???-???- MH-No VB, LO F. Doing well. Good FM. US scheduled 05/01 to check placenta 05/10/21 -???-???-???-???-???-???-??? -???-???-???-???-???- 29w 1d 161 lb 4 oz (+11 lb 4 oz) 110/70 Negative -???-???-???-???-???-???-??? -???-???-???-???-???- Negative 145 30 Cephalic -???-???-???-???-???-???-??? -???-???-???-???-???- SM- no vb lo f good fm no reuglar ctx nl gtt 3 hr 05/25/21 -???-???-???-???-???-???-??? -???-???-???-???-???- 31w 2d 164 lb (+14 lb) 110/70 Negative -???-???-???-???-???-???-??? -???-???-???-???-???- Negative 150 31 Cephalic -???-???-???-???-???-???-??? -???-???-???-???-???- GP - no LOF, VB, dFM, ctx. LARC form signed - declines 06/09/21 -???-???-???-???-???-???-??? -???-???-???-???-???- 33w 3d 169 lb (+19 lb) 110/80 Negative -???-???-???-???-???-???-??? -???-???-???-???-???- Negative 150 33 Cephalic -???-???-???-???-???-???-??? -???-???-???-???-???- GP - no LOF, VB, dFM, ctx. Discussed labor preferences. 06/23/21 -???-???-???-???-???-???-??? -???-???-???-???-???- 35w 3d 168 lb 6 oz (+18 lb 6 oz) 112/70 Negative -???-???-???-???-???-???-??? -???-???-???-???-???- Negative 150 35 Cephalic -???-???-???-???-???-???-??? -???-???-???-???-???- SM- no vb lo f good fm no regular ctx 06/30/21 -???-???-???-???-???-???-??? -???-???-???-???-???- 36w 3d 172 lb (+22 lb) 130/82 Negative -???-???-???-???-???-???-??? -???-???-???-???-???- Negative 140 36 Cephalic 1 -???-???-???-???-???-???-??? -???-???-???-???-???- SM- no vb lo f good fm [...] DO Work Phone: Start: 06-23-2021 End: 06-28-2021 Home Health Specialist Office Visit Report Comments: See Note; NOTES: [facility] [address] [place] [address] OFFICE VISIT Date of Service: 06/23/21 MR#: [id number] Acct: [id number] Name: SAGE GONZALES Rep #: [id number] : 1995 Provider: Dr. Alejandrina doyle MD Age/Sex: 25/F [place] [facility] [place]: Signed Intake Vital Signs 06/23/21 10:47 [...] safe at home: Yes additional social history: [employer] employee [employer] History 1 Elective abortions [...] Pres Dilation -?-?-?-?-?-?-?-?-?-?-?-?- Effaced St Visit Note 04/19/21 -?-?-?-?-?-?-?-?-?-?-?-?- 8w 6d 150 lb 8 oz (+8 oz) 110/70 -?-?-?-?-?-?-?-?-?-?-?-?- 175 -?-?-?-?-?-?-?-?-?-?-?-?- SM- CRL NOT cons with LMP, 1.9 cm 01/19/21 -?-?-?-?-?-?-?-?-?-?-?-?- 13w 2d 153 lb (+3 lb) 114/64 Negative -?-?-?-?-?-?-?-?-?-?-?-?- Negative 150 -?-?-?-?-?-?-?-?-?-?-?-?- SM- no vb no regualr ctx 02/16/21 -?-?-?-?-?-?-?-?-?-?-?-?- 17w 2d 153 lb (+3 lb) 98/68 Negative -?-?-?-?-?-?-?-?-?-?-?-?- Negative 154 -?-?-?-?-?-?-?-?-?-?-?-?- MH-NO VB, LO F. Feels well. Anatomy [facility] 02/2803/17/21 -?-?-?-?-?-?-?-?-?-?-?-?- 21w 3d 159 lb 8 oz (+9 lb 8 oz) 94/70 Negative -?-?-?-?-?-?-?-?-?-?-?-?- Negative 155 -?-?-?-?-?-?-?-?-?-?-?-?- GP - no LOF, VB, DFM, ctx. Denies complaints. Having a girl! 04/13/21 -?-?-?-?-?-?-?-?-?-?-?-?- 25w 2d 161 lb 6 oz (+11 lb 6 oz) 110/60 Negative -?-?-?-?-?-?-?-?-?-?-?-?- Negative 157 24 -?-?-?-?-?-?-?-?-?-?-?-?- MH-No VB, LO F. Doing well. Good [...] DO Work Phone: Start: 06-09-2021 End: 06-09-2021 Home Health Specialist Office Visit Report Comments: See Note; NOTES: [facility] [address] [place] [address] OFFICE VISIT Date of Service: 06/09/21 MR#: [id number] Acct: [id number] Name: SAGE GONZALES Rep #: [id number] : 1995 Provider: Dr. Yvonne lackey MD Age/Sex: 25/F [place] [facility] [place]: Signed Intake Vital Signs 06/09/21 08:08 Height 5 ft 4 in Weight: 169 lb BMI 29.0 BP 110/80 Intake Visit Reasons: 33WK OB Weigh Tank Operator Required: No Is patient in pain?: No [...] safe at home: Yes additional social history: [employer] employee [employer] History 1 Elective abortions [...] list details Initial Weight: 150 lb Date -???-???-???-???-???-???-??? -???-???-???-???-???- EGA Weight BP Urine Prot -???-???-???-???-???-???-??? -???-???-???-???-???- Glucose FHR FuHt Pres Dilation -???-???-???-???-???-???-??? -???-???-???-???-???- Effaced St Visit Note 12/19/20 -???-???-???-???-???-???-??? -???-???-???-???-???- 8w 6d 150 lb 8 oz (+8 oz) 110/70 -???-???-???-???-???-???-??? -???-???-???-???-???- 175 -???-???-???-???-???-???-??? -???-???-???-???-???- SM- CRL NOT cons with LMP, 1.9 cm 01/19/21 -???-???-???-???-???-???-??? -???-???-???-???-???- 13w 2d 153 lb (+3 lb) 114/64 Negative -???-???-???-???-???-???-??? -???-???-???-???-???- Negative 150 -???-???-???-???-???-???-??? -???-???-???-???-???- SM- no vb no regualr ctx 02/16/21 -???-???-???-???-???-???-??? -???-???-???-???-???- 17w 2d 153 lb (+3 lb) 98/68 Negative -???-???-???-???-???-???-??? -???-???-???-???-???- Negative 154 -???-???-???-???-???-???-??? -???-???-???-???-???- -NO FRANK SCHULER F. Feels well. Anatomy [facility] 02/2803/17/21 -???-???-???-???-???-???-??? -???-???-???-???-???- 21w 3d 159 lb 8 oz (+9 lb 8 oz) 94/70 Negative -???-???-???-???-???-???-??? -???-???-???-???-???- Negative 155 -???-???-???-???-???-???-??? -???-???-???-???-???- GP - no LOF, VB, DFM, ctx. Denies complaints. Having a girl! 04/13/21 -???-???-???-???-???-???-??? -???-???-???-???-???- 25w 2d 161 lb 6 oz (+11 lb 6 oz) 110/60 Negative -???-???-???-???-???-???-??? -???-???-???-???-???- Negative 157 24 -???-???-???-???-???-???-??? -???-???-???-???-???- -No GANGA, LO F. Doing well. Good FM. US scheduled 05/01 to check placenta 05/10/21 -???-???-???-???-???-???-??? -???-???-???-???-???- 29w 1d 161 lb 4 oz (+11 lb 4 oz) 110/70 Negative -???-???-???-???-???-???-??? -???-???-???-???-???- Negative 145 30 Cephalic -???-???-???-???-???-???-??? -???-???-???-???-???- SM- no vb lo f good fm no reuglar ctx nl gtt 3 hr 05/25/21 -???-???-???-???-???-???-??? -???-???-???-???-???- 31w 2d 164 lb (+14 lb) 110/70 Negative -???-???-???-???-???-???-??? -???-???-???-???-???- Negative 150 31 Cephalic -???-???-???-???-???-???-??? -???-???-???-???-???- GP - no LOF, VB, dFM, ctx. LARC form signed - declines 06/09/21 -???-???-???-???-???-???-??? -???-???-???-???-???- 33w 3d 169 lb (+19 lb) 110/80 Negative -???-???-???-???-???-???-??? -???-???-???-???-???- Negative 150 33 Cephalic -???-???-???-???-???-???-??? -???-???-???-???-???- GP - no LOF, VB, dFM, ctx. [...] nourished Orientation: alert, awake and oriented x3 [facility] Head: normal to inspection, normocephalic and atraumatic [...] , second trimester Comment: PRR DIAMANTE: 07/25/21 selena Locke Spouse: Nitin (4) : Status: Acute Qualifiers: [...] DO Work Phone: Start: 05-25-2021 End: 05-25-2021 Home Health Specialist Office Visit Report Comments: See Note; NOTES: [facility] [address] [place] [address] OFFICE VISIT Date of Service: 05/25/21 MR#: [id number] Acct: [id number] Name: SAGE GONZALES Rep #: [id number] : 1995 Provider: Dr. Yvonne lackey MD Age/Sex: 25/F Location[place] [facility] [place]: Signed Intake Vital Signs 05/25/21 14:52 Height 5 ft 4 in Weight: 164 lb BMI 28.1 BP 110/70 Intake Visit Reasons: 31WK OB Weigh Tank Operator Required: No Is patient in pain?: No [...] at home: Yes additional social history: Nitin- [employer] employee [employer] History 1 Elective abortions [...] list details Initial Weight: 150 lb Date -???-???-???-???-???-???-??? -???-???-???-???-???- EGA Weight BP Urine Prot -???-???-???-???-???-???-??? -???-???-???-???-???- Glucose FHR FuHt Pres Dilation -???-???-???-???-???-???-??? -???-???-???-???-???- Effaced St Visit Note 12/19/20 -???-???-???-???-???-???-??? -???-???-???-???-???- 8w 6d 150 lb 8 oz (+8 oz) 110/70 -???-???-???-???-???-???-??? -???-???-???-???-???- 175 -???-???-???-???-???-???-??? -???-???-???-???-???- SM- CRL NOT cons with LMP, 1.9 cm 01/19/21 -???-???-???-???-???-???-??? -???-???-???-???-???- 13w 2d 153 lb (+3 lb) 114/64 Negative -???-???-???-???-???-???-??? -???-???-???-???-???- Negative 150 -???-???-???-???-???-???-??? -???-???-???-???-???- SM- no vb no regualr [facility] 02/16/21 -???-???-???-???-???-???-??? -???-???-???-???-???- 17w 2d 153 lb (+3 lb) 98/68 Negative -???-???-???-???-???-???-??? -???-???-???-???-???- Negative 154 -???-???-???-???-???-???-??? -???-???-???-???-???- -NO VB, LO F. Feels well. Anatomy [facility] 02/2803/17/21 -???-???-???-???-???-???-??? -???-???-???-???-???- 21w 3d 159 lb 8 oz (+9 lb 8 oz) 94/70 Negative -???-???-???-???-???-???-??? -???-???-???-???-???- Negative 155 -???-???-???-???-???-???-??? -???-???-???-???-???- GP - no LOF, VB, DFM, ctx. Denies complaints. Having a girl! 04/13/21 -???-???-???-???-???-???-??? -???-???-???-???-???- 25w 2d 161 lb 6 oz (+11 lb 6 oz) 110/60 Negative -???-???-???-???-???-???-??? -???-???-???-???-???- Negative 157 24 -???-???-???-???-???-???-??? -???-???-???-???-???- MH-No VB, LO F. Doing well. Good FM. US scheduled 05/01 to check placenta 05/10/21 -???-???-???-???-???-???-??? -???-???-???-???-???- 29w 1d 161 lb 4 oz (+11 lb 4 oz) 110/70 Negative -???-???-???-???-???-???-??? -???-???-???-???-???- Negative 145 30 Cephalic -???-???-???-???-???-???-??? -???-???-???-???-???- SM- no vb lo f good fm no reuglar ctx nl gtt 3 hr 05/25/21 -???-???-???-???-???-???-??? -???-???-???-???-???- 31w 2d 164 lb (+14 lb) 110/70 Negative -???-???-???-???-???-???-??? -???-???-???-???-???- Negative 150 31 Cephalic -???-???-???-???-???-???-??? -???-???-???-???-???- GP - no LOF, VB, dFM, ctx. [...] DO Work Phone: Start: 05-10-2021 End: 05-10-2021 Home Health Specialist Office Visit Report Comments: See Note; NOTES: [facility] [address] [place] [address] OFFICE VISIT Date of Service: 05/10/21 MR#: [id number] Acct: [id number] Name: SAGE GONZALES Rep #: [id number] : 1995 Provider: Dr. 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 -???-???-???-???-???- EGA Weight BP Urine Prot -???-???-???-???-???-???-??? -???-???-???-???-???- Glucose FHR FuHt Pres Dilation -???-???-???-???-???-???-??? -???-???-???-???-???- Effaced St Visit Note 12/19/20 -???-???-???-???-???-???-??? -???-???-???-???-???- 8w 6d 150 lb 8 oz (+8 oz) 110/70 -???-???-???-???-???-???-??? -???-???-???-???-???- 175 -???-???-???-???-???-???-??? -???-???-???-???-???- SM- CRL NOT cons with LMP, 1.9 cm 01/19/21 -???-???-???-???-???-???-??? -???-???-???-???-???- 13w 2d 153 lb (+3 lb) 114/64 Negative -???-???-???-???-???-???-??? -???-???-???-???-???- Negative 150 -???-???-???-???-???-???-??? -???-???-???-???-???- SM- no vb no regualr ctx 02/16/21 -???-???-???-???-???-???-??? -???-???-???-???-???- 17w 2d 153 lb (+3 lb) 98/68 Negative -???-???-???-???-???-???-??? -???-???-???-???-???- Negative 154 -???-???-???-???-???-???-??? -???-???-???-???-???- -NO VB, LO F. Feels well. Anatomy [facility] 02/2803/17/21 -???-???-???-???-???-???-??? -???-???-???-???-???- 21w 3d 159 lb 8 oz (+9 lb 8 oz) 94/70 Negative -???-???-???-???-???-???-??? -???-???-???-???-???- Negative 155 -???-???-???-???-???-???-??? -???-???-???-???-???- GP - no LOF, VB, DFM, ctx. Denies complaints. Having a girl! 04/13/21 -???-???-???-???-???-???-??? -???-???-???-???-???- 25w 2d 161 lb 6 oz (+11 lb 6 oz) 110/60 Negative -???-???-???-???-???-???-??? -???-???-???-???-???- Negative 157 24 -???-???-???-???-???-???-??? -???-???-???-???-???- -No VB, LO F. Doing well. Good FM. US scheduled 05/01 to check placenta 05/10/21 -???-???-???-???-???-???-??? -???-???-???-???-???- 29w 1d 161 lb 4 oz (+11 lb 4 oz) 110/70 Negative -???-???-???-???-???-???-??? -???-???-???-???-???- Negative 145 30 Cephalic -???-???-???-???-???-???-??? -???-???-???-???-???- SM- no vb lo f good fm [...] Route Admin Location Lot Number Expiration Date ND Manufactu rer 0.5 mL IM Left Deltoid [id number] 10/21/22 56808-896-87 [employer] VIS Given Date VIS Provided VIS [...] Limited (No Biometrics) Comments: See Note; NOTES: [facility] Imaging Services [address] [place] [address] OB Limited (No Biometrics) MR#: [id number] Acct: [id number] Name: SAGE GONZALES Rep #: [id number] : 1995 F 25 From: Faisal Chang MD PCP: Dr. Sunita Fernandes DO Status: REG CLI Study: OB Limited (No Biometrics) Date of Exam: 05/01 Exam# [id number] Ordering Dr: Florence Bravo NP, NP STUDY: SECOND AND THIRD TRIMESTER OBSTETRICAL ULTRASOUND [...] measures 4.8 cm. The amniotic fluid index (AN) is 12.8 cm. The placenta is anterior [...] CC: CORAL Bravo; Dr. Sunita Fernandes DO Marble Setter: Signed Sunita Fernandes DO Work Phone: Start: 04-13-2021 End: 04-13-2021 Home Health Specialist Office Visit Report Comments: See Note; NOTES: [facility] [address] [place] [address] OFFICE VISIT Date of Service: 04/13/21 MR#: [id number] Acct: [id number] Name: SAGE GONZALES Rep #: [id number] : 1995 Provider: CORAL amaya Age/Sex: 25/F [place] [facility] [place]: Signed Intake Vital Signs 04/13/21 08:37 04/13/21 08:39 Height 5 ft 4 in Weight: 161 lb 6 oz BMI 27.6 25.8 BP 110/60 Intake Visit Reasons: 25 WK OB Weigh Tank Operator Required: No Is patient in pain?: No [...] safe at home: Yes additional social history: [employer]- [employer] employee [employer] History 1 Elective abortions [...] list details Initial Weight: 150 lb Date -???-???-???-???-???-???-??? -???-???-???-???-???- EGA Weight BP Urine Prot -???-???-???-???-???-???-??? -???-???-???-???-???- Glucose FHR FuHt Pres Dilation -???-???-???-???-???-???-??? -???-???-???-???-???- Effaced St Visit Note 12/19/20 -???-???-???-???-???-???-??? -???-???-???-???-???- 8w 6d 150 lb 8 oz (+8 oz) 110/70 -???-???-???-???-???-???-??? -???-???-???-???-???- 175 -???-???-???-???-???-???-??? -???-???-???-???-???- SM- CRL NOT cons with LMP, 1.9 cm 01/19/21 -???-???-???-???-???-???-??? -???-???-???-???-???- 13w 2d 153 lb (+3 lb) 114/64 Negative -???-???-???-???-???-???-??? -???-???-???-???-???- Negative 150 -???-???-???-???-???-???-??? -???-???-???-???-???- SM- no vb no regualr ctx 02/16/21 -???-???-???-???-???-???-??? -???-???-???-???-???- 17w 2d 153 lb (+3 lb) 98/68 Negative -???-???-???-???-???-???-??? -???-???-???-???-???- Negative 154 -???-???-???-???-???-???-??? -???-???-???-???-???- -NO VB, LO F. Feels well. Anatomy [facility] 02/2803/17/21 -???-???-???-???-???-???-??? -???-???-???-???-???- 21w 3d 159 lb 8 oz (+9 lb 8 oz) 94/70 Negative -???-???-???-???-???-???-??? -???-???-???-???-???- Negative 155 -???-???-???-???-???-???-??? -???-???-???-???-???- GP - no LOF, VB, DFM, ctx. Denies complaints. Having a girl! 04/13/21 -???-???-???-???-???-???-??? -???-???-???-???-???- 25w 2d 161 lb 6 oz (+11 lb 6 oz) 110/60 Negative -???-???-???-???-???-???-??? -???-???-???-???-???- Negative 157 24 -???-???-???-???-???-???-??? -???-???-???-???-???- MH-No VB, LO F. Doing well. Good [...] Office Urine Glucose Negative Last Edit by King Castelan on 04/13/21 08:39 Office Urine Protein Negative Last Edit by King Castelan on 04/13/21 08:39 POC Urinalysis Dip (Clinic) Office Urine Color Yellow Last Edit by King Castelan on 04/13/21 08:40 Office Urine Clarity Clear Last Edit by King Castelan on 04/13/21 08:40 Office Urine Glucose Negative Last Edit by King Castelan on 04/13/21 08:40 Office Urine Ketones Negative Last Edit by King Castelan on 04/13/21 08:40 Off Ur Spec [place] 1.010 Last Edit by King Castelan on 04/13/21 08:40 Office Urine pH 6.0 Last Edit by King Castelan on 04/13/21 08:40 Office Urine Bilirubin Negative Last Edit by King Castelan on 04/13/21 08:40 Office Urine Urobilinogen Negative Last Edit by King Castelan on 04/13/21 08:40 Office Urine Blood Negative Last Edit by King Castelan on 04/13/21 08:40 Office Urine Blood Hemolyzed Negative Last Edit by King Castelan on 04/13/21 08:40 Office Urine Protein Negative Last Edit by King Castelan on 04/13/21 08:40 Office Urine Nitrate Negative Last Edit by King Castelan on 04/13/21 08:40 Off Ur Leukocytes Negatve Last Edit by King Castelan on 04/13/21 08:40 Coding Level of [...] 03/22/21 Z34.02, O44.42 Plan - Florence Bravo [employer] TE[employer]ER LIBRARIAN, SEC[employer] TEACHER LIBRARIAN-C: problem list reviewed and updated for most [...] 0846 <Electronically signed by Florence Bravo NP SEC[employer]ARY SCHO[employer] TEACHER LIBRARIAN-C> Date Florence Bravo NP SECONDARY SCHOOL TEACHER LIBRARIAN-C Cosigner Signature: Date (if applicable) CC: Sunita Fernandes DO Work Phone: Start: 03-17-2021 End: 03-17-2021 Home Health Specialist Office Visit Report Comments: See Note; NOTES: [facility] [address] [place] [address] OFFICE VISIT Date of Service: 03/17/21 MR#: [id number] Acct: [id number] Name: SAGE GONZALES Rep #: [id number] : 1995 Provider: Dr. Yvonne lackey MD Age/Sex: 25/F Location[place] [facility] Status: Signed Intake Vital Signs 03/17/21 14:04 03/17/21 14:05 Height 5 ft 4 in Weight: 159 lb 8 oz BMI 27.3 25.8 BP 94/70 Intake Visit Reasons: 21 WK OB Chief Complaint: est ob Weigh Tank Operator Required: No Is patient in pain?: No [...] safe at home: Yes additional social history: [employer]- [employer] employee [employer] History 1 Elective abortions [...] list details Initial Weight: 150 lb Date -???-???-???-???-???-???-??? -???-???-???-???-???- EGA Weight BP Urine Prot -???-???-???-???-???-???-??? -???-???-???-???-???- Glucose FHR FuHt Pres Dilation -???-???-???-???-???-???-??? -???-???-???-???-???- Effaced St Visit Note 12/19/20 -???-???-???-???-???-???-??? -???-???-???-???-???- 8w 6d 150 lb 8 oz (+8 oz) 110/70 -???-???-???-???-???-???-??? -???-???-???-???-???- 175 -???-???-???-???-???-???-??? -???-???-???-???-???- SM- CRL NOT cons with LMP, 1.9 cm 01/19/21 -???-???-???-???-???-???-??? -???-???-???-???-???- 13w 2d 153 lb (+3 lb) 114/64 Negative -???-???-???-???-???-???-??? -???-???-???-???-???- Negative 150 -???-???-???-???-???-???-??? -???-???-???-???-???- SM- no vb no regualr ctx 02/16/21 -???-???-???-???-???-???-??? -???-???-???-???-???- 17w 2d 153 lb (+3 lb) 98/68 Negative -???-???-???-???-???-???-??? -???-???-???-???-???- Negative 154 -???-???-???-???-???-???-??? -???-???-???-???-???- -NO VB, LO F. Feels well. Anatomy [facility] 02/2803/17/21 -???-???-???-???-???-???-??? -???-???-???-???-???- 21w 3d 159 lb 8 oz (+9 lb 8 oz) 94/70 Negative -???-???-???-???-???-???-??? -???-???-???-???-???- Negative 155 -???-???-???-???-???-???-??? -???-???-???-???-???- GP - no LOF, VB, DFM, ctx. [...] OB Anatomy Scan Comments: See Note; NOTES: [facility] Imaging Services [address] [place] [address] OB Anatomy Scan MR#: [id number] Acct: [id number] Name: SAGE GONZALES Rep #: [id number] : 1995 F 25 From: Faisal Chang MD PCP: Dr. Sunita Fernandes, DO Status: REG CLI Study: OB Anatomy Scan Date of Exam: 02/28/21 Exam# [id number] Ordering Dr: Alejandrina Marshall STUDY: SECOND AND [...] measures 8.2 cm. The amniotic fluid index (AN) is cm. The placenta is anterior and [...] Sunita Fernandes DO; Dr. Alejandrina Marshall MD Marble Setter: Signed Sunita Fernandes DO Work Phone: Start: 02-16-2021 End: 02-20-2021 Home Health Specialist Office Visit Report Comments: See Note; NOTES: [facility] [address] [place] [address]. [address] [place] [address] OFFICE VISIT Date of Service: 02/16/21 MR#: [id number] Acct: [id number] Name: SAGE GONZALES Rep #: [id number] : 1995 Provider: CORAL amaya Age/Sex: 25/F Location[place] [facility] [place]: Signed Intake Vital Signs 12/19/20 14:13 02/16/21 11:13 02/16/21 11:14 02/16/21 11:46 Height 5 ft 4 in Weight: 153 lb BMI 25.8 26.2 25.8 BP 98/68 Intake Visit Reasons: 17 WK OB Chief Complaint: est ob Weigh Tank Operator Required: No Is patient in pain?: No Allergies geo Allergy (Verified 12/19/20 13:14) Unknown Medications multivitamin no.47-iron fum 27 mg-folate no.1 1 mg-dha 300 mg capsule cap PO 12/14/20 [History Confirmed 02/16/21] Last Menstral Period: 10/10/20 Zika: Zika virus screening: Negative : No PFSH PFSH Medical History (Updated 02/16/21 @ 11:47 by Florence Bravo [employer]ARY SCHO[employer] TEACHER LIBRARIAN, SECONDARY SCHOOL TEACHER LIBRARIAN-C) Depression History of venomous spider bite Surgical [...] at home: Yes additional social history: N[employer]- [employer] employee [employer] History 1 Elective abortions [...] list details Initial Weight: 150 lb Date -???-???-???-???-???-???-??? -???-???-???-???-???- EGA Weight BP Urine Prot -???-???-???-???-???-???-??? -???-???-???-???-???- Glucose FHR FuHt Pres Dilation -???-???-???-???-???-???-??? -???-???-???-???-???- Effaced St Visit Note 12/19/20 -???-???-???-???-???-???-??? -???-???-???-???-???- 8w 6d 150 lb 8 oz (+8 oz) 110/70 -???-???-???-???-???-???-??? -???-???-???-???-???- 175 -???-???-???-???-???-???-??? -???-???-???-???-???- SM- CRL NOT cons with LMP, 1.9 cm 01/19/21 -???-???-???-???-???-???-??? -???-???-???-???-???- 13w 2d 153 lb (+3 lb) 114/64 Negative -???-???-???-???-???-???-??? -???-???-???-???-???- Negative 150 -???-???-???-???-???-???-??? -???-???-???-???-???- SM- no vb no regualr ctx 02/16/21 -???-???-???-???-???-???-??? -???-???-???-???-???- 17w 2d 153 lb (+3 lb) 98/68 Negative -???-???-???-???-???-???-??? -???-???-???-???-???- Negative 154 -???-???-???-???-???-???-??? -???-???-???-???-???- -NO VB, FRANK Paula. Feels well. Anatomy [facility] 02/28 ACOG First Trimester First Trimester: Desire [...] Office Urine Glucose Negative Last Edit by Francisac Nichols on 02/16/21 11:19 Office Urine Protein [...] time. 02/16 stable Plan - Florence Bravo [employer]CHO[employer] TEACHER LIBRARIAN, SECONDARY SCHOOL TEACHER LIBRARIAN-C: problem list reviewed and updated for most [...] 02/16/21 1147<Electronically signed by Florence Bravo NP SECONDARY SCHOOL TEACHER LIBRARIAN-C> Cosigner Signature: Date (if applicable) Florence Bravo NP SECONDARY SCHOOL TEACHER LIBRARIAN-C CC: Sunita Fernandes DO Work Phone: Start: 01-19-2021 End: 01-19-2021 Home Health Specialist Office Visit Report Comments: See Note; NOTES: [facility] [address] [place] [address]. [address] [place] [address] OFFICE VISIT Date of Service: 01/19/21 MR#: [id number] Acct: [id number] Name: GONZALESSAGE PEDERSON Rep #: [id number] : 1995 Provider: Dr. Alejandrina doyle MD Age/Sex: 25/F [place] [facility] [place]: Signed Intake Vital Signs 01/19/21 08:06 01/19/21 08:06 Height 5 ft 4 in Weight: 153 lb BMI 26.2 25.8 BP 114/64 Intake Visit Reasons: 13 WK OB Chief Complaint: est ob Weigh Tank Operator Required: No Is patient in pain?: No [...] safe at home: Yes additional social history: [employer] employee [employer] History 1 Elective abortions [...] list details Initial Weight: 150 lb Date -???-???-???-???-???-???-??? -???-???-???-???-???- EGA Weight BP Urine Prot -???-???-???-???-???-???-??? -???-???-???-???-???- Glucose FHR FuHt Pres Dilation -???-???-???-???-???-???-??? -???-???-???-???-???- Effaced St Visit Note 12/19/20 -???-???-???-???-???-???-??? -???-???-???-???-???- 8w 6d 150 lb 8 oz (+8 oz) 110/70 -???-???-???-???-???-???-??? -???-???-???-???-???- 175 -???-???-???-???-???-???-??? -???-???-???-???-???- SM- CRL NOT cons with LMP, 1.9 cm 01/19/21 -???-???-???-???-???-???-??? -???-???-???-???-???- 13w 2d 153 lb (+3 lb) 114/64 Negative -???-???-???-???-???-???-??? -???-???-???-???-???- Negative 150 -???-???-???-???-???-???-??? -???-???-???-???-???- SM- no vb no regualr ctx ACOG [...] CC: Sunita Fernandes DO Work Phone: Start: 12-19-2020 End: 04-22-2021 Home Health Specialist Office Visit Report Comments: See Note; NOTES: [facility] [address] [place] [address] OFFICE VISIT Date of Service: 12/19/20 MR#: [id number] Acct: [id number] Name: SAGE GONZALES Rep #: [id number] : 1995 Provider: Dr. Alejandrina doyle MD Age/Sex: 25/F Location[place] [facility] [place]: Signed Intake Vital Signs 12/19/20 Height 5 ft 4 in 12/19/20 Weight: 150 lb 8 oz 12/19/20 BMI 25.8 12/19/20 BP 110/70 Intake Visit Reasons: NOB LMP 10/10 Weigh Tank Operator Required: No Accompanied by: Allergies geo Allergy [...] safe at home: Yes additional social history: [employer] employee [employer] History 1 Elective abortions [...] list details Initial Weight: 150 lb Date -???-???-???-???-???-???-??? -???-???-???-???-???- EGA Weight BP Urine Prot -???-???-???-???-???-???-??? -???-???-???-???-???- Glucose FHR FuHt Pres Dilation -???-???-???-???-???-???-??? -???-???-???-???-???- Effaced St Visit Note 12/19/20 -???-???-???-???-???-???-??? -???-???-???-???-???- 8w 6d 150 lb 8 oz (+8 oz) 110/70 -???-???-???-???-???-???-??? -???-???-???-???-???- 175 -???-???-???-???-???-???-??? -???-???-???-???-???- SM- CRL NOT cons with LMP, 1.9 [...] (Rh) Sensitized, Pulmonary (e.g.,TB,Asthma), Seasonal allergies, Breast, Bike Assembler surgery, Operations/hospitalizations, Anesthetic complications, History of abnormal [...] appearing, comfortable, no acute distress Orientation: alert [facility] Head: normal to inspection, normocephalic, atraumatic Ears: [...] at this time 2. Supervision of normal Z34.90 DIAMANTE: 07/25/21 Spouse: Nitin 3. Z34.90 declines genetic and carrier screening. consider afp. [...] W/Diff, Automated 12/19/20 Culture, Urine 12/19/20 CT/NG [facility] BY PCR 12/19/20 Urine Drug Screen (VISTA) 12/19/20 Coding Level of Care Code OB Routine Diagnoses Depression F32.9 Supervision of normal Z3412/22/20 0655 <Electronically signed by Alejandrina Marshall MD> Date Alejandrina Marshall MD Cosign Signature: Date (if applicable) CC: Sunitajenae Fernandes DO Work Phone: Start: 03-30-2020 End: 03-30-2020 Urgent Care Visit Report Comments: See Note; NOTES: [facility] [address] [place] [address] OFFICE VISIT Date of Service: 03/30/20 MR#: [id number] Acct: [id number] Name: SAGE GONZALES Rep #: [id number] : 1995 Provider: DUKE benson Age/Sex: 24/F Location: [facility] Status: Signed Intake Vital Signs 03/30/20 BMI 25.7 03/30/20 BP 120/80 07/29/20 Blood Pressure Location Lt brachial 03/30/20 Position [...] with similar complaints. She has taken no ollc-hrh-qhdkgnp products to assist with symptoms. She notes [...] the above. This note was generated with [employer] software. It may contain incorrect words, spelling, and punctuation that were not noted in checking the note before signing. Orders Orders: POC Viviana Rapid Strep A Today Medications New: amoxicillin 1,000 mg (2 x 500 mg) PO BID 10 days 40 caps 0RF Coding Level of Care Code Off vis,new,level 3 Diagnoses Acute streptococcal pharyngitis J02.0 03/30/20 1652 <Electronically signed by Arben WALL> Date Arben WALL Cosigner Signature: Date (if applicable) CC: Sunita Dom DO Work Phone: Start: 08-24-2017 End: 08-24-2017 Urgent Care Visit Report Comments: See Note; NOTES: [facility] [address] [place] [address] OFFICE VISIT Date of Service: 08/24/17 MR#: [id number] Acct: [id number] Name: SAGE MADISON Rep #: [id number] : 1995 Provider: DUKE Gutiérrez Age/Sex: 21/F Location: [facility] Status: Signed Intake Vital Signs08/24/17 Height 5 [...] vision ENT ENT: Positive for ear pain (discomfort.); no sore throat, nasal congestion or nasal [...] person, oriented to place, oriented to time [facility] Head: normocephalic Ears: external ears normal, TM's [...] <Electronically signed by Junior WALL> Date Junior Stahl Signature: Date (if applicable) CC: Sunita Fernandes DO Work Phone: Start: 07-20-2016 End: 07-20-2016 PT D/C Summary (1) Comments: See Note; NOTES: [facility] [address] [place] [address] Fax REHABILITATION SERVICES DISCHARGE SUMMARY MR#: [id number] Acct: [id number] Name: SAGE MADISON Rep #: [id number] : 1995 20 From: Wai Cochran PT, Cert. MDT, OCS Referring DrTerese: Vijaya Gibbs Status: REG R Insurance: [facility] - PT D/C Summary It has [...] please feel free to call me at [phone]. Thank you for the referral of this patient. Sincerely, Wai Cochran PT, <Electronically signed by Wai Cochran PT, CertTerese CHAVIRAT, OCS> 07/20/16 1402 CC: Vijaya Gibbs; Sunita Fernandes DO JLA Signed Sunita Fernandes DO Work Phone: Start: 06-26-2016 End: 06-26-2016 Inital Evaluation (1) - PT Comments: See Note; NOTES: [facility] [address] [place] [address] Fax REHABILITATION SERVICES INITIAL EVALUATION MR#: [id number] Acct: [id number] Name: SAGE MADISON Rep #: [id number] : 1995 20 From: Wai Cochran PT, Cert. CHAVIRAT, OCS Referring Dr.: Vijaya Gibbs Status: REG R Insurance: [facility] Patient's Visit Information SAGE MADISON [...] to be FAXED BACK to us at [phone] for Medicare purposes. Please let me know if there are questions or concerns regarding this plan of care. Physician Signature: ___Date: <Electronically signed by Wai Cochran PT, Cert. T, OCS> 06/26/16 0850 CC: Vijaya Gibbs; Sunita Fernandes DO PRIYA Signed For Medicare only, by signing this I certify the plan of care. Physicians Signature Date Sunita Fernandes DO Work Phone: Start: 06-18-2016 End: 06-19-2016 L/S Spine Min 4 Views Comments: See Note; NOTES: [facility] Imaging Services [address] [place] [address] Verdana 4d L/S Spine Min 4 Views MR#: [id number] Acct: [id number] Name: SAGE MADISON Rep #: [id number] : 1995 F 20 From: Edison Taveras MD PCP: Sunita Fernandes DO Status: REG CLI Study: L/S Spine Min 4 Views Date of Exam: 06/18/16 Exam# [id number] Ordering Dr: Vijaya Gibbs STUDY: X-RAY - [...] Edison Taveras MD at 15:37 EDT Tel [phone], Service support [phone], CC: Vijyaa Gibbs; Sunita Fernandes DO Marble Setter: Signed Vijaya Gibbs [facility] Work Phone: Plan of Treatment Date [...] hemochromatosis gene anal common variants HFE GENE (71299) [facility] Work Phone: Start: 01-31-2015 Blood count manual c ell count each CBC with auto diff (99167) [facility]; [facility] Work Phone: Start: 01-31-2015 Iron binding capacity IRON BIN DING CAPACITY (TIBC) (08836) [facility]; [facility] Work Phone: Start: 01-31-2015 Assay of iron IRON (54320) [facility]; [facility] Work Phone: Start: 01-31-2015 Assay of ferritin FERRITIN (38534) [facility]; [facility] Work Phone: Start: 09-04-2013 Provider Instruction s for Treatment [facility]; [facility] Work Phone: Start: 09-04-2013 Fibrin dgradj produc ts d-dimer quantitative D-Dimer (34785) [facility]; [facility] Work Phone: Comment on above: stat call [facility] with ivory villasenor at [facility] Start: 06-03-2013 Provider Instruction s for [...] nternal Medicine; [facility] Work Phone: [facility] Immunizations Immunization Date Immunization Notes Care Provider Fa [facility] 05-28-2024 influenza, seasonal, injectable, preservative free Dr. Eleuterio Padilla MD Work Phone: [facility] 04-03-2024 tetanus toxoid, redu mayur diphtheria toxoid, and acellular pertussis vaccine, adsorbed Dr. Eleuterio Padilla MD Work Phone: [facility] 06-27-2023 influenza, injectabl e, quadrivalent, preservative free Dr. Eleuterio Padilla Work Phone: [facility] 06-05-2022 influenza, injectabl e, quadrivalent, preservative free Dr. Eleuterio Padilla Work Phone: [facility] 08-21-2021 Covid (Pfizer) Dr. Eleuterio Padilla Work Phone: [facility] 07-31-2021 Covid (Pfizer) Dr. Eleuterio Padilla Work Phone: [facility] 06-15-2021 influenza, injectabl e, quadrivalent, preservative free Dr. Eleuterio Padilla Work Phone: [facility] 05-10-2021 tetanus toxoid, redu mayur diphtheria toxoid, and acellular pertussis vaccine, adsorbed Dr. Eleuterio Padilla Work Phone: [facility] 05-31-2020 influenza, injectabl e, quadrivalent, preservative free Dr. Eleuterio Padilla Work Phone: [facility] 05-28-2019 influenza, injectabl e, quadrivalent, preservative free Dr. Eleuterio Padilla Work Phone: [facility] 05-30-2018 influenza, injectabl e, quadrivalent, preservative free Dr. Eleuterio Padilla Work Phone: [facility] 05-29-2017 influenza, injectabl e, quadrivalent, preservative free Dr. Eleuterio Padilla Work Phone: [facility] 06-18-2016 influenza, injectabl e, quadrivalent, preservative free Dr. Eleuterio Padilla Work Phone: [facility] 02-18-2012 meningococcal polysaccharide vaccine (MPSV4) Sunita Fernandes DO Work Phone: [facility]; [facility] Work Phone: Comment on above: [place] 02-15-2012 TB Skin Test, Intradermal Sunita Fernandes DO Work Phone: [facility]; [facility] Work Phone: Payers Date Payer Category Payer Self-pay [id number] Unknown [id number] Unknown [facility] Unknown [facility] DO NOT USE 22 [id number] Unknown [id number] Unknown [id number] [id number] Unknown [id number] [id number] Unknown [id number] 2.16.840.1.237915.3.579.2.462 Unknown [id number] 2.16.840.1.471833.3.579.2.462 Unknown [id number] 2.16.840.1.618578.3.579.2.462 Unknown [id number] 2.16.840.1.391121.3.579.2.462 Unknown [id number] 2.16.840.1.970889.3.579.2.462 Unknown [id number] 2.16.840.1.734759.3.579.2.462 Unknown [id number] 2.16.840.1.491088.3.579.2.462 Unknown [id number] 2.16.840.1.136582.3.579.2.462 Unknown [id number] 2.16.840.1.081110.3.579.2.462 Unknown [id number] 2.16.840.1.515187.3.579.2.462 Unknown [id number] 2.16.840.1.430220.3.579.2.462 Unknown [id number] 2.16.840.1.702752.3.579.2.462 Unknown [id number] [id number] Social History Date Type Detail Facility Current Work/Study Status Current Work/Study Status [facility]; [facility] Work Phone: Comment on above: [facility]- going for nursing Exercise History: Exercise History: [facility]pr [facility]; [facility] Work Phone: Tobacco use: Tobacco use: [facility]; [facility] Work Phone: Start: 11-22-2023 Tobacco smoking status NHIS Unknown if ever smoked [facility] Start: 1995 Sex Assigned At Female [facility] Start: 06-24-2024 Tobacco smoking status NHIS Never smoked tobacco (finding) [facility] Sex Female [facility] Progress note 05-26-2025 Note Date & Type Note Facility 05-26-2025 Progress note [facility] Evaluation note Note Date & Type Note Facility Evaluation note Diagnosis Onset Date Encounter for routine gyneco logical examination noneactive Acute upper respiratory infection acute Family history of breast cancer acute acute Sore throat acute Supervision of normal [facility] Work Phone: Evaluation note Note Date & Type Note Facility Evaluation note Diagnosis Onset Date Resolution Preventative health care deleted May 26, 2025 11:19am [facility] Work Phone: Instructions Note Date & Type [...] to access health information online Indication:Non-smoker Start: Instruction Type:Patient Education How to access health information online - Detail Indication:Non-smoker Start: Instruction Type:Patient Education Patient Instructions Indication:Non-smoker Start: [...] Internal Medicine; [facility] Work Phone: Progress note Note Date & Type Note Facility Progress note Note Date/Time May 26, 2025 11:53am [facility] [address] [place], [place] [address] OFFICE VISIT Date of Service: 05/26/25 MR#: [id number] Acct: [id number] Name: SAGE GONZALES Rep #: [id number] : 1995 Provider: Dr. Evita Padilla MD Age/Sex: 29/F Location: [facility] Status: Signed Intake Vital Signs 09/10/24 08:21 05/26/25 11:26 Height 5 ft 4 in 5 ft 4 in Weight: 152 lb BMI 26.1 BP 128/66 H Blood Pressure Location Lt brachial Position Sitting Respiration 18 Pulse 74 Pulse Source Monitor Temp 97.2 F L Temp Source Temporal Pulse Oximetry (%) 99 Oxygen Delivery Method room air Intake Visit Reasons: YEARLY Chief Complaint: YEARLY Is patient in pain?: No Allergies geo Allergy (Verified 05/26/25 11:25) Unknown Medications ?Medication ?Instructions ?Recorded ?Confirmed ?Type multivitamin no.47-iron fum 27 1 cap PO DAILY pregnanc y 12/14/20 05/26/25 History mg-folate no.1 1 mg-dha 300 mg capsule (PNV-DHA) Nurse's Note: pt would like to know PCP recommendation on a probiotic to use PFSH Medical History Vaginal delivery Vaginal delivery Oligohydramnios Depression History of venomous spider bite Surgical History H/O wisdom tooth extraction Hx of tonsillectomy Family History Aunt Breast cancer, Onset Age: 51 Father Hypertension Social History adopted: No household members: spouse and children housing: house number of children: 1 current occupational status: employed current occupation: [employer] current occupational exposures/hazards: No pets and animals: No history of recent travel: No sexually active: Yes Smoking Status: Never smoker second hand exposure: No alcohol intake: never substance use type: does not use well-balanced diet: daily or most days caffeine: Yes Type: coffee Number of servings: 2 eating out: 1-3 times/week during the past year weight has: remained stable what type of physical activity do you participate in: walking frequency: 3-4 times per week duration: 30-45 minutes/day sade/pentecostal: Uatsdin seatbelt use: always do you feel safe at home: Yes additional social history: [employer]- 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 No acute concerns reported at this time. Had a baby since her last visit. Otherwise, there has been no significant changes in personal or family history. Has been relatively stable. Sleeps welland stays active. No tobacco or alcohol abuse. Follows up closely with [facility]HICLE [employer]BLY INSPECTOR andhas an appointment in August. ROS Const Constitutional: No body ache, chills, excessive sweating, fatigue, fever(s), frequent falls, headache(s), snoring, weight change, sleep problems, abnormal sleep pattern or change in appetite Eyes Eyes: No blurry vision, change in vision, vision loss, dry eyes, eye pain or Light sensitivity ENT ENT: No abnormal hearing, ear or mastoid pain, hearing loss, tinnitus, dizziness/vertigo, nasal congestion, headache(s), neck pain or sore throat Resp Respiratory: No cough, excessive phlegm production, hemoptysis, shortness of breath, snoring or wheezing Cardio Cardiology: No chest pain at rest, chest pain with exertion, excessive sweating,shortness of breath, dyspnea on exertion, lightheadedness, orthopnea or palpitations Gastro GI: No abdominal pain, change in bowel habits, constipation, cramping, diarrhea,nausea/dyspepsia or vomiting Genitourinary-Female: No burning urination, painful urination, urinary incontinence, urinary frequency, abnormal vaginal bleeding or pelvic pain Musc Musculoskeletal: No abnormal gait, joint pain, back pain, limited range of motion, neck pain, numbness or tingling Skin Skin: No dry skin, redness, lesions, itchy eyes, rash or wounds Neuro Neurology: No abnormal gait, abnormal hearing, abnormal speech, behavioral changes, frequent falls, headache(s), memory loss, numbness or tingling Psych Psychiatric: No abnormal sleep pattern, No anxiety, No behavioral changes, No change in appetite, No irritability, No memory loss and No Thoughts of harming yourself/Others Endo Endocrine: No cold intolerance, excessive sweating, fatigue, flushing, heat intolerance, increased thirst/drinking, increased hunger or weight change Aller/Imm Allergy/Immunologic: No itchy eyes, seasonal allergy symptoms, hives or wheezing Tim/Lymp Hematologic/Lymphatic: No easy bleeding, easy bruising, enlarged lymph nodes or other Exam Const General: cooperative, comfortable and no acute distress Orientation: alert, awake and oriented x3 [facility] Head: normal to inspection, normocephalic and atraumatic Ears: hearing grossly normal bilaterally Eyes General: appearance normal, both eyes and all related structures Neck Neck: normal visual inspection, full ROM, no lymphadenopathy and supple Neck mass: No Thyroid: thyroid normal Resp Effort & Inspection: normal respiratory effort and able to speak in complete sentences Auscultation: Bilateral: Clear to Auscultation Cardio Rate: regular rate Rhythm: regular rhythm Heart Sounds: S1 normal and S2 normal GI Palpation: soft (Nontender, no palpable organomegaly) Neuro General: patient alert, patient awake, patient oriented x3, moves all extremities and CN's II-XI intact bilaterally Extrem General: no clubbing, cyanosis or edema Psych Appearance: grossly normal Mental Status: mental status grossly normal Mood: congruent mood Affect: normal affect Coding Level of Care Code Off vis,est,prev 18-39yrs Diagnoses Preventative health care Z00.00 Assessment and Plan Assessment and Plan (1) Preventative health care: Status: Deleted Plan: No acute concerns at this time. Employee labs reviewed and discussed, no significant concerns. Continue lifestyle and dietary modifications. We discussed dietary intake of probiotics. Follow-up with VEHICLE [employer]BLY INSPECTOR as scheduled in August. Plans to get her flu shot at work. Screening mammogram at age 38 andcolon cancer screening at age 43. Follow-up in a year or sooner if needed. Employee form signed. This note was generated with [employer] dictation software. It may contain incorrectwords, spelling, and punctuation that were not noted in checking the note beforesigning. 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 Reason for Visit Encounter for routin e gynecological examination Acute upper respiratory infection Family history of breast cancer Sore throat Supervision of normal Chief Complaint Admit Date EMPLOYEE LABS April 15, 2025 6: 38am YEARLY May 26, 2025 11:19am Reason for Visit Admit Date Preventative health care May 26, 2025 11:19am Family History Relationship Condition Age at Onset Recorded Date/T dimitris aunt Malignant neoplasm of breast 51 father Hypertension Unknown Advance Directives Advance Directive Response Recorded Date/ Time Living Will No October 21 11:08am Power of Rotary Drier Feeder No October 21, 2023 11:08am Summary Purpose Additional Source Comments Care Teams (unrecognized sec tion and content) Team Status: Active Member Role Status Dates Dr. Sunita Fernandes DO Family Provider Active Dr. Eleuterio Padilla MD Primary Care Provider Active Team Status: Inactive Member Role Status Dates Dr. Eleuterio Padilla MD Primary Care Provider, Refer ring Provider Active Dr. Orin Daniel DO Attending Provider Activ e Team Status: Inactive Member Role Status Dates Dr. Eleuterio Padilla MD Primary Care Provider, Refer ring Provider Active Sydney Grimes CNM Attending Provider Active Team Status: Inactive Member Role Status Dates Dr. Eleuterio Pdailla MD Primary Care Provider Active Sydney Grimes CNM Attending Provider, Referring Pr ovider Active Team Status: Active Member Role/Relationship Status Dates Dr. Sunita Fernandes DO Primary care physician Active Dr. Eleuterio Padilla MD Primary care physician Activ e Team Status: Active Member Role/Relationship Status Dates Dr. Eleuterio Padilla MD Primary care physician Activ e Start: April 15, 2025 Health Risk Assessment Attending physician Active Start: April 15, 2025 Health Risk Assessment Referring Provider Active Start: April 15, 2025 Team Status: Inactive Member Role/Relationship Status Dates Dr. Eleuterio Padilla MD Primary care physician Activ e Start: May 26, 2025 End: May 26, 2025 Dr. Eleuterio Padilla MD Attending physician Active Start: May 26, 2025 End: May 26, 2025 Dr. Eleuterio Padilla MD Referring Provider Active Start: May 26, 2025 End: May 26, 2025 Goals (unrecognized section and content) Type Care Experience Labor Preference s-labor support person: brocklabor intervention preferences: open to standard interventionspain management options preferred: natural if able but likely planning epiduralcut cord/dad catch: maybe cord, patient possibly wants to helpbreastfeeding: yesPP control planned: iud?discussed possible routes of delivery and associated risks: discussed possible delivery modalities and possible indications for each including R/B/A of , VAVD, and CS. questions answered.special requests: none Care Experience svdLabor Preferences -CB/BF classes: nolabor support person: Brocklabor intervention preferences: []pain management options preferred: epiduralcut cord/dad catch: cordbreastfeeding: yesPP control planned: discusseddiscussed possible routes of delivery and associated risks: []special requests: [] INFORMATION SOURCE (unrecogn ized section and content) DATE CREATED AUTHOR 05/27/2025 [facility] FOR RECORDS PERTAINING TO PATIENTS WHO ARE [...] BE BASED ON THE PRIMARY CLINICAL RECORDS. [employer] provides no warranty or guarantee of the accuracy or completeness of information in this document.
[2025-08-08 11:08] LABS: HPV APTIMA, High Risk Negative (Negative)
== END | disposition home or self-care (01) ==
LOC: LABSPEC 16:18
PROVIDERS: PCP Internal Medicine; Visit Provider Nurse Practitioner Women's Health
DX: Z12.4 Encounter for screening for malignant neoplasm of cervix (principal)
CPT/HCPCS: 87624; 88175; G0145